=== PATIENT | male | born 1970 | race Caucasian/White ===

== ENCOUNTER 2016-10-20 22:29 | Emergency (ER) | payer OTHER ==
[2016-10-20 22:40] VITALS: TEMP 99; BMI 27.1
[2016-10-21 00:43] LABS: BASOPHIL 0.5 % (0-2.0); EOSINOPHIL 1.4 % (0-4.5); MCH 34.7 pg (25.7-33.7); MCHC 33.9 g/dl (32.0-35.9); MEAN CELL VOLUME 102.2 fl (80-96); MEAN PLT VOLUME 9.9 fl (7.5-11.1); NEUTROPHILS 75.8 % (42.8-82.8); PLATELET COUNT 41 K/MM3 (134-434); RDW 15.3 % (11.9-15.9); WHITE BLOOD COUNT 5.4 K/mm3 (4.0-10.0)
[2016-10-21 01:50] LABS: ALBUMIN 2.8 g/dl (3.4-5.0); ALK PHOS 160 U/L (45-117); ANION GAP 11 (8-16); BILIRUBIN,TOTAL 8.6 mg/dL (0.2-1.0); CALCIUM 8.1 mg/dL (8.5-10.1); CO2 24 mmol/L (21-32); COCKROFT - GAULT 118.43; GLUCOSE,RANDOM 113 mg/dL (74-106); SGOT/AST 97 U/L (15-37); SGPT/ALT 41 U/L (12-78); TOT PROT 7.3 g/dl (6.4-8.2)
[2016-10-21 02:01] LABS: TROPONIN I < 0.02 ng/ml (0.00-0.05)
--- NOTE | 2016-10-21 02:39 | PDOC ---
History of Present Illness <EscalanteMayelin - Last Filed: 10/21/16 03:55> - General History Source: Patient Exam Limitations: No Limitations - History of Present Illness Initial Comments: 10/21/16 03:12 46-year-old male with a history of liver cirrhosis presents to the emergency department complaining of left sided chest discomfort this evening which has subsided. Patient states his main concern is the stiffness and cramping to his feet: Left greater than right. Patient denies any headache, dizziness, lightheadedness, neck pain, back pain, shortness of breath, chest pain since arrival to the emergency department, flank pains, abdominal pains, extremity numbness or tingling sensation. Patient states due to his liver sclerosis, he was told that or decayed to his teeth should be extracted. Patient states he is very aware that he has electrolyte imbalance since he was told by numerous physicians. He was also informed that he will continue to have cramps to his feet and other parts of his body if he does not continue to eat the correct amount. Patient admits to eating once a day and denies eating fruits and vegetables. Timing/Duration: 4-6 hours Associated Symptoms: reports: chest pain (subsided) <Jazmyne Good - Last Filed: 10/21/16 05:51> - General Chief Complaint: Chest Pain Stated Complaint: CHEST PAIN Time Seen by Provider: 10/21/16 00:46 Past History <EscalanteMayelin - Last Filed: 10/21/16 03:55> - Past Medical History Anemia: Yes Asthma: No Cancer: No Cardiac Disorders: No CVA: No COPD: No CHF: No Dementia: No Diabetes: No GI Disorders: No Disorders: No HTN: Yes (portal hypertension) Hypercholesterolemia: No Liver Disease: Yes (ALCOHOLIC CIRRHOSIS OF LIVER, ESOPHAGEAL VARICES) Seizures: No Thyroid Disease: No - Surgical History Abdominal Surgery: No Appendectomy: No Cardiac Surgery: No Cholecystectomy: No Lung Surgery: No Neurologic Surgery: No Orthopedic Surgery: No - Immunization History Immunization Up to Date: No - Psycho/Social/Smoking Cessation Hx Anxiety: No Suicidal Ideation: No Smoking Status: No Smoking History: Never smoked Have you smoked in the past 12 months: No Number of Cigarettes Smoked Daily: 0 Hx Alcohol Use: Yes (Former) Drug/Substance Use Hx: No Substance Use Type: Alcohol Hx Substance Use Treatment: No <Jazmyne Good - Last Filed: 10/21/16 05:51> - Past Medical History Allergies/Adverse Reactions: Allergies Allergy/AdvReac Type Severity Reaction Status Date / Time No Known Allergies Allergy Verified 10/20/16 22:37 Home Medications: Ambulatory Orders Folic Acid - 1 mg PO DAILY #0 tablet 12/15/13 Nadolol [Corgard -] 40 mg PO HS #0 tablet 12/15/13 Thiamine HCl [Vitamin B1 -] 100 mg PO DAILY #0 tablet 12/15/13 Ferrous Sulfate [Ferosul] 300 mg PO DAILY 12/21/13 Ondansetron HCl [Zofran] 4 mg PO ASDIR 12/21/13 Ursodiol 500 mg PO BID 12/21/13 Amoxicillin/Potassium Clav [Augmentin 875-125 Tablet] 1 each PO Q12HR #14 tablet 12/24/13 Pantoprazole Sodium [Protonix -] 40 mg PO DAILY #30 tablet.ec 12/24/13 Review of Systems - Review of Systems Able to Perform ROS?: Yes Comments:: 10/21/16 04:49 CONSTITUTIONAL: Absent: fever, chills, diaphoresis, generalized weakness, malaise, loss of appetite HEENT: Absent: rhinorrhea, nasal congestion, throat pain, throat swelling, difficulty swallowing, mouth swelling, ear pain, eye pain, visual Changes CARDIOVASCULAR: Absent: chest pain, loss of consciousness, palpitations, irregular heart rate, peripheral edema RESPIRATORY: Absent: cough, shortness of breath, dyspnea with exertion, orthopnea, wheezing, stridor, hemoptysis GASTROINTESTINAL: Absent: abdominal pain, abdominal distension, nausea, vomiting, diarrhea, constipation, melena, hematochezia GENITOURINARY: Absent: dysuria, frequency, urgency, hesitancy, hematuria, flank pain, genital pain MUSCULOSKELETAL: L>R foot; intermittent lateral sharp discomfort Absent: myalgia, arthralgia, joint swelling SKIN: Absent: rash, itching, pallor HEMATOLOGIC/IMMUNOLOGIC: Absent: easy bleeding, easy bruising, lymphadenopathy, frequent infections ENDOCRINE: Absent: unexplained weight gain, unexplained weight loss, heat intolerance, cold intolerance NEUROLOGIC: Absent: headache, focal weakness or paresthesias, dizziness, unsteady gait, seizure, mental status changes, bladder or bowel incontinence PSYCHIATRIC: Absent: anxiety, depression, suicidal or homicidal ideation, hallucinations. Is the patient limited [place] proficient: No <Jazmyne Good - Last Filed: 10/21/16 05:51> *Physical Exam - Vital Signs Last Vital Signs Temp Pulse Resp BP Pulse Ox 99 F 90 18 135/84 100 10/20/16 22:38 10/20/16 22:38 10/20/16 22:38 10/20/16 22:38 10/20/16 22:38 <Mayelin Escalante - Last Filed: 10/21/16 03:55> - Vital Signs Last Vital Signs Temp Pulse Resp BP Pulse Ox 99 F 90 18 135/84 100 10/20/16 22:38 10/20/16 22:38 10/20/16 22:38 10/20/16 22:38 10/20/16 22:38 - Physical Exam Comments: 10/21/16 04:49 GENERAL: Well developed, well nourished. Awake and alert. No acute distress. HEENT: Normocephalic, atraumatic. PERRLA, EOMI. No conjunctival pallor. Sclera are non- icteric. Moist mucous membranes. Oropharynx is clear. NECK: Supple. Full ROM. No JVD. Carotid pulses 2+ and symmetric, without bruits. No thyromegaly. No lymphadenopathy. CARDIOVASCULAR: Regular rate and rhythm. No murmurs, rubs, or gallops. Distal pulses are 2+ and symmetric. PULMONARY: No evidence of respiratory distress. Lungs clear to auscultation bilaterally. No wheezing, rales or rhonchi. ABDOMINAL: Soft. Non-tender. Non-distended. No rebound or guarding. No organomegaly. Normoactive bowel sounds. MUSCULOSKELETAL Normal range of motion at all joints. No bony deformities or tenderness. No CVA tenderness. EXTREMITIES: No cyanosis. No clubbing. No edema. No calf tenderness. SKIN: Warm and dry. Normal capillary refill. No rashes. No jaundice. NEUROLOGICAL: Alert, awake, appropriate. Cranial nerves 2-12 intact. No deficits to light touch and temperature in face, upper extremities and lower extremities. No motor deficits in the in face, upper extremities and lower extremities. Normoreflexic in the upper and lower extremities. Normal speech. Toes are down- going bilaterally. Gait is normal without ataxia. PSYCHIATRIC: Cooperative. Good eye contact. Appropriate mood and affect. <Jazmyne Good - Last Filed: 10/21/16 05:51> ED Treatment Course - LABORATORY CBC & Chemistry Diagram: 10/21/16 00:34 10/21/16 00:34 - ADDITIONAL ORDERS Additional order review: Laboratory Results 10/21/16 10/21/16 10/21/16 00:34 00:34 00:30 Sodium 137 Potassium 3.6 Chloride 102 Carbon Dioxide 24 Anion Gap 11 BUN 17 D Creatinine 1.0 D Creat Clearance w eGFR > 60 Random Glucose 113 H Calcium 8.1 L Total Bilirubin 8.6 H D AST 97 H D ALT 41 D Alkaline Phosphatase 160 H Creatine Kinase Cancelled Creatine Kinase Index CK-MB (CK-2) CK-MB (CK-2) Rel Index Cancelled Troponin I Cancelled Total Protein 7.3 Albumin 2.8 L 10/21/16 00:30 Sodium Potassium Chloride Carbon Dioxide Anion Gap BUN Creatinine Creat Clearance w eGFR Random Glucose Calcium Total Bilirubin AST ALT Alkaline Phosphatase Creatine Kinase 231 Creatine Kinase Index 1.4 CK-MB (CK-2) 3.214 CK-MB (CK-2) Rel Index Troponin I < 0.02 Total Protein Albumin 10/21/16 00:34 RBC 3.50 L MCV 102.2 H MCHC 33.9 RDW 15.3 D MPV 9.9 D Neutrophils % 75.8 Lymphocytes % 8.2 D Monocytes % 14.1 H Eosinophils % 1.4 Basophils % 0.5 - Medications Given in the ED: ED Medications Discontinued Medications Generic Name Dose Route Start Last Admin Trade Name Freq PRN Reason Stop Dose Admin Magnesium Sulfate 2 gm 10/21/16 02:51 10/21/16 03:30 Magnesium Sulfate IVPB 10/21/16 02:52 2 gm ONCE ONE Administration Potassium Chloride 40 meq 10/21/16 02:51 10/21/16 03:30 K-Dur - PO 10/21/16 02:52 40 meq ONCE ONE Administration <Mayelin Escalante - Last Filed: 10/21/16 03:55> - LABORATORY CBC & Chemistry Diagram: 10/21/16 00:34 10/21/16 00:34 - ADDITIONAL ORDERS Additional order review: Laboratory Results 10/21/16 10/21/16 10/21/16 00:34 00:34 00:30 Sodium 137 Potassium 3.6 Chloride 102 Carbon Dioxide 24 Anion Gap 11 BUN 17 D Creatinine 1.0 D Creat Clearance w eGFR > 60 Random Glucose 113 H Calcium 8.1 L Total Bilirubin 8.6 H D AST 97 H D ALT 41 D Alkaline Phosphatase 160 H Creatine Kinase Cancelled 231 Troponin I Cancelled < 0.02 Total Protein 7.3 Albumin 2.8 L 10/21/16 00:34 RBC 3.50 L MCV 102.2 H MCHC 33.9 RDW 15.3 D MPV 9.9 D Neutrophils % 75.8 Lymphocytes % 8.2 D Monocytes % 14.1 H Eosinophils % 1.4 Basophils % 0.5 - RADIOLOGY Radiology Studies Ordered: Category Date Time Status CHEST PA & LAT [RAD] Stat Radiology 10/21/16 00:03 Taken <Jazmyne Good - Last Filed: 10/21/16 05:51> *DC/Admit/Observation/Transfer <Mayelin Escalante - Last Filed: 10/21/16 03:55> - Discharge Dispostion Admit: No <Jazmyne Good - Last Filed: 10/21/16 05:51> Diagnosis at time of Disposition: Foot pain, left, Foot abscess, right, Hypocalcemia, Electrolyte imbalance Chest pain Qualifiers: Chest pain type: other chest pain Qualified Code(s): R07.89 - Other chest pain - Discharge Dispostion Condition at time of disposition: Improved - Referrals Referrals: Nyla Bahena [Primary Care Provider] - - Patient Instructions Printed Discharge Instructions: DI for Hypocalcemia, DI for Atypical Chest Pain Progress Note - Progress Note Progress Note: Patient specifically instructed me not to speak to his regarding his condition. Patient's comes to the desk, inquiring about the patient's condition, blood work, assessment and plan. I informed the that she can ask her about his condition and symptoms. At that point, patient's came loud and boisterous. Pt threatened to talk to "your chief of all directors, you do not know who you are messing with". I spoke to the patient regarding his electrolyte imbalance, chronic liver sclerosis which is causing his liver enzymes and bilirubin numbers to be altered. Patient states he expects any blood work that deals with his liver to be altered. Patient is currently seeing a GI doctor and a liver specialist every 3 months. Patient says every 3 months, he has a CT of his abdomen and pelvis with IV contrast. His last CT was 3 weeks ago. He was informed that there are 3 "spots " measuring approximately 2 cm. He was also informed that nothing invasive will be done. Patient's later calms to the patient's bedside and informs me that she "will kick my ass" because I will not discuss her 's condition with her. Patient's stormed out of the emergency department and insists that I "be fired from the chief of all directors". I tried explaining to the patient that due to Hippa, I cannot discuss her 's condition with her. Dr. Fermin Escalante/ED attending) and I spoke to the Pt regarding the necessity of daily proper eating. <Jazmyne Good - Last Filed: 10/21/16 05:51>
[2016-10-21] MEDS ORDERED: POTASSIUM CHLORIDE TABS 20 MEQ TABLET.ER (FP) PO ONE ×2 (02:51→03:10)
[2016-10-21] MEDS ORDERED: MAGNESIUM SULF 50% (8.12 MEQ/2 ML-1 GM VIAL) IVPB ONE (02:51)
[2016-10-21] MEDS ORDERED: CALCIUM CARBONATE 650 MG TABLET PO ONE (03:56)
[2016-10-21] MEDS ORDERED: CALCIUM CARBONATE SUSPENSION - 500 MG/5 ML ML PO SCH (10:00)
--- NOTE | 2016-10-28 19:22 | EKG ---
Test Reason : Blood Pressure : / mmHG Vent. Rate : 079 BPM Atrial Rate : 079 BPM P-R Int : 192 ms QRS Dur : 102 ms QT Int : 412 ms P-R-T Axes : 033 -22 -11 degrees QTc Int : 472 ms NORMAL SINUS RHYTHM VOLTAGE CRITERIA FOR LEFT VENTRICULAR HYPERTROPHY PROLONGED QT ABNORMAL ECG WHEN COMPARED WITH ECG OF 15-DEC-2013 05:07, T WAVE INVERSION MORE EVIDENT IN ANTERIOR LEADS Confirmed by AKILAH BUTTS, ANDREW ([id number]) on 10/28/2016 7:21:52 PM Referred By: Confirmed By:ANDREW ISBELL MD
== END 2016-10-21 06:41 | disposition home or self-care (01) ==
LOC: JER 22:29
PROC: 3E033GC Introduction of Other Therapeutic Substance into Peripheral Vein, Percutaneous Approach (ICD-10-PCS; principal; 2016-10-20)
DX: R07.89 Other chest pain (principal); E87.8 Other disorders of electrolyte and fluid balance, not elsewhere classified; E83.51 Hypocalcemia; I10 Essential (primary) hypertension; K70.30 Alcoholic cirrhosis of liver without ascites; K76.6 Portal hypertension; I85.10 Secondary esophageal varices without bleeding
CPT/HCPCS: 36415; 71020-TC; 80053; 82550; 82553; 84484; 85025; 93005; 93010; 96374; 99283-25

== ENCOUNTER 2016-11-29 07:30 | Inpatient (IN) | payer OTHER ==
--- NOTE | 2016-11-29 08:34 | PDOC ---
History of Present Illness - General History Source: Patient Exam Limitations: No Limitations - History of Present Illness Initial Comments: CHIEF COMPLAINT: 46 y/o afebrile, tachycardic male with PMH cirrhosis c/o abdominal distention and pain, vomiting and diarrhea for the past 3 days. HISTORY OF PRESENT ILLNESS: The patient states his symptoms have been present since Sunday. He also admits to urinating blood since then. He states he cannot eat or drink anything without vomiting and his diarrhea is all water. He states he did have to have his abdomen drained about 4 years ago. He denies f/c, ROUSE, dizziness, neck pain, CP, SOB, back pain, dysuria. Vital signs on arrival are notable for pulse of 109. PCP [address] Dr. Bahena GI is Dr. Acosta. Liver specialist is at [facility]. REVIEW OF SYSTEMS: GENERAL/CONSTITUTIONAL: No fever/chills. No weakness. No weight change. HEAD, EYES, EARS, NOSE AND THROAT: No change in vision. No ear pain or discharge. No sore throat. CARDIOVASCULAR: No chest pain or shortness of breath. RESPIRATORY: No cough, wheezing, or hemoptysis. GASTROINTESTINAL: +abdominal pain, abdominal distention, nausea, vomiting, watery diarrhea. GENITOURINARY: +hematuria. No dysuria or frequency. MUSCULOSKELETAL: No joint or muscle swelling or pain. No neck or back pain. SKIN: No rash or easy bruising. NEUROLOGIC: No headache, vertigo, loss of consciousness, or loss of sensation. PHYSICAL EXAM: GENERAL: The patient is awake, alert, and fully oriented, in no acute distress. He is ambulatory. HEAD: Normal with no signs of trauma. NECK: No neck tenderness. Full ROM of cervical spine without pain. ENT: Pupils equal, round and reactive to light, extraocular movements intact, scleral icterus, conjunctiva clear. Mucous membranes mildly dry. LUNGS: Clear to auscultation bilaterally. Normal excursion. No respiratory distress or use of accessory muscles. CV: RRR, S1/S2, no MRG. Cap refill < 2 sec. ABDOMEN: Soft, moderately distended. TTP of epigastric, LLQ and umbilical region. Negative Davis's sign. No rebound, guarding or rigidity. Hyperactive BS in lower quadrants. BACK: No CVA TTP b/l. EXTREMITIES: Normal range of motion, no edema. NEUROLOGICAL: Normal speech, normal gait. CN II-XII grossly intact. PSYCH: Normal mood, normal affect. SKIN: +jaundice. Area of ecchymosis to right middle abdomen that patient admits has been present for 1 week, questionable for +angel's sign. 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 <Babita Jarvis - Last Filed: 11/29/16 13:17> <Polly Aguilar - Last Filed: 11/29/16 23:18> - General Chief Complaint: Pain Stated Complaint: ABD PAIN, VOMITING Time Seen by Provider: 11/29/16 08:21 Past History - Past Medical History Anemia: Yes Asthma: No Cancer: No Cardiac Disorders: No CVA: No COPD: No CHF: No Dementia: No Diabetes: No GI Disorders: No Disorders: No HTN: Yes (portal hypertension) Hypercholesterolemia: No Liver Disease: Yes (ALCOHOLIC CIRRHOSIS OF LIVER, ESOPHAGEAL VARICES) Seizures: No Thyroid Disease: No - Surgical History Abdominal Surgery: No Appendectomy: No Cardiac Surgery: No Cholecystectomy: No Lung Surgery: No Neurologic Surgery: No Orthopedic Surgery: No - Immunization History Immunization Up to Date: No - Psycho/Social/Smoking Cessation Hx Anxiety: No Suicidal Ideation: No Smoking Status: No Smoking History: Never smoked Have you smoked in the past 12 months: No Number of Cigarettes Smoked Daily: 0 Hx Alcohol Use: No (FORMER) Drug/Substance Use Hx: No Substance Use Type: None Hx Substance Use Treatment: No <Babita Jarvis - Last Filed: 11/29/16 13:17> <Polly Aguilar - Last Filed: 11/29/16 23:18> - Past Medical History Allergies/Adverse Reactions: Allergies Allergy/AdvReac Type Severity Reaction Status Date / Time No Known Allergies Allergy Verified 11/29/16 07:37 Home Medications: Ambulatory Orders NK [No Known Home Medication] 10/21/16 *Physical Exam - Vital Signs Last Vital Signs Temp Pulse Resp BP Pulse Ox 99.3 F 109 H 20 150/101 98 11/29/16 07:34 11/29/16 07:34 11/29/16 07:34 11/29/16 07:34 11/29/16 07:34 <Babita Jarvis - Last Filed: 11/29/16 13:17> - Vital Signs Last Vital Signs Temp Pulse Resp BP Pulse Ox 98.5 F 92 H 20 127/85 98 11/29/16 16:39 11/29/16 16:39 11/29/16 16:39 11/29/16 16:39 11/29/16 16:39 <Polly Aguilar - Last Filed: 11/29/16 23:18> ED Treatment Course - LABORATORY CBC & Chemistry Diagram: 11/29/16 08:53 11/29/16 08:53 <Babita Jarvis - Last Filed: 11/29/16 13:17> - LABORATORY CBC & Chemistry Diagram: 11/29/16 08:53 11/29/16 08:53 - ADDITIONAL ORDERS Additional order review: Laboratory Results 11/29/16 08:53 Urine Color [place] Urine Appearance Clear Urine pH 5.0 Ur Specific [place] 1.025 Urine Protein 2+ H Urine Glucose (UA) Negative Urine Ketones Negative Urine Blood 3+ H Urine Nitrite Negative Urine Bilirubin 4.0 Urine Urobilinogen 4.0 e.u/dl Ur Leukocyte Esterase Negative Urine RBC 296 Urine WBC 6 Urine Mucus Many 11/29/16 08:53 RBC 2.71 L D MCV 101.1 H MCHC 35.7 RDW 16.1 H MPV 8.6 D Neutrophils % 83.9 H Lymphocytes % 6.9 L Monocytes % 7.4 Eosinophils % 1.3 Basophils % 0.5 - Medications Given in the ED: ED Medications Discontinued Medications Generic Name Dose Route Start Last Admin Trade Name Freq PRN Reason Stop Dose Admin Sodium Chloride 1,000 mls @ 1,000 mls/hr 11/29/16 10:32 11/29/16 10:47 Normal Saline - IV 11/29/16 11:31 1,000 mls/hr ASDIR STA Administration Ondansetron HCl 4 mg 11/29/16 10:26 11/29/16 10:31 Zofran Injection IVPUSH 11/29/16 10:27 4 mg ONCE ONE Administration Pneumococcal 13-Valent Conj Vacc 0.5 ml 11/29/16 16:57 11/29/16 18:13 Prevnar 13 Syringe - IM 11/29/16 16:58 Not Given .ONCE ONE <Polly Aguilar - Last Filed: 11/29/16 23:18> Medical Decision Making - Medical Decision Making A/P: 46 y/o afebrile male with PMH cirrhosis of the liver c/o abd distention, vomiting, diarrhea and bloody urine x 3 days. The patient is jaundiced. Plan is as follows: 1. labs 2. UA/culture 3. CT scan abd/pelvis 4. IV fluids 5. IV zofran CT scan abd/pelvis IMPRESSION: Diffuse abdominal and pelvic ascites with no signs of free air and no evidence of bowel obstruction. No signs of loculation or abscess, no loculated collections identified. Cirrhotic liver with portal hypertension and splenomegaly with splenorenal shunting and retroperitoneal varicosities. No evidence of abnormality of pancreas or biliary dilation. Laboratory Tests 11/29/16 11/29/16 11/29/16 08:53 08:53 08:53 RBC 2.71 L D Hgb 9.8 L D Hct 27.4 L D MCV 101.1 H Neutrophils % 83.9 H Lymphocytes % 6.9 L INR 2.04 H D PTT (Actin FS) 34.9 H Sodium Potassium Chloride Carbon Dioxide Lactic Acid Calcium Total Bilirubin Direct Bilirubin AST [place] LD Total Creatine Kinase Troponin I Urine Protein 2+ H Urine Glucose (UA) Negative Urine Ketones Negative Urine Blood 3+ H 11/29/16 11/29/16 11/29/16 08:53 08:53 08:53 RBC Hgb Hct MCV Neutrophils % Lymphocytes % INR PTT (Actin FS) Sodium 137 Potassium 3.7 Chloride 103 Carbon Dioxide 23 Lactic Acid 2.5 H* Calcium 8.0 L Total Bilirubin 7.2 H Direct Bilirubin 3.7 H D AST 53 H D [place] 45.59 H LD Total 244 H Creatine Kinase 63 Troponin I < 0.02 Urine Protein Urine Glucose (UA) Urine Ketones Urine Blood Spoke with Dr. Winn who admits for Dr. Bahena. He accepts admission and would like Dr. Acosta and Dr. Ruiz consulted. Spoke with Dr. Ruiz's office. Patient's INR is too high and Platelets too low for tap today. He will consult with the patient tomorrow. <Babita Jarvis - Last Filed: 11/29/16 13:17> *DC/Admit/Observation/Transfer - Discharge Dispostion Admit: Yes <Babita Jarvis - Last Filed: 11/29/16 13:17> - Attestations Physician Attestion: I reviewed the case with the mid-level practitioner and agree with the mid- level practitioner's assessment, diagnosis and disposition. <Polly Aguilar - Last Filed: 11/29/16 23:18> Diagnosis at time of Disposition: Ascites due to alcoholic cirrhosis, Vomiting and diarrhea, Elevated bilirubin, Elevated liver enzymes Abdominal pain Qualifiers: Abdominal location: generalized Qualified Code(s): R10.84 - Generalized abdominal pain - Discharge Dispostion Condition at time of disposition: Stable - Referrals
[2016-11-29 09:38] LABS: BASOPHIL 0.5 % (0-2.0); EOSINOPHIL 1.3 % (0-4.5); MCH 36.1 pg (25.7-33.7); MCHC 35.7 g/dl (32.0-35.9); MEAN CELL VOLUME 101.1 fl (80-96); MEAN PLT VOLUME 8.6 fl (7.5-11.1); NEUTROPHILS 83.9 % (42.8-82.8); PLATELET COUNT 43 K/MM3 (134-434); RDW 16.1 % (11.9-15.9)
[2016-11-29 09:39] LABS: URINE APPEARANCE CLEAR; URINE BLOOD 3+ (NEGATIVE); URINE COLOR AMBER; URINE GLUCOSE (UA) NEGATIVE (NEGATIVE); URINE KETONE NEGATIVE (NEGATIVE); URINE LEUK ESTERASE NEGATIVE (NEGATIVE); URINE NITRITE NEGATIVE (NEGATIVE); URINE PROTEIN 2+ (NEGATIVE); URINE UROBILINOGEN 4.0 E.U/dl E.U./dl (0.2-1.0)
[2016-11-29 09:42] LABS: URINE MUCUS MANY; URINE RBC 296 /hpf (0-3); URINE WBC 6 /hpf (3-5)
[2016-11-29 10:00] LABS: ALBUMIN 2.2 g/dl (3.4-5.0); ANION GAP 11 (8-16); BILIRUBIN,DIRECT 3.7 mg/dL (0.0-0.2); BILIRUBIN,TOTAL 7.2 mg/dL (0.2-1.0); CO2 23 mmol/L (21-32); CREATININE 0.7 mg/dL (0.7-1.3); GLUCOSE,RANDOM 91 mg/dL (74-106); LDH 244 U/L (87-241); SGOT/AST 53 U/L (15-37); SGPT/ALT 22 U/L (12-78)
[2016-11-29 10:04] LABS: ALK PHOS 92 U/L (45-117); TROPONIN I < 0.02 ng/ml (0.00-0.05)
[2016-11-29 10:16] LABS: INR 2.04 (0.82-1.09); PROTHROMBIN TIME (PATIENT) 22.8 SEC (9.98-11.88)
[2016-11-29 10:19] LABS: ACTIVATED PTT 34.9 SECONDS (26.9-34.4)
[2016-11-29] MEDS ORDERED: ONDANSETRON 4 MG/2 ML VIAL IVPUSH ONE (10:26)
[2016-11-29] MEDS ORDERED: ONDANSETRON 4 MG/2 ML VIAL ONE (10:31)
[2016-11-29] MEDS ORDERED: SODIUM CHLORIDE 1,000 ML IV STA (10:32)
[2016-11-29] MEDS ORDERED: ONDANSETRON 4 MG/2 ML VIAL IVPB PRN (15:56)
[2016-11-29] MEDS ORDERED: LACTULOSE 20 GM/30 ML UDC (FOR ORAL USE ONLY) PO PRN (15:57)
--- NOTE | 2016-11-29 16:44 | CON.GI ---
Consult Consult Specialty:: Gastroenterology Reason for Consultation:: Abdominal Pain, Ascities, due to alcoholic cirrhosis, vomiting and diarrhea - History of Present Illness Chief Complaint: 46 year male, afebrile male with PMH alcoholic cirrhosis of liver, esophageal varices c/o abdominal pain nausea, vomiting, and diarrhea x 3 days History of Present Illness: The patient states that his symptoms have been present since Sunday11/26/2016. This has happened before but was self limiting within a 24 hour period, usually triggered by drinking alcohol. He denies any drinks since 3 months ago. He states that he cannot tolerate eating or drinking without vomiting yellow- green emesis and non bloody watery stools. This is associated with non radiating abdominal pain 10/10, located over the entire abdomen that is aggravated by turning from side to side or tilting neck forward. His abdominal girth has increased significantly to the point that he is unable to button his pants. States that he has MRI surveillance every 3 months by his liver specialist at [facility]. He states that he had a paracentesis w/ removal of aprx 6 L of fluid done a few years prior that gave him significant relief of his current symptoms. - History Source History Provided By: Patient Limitations to Obtaining History: No Limitations - Past Medical History Gastrointestinal: Yes: Ascites, Esophageal Varices. No: Cancer, Constipation, Crohn's Disease, Diverticulitis, Diverticulosis, Gastritis, GERD, GI Bleed ( variceal in past, s/p banding and on nadalol), Hemorrhoids, Hiatal Hernia, Inflamatory Bowel Disease, Irritable Bowel Disease, Pancreatitis, Peptic Ulcer Disease, Ulcerative Colitis, Other Hepatobiliary: Yes: Cirrhosis (varices, ascites), Cholelithiasis. No: Cholecystitis, Choledocholithiasis, Hepatitis A, Hepatitis B, Hepatitis C, Other Renal/: Yes: Hematuria, Other (bladder cyst). No: Renal Failure, Renal Inusuff, BPH, Cancer, Hemodialysis, Neurogenic Bladder, Renal Calculi, UTI Psych: Yes: Addictions (ETOH) - Past Surgical History Past Surgical History: Yes: Upper Endoscopy (egd + band ligation of esophageal varices 05/2013). No: None, Stent - Alcohol/Substance Use Hx Alcohol Use: No (FORMER) - Smoking History Smoking history: Never smoked Have you smoked in the past 12 months: No Aproximately how many cigarettes per day: 0 - Social History Usual Living Arrangement: With Spouse Home Medications - Allergies Allergies/Adverse Reactions: Allergies Allergy/AdvReac Type Severity Reaction Status Date / Time No Known Allergies Allergy Verified 11/29/16 07:37 - Home Medications Home Medications: Ambulatory Orders NK [No Known Home Medication] 10/21/16 Family Disease History - Family Disease History Family History: Denies Review of Systems - Review of Systems Constitutional: reports: Loss of Appetite (Can tolerate one small meal per day with richa zain). denies: No Symptoms, Chills, Diaphoresis, Fever, Lethargy, Malaise, Night Sweats, Other Eyes: denies: No Symptoms Cardiovascular: denies: No Symptoms, Chest Pain, Edema, Palpitations, Shortness of Breath, Other Gastrointestinal: reports: Abdominal Pain, Diarrhea, Nausea, Vomiting. denies: No Symptoms, Bloating, Constipation, Dysphagia, Melena, Rectal Bleeding, Vomiting Blood, Other Genitourinary: reports: Hematuria. denies: No Symptoms, Burning, Dysuria, Flank Pain, Frequency, Incontinence, Urgency Integumentary: reports: Change in Color (Jaundiced). denies: No Symptoms, Bruising, Pruritis, Rash (erythematous rash to abdomen present for 1 week.) Neurological: denies: No Symptoms, Change in LOC, Change in Speech, Confusion, Dizziness, Headache, Incoordination, Tremors, Other Endocrine: reports: Unexplained Weight Gain. denies: No Symptoms, Excessive Sweating, Intolerance to Cold, Intolerance to Heat, Unexplained Weight Loss, Other Hematology/Lymphatic: denies: No Symptoms, Easily Bruised, Excessive Bleeding, Swollen Glands, Other Psychiatric: reports: Hallucinations. denies: No Symptoms Physical Exam-GI Vital Signs: Vital Signs Temperature 99.3 F 11/29/16 07:34 Pulse Rate 72 11/29/16 10:42 Respiratory Rate 20 11/29/16 10:42 Blood Pressure 105/58 11/29/16 10:42 O2 Sat by Pulse Oximetry (%) 100 11/29/16 10:42 Constitutional: Yes: Well Nourished, No Distress, Anxious, Ashen, Diaphoresis, Mild Distress, Severe Distress. No: Calm, Cachectic, Other Eyes: Yes: Sclera Icterus HENT: Yes: WNL, Atraumatic, Normocephalic. No: Epistaxis, Other Neck: Yes: WNL, Supple, Trachea Midline, Thyromegaly. No: Lymphadenopathy Cardiovascular: Yes: WNL Respiratory: Yes: WNL Gastrointestinal Inspection: Yes: Ascites, Distention, Other ...Palpate: Yes: Firm/Rigid, Splenomegaly, Tenderness (negative man's sign). No: Guarding, Hepatomegaly, Mass, Pulsatile Mass, Tenderness, Epigastium, Tenderness, Rebound, Other ...Percussion: Yes: Dullness, Fluid Wave (minimal) Edema: No Peripheral Pulses WNL: Yes Integumentary: Yes: WNL, Erythema, Jaundice, Rash (erythematous patch aproximately 5cm x 2 cm to right lateral umbilicus.) Labs: INR, PTT INR 2.04 (0.82-1.09) H D 11/29/16 08:53 Imaging - Results Cat Scan: Report Reviewed Problem List - Problems (1) Abdominal pain Assessment/Plan: His symptoms are likely due to spontaneous bacterial peritonitis, needs diagnostic paracentesis, and antibiotics. Start Ceftriazone 2 gm IV daily. Code(s): R10.9 - UNSPECIFIED ABDOMINAL PAIN Qualifiers: Abdominal location: generalized Qualified Code(s): R10.84 - Generalized abdominal pain (2) Ascites due to alcoholic cirrhosis Assessment/Plan: Patient was removed from liver transplant list due to relapse of alcohol use in 06/2016. He is being monitored every [address] [facility] Hepatology. Code(s): K70.31 - ALCOHOLIC CIRRHOSIS OF LIVER WITH ASCITES (3) Elevated bilirubin Assessment/Plan: Unspecified jaundice Code(s): R17 - UNSPECIFIED JAUNDICE Assessment/Plan 46 year old male with PMH of alcoholic cirrhosis of the liver with worsening abdominal pain, ascites, anorexia, vomiting and diarrhea. The patient is jaundiced. The plan is as follows: paracentesis stat Send the following labs on peritoneal fluids: AFB gram stain albumin protein amylase, glucose cell count w/differential LDH Total protein, triglyceride, Serum alcohol level Start Ceftriaxone 2 grams q 24 hrs
[2016-11-29] MEDS ORDERED: PNEUMOC 13-VAL CONJ-DIP CRM/PF 0.5 ML DISP.SYRIN IM ONE (16:57)
[2016-11-29 16:58] VITALS: BMI 28.6
[2016-11-29] MEDS: PANTOPRAZOLE 40 MG TABLET (FP) PO SCH (17:11)
[2016-11-29] MEDS: THIAMINE HCL 100 MG TABLET (FP) PO SCH (17:12)
--- NOTE | 2016-11-29 17:28 | CONSULT ---
Consult Consult Specialty:: infectious diseases Reason for Consultation:: abd pain - History of Present Illness Chief Complaint: abd pain History of Present Illness: 46 y/o male with alcoholic cirrhosis complicated with ascites, and esophageal varices, admitted with nausea, vomiting, increasing abdominal girth, diffuse, non radiating, dull abdominal pain which worsens with movement and loose stools , patient started having pain since couple of days but the pain has increased since last 3 days and have increased That is why the patient came to the hospital . Prior EGD: band ligation of esophageal varices 05/2013 patient is on transplant list patient last drink was 3 months back and is waiting the period of 6 months currently has pain in the abdomen denies fever - History Source History Provided By: Patient Limitations to Obtaining History: No Limitations - Past Medical History Gastrointestinal: Yes: Ascites, Esophageal Varices. No: Cancer, Constipation, Crohn's Disease, Diverticulitis, Diverticulosis, Gastritis, GERD, GI Bleed ( variceal in past, s/p banding and on nadalol), Hemorrhoids, Hiatal Hernia, Inflamatory Bowel Disease, Irritable Bowel Disease, Pancreatitis, Peptic Ulcer Disease, Ulcerative Colitis, Other Hepatobiliary: Yes: Cirrhosis (varices, ascites), Cholelithiasis. No: Cholecystitis, Choledocholithiasis, Hepatitis A, Hepatitis B, Hepatitis C, Other Renal/: Yes: Hematuria, Other (bladder cyst). No: Renal Failure, Renal Inusuff, BPH, Cancer, Hemodialysis, Neurogenic Bladder, Renal Calculi, UTI Psych: Yes: Addictions - Past Surgical History Past Surgical History: Yes: Upper Endoscopy (egd + band ligation of esophageal varices 05/2013). No: None, AAA Repair, AICD, Amputation, Appendectomy, Arthrosocopy, AV Fistula/Graft, Bariatric Surgery, Breast Biopsy, Bypass, CABG, Carotid Endarterectomy, Cataract Removal, Cholecystectomy, Colectomy, Colonoscopy, Colostomy, Craniotomy, , Cystectomy, Hernia Repair, Hysterectomy, Ileal Conduit, Ileosotomy, Joint Replacement, Kidney Transplant, Laminectomy, Liver Transplant, Mastectomy, Nephrectomy, Oopherectomy, Orchiectomy, Permanent Pacemaker, Prostatectomy, Splenectomy, Stent, Thoracotomy , TURP, Tonsillectomy, Tubal Ligation, Valve Replacement, Vasectomy, Vein Stripping/Ligation - Alcohol/Substance Use Hx Alcohol Use: No (FORMER) - Smoking History Smoking history: Never smoked Have you smoked in the past 12 months: No Aproximately how many cigarettes per day: 0 - Social History Usual Living Arrangement: With Spouse Home Medications - Allergies Allergies/Adverse Reactions: Allergies Allergy/AdvReac Type Severity Reaction Status Date / Time No Known Allergies Allergy Verified 11/29/16 07:37 - Home Medications Home Medications: Ambulatory Orders NK [No Known Home Medication] 10/21/16 Review of Systems - Review of Systems Constitutional: reports: No Symptoms Eyes: reports: No Symptoms HENT: reports: No Symptoms Neck: reports: No Symptoms Cardiovascular: reports: No Symptoms Respiratory: reports: No Symptoms Gastrointestinal: reports: Abdominal Pain, Diarrhea, Other (distension) Musculoskeletal: reports: No Symptoms Integumentary: reports: No Symptoms Neurological: reports: No Symptoms Endocrine: reports: No Symptoms Hematology/Lymphatic: reports: No Symptoms Psychiatric: reports: No Symptoms Physical Exam Vital Signs: Vital Signs Temperature 98.5 F 11/29/16 16:39 Pulse Rate 92 H 11/29/16 16:39 Respiratory Rate 20 11/29/16 16:39 Blood Pressure 127/85 11/29/16 16:39 O2 Sat by Pulse Oximetry (%) 98 11/29/16 16:39 Constitutional: Yes: Calm, Mild Distress Eyes: Yes: Sclera Icterus HENT: Yes: Atraumatic, Normocephalic Neck: Yes: Supple, Trachea Midline Cardiovascular: Yes: Regular Rate and Rhythm Respiratory: Yes: Regular, Poor Air Entry (at the bases) Gastrointestinal: Yes: Ascites, Distention, Tenderness Musculoskeletal: Yes: WNL Extremities: Yes: WNL Neurological: Yes: Alert, Oriented Psychiatric: Yes: Alert, Oriented Assessment/Plan Problem List - Problems (1) Abdominal pain Code(s): R10.9 - UNSPECIFIED ABDOMINAL PAIN Qualifiers: Abdominal location: generalized Qualified Code(s): R10.84 - Generalized abdominal pain (2) Ascites due to alcoholic cirrhosis Code(s): K70.31 - ALCOHOLIC CIRRHOSIS OF LIVER WITH ASCITES (3) Elevated bilirubin Code(s): R17 - UNSPECIFIED JAUNDICE (4) Elevated liver enzymes Code(s): R74.8 - ABNORMAL LEVELS OF OTHER SERUM ENZYMES (5) Vomiting and diarrhea Code(s): R11.10 - VOMITING, UNSPECIFIED R19.7 - DIARRHEA, UNSPECIFIED looking at the patient i think his symptoms are due to sbp plan will start on cefotaxime needs paracentesis rest continue as per gi and primary
[2016-11-29] MEDS ORDERED: DEXTROSE 5% IVPB SCH (18:00)
[2016-11-29] MEDS ORDERED: WATER IVPB SCH (18:00)
[2016-11-29] MEDS ORDERED: CEFOTAXIME SODIUM IVPB SCH (18:00)
[2016-11-29] MEDS: CEFEPIME 1 GM/100 ML BAG PRE-DOCKED IVPB SCH (18:13)
--- NOTE | 2016-11-29 21:06 | CON.GI ---
Consult Consult Specialty:: Gastroenterology Referred by:: Damon Flanagan Reason for Consultation:: Nausea, vomiting, increasing abdominal girth, abdominal pain/discomfort - History of Present Illness Chief Complaint: Nausea, vomiting, abdominal distension, abdominal pain History of Present Illness: 46 y/o male with alcoholic cirrhosis complicated with ascites, and esophageal varices, admitted with nausea, vomiting, increasing abdominal girth, diffuse, non radiating, dull abdominal pain which worsens with movement and loose stools , Symptoms have progressively worsened since the last 3 days. Patient reports regular follow up with the transplant service at [facility], he has multifocal liver lesions which have been stable, and he is awaiting his 6 month period of abstinence before he is placed on the transplant list. Denies fever/chills, ROUSE, dizziness, neck pain, CP, SOB, back pain, dysuria, does report hematuria. No recent EGD and colonoscopy. Prior EGD: band ligation of esophageal varices - History Source History Provided By: Patient - Past Medical History Gastrointestinal: Yes: Ascites, Esophageal Varices. No: Cancer, Constipation, Crohn's Disease, Diverticulitis, Diverticulosis, Gastritis, GERD, GI Bleed ( variceal in past, s/p banding and on nadalol), Hemorrhoids, Hiatal Hernia, Inflamatory Bowel Disease, Irritable Bowel Disease, Pancreatitis, Peptic Ulcer Disease, Ulcerative Colitis, Other Hepatobiliary: Yes: Cirrhosis (varices, ascites), Cholelithiasis. No: Cholecystitis, Choledocholithiasis, Hepatitis A, Hepatitis B, Hepatitis C, Other Renal/: Yes: Hematuria, Other (bladder cyst). No: Renal Failure, Renal Inusuff, BPH, Cancer, Hemodialysis, Neurogenic Bladder, Renal Calculi, UTI Heme/Onc: Yes: Bleeding Disorder, Thrombocytopenia Psych: Yes: Addictions - Past Surgical History Past Surgical History: Yes: Upper Endoscopy (egd + band ligation of esophageal varices 05/2013). No: None, Stent - Alcohol/Substance Use Hx Alcohol Use: No (FORMER, quit 3-4 months ago) - Smoking History Smoking history: Never smoked Have you smoked in the past 12 months: No Aproximately how many cigarettes per day: 0 - Social History Usual Living Arrangement: With Spouse Home Medications - Allergies Allergies/Adverse Reactions: Allergies Allergy/AdvReac Type Severity Reaction Status Date / Time No Known Allergies Allergy Verified 11/29/16 07:37 - Home Medications Home Medications: Ambulatory Orders NK [No Known Home Medication] 10/21/16 Family Disease History - Family Disease History Family History: Denies Review of Systems - Review of Systems Constitutional: reports: Lethargy, Loss of Appetite, Malaise, Weakness Eyes: reports: No Symptoms HENT: reports: No Symptoms Neck: reports: No Symptoms Cardiovascular: reports: No Symptoms Respiratory: reports: No Symptoms Gastrointestinal: reports: Abdominal Pain, Diarrhea, Nausea, Vomiting Genitourinary: reports: Hematuria Hematology/Lymphatic: reports: Easily Bruised Physical Exam-GI Vital Signs: Vital Signs Temperature 98.5 F 11/29/16 16:39 Pulse Rate 92 H 11/29/16 16:39 Respiratory Rate 20 11/29/16 16:39 Blood Pressure 127/85 11/29/16 16:39 O2 Sat by Pulse Oximetry (%) 98 11/29/16 16:39 Constitutional: Yes: No Distress Eyes: Yes: Sclera Icterus Neck: Yes: WNL, Trachea Midline Cardiovascular: Yes: WNL, Regular Rate and Rhythm Respiratory: Yes: WNL, Regular, CTA Bilaterally Gastrointestinal Inspection: Yes: Ascites, Distention ...Auscultate: Yes: Normoactive Bowel Sounds ...Palpate: Yes: Soft ...Percussion: Yes: Dullness, Fluid Wave ...Rectal Exam: Yes: Deferred Extremities: Yes: WNL Edema: No Peripheral Pulses WNL: Yes Integumentary: Yes: Jaundice Neurological: Yes: Alert, Oriented Psychiatric: Yes: Alert, Oriented Labs: INR, PTT INR 2.04 (0.82-1.09) H D 11/29/16 08:53 Imaging - Results Cat Scan: Report Reviewed Problem List - Problems (1) Abdominal pain Assessment/Plan: Symptoms likely due to spontaneous bacterial peritonitis, needs diagnostic paracentesis, and antibiotics. Start Ceftriazone 2 gm IV daily. Consider giving albumin 25 gm, 25 ml post paracentesis q 8 hourly to decrease possible hepatorenal syndrome Code(s): R10.9 - UNSPECIFIED ABDOMINAL PAIN Qualifiers: Abdominal location: generalized Qualified Code(s): R10.84 - Generalized abdominal pain (2) Ascites due to alcoholic cirrhosis Assessment/Plan: Patient being followed at [facility] to be placed on the transplant list, awaiting 6 months of sobriety. To consider adding lasix and aldactone once abdominal pain and SBP treated Code(s): K70.31 - ALCOHOLIC CIRRHOSIS OF LIVER WITH ASCITES (3) Elevated bilirubin Code(s): R17 - UNSPECIFIED JAUNDICE (4) Elevated liver enzymes Assessment/Plan: MELD score 22 Code(s): R74.8 - ABNORMAL LEVELS OF OTHER SERUM ENZYMES (5) Vomiting and diarrhea Assessment/Plan: Check C diff PCR, however suspect symptoms all related to SBP. Will need EGD/ COLON once acute issues resolved. Code(s): R11.10 - VOMITING, UNSPECIFIED R19.7 - DIARRHEA, UNSPECIFIED
[2016-11-30] MEDS: CEFEPIME 1 GM/100 ML BAG PRE-DOCKED IVPB SCH ×3 (02:36→20:19)
[2016-11-30 07:39] LABS: MCH 35.6 pg (25.7-33.7); MCHC 35.1 g/dl (32.0-35.9); MEAN CELL VOLUME 101.4 fl (80-96); MEAN PLT VOLUME 8.6 fl (7.5-11.1); RDW 17.1 % (11.9-15.9); WHITE BLOOD COUNT 3.8 K/mm3 (4.0-10.0)
[2016-11-30 07:57] LABS: PLATELET COUNT 35 K/MM3 (134-434)
[2016-11-30 08:05] LABS: INR 2.32 (0.82-1.09)
[2016-11-30 08:17] LABS: SGPT/ALT 19 U/L (12-78)
[2016-11-30 08:38] LABS: ALK PHOS 85 U/L (45-117); ANION GAP 8 (8-16); BILIRUBIN,TOTAL 5.9 mg/dL (0.2-1.0); CO2 24 mmol/L (21-32); CREATININE 0.7 mg/dL (0.7-1.3); FREE T4 2.01 ng/dl (0.76-1.16); GLUCOSE,RANDOM 94 mg/dL (74-106); SGOT/AST 41 U/L (15-37); THYROID STIMULATING HORMONE 2.27 uIU/ml (0.358-3.74); TOT PROT 5.5 g/dl (6.4-8.2)
[2016-11-30] MEDS: PANTOPRAZOLE 40 MG TABLET (FP) PO SCH (09:30)
[2016-11-30] MEDS: FOLIC ACID 1 MG TABLET (FP) PO SCH (09:30)
[2016-11-30] MEDS: THIAMINE HCL 100 MG TABLET (FP) PO SCH (09:32)
[2016-11-30] MEDS ORDERED: morphine CARPU-JECT 2 MG/1 ML DISP.SYRIN IVPUSH PRN (11:24)
[2016-11-30] MEDS ORDERED: LACTULOSE 20 GM/30 ML UDC (FOR ORAL USE ONLY) PO PRN (11:24)
--- NOTE | 2016-11-30 11:29 | HP ---
Admitting History and Physical - Primary Care Physician PCP: Lisa Winn - Admission Chief Complaint: ABD PAIN/ASCITES History of Present Illness: 46 y/o male with alcoholic cirrhosis complicated with ascites, and esophageal varices, admitted with nausea, vomiting, increasing abdominal girth, diffuse, non radiating, dull abdominal pain which worsens with movement and loose stools , Symptoms have progressively worsened since the last 3 days. Patient reports regular follow up with the transplant service at [facility], he has multifocal liver lesions which have been stable, and he is awaiting his 6 month period of abstinence before he is placed on the transplant list. Denies fever/chills, ROUSE, dizziness, neck pain, CP, SOB, back pain, dysuria, does report hematuria. No recent EGD and colonoscopy. Prior EGD: band ligation of esophageal varices History Source: Medical Record Limitations to Obtaining History: Physical Impairment, Poor Historian - Past Medical History Gastrointestinal: Yes: Ascites, Esophageal Varices. No: Cancer, Constipation, Crohn's Disease, Diverticulitis, Diverticulosis, Gastritis, GERD, GI Bleed ( variceal in past, s/p banding and on nadalol), Hemorrhoids, Hiatal Hernia, Inflamatory Bowel Disease, Irritable Bowel Disease, Pancreatitis, Peptic Ulcer Disease, Ulcerative Colitis, Other Hepatobiliary: Yes: Cirrhosis (varices, ascites), Cholelithiasis. No: Cholecystitis, Choledocholithiasis, Hepatitis A, Hepatitis B, Hepatitis C, Other Renal/: Yes: Hematuria, Other (bladder cyst). No: Renal Failure, Renal Inusuff, BPH, Cancer, Hemodialysis, Neurogenic Bladder, Renal Calculi, UTI Heme/Onc: Yes: Bleeding Disorder, Thrombocytopenia Psych: Yes: Addictions - Past Surgical History Past Surgical History: Yes: Upper Endoscopy (egd + band ligation of esophageal varices 05/2013). No: None, Stent - Smoking History Smoking history: Never smoked Have you smoked in the past 12 months: No Aproximately how many cigarettes per day: 0 - Alcohol/Substance Use Hx Alcohol Use: No (FORMER) Home Medications - Allergies Allergies/Adverse Reactions: Allergies Allergy/AdvReac Type Severity Reaction Status Date / Time No Known Allergies Allergy Verified 11/29/16 07:37 - Home Medications Home Medications: Ambulatory Orders NK [No Known Home Medication] 10/21/16 Review of Systems - Review of Systems Constitutional: reports: Lethargy, Loss of Appetite Eyes: reports: Other HENT: reports: No Symptoms Neck: reports: No Symptoms Cardiovascular: reports: No Symptoms Respiratory: reports: No Symptoms Gastrointestinal: reports: Other Genitourinary: reports: No Symptoms Musculoskeletal: reports: Muscle Weakness Integumentary: reports: Other Neurological: reports: No Symptoms Endocrine: reports: No Symptoms Hematology/Lymphatic: reports: No Symptoms, Easily Bruised Psychiatric: reports: No Symptoms Physical Examination Vital Signs: Vital Signs Temperature 98.8 F 11/30/16 09:00 Pulse Rate 83 11/30/16 09:00 Respiratory Rate 20 11/30/16 09:00 Blood Pressure 114/67 11/30/16 09:00 O2 Sat by Pulse Oximetry (%) 98 11/30/16 10:57 Constitutional: Yes: Mild Distress Eyes: Yes: Sclera Icterus HENT: Yes: WNL Neck: Yes: WNL Cardiovascular: Yes: WNL Respiratory: Yes: WNL Gastrointestinal: Yes: Ascites, Distention, Tenderness ...Rectal Exam: Yes: WNL Breast(s): Yes: WNL Musculoskeletal: Yes: Muscle Weakness Extremities: Yes: WNL Edema: No Peripheral Pulses WNL: Yes Integumentary: Yes: Other Wound/Incision: Yes: Clean/Dry Neurological: Yes: Pre-Existing Deficit, Weakness ...Motor Strength: LLE, RLE Psychiatric: Yes: Other Labs: CBC, BMP 11/30/16 06:10 11/30/16 06:10 Imaging - Results Cat Scan: Report Reviewed Assessment/Plan LIVER CIRRHOSIS ASCITES THROMBOCYTOPENIA ETOH ABUSE HISTORY ESOPHAGEAL VARICES ANEMIA HEMATOLOGY EVAL PARACENTESIS GI WORKUP
[2016-11-30] MEDS ORDERED: FOLIC ACID INJECTION - 1 MG, THIAMINE HCL 100 MG, MULTIVIT INJECTION ADULT 10 ML in SOD... IVPB ONE (12:30)
[2016-11-30] MEDS: PANTOPRAZOLE SODIUM 100 ML IVPB SCH (12:43)
--- NOTE | 2016-11-30 15:13 | CONSULT ---
Consult - text type - Consultation Consultation Note: patient seen and examined. 46 y/o male with alcoholic cirrhosis complicated with ascites, and esophageal varices, admitted with nausea, vomiting, abdominal pain since three days. Patient reports regular follow up with the transplant service at [facility], he has multifocal liver lesions which have been stable, and he is awaiting his 6 month period of abstinence before he is placed on the transplant list. No recent EGD and colonoscopy. Prior EGD: band ligation of esophageal varices History Source: Patient Limitations to Obtaining History: No Limitations - Past Medical History Gastrointestinal: Yes: Ascites, Esophageal Varices. Hepatobiliary: Yes: Cirrhosis (varices, ascites), Cholelithiasis. Heme/Onc: Yes: Anemia, Thrombocytopenia. - Past Surgical History Past Surgical History: Yes: Upper Endoscopy (egd + band ligation of esophageal varices 05/2013). - Smoking History Smoking history: Never smoked Have you smoked in the past 12 months: No Aproximately how many cigarettes per day: 0 - Alcohol/Substance Use Hx Alcohol Use: Yes (Former) Home Medications - Allergies Allergies/Adverse Reactions: Allergies Allergy/AdvReac Type Severity Reaction Status Date / Time No Known Allergies Allergy Verified 12/21/13 02:12 - Home Medications Home Medications: Folic Acid - 1 mg PO DAILY #0 tablet Nadolol [Corgard -] 40 mg PO HS #0 tablet Thiamine HCl [Vitamin B1 -] 100 mg PO DAILY #0 tablet Ferrous Sulfate [Ferosul] 300 mg PO DAILY Ondansetron HCl [Zofran] 4 mg PO ASDIR Pantoprazole Sodium [Protonix -] 40 mg PO DAILY Thiamine HCl 100 mg PO DAILY Ursodiol 500 mg PO BID Active Medications Generic Name Dose Route Start Last Admin Trade Name Freq PRN Reason Stop Dose Admin Cefepime HCl 1 gm 11/29/16 18:00 11/30/16 09:41 Maxipime 1gm Ivpb Pre-Docked IVPB 1 gm Q8H-IV [facility] Administration Folic Acid 1 mg 11/30/16 10:00 11/30/16 09:30 Folic Acid - PO Not Given DAILY [facility] Folic Acid 1 mg/ Thiamine HCl 1,000 mls @ 125 mls/hr 11/30/16 12:30 11/30/16 13 :57 100 mg/ Multivitamins/Minerals IVPB 11/30/16 20:29 125 mls/hr 10 ml/ Sodium Chloride ONCE ONE Administration Pantoprazole Sodium 100 mls @ 200 mls/hr 11/30/16 12:30 11/30/16 12:43 Protonix 40mg Ivpb (Pre-Docked) IVPB 200 mls/hr DAILY [facility] Administration Lactulose 20 gm 11/30/16 11:24 Cephulac (Oral Use) PO DAILY PRN CONSTIPATION Morphine Sulfate 1 mg 11/30/16 11:24 Morphine Injection - IVPUSH Q6H PRN PAIN Ondansetron HCl 4 mg 11/29/16 15:56 Zofran Injection IVPB Q6H PRN NAUSEA Family Disease History Family History: Denies Review of Systems - Review of Systems Eyes: reports: No Symptoms HENT: reports: No Symptoms Neck: reports: No Symptoms Cardiovascular: reports: No Symptoms Respiratory: reports: No Symptoms Gastrointestinal: reports: Abdominal Pain, Bloating Genitourinary: reports: No Symptoms Breasts: reports: No Symptoms Musculoskeletal: reports: No Symptoms Integumentary: reports: No Symptoms Neurological: reports: No Symptoms Endocrine: reports: No Symptoms Hematology/Lymphatic: reports: No Symptoms Physical Examination Vital Signs: Vital Signs Period Temp Pulse Resp BP Sys/[place] Pulse Ox Last 24 Hr 98.5 F-99.5 F 69-92 16-20 114-127/67-85 98-98 Constitutional: Yes: Mild Distress Eyes: Yes: Conjunctiva Clear, EOM Intact HENT: Yes: Atraumatic, Normocephalic Neck: Yes: Supple Cardiovascular: Yes: S1, S2. No: S3 Respiratory: Yes: Regular, CTA Bilaterally Gastrointestinal: Yes: Normal Bowel Sounds, Hepatomegaly, Splenomegaly, Tenderness (right UQ), Tenderness, Epigastrium, Vomiting. No: Distention, Hematemesis, Tenderness, Rebound ...Rectal Exam: Yes: Deferred Edema: No Peripheral Pulses WNL: Yes Neurological: Yes: Alert, Oriented ...Motor Strength: WNL Psychiatric: Yes: WNL Labs: Laboratory Last Values Abnormal Lab Results 11/29/16 11/30/16 11/30/16 21:00 06:10 06:10 WBC 3.8 L RBC 2.48 L Hgb 8.8 L D Hct 25.1 L MCV 101.4 H RDW 17.1 H Plt Count 35 L* INR 2.32 H Lactic Acid 2.1 H* Calcium Total Bilirubin AST Total Protein Albumin Free T4 11/30/16 06:10 WBC RBC Hgb Hct MCV RDW Plt Count INR Lactic Acid Calcium 8.0 L Total Bilirubin 5.9 H AST 41 H D Total Protein 5.5 L Albumin 2.0 L Free T4 2.01 H Assessment/Plan Pt is a 46 y/o male with PMHx of cholelithiasis, cholecystitis and alcoholic liver cirrhosis who presents to ER with complaints for abdominal pain, nausea. Presently he is being followed at [facility] hepatology and is reportedly awaiting a transplant. 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 Pancytopenia/coagulopathy secondary to cirrhosis. Will continue to monitor with supportive care. will need FFP/Platelets if bleeding actively or prior to procedures, ordered prior to paracentesis vit. K/FFP/platelets prior to paracentesis recheck labs after transfusion
[2016-11-30] MEDS ORDERED: PHYTONADIONE 10 MG/1 ML AMP SQ ONE (16:27)
--- NOTE | 2016-11-30 17:22 | PN ---
Progress Note, Physician History of Present Illness: The patient states that his symptoms have been present since Sunday11/26/2016. This has happened before but was self limiting within a 24 hour period, usually triggered by drinking alcohol. He denies any drinks since 3 months ago. He states that he cannot tolerate eating or drinking without vomiting yellow- green emesis and non bloody watery stools. This is associated with non radiating abdominal pain 10/10, located over the entire abdomen that is aggravated by turning from side to side or tilting neck forward. His abdominal girth has increased significantly to the point that he is unable to button his pants. States that he has MRI surveillance every 3 months by his liver specialist at [facility]. He states that he had a paracentesis w/ removal of aprx 6 L of fluid done a few years prior that gave him significant relief of his current symptoms. - Current Medication List Current Medications: Active Medications Cefepime HCl (Maxipime 1gm Ivpb Pre-Docked) 1 gm IVPB Q8H-IV [facility] Last Admin: 11/30/16 09:41 Dose: 1 gm Folic Acid (Folic Acid -) 1 mg PO DAILY [facility] Last Admin: 11/30/16 09:30 Dose: Not Given Folic Acid 1 mg/ Thiamine HCl 100 mg/ Multivitamins/Minerals 10 ml/ Sodium Chloride 1,000 mls @ 125 mls/hr IVPB ONCE ONE Stop: 11/30/16 20:29 Last Admin: 11/30/16 13:57 Dose: 125 mls/hr Pantoprazole Sodium (Protonix 40mg Ivpb (Pre-Docked)) 100 mls @ 200 mls/hr IVPB DAILY [facility] Last Admin: 11/30/16 12:43 Dose: 200 mls/hr Lactulose (Cephulac (Oral Use)) 20 gm PO DAILY PRN PRN Reason: CONSTIPATION Morphine Sulfate (Morphine Injection -) 1 mg IVPUSH Q6H PRN PRN Reason: PAIN Ondansetron HCl (Zofran Injection) 4 mg IVPB Q6H PRN PRN Reason: NAUSEA - Objective Vital Signs: Vital Signs Temperature 99.4 F 11/30/16 14:45 Pulse Rate 79 11/30/16 14:45 Respiratory Rate 20 11/30/16 14:45 Blood Pressure 104/62 11/30/16 14:45 O2 Sat by Pulse Oximetry (%) 98 11/30/16 10:57 Eyes: Yes: WNL, Sclera Icterus HENT: Yes: WNL Neck: Yes: WNL Cardiovascular: Yes: WNL Respiratory: Yes: WNL Gastrointestinal: Yes: WNL, Soft, Ascites, Hemorrhoids, Splenomegaly. No: Normal Bowel Sounds, Abdomen, Obese, Distention, Hematemesis, Hepatomegaly, Hernia, Hyperactive Bowel Sounds, Hypoactive Bowel Sounds, Melena, Palpable Mass , Rectal Bleeding, Tenderness, Tenderness, Rebound, Vomiting, Other Genitourinary: Yes: Hematuria Musculoskeletal: Yes: WNL Extremities: Yes: WNL Edema: No Peripheral Pulses WNL: Yes Integumentary: Yes: Bruising (erythematous patch rigght lateral abdomen) Neurological: Yes: WNL ...Motor Strength: WNL Psychiatric: Yes: WNL Labs: CBC, BMP 11/30/16 06:10 11/30/16 06:10 INR, PTT INR 2.32 (0.82-1.09) H 11/30/16 06:10 Problem List - Problems (1) Abdominal pain Code(s): R10.9 - UNSPECIFIED ABDOMINAL PAIN Qualifiers: Abdominal location: generalized Qualified Code(s): R10.84 - Generalized abdominal pain (2) Ascites due to alcoholic cirrhosis Assessment/Plan: Patient was removed from liver transplant list due to relapse of alcohol use in 06/2016. He is being monitored every 3 months by [facility]. Code(s): K70.31 - ALCOHOLIC CIRRHOSIS OF LIVER WITH ASCITES (3) Elevated bilirubin Assessment/Plan: Unspecified jaundice Code(s): R17 - UNSPECIFIED JAUNDICE Assessment/Plan 46 year old male with PMH of alcoholic cirrhosis of the liver with worsening abdominal pain, ascites, anorexia, vomiting and diarrhea. The patient is jaundiced. Patient states that he is feeling better and feeling hungry. Remains on clear liquid diet. The abdominal pain is minimal, no guarding on examination. He continues to have watery stools but denies nausea or vomiting today.His antibiotics is being managed by ID. Noted liver enzymes trending down. Noted low platelet count 35, rising INR 2.32 and plan for transfusion of FFP and platelets overnight. He has had no signs or symptoms of bleeding. The plan is as follows: Await Paracentesis planned for am Await cytology of peritoneal fluids Continue antibiotics as per ID Continue clear liquid diet as per attending MD Patient will continue to follow up outpatient with guest service supervisor at [facility] Alcohol abuse cessation [facility]
--- NOTE | 2016-11-30 17:56 | PN ---
Progress Note, Physician History of Present Illness: patient feels much better abd pain is much better some discomfort - Current Medication List Current Medications: Active Medications Cefepime HCl (Maxipime 1gm Ivpb Pre-Docked) 1 gm IVPB Q8H-IV [facility] Last Admin: 11/30/16 09:41 Dose: 1 gm Folic Acid (Folic Acid -) 1 mg PO DAILY [facility] Last Admin: 11/30/16 09:30 Dose: Not Given Folic Acid 1 mg/ Thiamine HCl 100 mg/ Multivitamins/Minerals 10 ml/ Sodium Chloride 1,000 mls @ 125 mls/hr IVPB ONCE ONE Stop: 11/30/16 20:29 Last Admin: 11/30/16 13:57 Dose: 125 mls/hr Pantoprazole Sodium (Protonix 40mg Ivpb (Pre-Docked)) 100 mls @ 200 mls/hr IVPB DAILY [facility] Last Admin: 11/30/16 12:43 Dose: 200 mls/hr Lactulose (Cephulac (Oral Use)) 20 gm PO DAILY PRN PRN Reason: CONSTIPATION Morphine Sulfate (Morphine Injection -) 1 mg IVPUSH Q6H PRN PRN Reason: PAIN Ondansetron HCl (Zofran Injection) 4 mg IVPB Q6H PRN PRN Reason: NAUSEA - Objective Vital Signs: Vital Signs Temperature 99.4 F 11/30/16 14:45 Pulse Rate 79 11/30/16 14:45 Respiratory Rate 20 11/30/16 14:45 Blood Pressure 104/62 11/30/16 14:45 O2 Sat by Pulse Oximetry (%) 98 11/30/16 10:57 Constitutional: Yes: Calm, Mild Distress Eyes: Yes: Sclera Icterus Cardiovascular: Yes: Regular Rate and Rhythm Respiratory: Yes: Regular, CTA Bilaterally Gastrointestinal: Yes: Normal Bowel Sounds, Soft, Ascites, Tenderness Musculoskeletal: Yes: WNL Extremities: Yes: WNL Neurological: Yes: Alert, Oriented Psychiatric: Yes: Alert, Oriented Labs: CBC, BMP 11/30/16 06:10 11/30/16 06:10 INR, PTT INR 2.32 (0.82-1.09) H 11/30/16 06:10 Assessment/Plan Problem List - Problems (1) Abdominal pain Code(s): R10.9 - UNSPECIFIED ABDOMINAL PAIN Qualifiers: Abdominal location: generalized Qualified Code(s): R10.84 - Generalized abdominal pain (2) Ascites due to alcoholic cirrhosis Code(s): K70.31 - ALCOHOLIC CIRRHOSIS OF LIVER WITH ASCITES (3) Elevated bilirubin Code(s): R17 - UNSPECIFIED JAUNDICE (4) Elevated liver enzymes Code(s): R74.8 - ABNORMAL LEVELS OF OTHER SERUM ENZYMES (5) Vomiting and diarrhea Code(s): R11.10 - VOMITING, UNSPECIFIED R19.7 - DIARRHEA, UNSPECIFIED looking at the patient i think his symptoms are due to sbp plan continue current abx await for paracentesis
[2016-12-01] MEDS: CEFEPIME 1 GM/100 ML BAG PRE-DOCKED IVPB SCH ×3 (03:33→17:01)
[2016-12-01 07:02] LABS: BASOPHIL 0.3 % (0-2.0); EOSINOPHIL 2.4 % (0-4.5); MCHC 35.2 g/dl (32.0-35.9); MEAN CELL VOLUME 102.3 fl (80-96); MEAN PLT VOLUME 9.2 fl (7.5-11.1); NEUTROPHILS 84.2 % (42.8-82.8); PLATELET COUNT 49 K/MM3 (134-434); RDW 16.8 % (11.9-15.9); WHITE BLOOD COUNT 4.6 K/mm3 (4.0-10.0)
[2016-12-01 07:15] LABS: INR 1.94 (0.82-1.09); PROTHROMBIN TIME (PATIENT) 21.6 SEC (9.98-11.88)
[2016-12-01 07:19] LABS: ACTIVATED PTT 33.2 SECONDS (26.9-34.4)
[2016-12-01 07:33] LABS: ALBUMIN 2.3 g/dl (3.4-5.0); ANION GAP 8 (8-16); CO2 24 mmol/L (21-32); CREATININE 0.7 mg/dL (0.7-1.3); GLUCOSE,RANDOM 89 mg/dL (74-106); SGOT/AST 38 U/L (15-37); SGPT/ALT 19 U/L (12-78)
[2016-12-01 07:35] LABS: ALK PHOS 82 U/L (45-117); BILIRUBIN,TOTAL 4.5 mg/dL (0.2-1.0); TOT PROT 5.7 g/dl (6.4-8.2)
[2016-12-01] MEDS: FOLIC ACID 1 MG TABLET (FP) PO SCH ×2 (09:27→09:31)
[2016-12-01] MEDS: PANTOPRAZOLE SODIUM 100 ML IVPB SCH (09:28)
[2016-12-01] MEDS ORDERED: ACETAMINOPHEN 650 MG SUPP.RECT PR PRN (10:41)
--- NOTE | 2016-12-01 10:59 | PN ---
Progress Note, Physician Chief Complaint: FFP/PLTS GIVEN AWAKE ALERT PATIENT IS UNCOMFORTABLE FROM ASCITES - Current Medication List Current Medications: Active Medications Acetaminophen (Tylenol Suppository -) 650 mg AL Q6H PRN PRN Reason: FEVER OR PAIN Cefepime HCl (Maxipime 1gm Ivpb Pre-Docked) 1 gm IVPB Q8H-IV [facility] Last Admin: 12/01/16 09:28 Dose: 1 gm Folic Acid (Folic Acid -) 1 mg PO DAILY [facility] Last Admin: 12/01/16 09:31 Dose: Not Given Pantoprazole Sodium (Protonix 40mg Ivpb (Pre-Docked)) 100 mls @ 200 mls/hr IVPB DAILY [facility] Last Admin: 12/01/16 09:28 Dose: 200 mls/hr Potassium Chloride (Potassium Chloride 10 Meq Premix Ivpb -) 100 mls @ 100 mls/ hr IVPB Q60M [facility] Stop: 12/01/16 11:59 Lactulose (Cephulac (Oral Use)) 20 gm PO DAILY PRN PRN Reason: CONSTIPATION Morphine Sulfate (Morphine Injection -) 1 mg IVPUSH Q6H PRN PRN Reason: PAIN Ondansetron HCl (Zofran Injection) 4 mg IVPB Q6H PRN PRN Reason: NAUSEA - Objective Vital Signs: Vital Signs Temperature 98 F 11/30/16 22:00 Pulse Rate 81 11/30/16 22:00 Respiratory Rate 18 11/30/16 22:00 Blood Pressure 114/70 11/30/16 22:00 O2 Sat by Pulse Oximetry (%) 98 11/30/16 10:57 Constitutional: Yes: Moderate Distress Eyes: Yes: WNL HENT: Yes: WNL Neck: Yes: WNL Cardiovascular: Yes: WNL Respiratory: Yes: WNL Gastrointestinal: Yes: Ascites, Distention, Tenderness Genitourinary: Yes: WNL Musculoskeletal: Yes: Muscle Weakness Extremities: Yes: WNL Edema: Yes Peripheral Pulses WNL: Yes Integumentary: Yes: Other Wound/Incision: Yes: Clean/Dry Neurological: Yes: WNL ...Motor Strength: WNL Psychiatric: Yes: WNL Labs: CBC, BMP 12/01/16 05:40 12/01/16 05:40 INR, PTT INR 1.94 (0.82-1.09) H 12/01/16 05:40 Fibrinogen 171.0 mg/dL (238-498) L 12/01/16 05:40 Problem List - Problems (1) Abdominal pain Code(s): R10.9 - UNSPECIFIED ABDOMINAL PAIN Qualifiers: Abdominal location: generalized Qualified Code(s): R10.84 - Generalized abdominal pain (2) Ascites due to alcoholic cirrhosis Code(s): K70.31 - ALCOHOLIC CIRRHOSIS OF LIVER WITH ASCITES (3) Elevated bilirubin Code(s): R17 - UNSPECIFIED JAUNDICE (4) Elevated liver enzymes Code(s): R74.8 - ABNORMAL LEVELS OF OTHER SERUM ENZYMES (5) Peritonitis (acute) generalized Code(s): K65.0 - GENERALIZED (ACUTE) PERITONITIS Assessment/Plan IV ABX IV PLATLETS/FFP SCHEDULED FOR PERITONEAL TAP WITH IR GI CONSULT CHANGED TO DR BARRETT, DR HINOJOSA AWAY ON VACATION LIQUID DIET
[2016-12-01] MEDS ORDERED: KCL 10 MEQ IVPB 100 ML IVPB SCH (12:00)
[2016-12-01 14:54] LABS: PERITONEAL FLUID LYMPHOCYTE 23 %; PERITONEAL FLUID MACROPHAGE 15 %; PERITONEAL FLUID NEUTROPHIL 62 %
[2016-12-01 16:01] LABS: BILIRUBIN,TOTAL 1.1 mg/dL (0.2-1.0); SGOT/AST 10 U/L (15-37); SGPT/ALT < 6 U/L (12-78)
--- NOTE | 2016-12-01 16:19 | PN ---
Chief Complaint: follow up for pancytopenia in the setting cirrhosis History of Present Illness: Patient seen and examined. received FFP and platelets scheduled for IR guided paracentesis today and underwent it this afternoon Patient feels well. He mentioned the abdominal pain is much better, some discomfort at the site of paracentesis. he was told that 3.2L of fluid was removed. He denies any nausea, vomiting - Review of Systems Constitutional: denies: Chills, Fever, Loss of Appetite HENT: reports: No Symptoms Cardiovascular: denies: Chest Pain, Edema Gastrointestinal: denies: Abdominal Pain (mild discomfort at the site of the procedure), Nausea Neurological: reports: No Symptoms Hematology/Lymphatic: reports: Easily Bruised - Medications/Allergies Allergies/Adverse Reactions: Allergies Allergy/AdvReac Type Severity Reaction Status Date / Time No Known Allergies Allergy Verified 11/29/16 07:37 Medications: Current Medications Acetaminophen (Tylenol Suppository -) 650 mg PA Q6H PRN PRN Reason: FEVER OR PAIN Cefepime HCl (Maxipime 1gm Ivpb Pre-Docked) 1 gm IVPB Q8H-IV [facility] Last Admin: 12/01/16 09:28 Dose: 1 gm Folic Acid (Folic Acid -) 1 mg PO DAILY [facility] Last Admin: 12/01/16 09:31 Dose: Not Given Pantoprazole Sodium (Protonix 40mg Ivpb (Pre-Docked)) 100 mls @ 200 mls/hr IVPB DAILY [facility] Last Admin: 12/01/16 09:28 Dose: 200 mls/hr Lactulose (Cephulac (Oral Use)) 20 gm PO DAILY PRN PRN Reason: CONSTIPATION Morphine Sulfate (Morphine Injection -) 1 mg IVPUSH Q6H PRN PRN Reason: PAIN Ondansetron HCl (Zofran Injection) 4 mg IVPB Q6H PRN PRN Reason: NAUSEA - Objective Vital Signs: Vital Signs Temperature 99 F 12/01/16 14:23 Pulse Rate 86 12/01/16 14:23 Respiratory Rate 18 12/01/16 14:23 Blood Pressure 122/77 12/01/16 14:23 O2 Sat by Pulse Oximetry (%) 98 12/01/16 10:00 Constitutional: Yes: Well Nourished, No Distress Eyes: Yes: Conjunctiva Clear HENT: Yes: Atraumatic, Normocephalic Neck: Yes: Supple. No: Lymphadenopathy Cardiovascular: Yes: Regular Rate and Rhythm Respiratory: Yes: Regular, CTA Bilaterally Gastrointestinal: Yes: Normal Bowel Sounds, Soft, Ascites, Distention (better than yesterday. a healing echymmoses present) Extremities: Yes: WNL Edema: No Neurological: Yes: Alert, Oriented Labs: CBC, BMP 12/01/16 05:40 12/01/16 05:40 Problem List - Problems (1) Ascites due to alcoholic cirrhosis Assessment/Plan: Pt is a 46 y/o male with PMHx of cholelithiasis, cholecystitis and alcoholic liver cirrhosis who presents to ER with complaints for abdominal pain, nausea. Presently he is being followed at [facility] hepatology and is reportedly awaiting a transplant. 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 Prior to procedure , he received FFP/ Platelets and Vitamin K. Is on Cef for possible SBP, will need to follow up the ascites studies. Pancytopenia/coagulopathy secondary to cirrhosis. Will continue to monitor with supportive care. Code(s): K70.31 - ALCOHOLIC CIRRHOSIS OF LIVER WITH ASCITES (2) Abdominal pain Assessment/Plan: Improved after the paracentesis Code(s): R10.9 - UNSPECIFIED ABDOMINAL PAIN Qualifiers: Abdominal location: generalized Qualified Code(s): R10.84 - Generalized abdominal pain (3) Elevated liver enzymes Code(s): R74.8 - ABNORMAL LEVELS OF OTHER SERUM ENZYMES
--- NOTE | 2016-12-01 16:52 | PN ---
GI Progress Note Subjective: GASTROENTEROLOGY JUST BACK FROM PARACENTESIS FEELS MUCH BETTER NO PAIN, NO FEVER, NO BLEEDING MELD SCORE OF 22 , FOLLOW AT [facility] DISCHARGED FROM [facility] FOR DRINKING HAVE NOT SEEN THIS PATIEN TIN MY OFFICE FOR OVER ONE YEAR NO CORRESPONDENCE FROM [facility] [place] SINCE JUN 2016 - Objective Vital Signs: Vital Signs Temperature 99 F 12/01/16 14:23 Pulse Rate 86 12/01/16 14:23 Respiratory Rate 18 12/01/16 14:23 Blood Pressure 122/77 12/01/16 14:23 O2 Sat by Pulse Oximetry (%) 98 12/01/16 10:00 Constitutional: No Distress Eyes: Yes: Sclera Icterus HENT: Yes: Normocephalic Cardiovascular: Yes: Regular Rate and Rhythm Respiratory: Yes: Regular Gastrointestinal Inspection: Yes: Ascites ...Auscultate: Yes: Normoactive Bowel Sounds ...Palpate: Yes: Soft Extremities: Yes: WNL Edema: Yes Labs: CBC, BMP 12/01/16 05:40 12/01/16 05:40 INR, PTT INR 1.94 (0.82-1.09) H 12/01/16 05:40 Fibrinogen 171.0 mg/dL (238-498) L 12/01/16 05:40 Problem List - Problems (1) Ascites due to alcoholic cirrhosis Assessment/Plan: AWAIT ASCITIC FLUID ANALYSIS POSSIBLE SBP FEELS BETTER IF STABLE IN AM NO OBJECTION TO DISCHARGE ON SOFT REGULAR FIBER DIET CONTINUE BETA NOÉ AND ppI FOLLOW UP WITH [facility] [place] IF HE HAS NEED FOR FREQUENT PARACENTESIS START LASIX 20 MG AND ALDACTONE 25MG PO BID (WOULD CHECK WITH TRANSPLANT CENTER FIRST HE DID NOT KNOW HIS DAILY MEDS) Code(s): K70.31 - ALCOHOLIC CIRRHOSIS OF LIVER WITH ASCITES (2) Cirrhosis of liver with ascites Code(s): K74.60 - UNSPECIFIED CIRRHOSIS OF LIVER (3) Portal hypertension Code(s): K76.6 - PORTAL HYPERTENSION (4) Alcohol abuse Code(s): F10.10 - ALCOHOL ABUSE, UNCOMPLICATED
[2016-12-02] MEDS: CEFEPIME 1 GM/100 ML BAG PRE-DOCKED IVPB SCH ×2 (01:28→10:27)
[2016-12-02 07:24] VITALS: TEMP 98.4
[2016-12-02 07:47] LABS: MCH 36.5 pg (25.7-33.7); MCHC 35.3 g/dl (32.0-35.9); MEAN CELL VOLUME 103.4 fl (80-96); MEAN PLT VOLUME 8.5 fl (7.5-11.1); PLATELET COUNT 45 K/MM3 (134-434); RDW 17.8 % (11.9-15.9); WHITE BLOOD COUNT 2.4 K/mm3 (4.0-10.0)
[2016-12-02 08:06] LABS: ALBUMIN 2.2 g/dl (3.4-5.0); ANION GAP 6 (8-16); CALCIUM 8.1 mg/dL (8.5-10.1); CO2 26 mmol/L (21-32); CREATININE 0.5 mg/dL (0.7-1.3); GLUCOSE,RANDOM 82 mg/dL (74-106); SGOT/AST 37 U/L (15-37); SGPT/ALT 18 U/L (12-78)
[2016-12-02 08:09] LABS: ALK PHOS 80 U/L (45-117); BILIRUBIN,TOTAL 4.3 mg/dL (0.2-1.0); TOT PROT 5.4 g/dl (6.4-8.2)
[2016-12-02] MEDS: FOLIC ACID 1 MG TABLET (FP) PO SCH (10:26)
[2016-12-02] MEDS: PANTOPRAZOLE SODIUM 100 ML IVPB SCH (10:27)
--- NOTE | 2016-12-02 11:11 | DS ---
Physical Examination Vital Signs: Vital Signs Temperature 98.4 F 12/02/16 06:00 Pulse Rate 76 12/02/16 06:00 Respiratory Rate 18 12/02/16 06:00 Blood Pressure 114/70 12/02/16 06:00 O2 Sat by Pulse Oximetry (%) 98 12/01/16 21:00 Findings/Remarks: S/P PARACENTESIS, TOLERATED WELL Constitutional: Yes: Mild Distress Eyes: Yes: WNL HENT: Yes: WNL Neck: Yes: WNL Cardiovascular: Yes: WNL Respiratory: Yes: WNL Gastrointestinal: Yes: Ascites, Tenderness Musculoskeletal: Yes: WNL Extremities: Yes: WNL Edema: No Peripheral Pulses WNL: Yes Integumentary: Yes: WNL Wound/Incision: Yes: Clean/Dry Neurological: Yes: WNL ...Motor Strength: WNL Psychiatric: Yes: WNL Labs: CBC, BMP 12/02/16 06:30 12/02/16 06:30 Discharge Summary Reason For Visit: VOMITING,DIARRHEA,ABD DISTENTION Current Active Problems Abdominal pain (Acute) Alcohol abuse (Acute) Ascites due to alcoholic cirrhosis (Acute) Cirrhosis of liver with ascites (Acute) Elevated bilirubin (Acute) Elevated liver enzymes (Acute) Peritonitis (acute) generalized (Acute) Portal hypertension (Acute) Vomiting and diarrhea (Acute) Procedures: Principal: PARACENTESIS Other Procedures: LABS/CT SCAN Hospital Course: ADMITTED ACUTE ABD WITH ASCITES, PARACENTESIS COMPLETED, RELIEF AND TOLERATED WELL, STARTING LASIX AN DALDACTONE PO DAILY, MUST SEE [facility] TEAM AND DR BAHENA OUTPATIENT EXPLAINED TO PATIENT. Condition: Improved - Instructions Diet, Activity, Other Instructions: [facility] TE[facility] F/U DR BAHENA F/U REG DIET Referrals: Nyla Bahena [Primary Care Provider] - Disposition: HOME - Home Medications Comprehensive Discharge Medication List: Ambulatory Orders NK [No Known Home Medication] 10/21/16
[2016-12-02] MEDS ORDERED: SPIRONOLACTONE 25 MG TABLET (FP) PO SCH (11:15)
[2016-12-02] MEDS ORDERED: FUROSEMIDE 40 MG TABLET (FP) PO SCH (11:15)
[2016-12-02 12:42] VITALS: BP 125/70; PULSE 80
--- NOTE | 2016-12-04 13:51 | PATH ---
Cytology Non-Gynecological Report Patient Name: SENDY ANN [facility]. Rec. #: [id number] /Age/Gender: 1970 (Age: 46) / M Account: [id number] Location: [address] [place] [address] Taken: 12/01/2016 Received: 12/01/2016 Reported: 12/04/2016 Physicians: Celina Payton M.D. Specimen(s) Received A: ABDOMINAL FLUID IN 50% ALCOHOL B: ABDOMINAL FLUID FRESH Clinical History Ascites, cirrhosis Final Diagnosis A,B. ABDOMINAL FLUID, PARACENTESIS: SATISFACTORY FOR EVALUATION. NO MALIGNANT CELLS IDENTIFIED. REACTIVE EPITHELIAL CELLS, HISTIOCYTES AND MIXED INFLAMMATORY CELLS INCLUDING NUMEROUS NEUTROPHILS. Electronically Signed Sam Webber M.D. Gross Description A. Received is a 50 cc of yellow fluid in 50% alcohol. One cytofunnel slide and one cell block are made. B. Received is 3000 cc of yellow fluid fresh. One cytofunnel slide and one cell block are made.
== END 2016-12-02 12:31 | disposition home or self-care (01) | DRG 264 ==
LOC: JER 07:30 → JERBED 12:44 → J5S 15:50
PROVIDERS: ADMIT Family Medicine; ATTEND Family Medicine
PROC: 30233L1 Transfusion of Nonautologous Fresh Plasma into Peripheral Vein, Percutaneous Approach (ICD-10-PCS; 2016-11-30)
PROC: 30233K1 Transfusion of Nonautologous Frozen Plasma into Peripheral Vein, Percutaneous Approach (ICD-10-PCS; 2016-11-30)
PROC: 0W9G3ZX Drainage of Peritoneal Cavity, Percutaneous Approach, Diagnostic (ICD-10-PCS; principal; 2016-12-01)
PROC: 30233R1 Transfusion of Nonautologous Platelets into Peripheral Vein, Percutaneous Approach (ICD-10-PCS; 2016-12-01)
DX: K70.31 Alcoholic cirrhosis of liver with ascites (principal); K76.6 Portal hypertension; D61.818 Other pancytopenia; D68.9 Coagulation defect, unspecified; D64.9 Anemia, unspecified; R17 Unspecified jaundice; R10.9 Unspecified abdominal pain; K65.0 Generalized (acute) peritonitis; R74.8 Abnormal levels of other serum enzymes; R11.10 Vomiting, unspecified; R19.7 Diarrhea, unspecified; D65 Disseminated intravascular coagulation [defibrination syndrome]; D69.6 Thrombocytopenia, unspecified
CPT/HCPCS: 36415; 36430; 74176-TC; 76942-TC; 80053; 80307; 81003; 81015; 82042; 82105; 82140; 82150; 82247; 82248; 82550; 82945; 83605; 83615; 83690; 84157; 84439; 84443; 84450; 84460; 84478; 84484; 85025; 85027; 85384; 85610; 85730; 86850; 86900; 86901; 87040; 87070; 87075; 87086; 87102; 87116; 87205; 87206; 87210; 88108; 88305-TC; 89051; 99284-25; P9017; P9034; P9038

== ENCOUNTER 2017-02-20 21:32 | Inpatient (IN) | payer OTHER ==
[2017-02-20 21:39] VITALS: BMI 24.4
--- NOTE | 2017-02-20 21:41 | PDOC ---
History of Present Illness - General History Source: Patient Exam Limitations: No Limitations - History of Present Illness Initial Comments: 02/20/17 22:27 46 y/o male with hx of alcoholic cirrhosis complicated with ascites, and esophageal varices who presents to the ED with hematoma and ankle swelling since this AM. He denies any head trauma or LOC. He states that he woke up this morning with head hematoma and ankle swelling without any trauma. He states that he was fine last night. He notes that he was told by his pmd that he has hematomas on his bilateral elbows that are intermittent and resolve on their own. He reports chronic ROUSE. He denies use of any blood thinners. Denies fever/chills, neck pain, CP, SOB, back pain, dysuria, does report hematuria. He denies any dizziness, blurry vision, changes in hearing, no slurred speech or changes in vision. No recent EGD and colonoscopy. Prior EGD: band ligation of esophageal varices SH - alcohol use for 34 years Neurologist - Dr. Jack PCP - Dr. Bahena <Rolanda Sutton - Last Filed: 02/20/17 23:49> - General History Source: Patient <LatishaJazmyne - Last Filed: 02/21/17 01:58> - General Chief Complaint: Headache Stated Complaint: HEAD INJURY Time Seen by Provider: 02/20/17 21:40 Past History <Rolanda Sutton - Last Filed: 02/20/17 23:49> - Past Medical History Anemia: Yes Asthma: No Cancer: No Cardiac Disorders: No CVA: No COPD: No CHF: No Dementia: No Diabetes: No GI Disorders: No Disorders: No HTN: Yes (portal hypertension) Hypercholesterolemia: No Liver Disease: Yes (ALCOHOLIC CIRRHOSIS OF LIVER, ESOPHAGEAL VARICES) Seizures: No Thyroid Disease: No - Surgical History Abdominal Surgery: No Appendectomy: No Cardiac Surgery: No Cholecystectomy: No Lung Surgery: No Neurologic Surgery: No Orthopedic Surgery: No - Immunization History Immunization Up to Date: No - Suicide/Smoking/Psychosocial Hx Smoking Status: No Smoking History: Never smoked Have you smoked in the past 12 months: No Number of Cigarettes Smoked Daily: 0 Information on smoking cessation initiated: No Hx Alcohol Use: No Drug/Substance Use Hx: No Substance Use Type: None Hx Substance Use Treatment: No <Jazmyne Good - Last Filed: 02/21/17 01:58> - Past Medical History Allergies/Adverse Reactions: Allergies Allergy/AdvReac Type Severity Reaction Status Date / Time No Known Allergies Allergy Verified 02/20/17 21:39 Home Medications: Ambulatory Orders NK [No Known Home Medication] 02/20/17 Review of Systems - Review of Systems Able to Perform ROS?: Yes Comments:: 02/20/17 22:28 GENERAL/CONSTITUTIONAL: No fever or chills. No weakness. HEAD, EYES, EARS, NOSE AND THROAT: +hematoma at the back of the head. No change in vision. No ear pain or discharge. No sore throat. GASTROINTESTINAL: No nausea, vomiting, diarrhea or constipation. GENITOURINARY: No dysuria, frequency, or change in urination. CARDIOVASCULAR: No chest pain or shortness of breath. RESPIRATORY: No cough, wheezing, or hemoptysis. MUSCULOSKELETAL: No joint or muscle swelling or pain. No neck or back pain. SKIN: +bilateral elbow hematoma. No rash NEUROLOGIC: +headache. No vertigo, loss of consciousness, or change in strength/ sensation. ENDOCRINE: No increased thirst. No abnormal weight change. HEMATOLOGIC/LYMPHATIC: No anemia, easy bleeding, or history of blood clots. ALLERGIC/IMMUNOLOGIC: No hives or skin allergy. <Rolanda Sutton - Last Filed: 02/20/17 23:49> *Physical Exam - Vital Signs Last Vital Signs Temp Pulse Resp BP Pulse Ox 85 18 121/67 98 02/20/17 21:37 02/20/17 21:37 02/20/17 21:37 02/20/17 21:37 - Physical Exam Comments: 02/20/17 22:30 GENERAL: Awake, alert, and fully oriented, in no acute distress HEAD: +Posterior hematoma. EYES: PERRLA, EOMI, sclera anicteric, conjunctiva clear ENT: Auricles normal inspection, hearing grossly normal, nares patent, oropharynx clear without exudates. Moist mucosa NECK: Normal ROM, supple, no lymphadenopathy, JVD, or masses LUNGS: Breath sounds equal, clear to auscultation bilaterally. No wheezes, and no crackles HEART: Regular rate and rhythm, normal S1 and S2, no murmurs, rubs or gallops ABDOMEN: Soft, nontender, normoactive bowel sounds. No guarding, no rebound. No masses EXTREMITIES: Normal range of motion, no edema. No clubbing or cyanosis. No cords, erythema, or tenderness NEUROLOGICAL: Cranial nerves II through XII grossly intact. Normal speech, normal gait SKIN: Warm, Dry, normal turgor, no rashes or lesions noted. <Rolanda Sutton - Last Filed: 02/20/17 23:49> - Vital Signs Last Vital Signs Temp Pulse Resp BP Pulse Ox 85 18 121/67 98 02/20/17 21:37 02/20/17 21:37 02/20/17 21:37 02/20/17 21:37 <Jazmyne Good - Last Filed: 02/21/17 01:58> ED Treatment Course - LABORATORY CBC & Chemistry Diagram: 02/20/17 23:00 02/20/17 23:00 <Rolanda Sutton - Last Filed: 02/20/17 23:49> - LABORATORY CBC & Chemistry Diagram: 02/20/17 23:00 02/20/17 23:00 <Jazmyne Good - Last Filed: 02/21/17 01:58> Progress Note - Progress Note Progress Note: 0105hrs: Dr. Bahena called/ Dr. Winn covering Dr. Bahena/Dr. Gray covering Dr. Winn <Jazmyne Good - Last Filed: 02/21/17 01:58> *DC/Admit/Observation/Transfer - Attestations Scribe Attestion: 02/20/17 22:31 Documentation prepared by CAIN Massey, acting as certified medical coding specialist for Latisha Samano PA. <Rolanda Sutton - Last Filed: 02/20/17 23:49> - Discharge Dispostion Admit: Yes <Jazmyne Good - Last Filed: 02/21/17 01:58> Diagnosis at time of Disposition: Thrombocytopenia Cirrhosis of liver with ascites Qualifiers: Hepatic cirrhosis type: alcoholic cirrhosis Qualified Code(s): K70.31 - Alcoholic cirrhosis of liver with ascites Headache Qualifiers: Headache type: other headache syndrome Qualified Code(s): G44.89 - Other headache syndrome - Discharge Dispostion Condition at time of disposition: Guarded - Referrals Referrals: Nyla Bahena [Primary Care Provider] -
[2017-02-20 23:18] LABS: BASOPHIL 0.6 % (0-2.0); MCH 35.8 pg (25.7-33.7); MCHC 35.3 g/dl (32.0-35.9); MEAN CELL VOLUME 101.5 fl (80-96); NEUTROPHILS 77.2 % (42.8-82.8); RDW 14.7 % (11.9-15.9); WHITE BLOOD COUNT 3.6 K/mm3 (4.0-10.0)
[2017-02-20 23:32] LABS: INR 2.34 (0.82-1.09); PROTHROMBIN TIME (PATIENT) 26.2 SEC (9.98-11.88)
[2017-02-20 23:46] LABS: ALBUMIN 2.6 g/dl (3.4-5.0); ALK PHOS 131 U/L (45-117); ANION GAP 11 (8-16); BILIRUBIN,TOTAL 6.5 mg/dL (0.2-1.0); CALCIUM 8.5 mg/dL (8.5-10.1); CO2 24 mmol/L (21-32); CREATININE 1.4 mg/dL (0.7-1.3); GLUCOSE,RANDOM 98 mg/dL (74-106); SGOT/AST 88 U/L (15-37); SGPT/ALT 35 U/L (12-78); TOT PROT 7.1 g/dl (6.4-8.2)
[2017-02-20 23:56] LABS: MEAN PLT VOLUME 9.5 fl (7.5-11.1)
[2017-02-20 23:57] LABS: PLATELET COMMENT2 NO CLUMPING NOTED; PLATELET COUNT 32 K/MM3 (134-434); PLATELET ESTIMATE MARKEDLY DECREASED (NORMAL)
[2017-02-21] MEDS ORDERED: PHYTONADIONE 10 MG/1 ML AMP IVPB ONE (06:36)
[2017-02-21] MEDS ORDERED: PHYTONADIONE 10 MG/1 ML AMP ONE (08:35)
[2017-02-21 09:21] LABS: BASOPHIL 0.4 % (0-2.0); EOSINOPHIL 0.7 % (0-4.5); MCH 34.9 pg (25.7-33.7); MCHC 34.4 g/dl (32.0-35.9); MEAN CELL VOLUME 101.6 fl (80-96); PLATELET COUNT 40 K/MM3 (134-434); RDW 14.7 % (11.9-15.9); WHITE BLOOD COUNT 5.1 K/mm3 (4.0-10.0)
--- NOTE | 2017-02-21 09:47 | EKG ---
Test Reason : Blood Pressure : / mmHG Vent. Rate : 071 BPM Atrial Rate : 071 BPM P-R Int : 202 ms QRS Dur : 104 ms QT Int : 436 ms P-R-T Axes : 055 -16 016 degrees QTc Int : 473 ms NORMAL SINUS RHYTHM MINIMAL VOLTAGE CRITERIA FOR LVH, MAY BE NORMAL VARIANT BORDERLINE ECG WHEN COMPARED WITH ECG OF 20-OCT-2016 22:36, T WAVE INVERSION NO LONGER EVIDENT IN ANTERIOR LEADS Confirmed by ROQUE BUTTS, SHEA ([id number]) on 02/21/2017 9:47:05 AM Referred By: Confirmed By:SHEA NEVAREZ MD
[2017-02-21 09:50] LABS: INR 2.16 (0.82-1.09); PROTHROMBIN TIME (PATIENT) 24.1 SEC (9.98-11.88)
[2017-02-21] MEDS ORDERED: PANTOPRAZOLE 40 MG TABLET (FP) ONE (09:51)
[2017-02-21 09:53] LABS: ACTIVATED PTT 31.8 SECONDS (26.9-34.4)
--- NOTE | 2017-02-21 10:23 | HP ---
Admitting History and Physical - Primary Care Physician PCP: Lisa Winn - Admission Chief Complaint: HEAD TRAUMA,ECHYMOSIS, LIVER FAILURE History of Present Illness: 46 y/o male with hx of alcoholic cirrhosis complicated with ascites, and esophageal varices who presents to the ED with hematoma and ankle swelling since this AM. He denies any head trauma or LOC. He states that he woke up this morning with head hematoma and ankle swelling without any trauma. He states that he was fine last night. He notes that he was told by his pmd that he has hematomas on his bilateral elbows that are intermittent and resolve on their own. He reports chronic ROUSE. He denies use of any blood thinners. Denies fever/chills, neck pain, CP, SOB, back pain, dysuria, does report hematuria. He denies any dizziness, blurry vision, changes in hearing, no slurred speech or changes in vision. No recent EGD and colonoscopy. Prior EGD: band ligation of esophageal varices SH - alcohol use for 34 years History Source: Patient, Medical Record Limitations to Obtaining History: Poor Historian - Past Medical History Gastrointestinal: Yes: Ascites, Esophageal Varices. No: Cancer, Constipation, Crohn's Disease, Diverticulitis, Diverticulosis, Gastritis, GERD, GI Bleed ( variceal in past, s/p banding and on nadalol), Hemorrhoids, Hiatal Hernia, Inflamatory Bowel Disease, Irritable Bowel Disease, Pancreatitis, Peptic Ulcer Disease, Ulcerative Colitis, Other Hepatobiliary: Yes: Cirrhosis (varices, ascites), Cholelithiasis. No: Cholecystitis, Choledocholithiasis, Hepatitis A, Hepatitis B, Hepatitis C, Other Renal/: Yes: Hematuria, Other (bladder cyst). No: Renal Failure, Renal Inusuff, BPH, Cancer, Hemodialysis, Neurogenic Bladder, Renal Calculi, UTI Heme/Onc: Yes: Bleeding Disorder, Thrombocytopenia Psych: Yes: Addictions - Past Surgical History Past Surgical History: Yes: Upper Endoscopy (egd + band ligation of esophageal varices 05/2013). No: None, AAA Repair, AICD, Amputation, Appendectomy, Arthrosocopy, AV Fistula/Graft, Bariatric Surgery, Breast Biopsy, Bypass, CABG, Carotid Endarterectomy, Cataract Removal, Cholecystectomy, Colectomy, Colonoscopy, Colostomy, Craniotomy, , Cystectomy, Hernia Repair, Hysterectomy, Ileal Conduit, Ileosotomy, Joint Replacement, Kidney Transplant, Laminectomy, Liver Transplant, Mastectomy, Nephrectomy, Oopherectomy, Orchiectomy, Permanent Pacemaker, Prostatectomy, Splenectomy, Stent, Thoracotomy , TURP, Tonsillectomy, Tubal Ligation, Valve Replacement, Vasectomy, Vein Stripping/Ligation - Smoking History Smoking history: Never smoked Have you smoked in the past 12 months: No Aproximately how many cigarettes per day: 0 - Alcohol/Substance Use Hx Alcohol Use: No Home Medications - Allergies Allergies/Adverse Reactions: Allergies Allergy/AdvReac Type Severity Reaction Status Date / Time No Known Allergies Allergy Verified 02/20/17 21:39 - Home Medications Home Medications: Ambulatory Orders NK [No Known Home Medication] 02/20/17 Review of Systems - Review of Systems Constitutional: reports: Loss of Appetite, Weakness Eyes: reports: No Symptoms HENT: reports: No Symptoms Neck: reports: No Symptoms Cardiovascular: reports: No Symptoms Respiratory: reports: No Symptoms Gastrointestinal: reports: Abdominal Pain, Other Genitourinary: reports: No Symptoms Musculoskeletal: reports: Joint Pain Integumentary: reports: Bruising Neurological: reports: Tremors, Weakness Endocrine: reports: No Symptoms Hematology/Lymphatic: reports: No Symptoms Psychiatric: reports: No Symptoms Physical Examination Vital Signs: Vital Signs Temperature Pulse Rate 108 H 02/21/17 07:14 Respiratory Rate 18 02/20/17 21:37 Blood Pressure 113/61 02/21/17 07:14 O2 Sat by Pulse Oximetry (%) 98 02/21/17 07:14 Constitutional: Yes: Moderate Distress Eyes: Yes: WNL HENT: Yes: WNL Neck: Yes: WNL Cardiovascular: Yes: WNL Respiratory: Yes: WNL Gastrointestinal: Yes: WNL Renal/: Yes: WNL Musculoskeletal: Yes: Back Pain, Muscle Weakness Extremities: Yes: WNL Edema: No Peripheral Pulses WNL: Yes Integumentary: Yes: Bruising, Other Wound/Incision: Yes: Clean/Dry Neurological: Yes: Tremors ...Motor Strength: LLE, RLE Psychiatric: Yes: Other Labs: CBC, BMP 02/21/17 08:55 Assessment/Plan liver cirrhosis GI follow up vit K and ffp Hematology Dr Graahm for eval Labs PT eval fall precautions Neurology eval for asterixix MVI Thiamine
[2017-02-21 11:23] LABS: ALBUMIN 2.8 g/dl (3.4-5.0); ALK PHOS 142 U/L (45-117); ANION GAP 12 (8-16); BILIRUBIN,TOTAL 7.7 mg/dL (0.2-1.0); CALCIUM 8.7 mg/dL (8.5-10.1); CO2 23 mmol/L (21-32); CREATININE 1.3 mg/dL (0.7-1.3); GLUCOSE,RANDOM 137 mg/dL (74-106); SGOT/AST 98 U/L (15-37); SGPT/ALT 38 U/L (12-78); TOT PROT 7.6 g/dl (6.4-8.2)
--- NOTE | 2017-02-21 12:00 | CONSULT ---
Consult - text type - Consultation Consultation Note: Neurology History of Present Illness 46 y/o male with hx of alcoholic cirrhosis complicated with ascites, and esophageal varices who presents to the ED with hematoma and ankle swelling since this AM. He denies any head trauma or LOC. He states that he woke up this morning with head hematoma and ankle swelling without any trauma. He states that he was fine last night. He denies use of any blood thinners. Denies fever/ chills, neck pain, CP, SOB, back pain, dysuria, does report hematuria. He denies any dizziness, blurry vision, changes in hearing, no slurred speech or changes in vision. No recent EGD and colonoscopy. Prior EGD: band ligation of esophageal varices 05/2013. CT head completed and did not show acute changes. No intracranial bleed. CT C spine without fracture or subluxation. Past History - Past Medical History Anemia: Yes Asthma: No Cancer: No Cardiac Disorders: No CVA: No COPD: No CHF: No Dementia: No Diabetes: No GI Disorders: No Disorders: No HTN: Yes (portal hypertension) Hypercholesterolemia: No Liver Disease: Yes (ALCOHOLIC CIRRHOSIS OF LIVER, ESOPHAGEAL VARICES) Seizures: No Thyroid Disease: No - Surgical History Abdominal Surgery: No Appendectomy: No Cardiac Surgery: No Cholecystectomy: No Lung Surgery: No Neurologic Surgery: No Orthopedic Surgery: No - Immunization History Immunization Up to Date: No - Suicide/Smoking/Psychosocial Hx Smoking Status: No Smoking History: Never smoked Have you smoked in the past 12 months: No Number of Cigarettes Smoked Daily: 0 Information on smoking cessation initiated: No Hx Alcohol Use: No Drug/Substance Use Hx: No Substance Use Type: None Hx Substance Use Treatment: No - Past Medical History Allergies/Adverse Reactions: Allergies Allergy/AdvReac Type Severity Reaction Status Date / Time No Known Allergies Allergy Verified 02/20/17 21:39 Home Medications: Ambulatory Orders NK [No Known Home Medication] 02/20/17 Review of Systems GENERAL/CONSTITUTIONAL: No fever or chills. No weakness. HEAD, EYES, EARS, NOSE AND THROAT: +hematoma at the back of the head. No change in vision. No ear pain or discharge. No sore throat. GASTROINTESTINAL: No nausea, vomiting, diarrhea or constipation. GENITOURINARY: No dysuria, frequency, or change in urination. CARDIOVASCULAR: No chest pain or shortness of breath. RESPIRATORY: No cough, wheezing, or hemoptysis. MUSCULOSKELETAL: No joint or muscle swelling or pain. No neck or back pain. SKIN: +bilateral elbow hematoma. No rash NEUROLOGIC: +headache. No vertigo, loss of consciousness, or change in strength/ sensation. ENDOCRINE: No increased thirst. No abnormal weight change. HEMATOLOGIC/LYMPHATIC: No anemia, easy bleeding, or history of blood clots. ALLERGIC/IMMUNOLOGIC: No hives or skin allergy. *Physical Exam Vital Signs Temperature Pulse Rate 108 H 02/21/17 07:14 Respiratory Rate 18 02/20/17 21:37 Blood Pressure 113/61 02/21/17 07:14 O2 Sat by Pulse Oximetry (%) 98 02/21/17 07:14 GENERAL: Awake, alert, and fully oriented, in no acute distress HEAD: +Posterior hematoma. EYES: PERRLA, EOMI, sclera anicteric, conjunctiva clear ENT: Auricles normal inspection, hearing grossly normal, nares patent, oropharynx clear without exudates. Moist mucosa NECK: Normal ROM, supple, no lymphadenopathy, JVD, or masses LUNGS: Breath sounds equal, clear to auscultation bilaterally. No wheezes, and no crackles HEART: Regular rate and rhythm, normal S1 and S2, no murmurs, rubs or gallops ABDOMEN: Soft, nontender, normoactive bowel sounds. No guarding, no rebound. No masses EXTREMITIES: Normal range of motion, no edema. No clubbing or cyanosis. No cords, erythema, or tenderness NEUROLOGICAL: Cranial nerves II through XII grossly intact. Normal speech, strenght intact b/l, sensory normal, gait deferred SKIN: Warm, Dry, normal turgor, no rashes or lesions noted. CBCD WBC 5.1 K/mm3 (4.0-10.0) D 02/21/17 08:55 RBC 3.23 M/mm3 (4.00-5.60) L 02/21/17 08:55 Hgb 11.3 GM/dL (11.7-16.9) L 02/21/17 08:55 Hct 32.9 % (35.4-49) L 02/21/17 08:55 MCV 101.6 fl (80-96) H 02/21/17 08:55 MCHC 34.4 g/dl (32.0-35.9) 02/21/17 08:55 RDW 14.7 % (11.9-15.9) 02/21/17 08:55 Plt Count 40 K/MM3 (134-434) L D 02/21/17 08:55 MPV 9.0 fl (7.5-11.1) 02/21/17 08:55 CMP Sodium 132 mmol/L (136-145) L 02/21/17 08:55 Potassium 3.7 mmol/L (3.5-5.1) 02/21/17 08:55 Chloride 97 mmol/L (98-107) L 02/21/17 08:55 Carbon Dioxide 23 mmol/L (21-32) 02/21/17 08:55 Anion Gap 12 (8-16) 02/21/17 08:55 BUN 26 mg/dL (7-18) H 02/21/17 08:55 Creatinine 1.3 mg/dL (0.7-1.3) 02/21/17 08:55 Creat Clearance w eGFR 59.43 (>60) 02/21/17 08:55 Calcium 8.7 mg/dL (8.5-10.1) 02/21/17 08:55 Total Bilirubin 7.7 mg/dL (0.2-1.0) H 02/21/17 08:55 AST 98 U/L (15-37) H 02/21/17 08:55 ALT 38 U/L (12-78) 02/21/17 08:55 Alkaline Phosphatase 142 U/L (45-117) H 02/21/17 08:55 Total Protein 7.6 g/dl (6.4-8.2) 02/21/17 08:55 Albumin 2.8 g/dl (3.4-5.0) L 02/21/17 08:[address] C spine reviewed Plan 46 y/o male with hx of alcoholic cirrhosis complicated with ascites, and esophageal varices who presents to the ED with hematoma and ankle swelling. He denied any head trauma or LOC. He states that he woke up this morning with head hematoma and ankle swelling without any trauma. Prior EGD: band ligation of esophageal varices 05/2013. CT head completed and did not show acute changes. No intracranial bleed. CT C spine without fracture or subluxation. Consult for tremor and benign essential tremor noted, likely 2/2 chronic Etoh use. -Monitor for withdrawal -Thiamine, multivitamin -Tremor benign, not having seizures, would monitor for now -Etoh cessation -Iv/PO hydration -Fall precautions
[2017-02-21] MEDS: PANTOPRAZOLE 40 MG TABLET (FP) PO SCH (14:00)
--- NOTE | 2017-02-21 14:17 | CONSULT ---
Consultation: CONSULT REQUEST: RENAL CONSULT HISTORY OF PRESENT ILLNESS: Patient is a 46 year old male with significant past medical history of alcoholic cirrhosis, esophageal varices, hematuria, Ecchymosis on/off presented to the ED with the chief complaint of multiple hematoma and left ankle swelling. As per the patient, he has a h/o of ecchymosis but this time he had multiple large bruises with swelling which is unusual for him, which started 2 days ago. Patient mentions he used to get one or two bruises that first started 4 years ago. No h/o trauma. Patient also complaints of swelling of the left ankle with bruises x 4 days ago , is increasing in size and is very painful to touch. These symptoms are associated with nausea and 2 episodes of vomiting 2 days ago. Vomitus were mainly food particles, non bilious, non bloody. Patient also states that he noticed hematuria, bright red in color which is slowly fading in color as per the patient. Bowel habit normal. Sleep/Appetite decreased since illness. Patient mentions that he goes to [facility] for follow up, had investigation for the hematuria and ecchymosis but he doesn't know the diagnosis. He was checked for HIV and Hepatitis which was negative. Allergies: NKDA Surgical history: band ligation of esophageal varices 05/2013; ascites tapping 2 months ago Social: Smoking: Never smoked Alcohol: Quit 3 months ago, heavy drinker for 33 years, 8-12 beers/day with vodka Drugs: Denies REVIEW OF SYSTEMS: CONSTITUTIONAL: Absent: fever, chills, diaphoresis, generalized weakness, malaise, loss of appetite, weight change HEENT: Absent: rhinorrhea, nasal congestion, throat pain, throat swelling, difficulty swallowing, mouth swelling, ear pain, eye pain, visual changes CARDIOVASCULAR: Absent: chest pain, syncope, palpitations, irregular heart rate, lightheadedness , peripheral edema RESPIRATORY: Absent: cough, shortness of breath, dyspnea with exertion, orthopnea, wheezing, stridor, hemoptysis GASTROINTESTINAL: Absent: abdominal pain, abdominal distension, nausea, vomiting, diarrhea, constipation, melena, hematochezia GENITOURINARY: Present: Hematuria Absent: dysuria, frequency, urgency, hesitancy, hematuria, flank pain, genital pain MUSCULOSKELETAL: Absent: myalgia, arthralgia, joint swelling, back pain, neck pain SKIN: Absent: rash, itching, pallor HEMATOLOGIC/IMMUNOLOGIC: Present: BRUISES Absent: easy bleeding, easy bruising, lymphadenopathy, frequent infections ENDOCRINE: Absent: unexplained weight gain, unexplained weight loss, heat intolerance, cold intolerance NEUROLOGIC: Absent: headache, focal weakness or paresthesias, dizziness, unsteady gait, seizure, mental status changes, bladder or bowel incontinence PSYCHIATRIC: Absent: anxiety, depression, suicidal or homicidal ideation, hallucinations. PHYSICAL EXAMINATION Vital Signs - 24 hr 02/21/17 02/21/17 07:14 13:33 Pulse Rate 79 Pulse Rate [ 108 H Left Radial] Respiratory 18 Rate Blood Pressure 123/66 Blood Pressure 113/61 [Right Arm] O2 Sat by Pulse 98 Oximetry (%) GENERAL: Young male sitting comfortably in bed, Awake, alert, and fully oriented , in no acute distress. HEAD: Normal with no signs of trauma. EYES: EOM intact, no pallor, Icterus + EARS, NOSE, THROAT: Ears normal. Moist mucous membranes. NECK: Supple. LUNGS: Breath sounds equal, clear to auscultation bilaterally. No wheezes, and no crackles. No accessory muscle use. HEART: Regular rate and rhythm, normal S1 and S2 with soft systolic murmur. ABDOMEN: Soft, nontender, not distended, normoactive bowel sounds, no guarding, no rebound, no masses. No hepatomegaly or splenomegaly. MUSCULOSKELETAL: Normal range of motion at all joints. No bony deformities or tenderness. No CVA tenderness. UPPER EXTREMITIES: 2+ pulses, warm, well-perfused. No cyanosis. No clubbing. Cap refill <2 seconds. No peripheral edema. LOWER EXTREMITIES: Right: 2+ pulses, warm, well-perfused. No calf tenderness. No peripheral edema. Left: Ankle swelling with ecchymosis +, tender to touch, palpable pulses. NEUROLOGICAL: No facial droop, power 5/5 in all ext, B/L Extremity tremor +; Normal speech. Gait not observed. PSYCHIATRIC: Cooperative. Good eye contact. Appropriate mood and affect. SKIN: Multiple ecchymosis- upper extremities, left ankle, back, occipital area with swelling +, Warm, dry, normal turgor. Laboratory Results - last 24 hr 02/21/17 02/21/17 02/21/17 04:15 08:55 08:55 WBC 5.1 D RBC 3.23 L Hgb 11.3 L Hct 32.9 L MCV 101.6 H MCH 34.9 H MCHC 34.4 RDW 14.7 Plt Count 40 L D MPV 9.0 Neutrophils % 83.0 H Lymphocytes % 3.8 L D Monocytes % 12.1 H Eosinophils % 0.7 Basophils % 0.4 PT with INR 24.10 H INR 2.16 H PTT (Actin FS) 31.8 Sodium Potassium Chloride Carbon Dioxide Anion Gap BUN Creatinine Creat Clearance w eGFR Random Glucose Calcium Total Bilirubin AST ALT Alkaline Phosphatase Total Protein Albumin Blood Type A POSITIVE Antibody Screen Negative 02/21/17 08:55 WBC RBC Hgb Hct MCV MCH MCHC RDW Plt Count MPV Neutrophils % Lymphocytes % Monocytes % Eosinophils % Basophils % PT with INR INR PTT (Actin FS) Sodium 132 L Potassium 3.7 Chloride 97 L Carbon Dioxide 23 Anion Gap 12 BUN 26 H Creatinine 1.3 Creat Clearance w eGFR 59.43 Random Glucose 137 H D Calcium 8.7 Total Bilirubin 7.7 H AST 98 H ALT 38 Alkaline Phosphatase 142 H Total Protein 7.6 Albumin 2.8 L Blood Type Antibody Screen Active Medications Generic Name Dose Route Start Last Admin Trade Name Freq PRN Reason Stop Dose Admin Pantoprazole Sodium 40 mg 02/21/17 10:00 02/21/17 14:00 Protonix - PO 40 mg DAILY CLIFFORD Administration Patient is a 46 year old male with significant past medical history of alcoholic cirrhosis, esophageal varices, hematuria, Ecchymosis on/off presented to the ED with the chief complaint of multiple hematoma and left ankle swelling. ASSESSMENT 1. Cirrhosis of liver 2. Hematuria 3. Likely hepatorenal syndrome 4. Esophageal varices s/p band ligation in 2013 5. Ecchymosis likely due to thrombocytopenia 6. Hematuria likely due to thrombocytopenia 7. Macrocytic anemia likely due to alcohol intake 8. Tremor likely secondary to alcohol vs essential tremor. 9. Thrombocytopenia PLAN Likely has Hepatorenal syndrome Creatinine 1.3 today, repeat BMP in am Avoid Nephrotoxic drugs Hematuria likely secondary to thrombocytopenia, but would like to r/o infectious cause Ordered UA and is pending. Monitor closely Dispo: We will continue to follow the patient. Thank you for this consultative opportunity. Case to be discussed with Dr. Melara. Visit type - Emergency Visit Emergency Visit: Yes ED Registration Date: 02/21/17 Care time: The patient presented to the Emergency Department on the above date and was hospitalized for further evaluation of their emergent condition. - New Patient This patient is new to me today: Yes Date on this admission: 02/21/17 - Critical Care Critical Care patient: No
--- NOTE | 2017-02-21 16:42 | PN ---
Teaching Attending Note Name of Resident: Radha Tolbert (Nephrology) ATTENDING PHYSICIAN STATEMENT I saw and evaluated the patient. I reviewed the resident's note and discussed the case with the resident. I agree with the resident's findings and plan as documented. Nephrology Pt is a 46 year old male with pmhx of etoh abuse, liver cirrhosis, ascites, and esophageal varices who presents to the ER with ankle swelling. He was found to have elevated creatinine and I was called to evaluate him. He denies shortness of breath. He denies dysuria. He is awake and alert. pmhx liver cirrhosis family hx denies social hx has been off of alcohol for about 3 months ros easy bruising and heamtomas cxr neg Current Medications Generic Name Dose Route Start Last Admin Trade Name Freq PRN Reason Stop Dose Admin Pantoprazole Sodium 40 mg 02/21/17 10:00 02/21/17 14:00 Protonix - PO 40 mg DAILY CLIFFORD Administration Last Vital Signs Temp Pulse Resp BP Pulse Ox 79 18 123/66 98 02/21/17 13:33 02/21/17 13:33 02/21/17 13:33 02/21/17 07:14 Laboratory Tests 02/20/17 02/20/17 02/21/17 23:00 23:00 08:55 WBC 5.1 D Hgb 11.1 L D 11.3 L Plt Count 32 L* D 40 L D PT with INR INR Sodium Potassium BUN 24 H D Creatinine 1.4 H D Creat Clearance w eGFR 54.56 02/21/17 02/21/17 08:55 08:55 WBC Hgb Plt Count PT with INR 24.10 H INR 2.16 H Sodium 132 L Potassium 3.7 BUN 26 H Creatinine 1.3 Creat Clearance w eGFR 59.43 Laboratory Tests 11/30/16 12/01/16 12/02/16 06:10 05:40 06:30 Creatinine 0.7 0.7 0.5 L D cardio s1s2 reg pulm clear GI soft ext trace edema skin easy bruising Impression 1. ROJAS - pt has a baseline contract specialist of 0.5 2. liver cirrhosis 3. thrombocytopenia 4. hx etoh abuse 5. hx hematuria 6. anemia Plan - send ua - ultrasound kidneys and bladder - will discuss liver status with GI - there has been a marked deterioration of renal function over the last few month as his last outpt contract specialist was about 0.5 - will comment more on etiology as more data is gathered - will check urine lytes as well Dr Melara
--- NOTE | 2017-02-21 17:01 | CONSULT ---
Consult Consult Specialty:: Hematology (for ) - History of Present Illness History of Present Illness: 46 y/o male with hx of alcoholic cirrhosis complicated with ascites, and esophageal varices who presents to the ED with hematoma and ankle swelling since this AM. He denies any head trauma or LOC. He states that he woke up this morning with head hematoma and ankle swelling without any trauma. He states that he was fine last night. He notes that he was told by his pmd that he has hematomas on his bilateral elbows that are intermittent and resolve on their own. He reports chronic ROUSE. He denies use of any blood thinners. Denies fever/chills, neck pain, CP, SOB, back pain, dysuria, does report hematuria. He denies any dizziness, blurry vision, changes in hearing, no slurred speech or changes in vision. - History Source History Provided By: Patient, Medical Record Limitations to Obtaining History: No Limitations - Past Medical History Gastrointestinal: Yes: Ascites, Esophageal Varices. No: Cancer, Constipation, Crohn's Disease, Diverticulitis, Diverticulosis, Gastritis, GERD, GI Bleed ( variceal in past, s/p banding and on nadalol), Hemorrhoids, Hiatal Hernia, Inflamatory Bowel Disease, Irritable Bowel Disease, Pancreatitis, Peptic Ulcer Disease, Ulcerative Colitis, Other Hepatobiliary: Yes: Cirrhosis (varices, ascites), Cholelithiasis. No: Cholecystitis, Choledocholithiasis, Hepatitis A, Hepatitis B, Hepatitis C, Other Renal/: Yes: Hematuria, Other (bladder cyst). No: Renal Failure, Renal Inusuff, BPH, Cancer, Hemodialysis, Neurogenic Bladder, Renal Calculi, UTI Psych: Yes: Addictions - Past Surgical History Past Surgical History: Yes: Upper Endoscopy (egd + band ligation of esophageal varices 05/2013). No: None, AAA Repair, AICD, Amputation, Appendectomy, Arthrosocopy, AV Fistula/Graft, Bariatric Surgery, Breast Biopsy, Bypass, CABG, Carotid Endarterectomy, Cataract Removal, Cholecystectomy, Colectomy, Colonoscopy, Colostomy, Craniotomy, , Cystectomy, Hernia Repair, Hysterectomy, Ileal Conduit, Ileosotomy, Joint Replacement, Kidney Transplant, Laminectomy, Liver Transplant, Mastectomy, Nephrectomy, Oopherectomy, Orchiectomy, Permanent Pacemaker, Prostatectomy, Splenectomy, Stent, Thoracotomy , TURP, Tonsillectomy, Tubal Ligation, Valve Replacement, Vasectomy, Vein Stripping/Ligation - Alcohol/Substance Use Hx Alcohol Use: No - Smoking History Smoking history: Never smoked Have you smoked in the past 12 months: No Aproximately how many cigarettes per day: 0 - Social History Usual Living Arrangement: With Spouse Home Medications - Allergies Allergies/Adverse Reactions: Allergies Allergy/AdvReac Type Severity Reaction Status Date / Time No Known Allergies Allergy Verified 02/20/17 21:39 - Home Medications Home Medications: Ambulatory Orders NK [No Known Home Medication] 02/20/17 Physical Exam Vital Signs: Vital Signs Temperature Pulse Rate 79 02/21/17 13:33 Respiratory Rate 18 02/21/17 13:33 Blood Pressure 123/66 02/21/17 13:33 O2 Sat by Pulse Oximetry (%) 98 02/21/17 07:14 Constitutional: Yes: No Distress, Calm Eyes: Yes: Sclera Icterus HENT: Yes: Atraumatic, Normocephalic, Other (ruise present at the back of the head) Neck: Yes: Supple, Trachea Midline Cardiovascular: Yes: Regular Rate and Rhythm Respiratory: Yes: Regular, CTA Bilaterally Gastrointestinal: Yes: Normal Bowel Sounds, Soft Extremities: Yes: Other (left ankle swollen , tender , no erythema) Integumentary: Yes: Petechiae, Other (petechiae Lower extremity. Bruises present) Psychiatric: Yes: Alert, Oriented Labs: CBC, BMP 02/21/17 08:55 02/21/17 08:55 Imaging - Results X-ray: Report Reviewed Cat Scan: Report Reviewed Ultrasound: Report Reviewed Problem List - Problems (1) Thrombocytopenic Code(s): D69.6 - THROMBOCYTOPENIA, UNSPECIFIED (2) Cirrhosis of liver with ascites Code(s): K74.60 - UNSPECIFIED CIRRHOSIS OF LIVER Qualifiers: Hepatic cirrhosis type: alcoholic cirrhosis Qualified Code(s): K70.31 - Alcoholic cirrhosis of liver with ascites (3) Foot pain, left Code(s): M79.672 - PAIN IN LEFT FOOT (4) Bruise Code(s): T14.8 - OTHER INJURY OF UNSPECIFIED BODY REGION Assessment/Plan Pt is a 46 y/o male with PMHx of cholelithiasis, cholecystitis and alcoholic liver cirrhosis who presents to ER with complains of hswelling in the left ankle and also increasing bruises. Presently he is being followed at [facility] hepatology. Being monitored closely by hepatology team for possible 3 hepatoma lesions in the liver with MRI, most recent MRI on 02/19 with stability noted. Pancytopenia/coagulopathy secondary to cirrhosis., the worsening bruises due to worsening liver disease . Will continue to monitor with supportive care. Platelet one unit ordered US RONI romeroler ( left) , negative for DVT. Xray ankle of the left Vit K for repeat CBC, Coags in the am. will monitor for active bleeding renal/gi f/u
[2017-02-21 18:14] LABS: URINE APPEARANCE CLEAR; URINE BILIRUBIN NEGATIVE (NEGATIVE); URINE BLOOD 3+ (NEGATIVE); URINE COLOR AMBER; URINE GLUCOSE (UA) NEGATIVE (NEGATIVE); URINE KETONE NEGATIVE (NEGATIVE); URINE LEUK ESTERASE NEGATIVE (NEGATIVE); URINE NITRITE NEGATIVE (NEGATIVE); URINE PROTEIN NEGATIVE (NEGATIVE); URINE UROBILINOGEN 4.0 E.U/dl mg/dL (0.2-1.0)
[2017-02-21 18:38] LABS: URINE BACTERIA RARE /hpf (NONE SEEN); URINE RBC 35 /hpf (0-3); URINE WBC 6 /hpf (3-5)
[2017-02-22 07:35] LABS: MCH 35.2 pg (25.7-33.7); MCHC 34.6 g/dl (32.0-35.9); MEAN CELL VOLUME 101.9 fl (80-96); MEAN PLT VOLUME 8.4 fl (7.5-11.1)
[2017-02-22 07:51] LABS: PLATELET COUNT 30 K/MM3 (134-434); WHITE BLOOD COUNT 1.9 K/mm3 (4.0-10.0)
[2017-02-22 08:06] LABS: ALBUMIN 2.3 g/dl (3.4-5.0); ANION GAP 6 (8-16); CALCIUM 8.2 mg/dL (8.5-10.1); CO2 27 mmol/L (21-32); CREATININE 0.9 mg/dL (0.7-1.3); GLUCOSE,RANDOM 116 mg/dL (74-106); SGOT/AST 84 U/L (15-37)
[2017-02-22 08:11] LABS: ALK PHOS 115 U/L (45-117); BILIRUBIN,TOTAL 6.8 mg/dL (0.2-1.0); SGPT/ALT 33 U/L (12-78)
[2017-02-22 08:28] LABS: INR 2.37 (0.82-1.09); PROTHROMBIN TIME (PATIENT) 26.5 SEC (9.98-11.88)
[2017-02-22 08:31] LABS: ACTIVATED PTT 31.4 SECONDS (26.9-34.4)
[2017-02-22 09:03] LABS: TOTAL CELLS COUNTED 100
[2017-02-22 09:04] LABS: BASOPHIL (MANUAL) 1 % (0-2.0); PLATELET ESTIMATE DECREASED (NORMAL)
--- NOTE | 2017-02-22 10:54 | PN ---
Progress Note, Physician Chief Complaint: THROMBOCYTOPENIA NOTED NOTES REVIEWED PATIENT COMFORTABLE NAD XRAYS AND SONOGRAM NO ACUTE CHANGES - Current Medication List Current Medications: Active Medications Pantoprazole Sodium (Protonix -) 40 mg PO DAILY CLIFFORD Last Admin: 02/21/17 14:00 Dose: 40 mg - Objective Vital Signs: Vital Signs Temperature 98.4 F 02/22/17 06:00 Pulse Rate 77 02/22/17 06:00 Respiratory Rate 18 02/22/17 06:00 Blood Pressure 141/74 02/22/17 06:00 O2 Sat by Pulse Oximetry (%) 98 02/21/17 09:40 Constitutional: Yes: Mild Distress Eyes: Yes: WNL HENT: Yes: WNL (AND TENDERNESS OCCIPITAL AREA), Other Neck: Yes: WNL Cardiovascular: Yes: WNL Respiratory: Yes: WNL Gastrointestinal: Yes: WNL Genitourinary: Yes: WNL Musculoskeletal: Yes: WNL Edema: No Integumentary: Yes: Bruising, Erythema, Venous Stasis Changes Wound/Incision: Yes: Dressing Dry and Intact Neurological: Yes: Pre-Existing Deficit ...Motor Strength: LLE, RLE Psychiatric: Yes: Other Labs: CBC, BMP 02/22/17 06:40 INR, PTT INR 2.37 (0.82-1.09) H 02/22/17 06:40 Fibrinogen 144.0 mg/dL (238-498) L 02/22/17 06:40 Problem List - Problems (1) Bruise Code(s): T14.8 - OTHER INJURY OF UNSPECIFIED BODY REGION (2) Cirrhosis of liver with ascites Code(s): K74.60 - UNSPECIFIED CIRRHOSIS OF LIVER Qualifiers: Hepatic cirrhosis type: alcoholic cirrhosis Qualified Code(s): K70.31 - Alcoholic cirrhosis of liver with ascites (3) Headache Code(s): R51 - HEADACHE Qualifiers: Headache type: post-traumatic Qualified Code(s): G44.89 - Other headache syndrome (4) Thrombocytopenic Code(s): D69.6 - THROMBOCYTOPENIA, UNSPECIFIED (5) Ascites due to alcoholic cirrhosis Code(s): K70.31 - ALCOHOLIC CIRRHOSIS OF LIVER WITH ASCITES (6) Foot pain, left Code(s): M79.672 - PAIN IN LEFT FOOT (7) Portal hypertension Code(s): K76.6 - PORTAL HYPERTENSION Assessment/Plan liver cirrhosis GI follow up vit K and ffp Hematology Dr Graham for eval Labs PT eval fall precautions Neurology eval for asterixix MVI Thiamine LABS REVIEWED TODAY LIVER TRANSPLANT APPOINTMENT CONFIRMED AT [facility] Feb
[2017-02-22] MEDS: PANTOPRAZOLE 40 MG TABLET (FP) PO SCH (11:01)
--- NOTE | 2017-02-22 13:53 | PN ---
Physical Exam: SUBJECTIVE: Patient seen and examined OBJECTIVE: Vital Signs Period Temp Pulse Resp BP Sys/[place] Pulse Ox Last 24 Hr 98.4 F-98.8 F 76-86 16-18 123-145/74-85 GENERAL: The patient is awake, alert, and fully oriented, in no acute distress. HEAD: Normal with no signs of trauma. EYES: PERRL, extraocular movements intact, sclera anicteric, conjunctiva clear. No ptosis. ENT: Ears normal, nares patent, oropharynx clear without exudates, moist mucous membranes. NECK: Trachea midline, full range of motion, supple. LUNGS: Breath sounds equal, clear to auscultation bilaterally, no wheezes, no crackles, no accessory muscle use. HEART: Regular rate and rhythm, S1, S2 without murmur, rub or gallop. ABDOMEN: Soft, nontender, nondistended, normoactive bowel sounds, no guarding, no rebound, no hepatosplenomegaly, no masses. EXTREMITIES: 2+ pulses, warm, well-perfused, no edema. NEUROLOGICAL: Cranial nerves II through XII grossly intact. Normal speech, gait not observed. PSYCH: Normal mood, normal affect. SKIN: Warm, dry, normal turgor, no rashes or lesions noted Laboratory Results - last 24 hr 02/21/17 02/21/17 02/21/17 04:15 18:00 18:00 WBC RBC Hgb Hct MCV MCH MCHC RDW Plt Count MPV Total Counted Neutrophils % (Manual) Lymphocytes % (Manual) Monocytes % (Manual) Eosinophils % (Manual) Basophils % (Manual) Platelet Estimate PT with INR INR PTT (Actin FS) Fibrinogen Sodium Potassium Chloride Carbon Dioxide Anion Gap BUN Creatinine Creat Clearance w eGFR Random Glucose Calcium Total Bilirubin AST ALT Alkaline Phosphatase Total Protein Albumin Urine Color [place] Urine Appearance Clear Urine pH 6.0 Ur Specific [place] <= 1.005 Urine Protein Negative Urine Glucose (UA) Negative Urine Ketones Negative Urine Blood 3+ H Urine Nitrite Negative Urine Bilirubin Negative Urine Urobilinogen 4.0 e.u/dl Urine RBC 35 Urine WBC 6 Urine Bacteria Rare Ur Random Sodium 27 Ur Random Potassium 11.6 Ur Random Chloride 13 Urine Creatinine Blood Type A POSITIVE Antibody Screen Negative 02/21/17 02/22/17 02/22/17 18:00 06:40 06:40 WBC 1.9 L* D RBC 2.59 L Hgb 9.1 L D Hct 26.4 L D MCV 101.9 H MCH 35.2 H MCHC 34.6 RDW 15.0 Plt Count 30 L* D MPV 8.4 Total Counted 100 Neutrophils % (Manual) 71 Lymphocytes % (Manual) 10 Monocytes % (Manual) 15 H Eosinophils % (Manual) 3 Basophils % (Manual) 1 Platelet Estimate Decreased PT with INR INR PTT (Actin FS) Fibrinogen Sodium 136 Potassium 3.5 Chloride 103 Carbon Dioxide 27 Anion Gap 6 L BUN 20 H D Creatinine 0.9 D Creat Clearance w eGFR > 60 Random Glucose 116 H Calcium 8.2 L Total Bilirubin 6.8 H AST 84 H ALT 33 Alkaline Phosphatase 115 Total Protein 6.0 L D Albumin 2.3 L Urine Color Urine Appearance Urine pH Ur Specific [place] Urine Protein Urine Glucose (UA) Urine Ketones Urine Blood Urine Nitrite Urine Bilirubin Urine Urobilinogen Urine RBC Urine WBC Urine Bacteria Ur Random Sodium Ur Random Potassium Ur Random Chloride Urine Creatinine 102.0 Blood Type Antibody Screen 02/22/17 06:40 WBC RBC Hgb Hct MCV MCH MCHC RDW Plt Count MPV Total Counted Neutrophils % (Manual) Lymphocytes % (Manual) Monocytes % (Manual) Eosinophils % (Manual) Basophils % (Manual) Platelet Estimate PT with INR 26.50 H INR 2.37 H PTT (Actin FS) 31.4 Fibrinogen 144.0 L Sodium Potassium Chloride Carbon Dioxide Anion Gap BUN Creatinine Creat Clearance w eGFR Random Glucose Calcium Total Bilirubin AST ALT Alkaline Phosphatase Total Protein Albumin Urine Color Urine Appearance Urine pH Ur Specific [place] Urine Protein Urine Glucose (UA) Urine Ketones Urine Blood Urine Nitrite Urine Bilirubin Urine Urobilinogen Urine RBC Urine WBC Urine Bacteria Ur Random Sodium Ur Random Potassium Ur Random Chloride Urine Creatinine Blood Type Antibody Screen Active Medications Generic Name Dose Route Start Last Admin Trade Name Freq PRN Reason Stop Dose Admin Pantoprazole Sodium 40 mg 02/21/17 10:00 02/22/17 11:01 Protonix - PO 40 mg DAILY CLIFFORD Administration ASSESSMENT/PLAN:
--- NOTE | 2017-02-22 13:59 | PN ---
Physical Exam: SUBJECTIVE: Patient seen and examined at bed side today. He states he moved his bowel 6 times since yesterday, firm stool, no blood. Bladder habit normal. Appetite normal. Sleep disturbed. OBJECTIVE: Vital Signs Period Temp Pulse Resp BP Sys/[place] Pulse Ox Last 24 Hr 98.4 F-98.8 F 76-86 16-18 123-145/74-85 GENERAL: Young male sitting comfortably in bed, Awake, alert, and fully oriented , in no acute distress. HEAD: Normal with no signs of trauma. EYES: EOM intact, no pallor, Icterus + EARS, NOSE, THROAT: Ears normal. Moist mucous membranes. NECK: Supple. LUNGS: Breath sounds equal, clear to auscultation bilaterally. No wheezes, and no crackles. No accessory muscle use. HEART: Regular rate and rhythm, normal S1 and S2 with soft systolic murmur. ABDOMEN: Soft, nontender, not distended, normoactive bowel sounds, no guarding, no rebound, no masses. No hepatomegaly or splenomegaly. MUSCULOSKELETAL: Normal range of motion at all joints. No bony deformities or tenderness. No CVA tenderness. UPPER EXTREMITIES: 2+ pulses, warm, well-perfused. No cyanosis. No clubbing. Cap refill <2 seconds. No peripheral edema. LOWER EXTREMITIES: Right: 2+ pulses, warm, well-perfused. No calf tenderness. No peripheral edema. Left: Ankle swelling with ecchymosis +, tender to touch, palpable pulses. NEUROLOGICAL: No facial droop, power 5/5 in all ext, B/L Extremity tremor +; Normal speech. Gait not observed. PSYCHIATRIC: Cooperative. Good eye contact. Appropriate mood and affect. SKIN: Multiple ecchymosis- upper extremities, left ankle-increased in size today , back, occipital area with swelling +, Warm, dry, normal turgor. Laboratory Results - last 24 hr 02/21/17 02/21/17 02/21/17 04:15 18:00 18:00 WBC RBC Hgb Hct MCV MCH MCHC RDW Plt Count MPV Total Counted Neutrophils % (Manual) Lymphocytes % (Manual) Monocytes % (Manual) Eosinophils % (Manual) Basophils % (Manual) Platelet Estimate PT with INR INR PTT (Actin FS) Fibrinogen Sodium Potassium Chloride Carbon Dioxide Anion Gap BUN Creatinine Creat Clearance w eGFR Random Glucose Calcium Total Bilirubin AST ALT Alkaline Phosphatase Total Protein Albumin Urine Color [place] Urine Appearance Clear Urine pH 6.0 Ur Specific [place] <= 1.005 Urine Protein Negative Urine Glucose (UA) Negative Urine Ketones Negative Urine Blood 3+ H Urine Nitrite Negative Urine Bilirubin Negative Urine Urobilinogen 4.0 e.u/dl Urine RBC 35 Urine WBC 6 Urine Bacteria Rare Ur Random Sodium 27 Ur Random Potassium 11.6 Ur Random Chloride 13 Urine Creatinine Blood Type A POSITIVE Antibody Screen Negative 02/21/17 02/22/17 02/22/17 18:00 06:40 06:40 WBC 1.9 L* D RBC 2.59 L Hgb 9.1 L D Hct 26.4 L D MCV 101.9 H MCH 35.2 H MCHC 34.6 RDW 15.0 Plt Count 30 L* D MPV 8.4 Total Counted 100 Neutrophils % (Manual) 71 Lymphocytes % (Manual) 10 Monocytes % (Manual) 15 H Eosinophils % (Manual) 3 Basophils % (Manual) 1 Platelet Estimate Decreased PT with INR INR PTT (Actin FS) Fibrinogen Sodium 136 Potassium 3.5 Chloride 103 Carbon Dioxide 27 Anion Gap 6 L BUN 20 H D Creatinine 0.9 D Creat Clearance w eGFR > 60 Random Glucose 116 H Calcium 8.2 L Total Bilirubin 6.8 H AST 84 H ALT 33 Alkaline Phosphatase 115 Total Protein 6.0 L D Albumin 2.3 L Urine Color Urine Appearance Urine pH Ur Specific [place] Urine Protein Urine Glucose (UA) Urine Ketones Urine Blood Urine Nitrite Urine Bilirubin Urine Urobilinogen Urine RBC Urine WBC Urine Bacteria Ur Random Sodium Ur Random Potassium Ur Random Chloride Urine Creatinine 102.0 Blood Type Antibody Screen 02/22/17 06:40 WBC RBC Hgb Hct MCV MCH MCHC RDW Plt Count MPV Total Counted Neutrophils % (Manual) Lymphocytes % (Manual) Monocytes % (Manual) Eosinophils % (Manual) Basophils % (Manual) Platelet Estimate PT with INR 26.50 H INR 2.37 H PTT (Actin FS) 31.4 Fibrinogen 144.0 L Sodium Potassium Chloride Carbon Dioxide Anion Gap BUN Creatinine Creat Clearance w eGFR Random Glucose Calcium Total Bilirubin AST ALT Alkaline Phosphatase Total Protein Albumin Urine Color Urine Appearance Urine pH Ur Specific [place] Urine Protein Urine Glucose (UA) Urine Ketones Urine Blood Urine Nitrite Urine Bilirubin Urine Urobilinogen Urine RBC Urine WBC Urine Bacteria Ur Random Sodium Ur Random Potassium Ur Random Chloride Urine Creatinine Blood Type Antibody Screen Active Medications Generic Name Dose Route Start Last Admin Trade Name Freq PRN Reason Stop Dose Admin Pantoprazole Sodium 40 mg 02/21/17 10:00 02/22/17 11:01 Protonix - PO 40 mg DAILY CLIFFORD Administration Patient is a 46 year old male with significant past medical history of alcoholic cirrhosis, esophageal varices, hematuria, Ecchymosis on/off presented to the ED with the chief complaint of multiple hematoma and left ankle swelling. ASSESSMENT 1. Cirrhosis of liver 2. Hematuria 3. Acute Kidney Injury 4. Esophageal varices s/p band ligation in 2013 5. Ecchymosis likely due to thrombocytopenia 6. Hematuria likely due to thrombocytopenia 7. Macrocytic anemia likely due to alcohol intake 8. Tremor likely secondary to alcohol vs essential tremor. 9. Thrombocytopenia 10. Neutropenia 11. Spleenomegaly PLAN Acute kidney Injury-resolved Creatinine 1.3---> 0.9 today, repeat BMP in am Avoid Nephrotoxic drugs Hematuria likely secondary to thrombocytopenia UA showed: 3 +blood, urobilinogen 4; RBC 35, WBC 6, no urinary symptoms. Renal ultrasound: Normal kidneys, incidental finding of spleenomegaly Urine electrolytes normal Monitor closely Case discussed with Dr. Melara. Dispo: We will continue to follow the patient. Thank you for this consultative opportunity. Visit type - Emergency Visit Emergency Visit: Yes ED Registration Date: 02/21/17 Care time: The patient presented to the Emergency Department on the above date and was hospitalized for further evaluation of their emergent condition. - New Patient This patient is new to me today: No - Critical Care Critical Care patient: No
--- NOTE | 2017-02-22 15:48 | PN ---
Teaching Attending Note Name of Resident: Radha Tolbert (Nephrology) ATTENDING PHYSICIAN STATEMENT I saw and evaluated the patient. I reviewed the resident's note and discussed the case with the resident. I agree with the resident's findings and plan as documented. Nephrology Pt seen and examined at bedside. He denies shortness of breath. Current Medications Generic Name Dose Route Start Last Admin Trade Name Freq PRN Reason Stop Dose Admin Pantoprazole Sodium 40 mg 02/21/17 10:00 02/22/17 11:01 Protonix - PO 40 mg DAILY CLIFFORD Administration Laboratory Tests 02/22/17 02/22/17 06:40 06:40 WBC 1.9 L* D Hgb 9.1 L D Sodium 136 Potassium 3.5 Chloride 103 Carbon Dioxide 27 Anion Gap 6 L BUN 20 H D Creatinine 0.9 D cardio s1s2 reg pulm clear GI soft ext trace edema skin easy bruising Impression 1. 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 liver cirrhosis 3. thrombocytopenia 4. hx etoh abuse 5. hx hematuria 6. anemia 7. pancytopenia Plan - renal function is improving - renal ultrasound reviewed - hematology follow up - GI follow up - pt is tolerating PO intake and renal function is improving, will not give fluid challenge Dr Melara
--- NOTE | 2017-02-22 19:28 | CON.GI ---
Consult Consult Specialty:: GASTROENTEROLOGY - History of Present Illness Chief Complaint: CIRRHOSIS History of Present Illness: 46 YEAR OLD ALCOHOLIC MALE WHO I LAST SAW IN [id number] AND WHO MISSED A RECENT APPOINTMENT IN THE OFFICE AND HAS MISSED MANY OTHERS ADMITTED WITH MULTIPLE BRUISES TO HIS TRUNK, ARM AND HEAD. HE IS FOLLOWED BY [facility] FOR LIVER LESIONS WHICH MAY INDEED BE HCC. HE HAD A MRI ON SUNDAY AT [facility]. HE IS FOLLOWED BY G[facility] AT [phone]. HE HAS NO C/O MELENA OR RECTAL BLEEDING. HE STATES THAT HE IS NOT DRINKING BUT HTE STATES OTHERWISE. HE HAS HAD A MASSIVE GI BLEED FRO EV BUT HAS NOT BLED AFTER BANDING AND BETA NOÉ THERAPY. 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 No: Cancer, Constipation, Crohn's Disease, Diverticulitis, Diverticulosis, Gastritis, GERD, GI Bleed ( variceal in past, s/p banding and on nadalol), Hemorrhoids, Hiatal Hernia, Inflamatory Bowel Disease, Irritable Bowel Disease, Pancreatitis, Peptic Ulcer Disease, Ulcerative Colitis, Other Hepatobiliary: Yes: Cirrhosis (varices, ascites), Cholelithiasis, Other ( ALCOHOLIC CIRRHOSIS, CURRENT ETOH ABUSER). No: Cholecystitis, Choledocholithiasis, Hepatitis A, Hepatitis B, Hepatitis C Renal/: Yes: Hematuria, Other (bladder cyst). No: Renal Failure, Renal Inusuff, BPH, Cancer, Hemodialysis, Neurogenic Bladder, Renal Calculi, UTI Psych: Yes: Addictions - Past Surgical History Past Surgical History: Yes: Upper Endoscopy (egd + band ligation of esophageal varices 05/2013). No: None, AAA Repair, AICD, Amputation, Appendectomy, Arthrosocopy, AV Fistula/Graft, Bariatric Surgery, Breast Biopsy, Bypass, CABG, Carotid Endarterectomy, Cataract Removal, Cholecystectomy, Colectomy, Colonoscopy, Colostomy, Craniotomy, , Cystectomy, Hernia Repair, Hysterectomy, Ileal Conduit, Ileosotomy, Joint Replacement, Kidney Transplant, Laminectomy, Liver Transplant, Mastectomy, Nephrectomy, Oopherectomy, Orchiectomy, Permanent Pacemaker, Prostatectomy, Splenectomy, Stent, Thoracotomy , TURP, Tonsillectomy, Tubal Ligation, Valve Replacement, Vasectomy, Vein Stripping/Ligation - Alcohol/Substance Use Hx Alcohol Use: No - Smoking History Smoking history: Never smoked Have you smoked in the past 12 months: No Aproximately how many cigarettes per day: 0 - Social History Usual Living Arrangement: With Spouse Home Medications - Allergies Allergies/Adverse Reactions: Allergies Allergy/AdvReac Type Severity Reaction Status Date / Time No Known Allergies Allergy Verified 02/20/17 21:39 - Home Medications Home Medications: Ambulatory Orders NK [No Known Home Medication] 02/20/17 Family Disease History - Family Disease History Family History: Unremarkable Review of Systems - Review of Systems Constitutional: reports: No Symptoms Eyes: reports: No Symptoms HENT: reports: No Symptoms, Other (BRUISES) Neck: reports: No Symptoms Cardiovascular: reports: No Symptoms Respiratory: reports: No Symptoms Gastrointestinal: reports: Constipation Genitourinary: reports: No Symptoms Integumentary: reports: Bruising Neurological: reports: No Symptoms Psychiatric: reports: Other Physical Exam-GI Vital Signs: Vital Signs Temperature 99 F 02/22/17 14:51 Pulse Rate 79 02/22/17 14:51 Respiratory Rate 17 02/22/17 14:51 Blood Pressure 122/71 02/22/17 14:51 O2 Sat by Pulse Oximetry (%) 95 02/22/17 09:00 Constitutional: Yes: Calm Eyes: Yes: Sclera Icterus HENT: Yes: Normocephalic Neck: Yes: Supple Cardiovascular: Yes: Regular Rate and Rhythm Respiratory: Yes: Regular Gastrointestinal Inspection: Yes: Distention ...Auscultate: Yes: Normoactive Bowel Sounds ...Palpate: Yes: Hepatomegaly, Splenomegaly ...Percussion: Yes: Dullness Extremities: Yes: WNL Integumentary: Yes: Bruising Neurological: Yes: Alert, Oriented Labs: CBC, BMP 02/22/17 06:40 02/22/17 06:40 INR, PTT INR 2.37 (0.82-1.09) H 02/22/17 06:40 Fibrinogen 144.0 mg/dL (238-498) L 02/22/17 06:40 Problem List - Problems (1) Cirrhosis of liver with ascites Assessment/Plan: WOULD GET A SONOGRAM AND THE RESULTS OF THE MRI DONE AT [facility]. THERE IS A [facility] LIVER [facility]INIC HERE ON SUNDAY IF NEED THEM TO SEE HIM. I BELIEVE HE IS STABLE BUT MAY HAVE HAD SLIGHT DECOMPENSATION FROM RECENT ALCOHOL. I WOULD CONTINUE PPi. MAIN ISSUE IS NEUTROPENIA NOW. HEMATOLOGY HAS SEEN PATIENT. THIS PATIENT IS NOT TRANSPLANTABLE DUE TO ACTIVE ETOH AND HIS NONCOMPLIANCE. HE CAN NOT RETURN TO THE OFFICE HE HAS FAILED TO SHOW FOR APPOINTMENT AND HIS CARE IS NOW AT [facility]. Code(s): K74.60 - UNSPECIFIED CIRRHOSIS OF LIVER Qualifiers: Hepatic cirrhosis type: alcoholic cirrhosis Qualified Code(s): K70.31 - Alcoholic cirrhosis of liver with ascites (2) Neutropenia Code(s): D70.9 - NEUTROPENIA, UNSPECIFIED (3) Bruise Code(s): T14.8 - OTHER INJURY OF UNSPECIFIED BODY REGION (4) Thrombocytopenic Code(s): D69.6 - THROMBOCYTOPENIA, UNSPECIFIED (5) Alcohol abuse Code(s): F10.10 - ALCOHOL ABUSE, UNCOMPLICATED
--- NOTE | 2017-02-22 22:53 | PN ---
Progress Note (short form) - Note Progress Note: Patient seen and examined Asymptomatic Noo fevers/chills/cough/SOB/abdominal pain/bleeding Last Vital Signs Temp Pulse Resp BP Pulse Ox 99.2 F 78 19 126/84 95 02/22/17 18:00 02/22/17 18:00 02/22/17 18:00 02/22/17 18:00 02/22/17 09:00 Cor: RSR, No murmurs, No gallops Lungs: Clear to P&A Abd: Soft, Normal bowel sounds, No organomegaly Ext:No significant edema Skin: ecchymosis--scalp, arms, lt. ankle Abnormal Lab Results 02/22/17 02/22/17 02/22/17 06:40 06:40 06:40 WBC 1.9 L* D RBC 2.59 L Hgb 9.1 L D Hct 26.4 L D MCV 101.9 H MCH 35.2 H Plt Count 30 L* D Monocytes % (Manual) 15 H PT with INR 26.50 H INR 2.37 H Fibrinogen 144.0 L Anion Gap 6 L BUN 20 H D Random Glucose 116 H Calcium 8.2 L Total Bilirubin 6.8 H AST 84 H Total Protein 6.0 L D Albumin 2.3 L Active Medications Generic Name Dose Route Start Last Admin Trade Name Freq PRN Reason Stop Dose Admin Pantoprazole Sodium 40 mg 02/21/17 10:00 02/22/17 11:01 Protonix - PO 40 mg DAILY CLIFFORD Administration A/P 46 y/o patient with cirrhosis, admitted for bruising ,ecchymosis, worsening pancytopenia suspect mildly worsened liver fxn due to recent alcohol use? MRI done at [facility] 3 days ago not yet read 11/11 MRI--no obvious HCC/several nodules, few with dysplastic features Check flow/B12/folate/iron studies May need platelets/cryo/FFP prior to procedures or if active bleeding neutropenia--? recent alcohol use expect to improve check cultures for occult infection check B12/folate hold off on neupogen today/monitor cbc cirrhotic patients usually have nl marrow reserve but hypersplenism related neutropenia. Hence their infectious risk is lower than neutroenic chemotherapy patients who have acute suppression of marrow reserve check flow/cultures/B12/folate
[2017-02-23 09:31] LABS: BASOPHIL 0.6 % (0-2.0); EOSINOPHIL 1.9 % (0-4.5); MCH 35.6 pg (25.7-33.7); MCHC 34.3 g/dl (32.0-35.9); MEAN CELL VOLUME 103.8 fl (80-96); MEAN PLT VOLUME 8.8 fl (7.5-11.1); NEUTROPHILS 71.2 % (42.8-82.8); PLATELET COUNT 40 K/MM3 (134-434); RDW 15.3 % (11.9-15.9); WHITE BLOOD COUNT 2.4 K/mm3 (4.0-10.0)
[2017-02-23 09:39] LABS: INR 2.53 (0.82-1.09); PROTHROMBIN TIME (PATIENT) 28.4 SEC (9.98-11.88)
[2017-02-23 09:42] LABS: ACTIVATED PTT 31.4 SECONDS (26.9-34.4)
[2017-02-23] MEDS: PANTOPRAZOLE 40 MG TABLET (FP) PO SCH (09:50)
[2017-02-23 10:16] LABS: ANION GAP 8 (8-16); CALCIUM 8.6 mg/dL (8.5-10.1); CO2 25 mmol/L (21-32); CREATININE 0.9 mg/dL (0.7-1.3); GLUCOSE,RANDOM 127 mg/dL (74-106); THYROID STIMULATING HORMONE 1.45 uIU/ml (0.358-3.74)
--- NOTE | 2017-02-23 11:22 | PN ---
Progress Note, Physician Chief Complaint: Liver cirrhosis, excessive bruising, thrombocytopenia History of Present Illness: NAD, in bed, self ambulatory seen by GI and hematology No pain - Current Medication List Current Medications: Active Medications Pantoprazole Sodium (Protonix -) 40 mg PO DAILY CLIFFORD Last Admin: 02/23/17 09:50 Dose: 40 mg - Objective Vital Signs: Vital Signs Temperature 98 F 02/23/17 08:00 Pulse Rate 83 02/23/17 08:00 Respiratory Rate 20 02/23/17 08:00 Blood Pressure 127/72 02/23/17 08:00 O2 Sat by Pulse Oximetry (%) 95 02/22/17 21:00 Constitutional: Yes: Well Nourished, No Distress, Calm Cardiovascular: Yes: Regular Rate and Rhythm, Murmur (grade III/) Respiratory: Yes: Regular Gastrointestinal: Yes: Normal Bowel Sounds, Soft Musculoskeletal: Yes: WNL Extremities: Yes: WNL Edema: No Peripheral Pulses WNL: Yes Integumentary: Yes: Bruising (BL arms, left ankle, and right lower abdomen.) Neurological: Yes: Alert, Oriented Psychiatric: Yes: Alert, Oriented Labs: CBC, BMP 02/23/17 08:30 02/23/17 08:30 INR, PTT INR 2.53 (0.82-1.09) H 02/23/17 08:30 Fibrinogen 160.0 mg/dL (238-498) L 02/23/17 08:30 Problem List - Problems (1) Bruise Assessment/Plan: -secondary to low plt count, which is gradually improving -received plt 1 unit this admission Code(s): T14.8 - OTHER INJURY OF UNSPECIFIED BODY REGION (2) Cirrhosis of liver with ascites Assessment/Plan: Seen by GI has been going to [facility] for MRI [id number], has liver lesions/mass that is being monitored is non compliant, had alcohol 3-4 months ago as per patient Code(s): K74.60 - UNSPECIFIED CIRRHOSIS OF LIVER Qualifiers: Hepatic cirrhosis type: alcoholic cirrhosis Qualified Code(s): K70.31 - Alcoholic cirrhosis of liver with ascites (3) Neutropenia Assessment/Plan: -Improved -Continue reverse isolation Code(s): D70.9 - NEUTROPENIA, UNSPECIFIED (4) Thrombocytopenic Assessment/Plan: -improved -seen by Hematology -additional labs ordered -repeat labs in AM Code(s): D69.6 - THROMBOCYTOPENIA, UNSPECIFIED (5) Alcohol abuse Code(s): F10.10 - ALCOHOL ABUSE, UNCOMPLICATED (6) Anemia Assessment/Plan: -Iron studies -b 12 -stool OB -FA -seen by hematology Code(s): D64.9 - ANEMIA, UNSPECIFIED Assessment/Plan see problem list
[2017-02-23 13:13] LABS: FREE T4 2.12 ng/dl (0.76-1.16)
--- NOTE | 2017-02-23 13:39 | PN ---
Progress Note (short form) - Note Progress Note: Patient seen and examined Denies recent drinking although in GI note, apparently states patient has been drinking. Had MRI at [facility]. Report placed in chart- Essentially no change in disease with multiple tumor nodules . Last Vital Signs Temp Pulse Resp BP Pulse Ox 98 F 83 20 127/72 100 02/23/17 08:00 02/23/17 08:00 02/23/17 08:00 02/23/17 08:00 02/23/17 09:00 HEENT: ADAM, EOM Intact Oropharynx: No thrush, No mucositis Cor: RSR, No murmurs, No gallops Lungs: Clear to P&A Abd: Soft, Normal bowel sounds,spleen 2-3 FB Ext:No significant edema Skin: No rashes, Integument intact CBC, BMP 02/23/17 08:30 02/23/17 08:30 Current Medications Pantoprazole Sodium (Protonix -) 40 mg PO DAILY CLIFFORD Last Admin: 02/23/17 09:50 Dose: [address]- previously with splenomegaly, portal hypertension, retroperitoneal varicosities. Impression: Cirrhosis Hypersplenism Portal hypertension If indeed patient has been drinking , there may ba an acute toxic effect of alcohol which is superimposed on hypersplenism. WBC somewhat improved. Would hold off on neupogen. Ecchymoses related to thrombocytopenia and coagulopathy of liver disease. Patient has follow up at [facility] with GI.
--- NOTE | 2017-02-23 14:49 | PN ---
Progress Note, Physician History of Present Illness: Pt seen and examined at bedside. He is awake and alert. He denies shortness of breath. - Current Medication List Current Medications: Active Medications Pantoprazole Sodium (Protonix -) 40 mg PO DAILY CLIFFORD Last Admin: 02/23/17 09:50 Dose: 40 mg - Objective Vital Signs: Vital Signs Temperature 98.1 F 02/23/17 14:00 Pulse Rate 90 02/23/17 14:00 Respiratory Rate 17 02/23/17 14:00 Blood Pressure 117/82 02/23/17 14:00 O2 Sat by Pulse Oximetry (%) 100 02/23/17 09:00 Constitutional: Yes: Calm Eyes: Yes: Sclera Icterus Cardiovascular: Yes: S1, S2 Respiratory: Yes: CTA Bilaterally Gastrointestinal: Yes: Soft Genitourinary: Yes: WNL Musculoskeletal: Yes: WNL Edema: Yes Edema: LLE: Trace, RLE: Trace Neurological: Yes: Oriented Psychiatric: Yes: Oriented Labs: CBC, BMP 02/23/17 08:30 02/23/17 08:30 INR, PTT INR 2.53 (0.82-1.09) H 02/23/17 08:30 Fibrinogen 160.0 mg/dL (238-498) L 02/23/17 08:30 Problem List - Problems (1) Anemia Code(s): D64.9 - ANEMIA, UNSPECIFIED (2) Cirrhosis of liver with ascites Code(s): K74.60 - UNSPECIFIED CIRRHOSIS OF LIVER Qualifiers: Hepatic cirrhosis type: alcoholic cirrhosis Qualified Code(s): K70.31 - Alcoholic cirrhosis of liver with ascites Assessment/Plan Current Medications Generic Name Dose Route Start Last Admin Trade Name Freq PRN Reason Stop Dose Admin Pantoprazole Sodium 40 mg 02/21/17 10:00 02/23/17 09:50 Protonix - PO 40 mg DAILY CLIFFORD Administration Laboratory Tests 02/21/17 02/23/17 18:00 08:30 WBC 2.4 L Urine Protein Negative Urine Blood 3+ H Urine RBC 35 Urine WBC 6 Impression 1. 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 liver cirrhosis 3. thrombocytopenia 4. hx etoh abuse 5. hx hematuria 6. anemia 7. pancytopenia Plan - renal function is stabilizing - wbc improving - hematology input appreciated - GI follow up - avoid nephrotoxins - repeat labs in am Dr Melara
[2017-02-24 07:19] LABS: MCH 35.7 pg (25.7-33.7); MCHC 34.8 g/dl (32.0-35.9); MEAN CELL VOLUME 102.6 fl (80-96)
[2017-02-24 07:49] LABS: ALBUMIN 2.3 g/dl (3.4-5.0); ALK PHOS 111 U/L (45-117); ANION GAP 7 (8-16); BILIRUBIN,TOTAL 6.8 mg/dL (0.2-1.0); CALCIUM 7.9 mg/dL (8.5-10.1); CO2 26 mmol/L (21-32); CREATININE 0.8 mg/dL (0.7-1.3); GLUCOSE,RANDOM 95 mg/dL (74-106); SGOT/AST 67 U/L (15-37); SGPT/ALT 35 U/L (12-78); TOT PROT 5.9 g/dl (6.4-8.2)
[2017-02-24 07:55] LABS: WHITE BLOOD COUNT 1.6 K/mm3 (4.0-10.0)
[2017-02-24 07:56] LABS: PLATELET COUNT 31 K/MM3 (134-434)
--- NOTE | 2017-02-24 10:01 | PN ---
Progress Note, Physician Chief Complaint: Liver cirrhosis, excessive bruising, thrombocytopenia History of Present Illness: NAD, in bed, self ambulatory seen by GI and hematology No pain WBC decreased today h/h stable on reverse isolation - Current Medication List Current Medications: Active Medications Pantoprazole Sodium (Protonix -) 40 mg PO DAILY CLIFFORD Last Admin: 02/23/17 09:50 Dose: 40 mg - Objective Vital Signs: Vital Signs Temperature 98.3 F 02/24/17 08:30 Pulse Rate 73 02/24/17 08:30 Respiratory Rate 19 02/24/17 08:30 Blood Pressure 126/80 02/24/17 08:30 O2 Sat by Pulse Oximetry (%) 100 02/23/17 20:20 Constitutional: Yes: Well Nourished, No Distress, Calm Cardiovascular: Yes: Regular Rate and Rhythm Respiratory: Yes: Regular Gastrointestinal: Yes: Normal Bowel Sounds Genitourinary: Yes: WNL Musculoskeletal: Yes: WNL Extremities: Yes: WNL Integumentary: Yes: Bruising (secondary to thrombocytopenia) Neurological: Yes: Alert, Oriented Psychiatric: Yes: Alert, Oriented Labs: CBC, BMP 02/24/17 06:15 02/24/17 06:15 INR, PTT INR 2.53 (0.82-1.09) H 02/23/17 08:30 Fibrinogen 160.0 mg/dL (238-498) L 02/23/17 08:30 Problem List - Problems (1) Bruise Assessment/Plan: -secondary to low plt count, which is worse today -received plt 1 unit this admission Code(s): T14.8 - OTHER INJURY OF UNSPECIFIED BODY REGION (2) Cirrhosis of liver with ascites Assessment/Plan: Seen by GI has been going to [facility] for MRI [id number], has liver lesions/mass that is being monitored is non compliant, had alcohol 3-4 months ago as per patient Code(s): K74.60 - UNSPECIFIED CIRRHOSIS OF LIVER Qualifiers: Hepatic cirrhosis type: alcoholic cirrhosis Qualified Code(s): K70.31 - Alcoholic cirrhosis of liver with ascites (3) Neutropenia Assessment/Plan: -worse today -Continue reverse isolation -may need neupogen, order as per hematology Code(s): D70.9 - NEUTROPENIA, UNSPECIFIED (4) Thrombocytopenic Assessment/Plan: -plt decreased today -seen by Hematology -additional labs ordered -repeat labs in AM Code(s): D69.6 - THROMBOCYTOPENIA, UNSPECIFIED (5) Alcohol abuse Assessment/Plan: refuses any intervention such as counseling or registering in AA. Says he has quit alcohol himself in the past and would do the same now. Denies drinking past 3-4 months, but as per GI states otherwise. Code(s): F10.10 - ALCOHOL ABUSE, UNCOMPLICATED (6) Anemia Assessment/Plan: -Iron studies normal -b 12 normal -stool OB negative -FA pending -seen by hematology Code(s): D64.9 - ANEMIA, UNSPECIFIED Assessment/Plan see problem list
[2017-02-24] MEDS: PANTOPRAZOLE 40 MG TABLET (FP) PO SCH (10:05)
--- NOTE | 2017-02-24 15:54 | PN ---
Progress Note, Physician History of Present Illness: Pt seen and examined at bedside. He is anxious to go home. He denies shortness of breath. - Current Medication List Current Medications: Active Medications Pantoprazole Sodium (Protonix -) 40 mg PO DAILY CLIFFORD Last Admin: 02/24/17 10:05 Dose: 40 mg - Objective Vital Signs: Vital Signs Temperature 98.3 F 02/24/17 14:45 Pulse Rate 73 02/24/17 14:45 Respiratory Rate 19 02/24/17 14:45 Blood Pressure 123/81 02/24/17 14:45 O2 Sat by Pulse Oximetry (%) 100 02/24/17 09:00 Constitutional: Yes: Calm Eyes: Yes: Conjunctiva Clear HENT: Yes: Atraumatic Neck: Yes: Supple Cardiovascular: Yes: S1, S2 Respiratory: Yes: CTA Bilaterally Gastrointestinal: Yes: Soft Genitourinary: Yes: WNL Musculoskeletal: Yes: WNL Edema: No Integumentary: Yes: Bruising Neurological: Yes: Oriented Psychiatric: Yes: Oriented Labs: CBC, BMP 02/24/17 06:15 02/24/17 06:15 INR, PTT INR 2.53 (0.82-1.09) H 02/23/17 08:30 Fibrinogen 160.0 mg/dL (238-498) L 02/23/17 08:30 Problem List - Problems (1) Anemia Code(s): D64.9 - ANEMIA, UNSPECIFIED (2) Cirrhosis of liver with ascites Code(s): K74.60 - UNSPECIFIED CIRRHOSIS OF LIVER Qualifiers: Hepatic cirrhosis type: alcoholic cirrhosis Qualified Code(s): K70.31 - Alcoholic cirrhosis of liver with ascites Assessment/Plan Current Medications Generic Name Dose Route Start Last Admin Trade Name Freq PRN Reason Stop Dose Admin Pantoprazole Sodium 40 mg 02/21/17 10:00 02/24/17 10:05 Protonix - PO 40 mg DAILY CLIFFORD Administration Impression 1. 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 liver cirrhosis 3. thrombocytopenia 4. hx etoh abuse 5. hx hematuria 6. anemia 7. pancytopenia Plan - renal function continues to improve - wbc is wore today - oncology follow up - GI follow up - avoid nephrotoxins - repeat labs in am Dr Melara
--- NOTE | 2017-02-24 20:44 | PN ---
Progress Note (short form) - Note Progress Note: Patient seen and examined Asymptomatic Noo fevers/chills/cough/SOB/abdominal pain/bleeding Last Vital Signs Temp Pulse Resp BP Pulse Ox 99.1 F 84 20 124/84 100 02/24/17 18:58 02/24/17 18:58 02/24/17 18:58 02/24/17 18:58 02/24/17 09:00 Cor: RSR, No murmurs, No gallops Lungs: Clear to P&A Abd: Soft, Normal bowel sounds, No organomegaly Ext:No significant edema Skin: ecchymosis--scalp, arms, lt. ankle Abnormal Lab Results 02/23/17 02/24/17 02/24/17 08:30 06:15 06:15 WBC 1.6 L* D RBC 2.42 L Hgb 8.6 L D Hct 24.9 L D MCV 102.6 H MCH 35.7 H Plt Count 31 L* D Anion Gap 7 L Calcium 7.9 L TIBC 156 L Total Bilirubin 6.8 H AST 67 H D Total Protein 5.9 L Albumin 2.3 L Active Medications Generic Name Dose Route Start Last Admin Trade Name Freq PRN Reason Stop Dose Admin Pantoprazole Sodium 40 mg 02/21/17 10:00 02/24/17 10:05 Protonix - PO 40 mg DAILY CLIFFORD Administration A/P 46 y/o patient with cirrhosis, admitted for bruising ,ecchymosis, worsening pancytopenia suspect mildly worsened liver fxn due to recent alcohol use? May need platelets/cryo/FFP prior to procedures or if active bleeding neutropenia--? recent alcohol use blood cultures --negative urine culture pending----to f/u B12/folate/TSH--nl cirrhotic patients usually have nl marrow reserve but hypersplenism related neutropenia. Hence their infectious risk is lower than neutroenic chemotherapy patients who have acute suppression of marrow reserve
[2017-02-25 06:36] LABS: HEMATOCRIT 29.1 % (37.5-51.0)
[2017-02-25 07:46] LABS: MCH 35.5 pg (25.7-33.7); MCHC 34.5 g/dl (32.0-35.9); MEAN CELL VOLUME 102.7 fl (80-96); MEAN PLT VOLUME 9.5 fl (7.5-11.1); RDW 15.1 % (11.9-15.9)
[2017-02-25 07:55] LABS: PLATELET COUNT 36 K/MM3 (134-434); WHITE BLOOD COUNT 1.7 K/mm3 (4.0-10.0)
[2017-02-25 08:08] LABS: INR 3.02 (0.82-1.09)
[2017-02-25 08:10] LABS: ALBUMIN 2.1 g/dl (3.4-5.0); ANION GAP 7 (8-16); CALCIUM 7.6 mg/dL (8.5-10.1); CO2 25 mmol/L (21-32); CREATININE 0.8 mg/dL (0.7-1.3); GLUCOSE,RANDOM 99 mg/dL (74-106); SGOT/AST 52 U/L (15-37); SGPT/ALT 34 U/L (12-78)
[2017-02-25 08:11] LABS: ACTIVATED PTT 34.6 SECONDS (26.9-34.4); ALK PHOS 105 U/L (45-117); BILIRUBIN,TOTAL 6.7 mg/dL (0.2-1.0); TOT PROT 5.9 g/dl (6.4-8.2)
[2017-02-25 08:49] LABS: PLATELET ESTIMATE DECREASED (NORMAL); REACTIVE LYMPHOCYTES 1 % (0-80); TOTAL CELLS COUNTED 100
[2017-02-25] MEDS: PANTOPRAZOLE 40 MG TABLET (FP) PO SCH (10:11)
--- NOTE | 2017-02-25 12:28 | PN ---
Progress Note, Physician Chief Complaint: Liver cirrhosis, excessive bruising, thrombocytopenia History of Present Illness: NAD, in bed, self ambulatory seen by GI and hematology No pain WBC decreased today h/h stable on reverse isolation - Current Medication List Current Medications: Active Medications Pantoprazole Sodium (Protonix -) 40 mg PO DAILY CLIFFORD Last Admin: 02/25/17 10:11 Dose: 40 mg - Objective Vital Signs: Vital Signs Temperature 99.1 F 02/25/17 06:00 Pulse Rate 82 02/25/17 10:00 Respiratory Rate 18 02/25/17 10:00 Blood Pressure 130/80 02/25/17 10:00 O2 Sat by Pulse Oximetry (%) 100 02/24/17 21:00 Constitutional: Yes: Well Nourished, No Distress, Calm Gastrointestinal: Yes: Normal Bowel Sounds Musculoskeletal: Yes: WNL Extremities: Yes: WNL Edema: No Peripheral Pulses WNL: Yes Integumentary: Yes: Bruising Neurological: Yes: Alert, Oriented Psychiatric: Yes: Alert, Oriented Labs: CBC, BMP 02/25/17 06:40 02/25/17 06:40 INR, PTT INR 3.02 (0.82-1.09) H 02/25/17 06:40 Fibrinogen 160.0 mg/dL (238-498) L 02/23/17 08:30 Problem List - Problems (1) Bruise Assessment/Plan: -secondary to low plt count, stable today -received plt 1 unit this admission Code(s): T14.8 - OTHER INJURY OF UNSPECIFIED BODY REGION * DO NOT USE * (2) Cirrhosis of liver with ascites Assessment/Plan: Seen by GI has been going to [facility] for MRI [id number], has liver lesions/mass that is being monitored is non compliant, had alcohol 3-4 months ago as per patient Code(s): K74.60 - UNSPECIFIED CIRRHOSIS OF LIVER Qualifiers: Hepatic cirrhosis type: alcoholic cirrhosis Qualified Code(s): K70.31 - Alcoholic cirrhosis of liver with ascites; K70.31 - Alcoholic cirrhosis of liver with ascites; K70.31 - Alcoholic cirrhosis of liver with ascites (3) Neutropenia Assessment/Plan: -stable -Continue reverse isolation -may need neupogen, order as per hematology Code(s): D70.9 - NEUTROPENIA, UNSPECIFIED (4) Thrombocytopenic Assessment/Plan: -plt stable -seen by Hematology -additional labs ordered -repeat labs in AM Code(s): D69.6 - THROMBOCYTOPENIA, UNSPECIFIED (5) Alcohol abuse Assessment/Plan: refuses any intervention such as counseling or registering in AA. Says he has quit alcohol himself in the past and would do the same now. Denies drinking past 3-4 months, but as per GI states otherwise. Code(s): F10.10 - ALCOHOL ABUSE, UNCOMPLICATED (6) Anemia Assessment/Plan: -Iron studies normal -b 12 normal -stool OB negative -FA nl -seen by hematology Code(s): D64.9 - ANEMIA, UNSPECIFIED Assessment/Plan see problem list
--- NOTE | 2017-02-25 22:39 | PN ---
Progress Note (short form) - Note Progress Note: Patient seen and examined Asymptomatic Noo fevers/chills/cough/SOB/abdominal pain/bleeding AFVSS Cor: RSR, No murmurs, No gallops Lungs: Clear to P&A Abd: Soft, Normal bowel sounds, No organomegaly Ext:No significant edema Skin: ecchymosis--scalp, arms, lt. ankle Abnormal Lab Results 02/25/17 02/25/17 02/25/17 06:40 06:40 06:40 WBC 1.7 L* RBC 2.59 L Hgb 9.2 L Hct 26.6 L MCV 102.7 H MCH 35.5 H Plt Count 36 L* Monocytes % (Manual) 17 H* PT with INR 34.00 H INR 3.02 H PTT (Actin FS) 34.6 H Chloride 108 H Anion Gap 7 L Calcium 7.6 L Total Bilirubin 6.7 H AST 52 H D Total Protein 5.9 L Albumin 2.1 L 02/26/17 02/26/17 06:25 06:25 WBC 1.6 L* RBC 2.58 L Hgb 9.1 L Hct 26.8 L MCV 103.5 H MCH 35.1 H Plt Count 33 L* Monocytes % (Manual) PT with INR 33.90 H INR 3.01 H PTT (Actin FS) Chloride Anion Gap Calcium Total Bilirubin AST Total Protein Albumin A/P 46 y/o patient with cirrhosis, admitted for bruising ,ecchymosis, worsening pancytopenia suspect mildly worsened liver fxn due to recent alcohol use? May need platelets/cryo/FFP prior to procedures or if active bleeding neutropenia--? recent alcohol use blood cultures --negative urine culture pending----neg. B12/folate/TSH--nl Suspect worsening coagulopathy/counts due to worsening liver function will need to f/u with GI team
[2017-02-26 06:46] LABS: MCH 35.1 pg (25.7-33.7); MCHC 33.9 g/dl (32.0-35.9); MEAN CELL VOLUME 103.5 fl (80-96); MEAN PLT VOLUME 9.2 fl (7.5-11.1); RDW 15.1 % (11.9-15.9)
[2017-02-26 06:53] LABS: INR 3.01 (0.82-1.09); PROTHROMBIN TIME (PATIENT) 33.9 SEC (9.98-11.88)
[2017-02-26 07:03] LABS: PLATELET COUNT 33 K/MM3 (134-434); WHITE BLOOD COUNT 1.6 K/mm3 (4.0-10.0)
[2017-02-26 07:11] LABS: ALBUMIN 2.1 g/dl (3.4-5.0); ANION GAP 6 (8-16); BILIRUBIN,TOTAL 6.1 mg/dL (0.2-1.0); CALCIUM 8.1 mg/dL (8.5-10.1); CO2 26 mmol/L (21-32); CREATININE 0.9 mg/dL (0.7-1.3); GLUCOSE,RANDOM 115 mg/dL (74-106); SGOT/AST 45 U/L (15-37); SGPT/ALT 33 U/L (12-78); TOT PROT 5.9 g/dl (6.4-8.2)
[2017-02-26 07:12] LABS: ALK PHOS 104 U/L (45-117)
[2017-02-26 09:30] LABS: BASOPHIL (MANUAL) 2 % (0-2.0); PLATELET ESTIMATE MARKEDLY DECREASED (NORMAL); TOTAL CELLS COUNTED 100
[2017-02-26] MEDS: PANTOPRAZOLE 40 MG TABLET (FP) PO SCH (09:35)
[2017-02-26] MEDS ORDERED: PHYTONADIONE 10 MG/1 ML AMP SQ SCH (10:00)
--- NOTE | 2017-02-26 12:05 | PN ---
Progress Note (short form) - Note Progress Note: ID consult dictated imp/reccd 46 year old man with ETOH cirrhosis, recent MRI with multiple (3) liver nodules , no ascites - followed by Liver Service at [facility] now admitted with increasing number of hematomas noted to have worsening pancytopenia and coagulopathy no fevers Hospital Day #3- one of four blood culture bottle with tiny Gram positive darrel- ? diptheroid, ?corynebacterium feels well no complaints denies travel denies ETOH use- but per GI reports he is drinking denies sick contacts denies pets no meds at home suggest repeat blood cultures pancytopenia -check HIV - he is agreeable, and parvovirus serology though most likely this is secondary to alcohol use Problem List - Problems (1) Bacteremia Code(s): R78.81 - BACTEREMIA (2) Pancytopenia Code(s): D61.818 - OTHER PANCYTOPENIA (3) Liver cirrhosis, alcoholic Code(s): K70.30 - ALCOHOLIC CIRRHOSIS OF LIVER WITHOUT ASCITES
[2017-02-26 14:46] LABS: HIV 1 & 2 AB NEGATIVE; HIV 1 AGp24 NEGATIVE
--- NOTE | 2017-02-26 14:59 | PATH ---
Surgical Pathology Report Patient Name: SENDY ANN [facility]. Rec. #: [id number] /Age/Gender: 1970 (Age: 46) / M Account: [id number] Location: [address] [place] [address] Taken: 02/23/2017 Received: 02/23/2017 Reported: 02/26/2017 Physicians: Catherine Mack M.D. Specimen(s) Received PERIPHERAL BLOOD 2 GREEN TOPS Clinical History Pancytopenia, r/o LPD, r/o MDS Final Diagnosis FLOW CYTOMETRY PERFOR[facility] [place] ([id number]) SHOWED THE FOLLOWING: INTERPRETATION: NO ATYPICAL FLOW CYTOMETRIC FINDINGS SEEN. Phenotype: Lymphocytes include NK-cells and immunophenotypically normal CD4+and CD3+ T-cells in normal proportions. The cells are too few to assess clonality by light chain staining. Granulocytes and immunophenotypically mature. Cytomorphology: Smears from flow sample show no increase in myeloblasts or atypical lymphocytes. MDS FISH STUDIES PERFORMED AND INTERPRETED AT [facility] [place] ([id number]) ARE FOLLOWS: INTERPRETATION: No evidence of deletion 5q or monosomy 5 is present. No evidence of deletion 7q or monosomy 7 is present. No evidence of trisomy8 (+8) is present. No evidence of deletion 13q14 is present. No evidence of a rearrangement of 11q23. No evidence of a deletion of the p53 (17p13) locus. No evidence of deletion 20q12 is present. Comments: The study is negative for many of the most common recurrent genetic abnormalities in Myelodysplastic Syndrome. Correlation with pending cytogenetics ([id number]) is recommended. ___ Electronically Signed Sam Webber M.D. Gross Description ----- Received are 3 green top tubes and 4 purple top tubes. Forwarded for further studies. ___
--- NOTE | 2017-02-26 15:20 | PN ---
Progress Note, Physician History of Present Illness: Pt seen and examined at bedside. He denies shortness of breath or chest pain. He is agitated today. - Current Medication List Current Medications: Active Medications Pantoprazole Sodium (Protonix -) 40 mg PO DAILY [facility] Last Admin: 02/26/17 09:35 Dose: 40 mg Phytonadione (Aqua Mephyton Injection -) 5 mg SQ DAILY [facility] Stop: 03/01/17 09:59 Last Admin: 02/26/17 09:34 Dose: 5 mg - Objective Vital Signs: Vital Signs Temperature 98.2 F 02/26/17 08:00 Pulse Rate 87 02/26/17 08:00 Respiratory Rate 18 02/26/17 08:00 Blood Pressure 143/80 02/26/17 08:00 O2 Sat by Pulse Oximetry (%) 100 02/26/17 09:00 Constitutional: Yes: Anxious Eyes: Yes: Conjunctiva Clear HENT: Yes: Atraumatic Neck: Yes: Supple Cardiovascular: Yes: S1, S2 Respiratory: Yes: CTA Bilaterally Gastrointestinal: Yes: Soft Genitourinary: Yes: WNL Musculoskeletal: Yes: WNL Edema: No Integumentary: Yes: Bruising Neurological: Yes: Oriented Psychiatric: Yes: Oriented Labs: CBC, BMP 02/26/17 06:25 02/26/17 06:25 INR, PTT INR 3.01 (0.82-1.09) H 02/26/17 06:25 Fibrinogen 160.0 mg/dL (238-498) L 02/23/17 08:30 Problem List - Problems (1) Anemia Code(s): D64.9 - ANEMIA, UNSPECIFIED (2) Cirrhosis of liver with ascites Code(s): K74.60 - UNSPECIFIED CIRRHOSIS OF LIVER Qualifiers: Hepatic cirrhosis type: alcoholic cirrhosis Qualified Code(s): K70.31 - Alcoholic cirrhosis of liver with ascites; K70.31 - Alcoholic cirrhosis of liver with ascites; K70.31 - Alcoholic cirrhosis of liver with ascites Assessment/Plan Current Medications Generic Name Dose Route Start Last Admin Trade Name Freq PRN Reason Stop Dose Admin Pantoprazole Sodium 40 mg 02/21/17 10:00 02/26/17 09:35 Protonix - PO 40 mg DAILY [facility] Administration Phytonadione 5 mg 02/26/17 10:00 02/26/17 09:34 Aqua Mephyton Injection - SQ 03/01/17 09:59 5 mg DAILY [facility] Administration Impression 1. ROJAS - pt has a baseline gun mechanic of 0.5 2. liver cirrhosis 3. thrombocytopenia 4. hx etoh abuse 5. hx hematuria 6. anemia 7. pancytopenia Plan - cont to monitor renal function - heme input appreciated - ID input appreciated - will discuss with GI - repeat labs in am Dr Melara
--- NOTE | 2017-02-26 15:45 | PN ---
Progress Note, Physician Chief Complaint: AWAKE ALERT CONSIDERING TRANSFER TO [facility] - Current Medication List Current Medications: Active Medications Pantoprazole Sodium (Protonix -) 40 mg PO DAILY [facility] Last Admin: 02/26/17 09:35 Dose: 40 mg Phytonadione (Aqua Mephyton Injection -) 5 mg SQ DAILY [facility] Stop: 03/01/17 09:59 Last Admin: 02/26/17 09:34 Dose: 5 mg - Objective Vital Signs: Vital Signs Temperature 98.2 F 02/26/17 08:00 Pulse Rate 87 02/26/17 08:00 Respiratory Rate 18 02/26/17 08:00 Blood Pressure 143/80 02/26/17 08:00 O2 Sat by Pulse Oximetry (%) 100 02/26/17 09:00 Constitutional: Yes: Mild Distress Eyes: Yes: WNL HENT: Yes: WNL Neck: Yes: WNL Cardiovascular: Yes: WNL Respiratory: Yes: WNL Gastrointestinal: Yes: WNL, Hepatomegaly Genitourinary: Yes: WNL Musculoskeletal: Yes: WNL Extremities: Yes: WNL Edema: No Peripheral Pulses WNL: Yes Integumentary: Yes: Bruising, Venous Stasis Changes Wound/Incision: Yes: Dressing Dry and Intact Neurological: Yes: Weakness ...Motor Strength: LLE, RLE Psychiatric: Yes: Other Labs: CBC, BMP 02/26/17 06:25 02/26/17 06:25 INR, PTT INR 3.01 (0.82-1.09) H 02/26/17 06:25 Fibrinogen 160.0 mg/dL (238-498) L 02/23/17 08:30 Problem List - Problems (1) Bruise Code(s): T14.8 - OTHER INJURY OF UNSPECIFIED BODY REGION * DO NOT USE * (2) Cirrhosis of liver with ascites Code(s): K74.60 - UNSPECIFIED CIRRHOSIS OF LIVER Qualifiers: Hepatic cirrhosis type: alcoholic cirrhosis Qualified Code(s): K70.31 - Alcoholic cirrhosis of liver with ascites; K70.31 - Alcoholic cirrhosis of liver with ascites; K70.31 - Alcoholic cirrhosis of liver with ascites (3) Headache Code(s): R51 - HEADACHE Qualifiers: Headache type: post-traumatic (4) Thrombocytopenic Code(s): D69.6 - THROMBOCYTOPENIA, UNSPECIFIED (5) Ascites due to alcoholic cirrhosis Code(s): K70.31 - ALCOHOLIC CIRRHOSIS OF LIVER WITH ASCITES (6) Foot pain, left Code(s): M79.672 - PAIN IN LEFT FOOT (7) Portal hypertension Code(s): K76.6 - PORTAL HYPERTENSION Assessment/Plan DISCUSSED WITH LEAD SETTEREMAIL ADMINISTRATOR TO [facility] WHEN BED AVAILABLE HEME/GI EVAL APPRECIATED VIT K TODAY CHECK LABS IN AM
[2017-02-26] MEDS ORDERED: PHYTONADIONE 10 MG/1 ML AMP IVPB ONE ×2 (18:25→21:15)
--- NOTE | 2017-02-26 18:25 | PN ---
GI Progress Note Subjective: GASTROENTEROLOGY NO CHANGES, PLT AND INR STILL A PROBLEM, NO BLEEDING INSISTS THAT HE IS NOT DRINKING - Objective Vital Signs: Vital Signs Temperature 98.0 F 02/26/17 15:53 Pulse Rate 76 02/26/17 15:53 Respiratory Rate 18 02/26/17 15:53 Blood Pressure 120/64 02/26/17 15:53 O2 Sat by Pulse Oximetry (%) 100 02/26/17 09:00 Constitutional: Calm HENT: Yes: Other (ICTERIC) Neck: Yes: Supple Cardiovascular: Yes: WNL Respiratory: Yes: WNL Gastrointestinal Inspection: Yes: WNL ...Palpate: Yes: Soft, Splenomegaly Extremities: Yes: WNL Labs: CBC, BMP 02/26/17 06:25 02/26/17 06:25 INR, PTT INR 3.01 (0.82-1.09) H 02/26/17 06:25 Fibrinogen 160.0 mg/dL (238-498) L 02/23/17 08:30 Laboratory Tests 02/20/17 02/20/17 02/21/17 23:00 23:00 08:55 WBC 5.1 D RBC 3.23 L Hgb 11.3 L Hct 32.9 L MCV 101.6 H MCH 34.9 H MCHC 34.4 RDW 14.7 Plt Count 40 L D INR 2.34 H Sodium Potassium Chloride Carbon Dioxide Anion Gap BUN Creatinine Creat Clearance w eGFR Random Glucose Calcium Total Bilirubin 6.5 H D AST 88 H D ALT 35 D Alkaline Phosphatase 131 H D Total Protein Albumin Tumor Marker AFP 02/21/17 02/21/17 02/22/17 08:55 08:55 06:40 WBC 1.9 L* D RBC 2.59 L Hgb 9.1 L D Hct 26.4 L D MCV 101.9 H MCH 35.2 H MCHC 34.6 RDW 15.0 Plt Count 30 L* D INR 2.16 H Sodium Potassium Chloride Carbon Dioxide Anion Gap BUN Creatinine Creat Clearance w eGFR Random Glucose Calcium Total Bilirubin 7.7 H AST 98 H ALT 38 Alkaline Phosphatase 142 H Total Protein Albumin Tumor Marker AFP 02/22/17 02/22/17 02/22/17 06:40 06:40 06:40 WBC RBC Hgb Hct MCV MCH MCHC RDW Plt Count INR 2.37 H Sodium 136 Potassium 3.5 Chloride 103 Carbon Dioxide 27 Anion Gap 6 L BUN 20 H D Creatinine 0.9 D Creat Clearance w eGFR > 60 Random Glucose 116 H Calcium 8.2 L Total Bilirubin 6.8 H AST 84 H ALT 33 Alkaline Phosphatase 115 Total Protein 6.0 L D Albumin 2.3 L Tumor Marker AFP Pending 02/26/17 06:25 WBC RBC Hgb Hct MCV MCH MCHC RDW Plt Count INR Sodium Potassium Chloride Carbon Dioxide Anion Gap BUN Creatinine Creat Clearance w eGFR Random Glucose Calcium Total Bilirubin 6.1 H AST 45 H ALT 33 Alkaline Phosphatase 104 Total Protein 5.9 L Albumin 2.1 L Tumor Marker AFP Laboratory Tests 02/22/17 06:40 Tumor Marker AFP 4.6 - ....Imaging MRI: Pending (DONE AT [facility]) Problem List - Problems (1) Cirrhosis of liver with ascites Assessment/Plan: I WOULD TRY A DOSE OF IV VITAMIN K TO SEE IF THERE IS ANY IMPROVEMENT. OVERALL I THINK IT BEST THAT HE BE TRANSFERRED TO [facility] HIS HEPATOLOGY CARE IS LOCATED THERE. THE MRI DONE LAS COULD BE REQUESTED FORM [facility] BUT I THINK TRANSFER IS IN THE PATIENT BEST INTEREST DUE TO HIS SEVER END STAGE LIVER DISEASE. VILMA MOE MD Code(s): K74.60 - UNSPECIFIED CIRRHOSIS OF LIVER Qualifiers: Hepatic cirrhosis type: alcoholic cirrhosis Qualified Code(s): K70.31 - Alcoholic cirrhosis of liver with ascites; K70.31 - Alcoholic cirrhosis of liver with ascites; K70.31 - Alcoholic cirrhosis of liver with ascites (2) Neutropenia Code(s): D70.9 - NEUTROPENIA, UNSPECIFIED (3) Bruise Code(s): T14.8 - OTHER INJURY OF UNSPECIFIED BODY REGION * DO NOT USE * (4) Thrombocytopenic Code(s): D69.6 - THROMBOCYTOPENIA, UNSPECIFIED (5) Alcohol abuse Code(s): F10.10 - ALCOHOL ABUSE, UNCOMPLICATED
--- NOTE | 2017-02-26 22:17 | PN ---
Progress Note (short form) - Note Progress Note: Patient seen and examined Asymptomatic Noo fevers/chills/cough/SOB/abdominal pain/bleeding AFVSS Cor: RSR, No murmurs, No gallops Lungs: Clear to P&A Abd: Soft, Normal bowel sounds, No organomegaly Ext:No significant edema Skin: ecchymosis--scalp, arms, lt. ankle Abnormal Lab Results 02/25/17 02/25/17 02/25/17 06:40 06:40 06:40 WBC 1.7 L* RBC 2.59 L Hgb 9.2 L Hct 26.6 L MCV 102.7 H MCH 35.5 H Plt Count 36 L* Monocytes % (Manual) 17 H* PT with INR 34.00 H INR 3.02 H PTT (Actin FS) 34.6 H Chloride 108 H Anion Gap 7 L Calcium 7.6 L Total Bilirubin 6.7 H AST 52 H D Total Protein 5.9 L Albumin 2.1 L 02/26/17 02/26/17 06:25 06:25 WBC 1.6 L* RBC 2.58 L Hgb 9.1 L Hct 26.8 L MCV 103.5 H MCH 35.1 H Plt Count 33 L* Monocytes % (Manual) PT with INR 33.90 H INR 3.01 H PTT (Actin FS) Chloride Anion Gap Calcium Total Bilirubin AST Total Protein Albumin A/P 46 y/o patient with cirrhosis, admitted for bruising ,ecchymosis, worsening pancytopenia suspect mildly worsened liver fxn due to recent alcohol use? May need platelets/cryo/FFP prior to procedures or if active bleeding neutropenia--? recent alcohol use blood cultures -- 1/2 growing G+ bacilli--? skin natan--repeat cx pending urine culture pending----neg. B12/folate/TSH--nl Suspect worsening coagulopathy/counts due to worsening liver function will need to f/u with GI team at [facility] MRI shows no evidence of samuel HCC. 1 suspicious dysplastic nodule
[2017-02-27 07:35] LABS: INR 2.84 (0.82-1.09); PROTHROMBIN TIME (PATIENT) 31.9 SEC (9.98-11.88)
--- NOTE | 2017-02-27 08:24 | DS ---
Physical Examination Vital Signs: Vital Signs Temperature 98.2 F 02/27/17 06:00 Pulse Rate 81 02/27/17 06:00 Respiratory Rate 18 02/27/17 06:00 Blood Pressure 114/76 02/27/17 06:00 O2 Sat by Pulse Oximetry (%) 100 02/26/17 21:00 Findings/Remarks: awake alert Constitutional: Yes: Moderate Distress Eyes: Yes: WNL HENT: Yes: WNL Neck: Yes: WNL Cardiovascular: Yes: WNL Respiratory: Yes: WNL Gastrointestinal: Yes: Hepatomegaly Renal/: Yes: WNL Musculoskeletal: Yes: Muscle Weakness Extremities: Yes: WNL Edema: No Peripheral Pulses WNL: Yes Integumentary: Yes: Bruising, Erythema Wound/Incision: Yes: Dressing Dry and Intact Neurological: Yes: Pre-Existing Deficit ...Motor Strength: LLE, RLE Psychiatric: Yes: Other Labs: CBC, BMP 02/26/17 06:25 02/26/17 06:25 Discharge Summary Reason For Visit: THROMBOCYTOPENIC HEADACHE Current Active Problems Anemia (Acute) Bacteremia (Acute) Bruise (Acute) Cirrhosis of liver with ascites (Acute) Headache (Acute) Liver cirrhosis, alcoholic (Acute) Neutropenia (Acute) Pancytopenia (Acute) Thrombocytopenic (Acute) Procedures: Principal: labs Hospital Course: admitted for acute bleeding, high inr, worsening liver failure cirrhosis, will need transfer to [facility] for liver transplant workup Condition: Guarded - Instructions Diet, Activity, Other Instructions: reg diet Referrals: Nyla Bahena [Primary Care Provider] - Disposition: TRANSFER ACUTE CARE/OTHER HOSP - Home Medications Comprehensive Discharge Medication List: Ambulatory Orders Pantoprazole Sodium [Protonix -] 40 mg PO DAILY tab 02/27/17 Phytonadione Injection [Aqua Mephyton Injection -] 5 mg SQ DAILY amp 02/27/17
[2017-02-27] MEDS: PANTOPRAZOLE 40 MG TABLET (FP) PO SCH (10:24)
[2017-02-27 10:52] VITALS: PULSE 78
[2017-02-27 14:01] VITALS: BP 132/74; TEMP 98.5
[2017-02-27] MEDS ORDERED: MAGNESIUM HYDROX 2400MG/30ML ORAL SUSPENSION 30 ML CUP PO PRN (14:14)
--- NOTE | 2017-02-27 14:14 | PN ---
Progress Note (short form) - Note Progress Note: patient to be discharged home [facility] denied transfer and patient has an appointment for next wed with GI [facility] Problem List - Problems (1) Bruise Code(s): T14.8 - OTHER INJURY OF UNSPECIFIED BODY REGION * DO NOT USE * (2) Cirrhosis of liver with ascites Code(s): K74.60 - UNSPECIFIED CIRRHOSIS OF LIVER Qualifiers: Hepatic cirrhosis type: alcoholic cirrhosis Qualified Code(s): K70.31 - Alcoholic cirrhosis of liver with ascites; K70.31 - Alcoholic cirrhosis of liver with ascites; K70.31 - Alcoholic cirrhosis of liver with ascites (3) Headache Code(s): R51 - HEADACHE Qualifiers: Headache type: post-traumatic (4) Thrombocytopenic Code(s): D69.6 - THROMBOCYTOPENIA, UNSPECIFIED (5) Ascites due to alcoholic cirrhosis Code(s): K70.31 - ALCOHOLIC CIRRHOSIS OF LIVER WITH ASCITES (6) Foot pain, left Code(s): M79.672 - PAIN IN LEFT FOOT (7) Portal hypertension Code(s): K76.6 - PORTAL HYPERTENSION
--- NOTE | 2017-02-27 15:19 | PN ---
Progress Note, Physician History of Present Illness: Pt seen and examined at bedside. He is eager to go home. He denies shortness of breath. He denies dysuria. - Current Medication List Current Medications: Active Medications Magnesium Hydroxide (Milk Of Magnesia -) 30 ml PO Q8H PRN PRN Reason: INDIGESTION Pantoprazole Sodium (Protonix -) 40 mg PO DAILY [facility] Last Admin: 02/27/17 10:24 Dose: 40 mg - Objective Vital Signs: Vital Signs Temperature 98.5 F 02/27/17 13:59 Pulse Rate 78 02/27/17 13:59 Respiratory Rate 16 02/27/17 13:59 Blood Pressure 132/74 02/27/17 13:59 O2 Sat by Pulse Oximetry (%) 100 02/26/17 21:00 Constitutional: Yes: Calm Eyes: Yes: Conjunctiva Clear HENT: Yes: Atraumatic Neck: Yes: Supple Cardiovascular: Yes: S1, S2 Respiratory: Yes: CTA Bilaterally Gastrointestinal: Yes: Normal Bowel Sounds, Soft Genitourinary: Yes: WNL Musculoskeletal: Yes: WNL Edema: No Integumentary: Yes: Bruising Neurological: Yes: Oriented Psychiatric: Yes: Oriented Labs: CBC, BMP 02/26/17 06:25 02/26/17 06:25 INR, PTT INR 2.84 (0.82-1.09) H 02/27/17 05:30 Fibrinogen 160.0 mg/dL (238-498) L 02/23/17 08:30 Problem List - Problems (1) Anemia Code(s): D64.9 - ANEMIA, UNSPECIFIED (2) Cirrhosis of liver with ascites Code(s): K74.60 - UNSPECIFIED CIRRHOSIS OF LIVER Qualifiers: Hepatic cirrhosis type: alcoholic cirrhosis Qualified Code(s): K70.31 - Alcoholic cirrhosis of liver with ascites; K70.31 - Alcoholic cirrhosis of liver with ascites; K70.31 - Alcoholic cirrhosis of liver with ascites Assessment/Plan Current Medications Generic Name Dose Route Start Last Admin Trade Name Freq PRN Reason Stop Dose Admin Magnesium Hydroxide 30 ml 02/27/17 14:14 Milk Of Magnesia - PO Q8H PRN INDIGESTION Pantoprazole Sodium 40 mg 02/21/17 10:00 02/27/17 10:24 Protonix - PO 40 mg DAILY [facility] Administration Impression 1. ROJAS - pt has a baseline slag expander of 0.5 2. liver cirrhosis 3. thrombocytopenia 4. hx etoh abuse 5. hx hematuria 6. anemia 7. pancytopenia Plan - [facility] refused transfer - pt seeing manager real estate on Sunday - GI input appreciated - renal function is stable for now, no labs from today - pt received Vit K - no acute chagne in management - pt is being discharged today Dr Melara
--- NOTE | 2017-02-27 16:04 | PN ---
Progress Note (short form) - Note Progress Note: feels great no fevers no chills alert Vital Signs Period Temp Pulse Resp BP Sys/[place] Pulse Ox Last 24 Hr 98.2 F-98.6 F 72-81 16-20 112-132/60-76 100 cor-rrr llung clear abd soft,nt ext no edema +icterus CBC, BMP 02/26/17 06:25 02/26/17 06:25 Microbiology 02/23/17 08:40 Blood - Peripheral Venous Blood Culture - Final Dermabacter Hominis 02/26/17 12:25 Blood - Peripheral Venous Blood Culture - Preliminary NO GROWTH OBTAINED AFTER 24 HOURS, INCUBATION TO CONTINUE FOR 4 DAYS. 02/26/17 12:20 Blood - Peripheral Venous Blood Culture - Preliminary NO GROWTH OBTAINED AFTER 24 HOURS, INCUBATION TO CONTINUE FOR 4 DAYS. 02/23/17 08:35 Blood - Peripheral Venous Blood Culture - Preliminary NO GROWTH OBTAINED AFTER 96 HOURS, INCUBATION TO CONTINUE FOR 1 DAYS. 02/23/17 15:00 Urine - Urine Clean Catch Urine Culture - Final anc 1200 a/p blood culture isolate is skin contaminant suggesting contaminant- one of four blood cultures, repeat are all negative no need to treat pancytopenia -check HIV - he is agreeable, and parvovirus serology though most likely this is secondary to alcohol use liver cirrhosis- management per GI please call back if needed Problem List - Problems (1) Bacteremia Code(s): R78.81 - BACTEREMIA (2) Pancytopenia Code(s): D61.818 - OTHER PANCYTOPENIA (3) Liver cirrhosis, alcoholic Code(s): K70.30 - ALCOHOLIC CIRRHOSIS OF LIVER WITHOUT ASCITES
--- NOTE | 2017-02-27 16:30 | PN ---
Progress Note (short form) - Note Progress Note: Hematology: = Patient seen and examined Asymptomatic No fevers/chills/cough/SOB/abdominal pain/bleeding AFVSS Cor: RSR, No murmurs, No gallops Lungs: Clear to P&A Abd: Soft, Normal bowel sounds, No organomegaly Ext:No significant edema Skin: ecchymosis--scalp, arms, lt. ankle Temp Pulse Resp BP Pulse Ox 98.5 F 78 16 132/74 100 02/27/17 13:59 02/27/17 13:59 02/27/17 13:59 02/27/17 13:59 02/26/17 21:00 CBC, BMP 02/26/17 06:25 02/26/17 06:25 Current Medications Generic Name Dose Route Start Last Admin Trade Name Freq PRN Reason Stop Dose Admin Magnesium Hydroxide 30 ml 02/27/17 14:14 02/27/17 16:08 Milk Of Magnesia - PO 30 ml Q8H PRN Administration INDIGESTION Pantoprazole Sodium 40 mg 02/21/17 10:00 02/27/17 10:24 Protonix - PO 40 mg DAILY [facility] Administration Assessment/Plan: 46 y/o patient with cirrhosis, admitted for bruising ,ecchymosis, worsening pancytopenia suspect mildly worsened liver fxn due to recent alcohol use? neutropenia--? recent alcohol use blood cultures -- 1/2 growing G+ bacilli--? skin natan--ID f/u noted urine culture pending----neg. B12/folate/TSH--nl Suspect worsening coagulopathy/counts due to worsening liver function. will need to f/u with GI team at [facility] MRI shows no evidence of samuel HCC.( Report placed in pts chart). He is not agreeing for transfer to [facility]. He would like to be discharged. Bleeding precautions given . He mentioned that he will follow-up with [facility] next sunday, confirmed appt on 03/07/2017 1130 at [facility]. Problem List - Problems (1) Thrombocytopenic Code(s): D69.6 - THROMBOCYTOPENIA, UNSPECIFIED (2) Cirrhosis of liver with ascites Code(s): K74.60 - UNSPECIFIED CIRRHOSIS OF LIVER Qualifiers: Hepatic cirrhosis type: alcoholic cirrhosis Qualified Code(s): K70.31 - Alcoholic cirrhosis of liver with ascites; K70.31 - Alcoholic cirrhosis of liver with ascites; K70.31 - Alcoholic cirrhosis of liver with ascites (3) Foot pain, left Code(s): M79.672 - PAIN IN LEFT FOOT (4) Bruise Code(s): T14.8 - OTHER INJURY OF UNSPECIFIED BODY REGION * DO NOT USE *
[2017-02-28 00:07] LABS: PARV B19 IGG 1.8 index (0.0-0.8); PARV B19 IGM 0.1 index (0.0-0.8)
== END 2017-02-27 17:28 | disposition home or self-care (01) | DRG 660 ==
LOC: JER 21:32 → JERBED 02-21 01:58 → J6S 02-21 18:31
PROVIDERS: ADMIT Family Medicine; ATTEND Family Medicine
PROC: 30233R1 Transfusion of Nonautologous Platelets into Peripheral Vein, Percutaneous Approach (ICD-10-PCS; principal; 2017-02-21)
DX: D61.818 Other pancytopenia (principal); K72.00 Acute and subacute hepatic failure without coma; K70.31 Alcoholic cirrhosis of liver with ascites; D70.9 Neutropenia, unspecified; D69.6 Thrombocytopenia, unspecified; F10.10 Alcohol abuse, uncomplicated; R51 Headache; M79.672 Pain in left foot; K76.6 Portal hypertension; N17.9 Acute kidney failure, unspecified; D64.9 Anemia, unspecified; D68.9 Coagulation defect, unspecified; R31.9 Hematuria, unspecified
CPT/HCPCS: 36415; 36430; 70450-TC; 71020-TC; 72125-TC; 73610-TC-LT; 73630-TC-LT; 76775-TC; 76856-TC; 80048; 80053; 81003; 81015; 82105; 82272; 82436; 82570; 82607; 82728; 82747; 83540; 83550; 84133; 84300; 84439; 84443; 85014; 85025; 85027; 85384; 85610; 85730; 86747; 86850; 86900; 86901; 87040; 87086; 87389; 88300-TC; 93005; 93010; 93971-TC; 99283-25; P9034; P9038

== ENCOUNTER 2017-06-19 11:12 | Inpatient (IN) | payer OTHER ==
[2017-06-19 11:23] VITALS: BMI 28.8
--- NOTE | 2017-06-19 14:18 | PDOC ---
History of Present Illness <Lolly Benjamin - Last Filed: 06/19/17 15:17> - History of Present Illness Initial Comments: 06/19/17 14:12 "The patient is a 47 year old male, with a significant past medical history of cirrhosis, htn, anemia, who presents to the emergency department with progressive increase in his abdominal swelling, as well as increased swelling in his legs and scrotum, and decreased urinary output for 3 weeks. Pt states that he has recurrent ascites and has had multiple prior paracenteses in the past. He is scheduled for a paracentesis at [facility] next week. However, he states that the swelling in his groin and legs is new, which prompted him to come to the ER. He also reports a decrease in urination for 3 weeks despite recently increasing his diuretics. He denies chest pain, shortness of breath, headache and dizziness. He denies fever, chills, nausea, vomit, diarrhea and constipation. He denies dysuria, urgency and hematuria. Allergies:NKDA PCP: Dr. Winn Hot Stick Man: Dr. Acosta, Dr. Bhatt, Dr. Farhad Phillips ([facility]) " <Maximiliano Live - Last Filed: 06/19/17 15:28> - General Chief Complaint: Pain Stated Complaint: SWOLLEN LEGS/ASCITES Time Seen by Provider: 06/19/17 12:31 Past History <Lolly Benjamin - Last Filed: 06/19/17 15:17> - Past Medical History Anemia: Yes Asthma: No Cancer: No Cardiac Disorders: No CVA: No COPD: No CHF: No Dementia: No Diabetes: No GI Disorders: No Disorders: No HTN: Yes (portal hypertension) Hypercholesterolemia: No Liver Disease: Yes (ALCOHOLIC CIRRHOSIS OF LIVER, ESOPHAGEAL VARICES) Seizures: No Thyroid Disease: No - Surgical History Abdominal Surgery: No Appendectomy: No Cardiac Surgery: No Cholecystectomy: No Lung Surgery: No Neurologic Surgery: No Orthopedic Surgery: No - Immunization History Immunization Up to Date: No - Suicide/Smoking/Psychosocial Hx Smoking Status: No Smoking History: Never smoked Have you smoked in the past 12 months: No Number of Cigarettes Smoked Daily: 0 Information on smoking cessation initiated: No Hx Alcohol Use: Yes Drug/Substance Use Hx: No Substance Use Type: None Hx Substance Use Treatment: No <Maximiliano Live - Last Filed: 06/19/17 15:28> - Past Medical History Allergies/Adverse Reactions: Allergies Allergy/AdvReac Type Severity Reaction Status Date / Time No Known Allergies Allergy Verified 06/19/17 11:23 Home Medications: Ambulatory Orders Pantoprazole Sodium [Protonix -] 40 mg PO DAILY #30 tab 02/27/17 Phytonadione Injection [Aqua Mephyton Injection -] 5 mg SQ DAILY amp 02/27/17 Review of Systems - Review of Systems Comments:: 06/19/17 14:14 """GENERAL/CONSTITUTIONAL: No fever or chills. No weakness. HEAD, EYES, EARS, NOSE AND THROAT: No change in vision. No ear pain or discharge. No sore throat. CARDIOVASCULAR: No chest pain or shortness of breath. RESPIRATORY: No cough, wheezing, or hemoptysis. GASTROINTESTINAL: (+) increased abdominal ascites. No nausea, vomiting, diarrhea or constipation. GENITOURINARY: (+) decreased urinary frequency. No dysuria, No hematuria MUSCULOSKELETAL: (+) bilateral groin and LE swelling and pain. No joint swelling or pain. No neck or back pain. SKIN: No rash NEUROLOGIC: No headache, vertigo, loss of consciousness, or change in strength/ sensation. ENDOCRINE: No increased thirst. No abnormal weight change. HEMATOLOGIC/LYMPHATIC: No anemia, easy bleeding, or history of blood clots. ALLERGIC/IMMUNOLOGIC: No hives or skin allergy. """ <Maximiliano Live - Last Filed: 06/19/17 15:28> *Physical Exam - Vital Signs Last Vital Signs Temp Pulse Resp BP Pulse Ox 98.5 F 94 H 18 147/72 100 06/19/17 11:21 06/19/17 11:21 06/19/17 11:21 06/19/17 11:21 06/19/17 11:21 <Lolly Benjamin - Last Filed: 06/19/17 15:17> - Vital Signs Last Vital Signs Temp Pulse Resp BP Pulse Ox 98.5 F 94 H 18 147/72 100 06/19/17 11:21 06/19/17 11:21 06/19/17 11:21 06/19/17 11:21 06/19/17 11:21 - Physical Exam Comments: 06/19/17 14:15 """GENERAL: Awake, alert, and fully oriented, in no acute distress HEAD: No signs of trauma EYES: PERRLA, EOMI, sclera anicteric, conjunctiva clear ENT: Auricles normal inspection, hearing grossly normal, nares patent, oropharynx clear without exudates. Moist mucosa NECK: Nontender, no stepoffs, Normal ROM, supple, no lymphadenopathy, JVD, or masses LUNGS: Breath sounds equal, clear to auscultation bilaterally. No wheezes, and no crackles HEART: Regular rate and rhythm, normal S1 and S2, no murmurs, rubs or gallops ABDOMEN: + fluid wave, + distention, no tenderness to palpation : + scrotal edema, no erythema, no tenderness EXTREMITIES: +2 PE RLE, +1 PE LLE NEUROLOGICAL: Cranial nerves II through XII intact. 5/5 strength and sensation in all extremities, Normal speech, normal gait SKIN: Warm, Dry, normal turgor, no rashes or lesions noted. """ <Maximiliano Live - Last Filed: 06/19/17 15:28> ED Treatment Course - LABORATORY CBC & Chemistry Diagram: 06/19/17 13:50 06/19/17 13:50 - ADDITIONAL ORDERS Additional order review: Laboratory Results 06/19/17 06/19/17 06/19/17 14:00 13:50 13:50 PT with INR 27.70 H INR 2.45 H PTT (Actin FS) 35.0 H Sodium 135 L Potassium 3.8 Chloride 100 Carbon Dioxide 26 Anion Gap 9 BUN 21 H D Creatinine 1.2 D Creat Clearance w eGFR > 60 Random Glucose 102 Calcium 8.3 L Total Bilirubin 9.0 H D AST 35 D ALT 19 D Alkaline Phosphatase 91 Ammonia 57.64 H Creatine Kinase Troponin I B-Natriuretic Peptide Total Protein 6.7 Albumin 2.1 L 06/19/17 13:50 PT with INR INR PTT (Actin FS) Sodium Potassium Chloride Carbon Dioxide Anion Gap BUN Creatinine Creat Clearance w eGFR Random Glucose Calcium Total Bilirubin AST ALT Alkaline Phosphatase Ammonia Creatine Kinase 42 Troponin I < 0.02 B-Natriuretic Peptide 358.83 H Total Protein Albumin 06/19/17 13:50 RBC 2.57 L MCV 106.7 H MCHC 33.9 RDW 13.7 MPV 8.1 D Neutrophils % 79.5 Lymphocytes % 8.6 D Monocytes % 9.8 Eosinophils % 1.3 Basophils % 0.8 <Lolly Benjamin - Last Filed: 06/19/17 15:17> - LABORATORY CBC & Chemistry Diagram: 06/19/17 13:50 06/19/17 13:50 - RADIOLOGY Radiology Studies Ordered: Category Date Time Status CHEST PA & LAT [RAD] Stat Radiology 06/19/17 13:20 Ordered <CalosMaximiliano - Last Filed: 06/19/17 15:28> Medical Decision Making - Medical Decision Making 06/19/17 15:17 Dr. Winn was paged via phone answering service requesting a call back for doctor to doctor consult. <Lolly Benjamin - Last Filed: 06/19/17 15:17> - Medical Decision Making 06/19/17 14:16 47 M with cirrhosis presenting with worsening swelling to his groin and legs. Likely third spacing 2/2 worsening liver failure and hypoalbuminemia. Possible hepatorenal syndrome. Pt with no CP/SOB to suggest heart failure. - Labs - RLE doppler to r/o DVT - IV diuresis 06/19/17 15:26 CBC,CMP WBC 5.7 K/mm3 (4.0-10.0) D 06/19/17 13:50 RBC 2.57 M/mm3 (4.00-5.60) L 06/19/17 13:50 Hgb 9.3 GM/dL (11.7-16.9) L 06/19/17 13:50 Hct 27.4 % (35.4-49) L 06/19/17 13:50 MCV 106.7 fl (80-96) H 06/19/17 13:50 MCH 36.2 pg (25.7-33.7) H 06/19/17 13:50 MCHC 33.9 g/dl (32.0-35.9) 06/19/17 13:50 RDW 13.7 % (11.9-15.9) 06/19/17 13:50 Plt Count 83 K/MM3 (134-434) L D 06/19/17 13:50 MPV 8.1 fl (7.5-11.1) D 06/19/17 13:50 Neutrophils % 79.5 % (42.8-82.8) 06/19/17 13:50 Lymphocytes % 8.6 % (8-40) D 06/19/17 13:50 Monocytes % 9.8 % (3.8-10.2) 06/19/17 13:50 Eosinophils % 1.3 % (0-4.5) 06/19/17 13:50 Basophils % 0.8 % (0-2.0) 06/19/17 13:50 Sodium 135 mmol/L (136-145) L 06/19/17 13:50 Potassium 3.8 mmol/L (3.5-5.1) 06/19/17 13:50 Chloride 100 mmol/L (98-107) 06/19/17 13:50 Carbon Dioxide 26 mmol/L (21-32) 06/19/17 13:50 Anion Gap 9 (8-16) 06/19/17 13:50 BUN 21 mg/dL (7-18) H D 06/19/17 13:50 Creatinine 1.2 mg/dL (0.7-1.3) D 06/19/17 13:50 Creat Clearance w eGFR > 60 (>60) 06/19/17 13:50 Random Glucose 102 mg/dL (74-106) 06/19/17 13:50 Calcium 8.3 mg/dL (8.5-10.1) L 06/19/17 13:50 Total Bilirubin 9.0 mg/dL (0.2-1.0) H D 06/19/17 13:50 AST 35 U/L (15-37) D 06/19/17 13:50 ALT 19 U/L (12-78) D 06/19/17 13:50 Alkaline Phosphatase 91 U/L (45-117) 06/19/17 13:50 Ammonia 57.64 umol/L (11-32) H 06/19/17 14:00 Creatine Kinase 42 IU/L (39-308) 06/19/17 13:50 Troponin I < 0.02 ng/ml (0.00-0.05) 06/19/17 13:50 B-Natriuretic Peptide 358.83 pg/ml (5-125) H 06/19/17 13:50 Total Protein 6.7 g/dl (6.4-8.2) 06/19/17 13:50 Albumin 2.1 g/dl (3.4-5.0) L 06/19/17 13:50 Pt with slight bump in Cr to 1.2 from 0.9. LFTs wnl. Albumin at baseline 2.1 Lasix 40mg IV given. Spoke with Dr. Winn, who has accepted pt for admission, and recommends GI consultation with Dr. Murrell. <Maximiliano Live - Last Filed: 06/19/17 15:28> *DC/Admit/Observation/Transfer <Lolly Benjamin - Last Filed: 06/19/17 15:17> - Discharge Dispostion Admit: Yes - Attestations Physician Attestion: 06/19/17 15:28 I, Dr. Maximiliano Live MD, attest that this document has been prepared under my direction and personally reviewed by me in its entirety. I further attest, that it accurately reflects all work, treatment, procedures and medical decision -making performed by me. <Maximiliano Live - Last Filed: 06/19/17 15:28> Diagnosis at time of Disposition: Anasarca - Referrals Referrals: Nyla Bahena [Primary Care Provider] - - Patient Instructions - Post Discharge Activity
[2017-06-19 14:22] LABS: BASO % 0.8 % (0-2.0); EOS % 1.3 % (0-4.5); HEMATOCRIT 27.4 % (35.4-49); HEMOGLOBIN 9.3 GM/dL (11.7-16.9); LYMPH % 8.6 % (8-40); MCH 36.2 pg (25.7-33.7); MCHC 33.9 g/dl (32.0-35.9); MEAN CELL VOLUME 106.7 fl (80-96); MEAN PLT VOLUME 8.1 fl (7.5-11.1); MONO % 9.8 % (3.8-10.2); NEUT % 79.5 % (42.8-82.8); PLATELET COUNT 83 K/MM3 (134-434); RBC 2.57 M/mm3 (4.00-5.60); RDW 13.7 % (11.9-15.9); WHITE BLOOD COUNT 5.7 K/mm3 (4.0-10.0)
[2017-06-19 14:34] LABS: INR 2.45 (0.82-1.09); PROTHROMBIN TIME (PATIENT) 27.7 SEC (9.98-11.88)
[2017-06-19 14:59] LABS: ALBUMIN 2.1 g/dl (3.4-5.0); ANION GAP 9 (8-16); BLOOD UREA NITROGEN 21 mg/dL (7-18); CALCIUM 8.3 mg/dL (8.5-10.1); CHLORIDE 100 mmol/L (98-107); CO2 26 mmol/L (21-32); CREATININE 1.2 mg/dL (0.7-1.3); GLUCOSE,RANDOM 102 mg/dL (74-106); POTASSIUM 3.8 mmol/L (3.5-5.1); SGOT/AST 35 U/L (15-37); SGPT/ALT 19 U/L (12-78); SODIUM 135 mmol/L (136-145); TOT PROT 6.7 g/dl (6.4-8.2)
[2017-06-19 15:01] LABS: ALK PHOS 91 U/L (45-117)
[2017-06-19 15:05] LABS: N-TERMINAL BNP 358.83 pg/ml (5-125)
[2017-06-19] MEDS ORDERED: FUROSEMIDE 40 MG/4 ML INJECTABLE VIAL IVPUSH ONE (15:28)
[2017-06-19] MEDS ORDERED: FUROSEMIDE 40 MG/4 ML INJECTABLE VIAL ONE (15:41)
[2017-06-19] MEDS ORDERED: PANTOPRAZOLE 40 MG TABLET (FP) ONE (17:00)
[2017-06-19] MEDS: PANTOPRAZOLE 40 MG TABLET (FP) PO SCH (17:04)
--- NOTE | 2017-06-20 08:04 | EKG ---
Test Reason : Blood Pressure : / mmHG Vent. Rate : 088 BPM Atrial Rate : 088 BPM P-R Int : 170 ms QRS Dur : 100 ms QT Int : 414 ms P-R-T Axes : 017 -23 -19 degrees QTc Int : 500 ms NORMAL SINUS RHYTHM VOLTAGE CRITERIA FOR LEFT VENTRICULAR HYPERTROPHY T WAVE ABNORMALITY, CONSIDER ANTEROLATERAL ISCHEMIA PROLONGED QT ABNORMAL ECG WHEN COMPARED WITH ECG OF 21-FEB-2017 01:30, T WAVE INVERSION NOW EVIDENT IN ANTEROLATERAL LEADS Confirmed by SHEA NEVAREZ MD ([id number]) on 06/20/2017 8:04:22 AM Referred By: Confirmed By:SHEA NEVAREZ MD
[2017-06-20] MEDS ORDERED: FUROSEMIDE 40 MG/4 ML INJECTABLE VIAL IVPUSH SCH (10:00)
--- NOTE | 2017-06-20 10:01 | CON.GI ---
Consult Consult Specialty:: GI - History of Present Illness History of Present Illness: A 47 yom with alcoholic liver cirrhosis with ascites followed by [facility] with the most recent work up last week, which included LE US, MRIo f the abdomen presents to ED with increased abdominal girth and lower extremities swelling, more than usual. R LE larger than the left. US LE showed no DVT last week. He takes NSBB, Lasix, aldactone at home. The patient admits to not following low salt diet (olives, cheeses, pizza, pickles). Deneis nausea, vomiting, hematochezia, hematemesis, melena, or hematochezia, denies fever, chills, altered mentation, tremors. Last paracentesis was 3 months ago, per patient. The patient is scheduled to follow up at [facility] next Sunday - History Source History Provided By: Patient Limitations to Obtaining History: No Limitations - Past Medical History Gastrointestinal: Yes: Ascites, Esophageal Varices. No: Cancer, Constipation, Crohn's Disease, Diverticulitis, Diverticulosis, Gastritis, GERD, GI Bleed ( variceal in past, s/p banding and on nadalol), Hemorrhoids, Hiatal Hernia, Inflamatory Bowel Disease, Irritable Bowel Disease, Pancreatitis, Peptic Ulcer Disease, Ulcerative Colitis, Other Hepatobiliary: Yes: Cirrhosis (varices, ascites), Cholelithiasis, Other ( ALCOHOLIC CIRRHOSIS, CURRENT ETOH ABUSER). No: Cholecystitis, Choledocholithiasis, Hepatitis A, Hepatitis B, Hepatitis C Renal/: Yes: Hematuria, Other (bladder cyst). No: Renal Failure, Renal Inusuff, BPH, Cancer, Hemodialysis, Neurogenic Bladder, Renal Calculi, UTI Psych: Yes: Addictions - Past Surgical History Past Surgical History: Yes: Upper Endoscopy (egd + band ligation of esophageal varices 05/2013). No: None, AAA Repair, AICD, Amputation, Appendectomy, Arthrosocopy, AV Fistula/Graft, Bariatric Surgery, Breast Biopsy, Bypass, CABG, Carotid Endarterectomy, Cataract Removal, Cholecystectomy, Colectomy, Colonoscopy, Colostomy, Craniotomy, , Cystectomy, Hernia Repair, Hysterectomy, Ileal Conduit, Ileosotomy, Joint Replacement, Kidney Transplant, Laminectomy, Liver Transplant, Mastectomy, Nephrectomy, Oopherectomy, Orchiectomy, Permanent Pacemaker, Prostatectomy, Splenectomy, Stent, Thoracotomy , TURP, Tonsillectomy, Tubal Ligation, Valve Replacement, Vasectomy, Vein Stripping/Ligation - Alcohol/Substance Use Hx Alcohol Use: Yes - Smoking History Smoking history: Never smoked Have you smoked in the past 12 months: No Aproximately how many cigarettes per day: 0 - Social History Usual Living Arrangement: With Spouse Home Medications - Allergies Allergies/Adverse Reactions: Allergies Allergy/AdvReac Type Severity Reaction Status Date / Time No Known Allergies Allergy Verified 06/19/17 11:23 - Home Medications Home Medications: Ambulatory Orders Pantoprazole Sodium [Protonix -] 40 mg PO DAILY #30 tab 02/27/17 Carvedilol 3.125 mg PO BID 06/19/17 Furosemide [Lasix] 40 mg PO DAILY 06/19/17 Spironolactone [Aldactone] 100 mg PO DAILY 06/19/17 Family Disease History - Family Disease History Family History: Unremarkable Review of Systems Findings/Remarks: please refer to PHI, H&P Physical Exam-GI Vital Signs: Vital Signs Temperature 98.7 F 06/20/17 06:00 Pulse Rate 95 H 06/20/17 06:00 Respiratory Rate 18 06/20/17 06:00 Blood Pressure 117/68 06/20/17 06:00 O2 Sat by Pulse Oximetry (%) 98 06/20/17 02:00 Constitutional: Yes: No Distress, Calm, Cachectic, Pallor, Thin Eyes: Yes: Sclera Icterus HENT: Yes: Atraumatic Neck: Yes: Supple Cardiovascular: Yes: Regular Rate and Rhythm Respiratory: Yes: Regular Gastrointestinal Inspection: Yes: Ascites, Distention ...Palpate: No: Firm/Rigid, Guarding, Tenderness ...Percussion: Yes: Fluid Wave ...Rectal Exam: Yes: Deferred Edema: Yes Edema: LLE: 3+, RLE: 4+ Integumentary: Yes: Jaundice Neurological: Yes: Alert, Oriented. No: Ataxia Labs: CBC, BMP 06/19/17 13:50 06/19/17 13:50 INR, PTT INR 2.45 (0.82-1.09) H 06/19/17 13:50 CBCD WBC 5.7 K/mm3 (4.0-10.0) D 06/19/17 13:50 RBC 2.57 M/mm3 (4.00-5.60) L 06/19/17 13:50 Hgb 9.3 GM/dL (11.7-16.9) L 06/19/17 13:50 Hct 27.4 % (35.4-49) L 06/19/17 13:50 MCV 106.7 fl (80-96) H 06/19/17 13:50 MCHC 33.9 g/dl (32.0-35.9) 06/19/17 13:50 RDW 13.7 % (11.9-15.9) 06/19/17 13:50 Plt Count 83 K/MM3 (134-434) L D 06/19/17 13:50 MPV 8.1 fl (7.5-11.1) D 06/19/17 13:50 CMP Sodium 135 mmol/L (136-145) L 06/19/17 13:50 Potassium 3.8 mmol/L (3.5-5.1) 06/19/17 13:50 Chloride 100 mmol/L (98-107) 06/19/17 13:50 Carbon Dioxide 26 mmol/L (21-32) 06/19/17 13:50 Anion Gap 9 (8-16) 06/19/17 13:50 BUN 21 mg/dL (7-18) H D 06/19/17 13:50 Creatinine 1.2 mg/dL (0.7-1.3) D 06/19/17 13:50 Creat Clearance w eGFR > 60 (>60) 06/19/17 13:50 Calcium 8.3 mg/dL (8.5-10.1) L 06/19/17 13:50 Total Bilirubin 9.0 mg/dL (0.2-1.0) H D 06/19/17 13:50 AST 35 U/L (15-37) D 06/19/17 13:50 ALT 19 U/L (12-78) D 06/19/17 13:50 Alkaline Phosphatase 91 U/L (45-117) 06/19/17 13:50 Total Protein 6.7 g/dl (6.4-8.2) 06/19/17 13:50 Albumin 2.1 g/dl (3.4-5.0) L 06/19/17 13:50 Problem List - Problems (1) Alcohol abuse Code(s): F10.10 - ALCOHOL ABUSE, UNCOMPLICATED (2) Ascites due to alcoholic cirrhosis Code(s): K70.31 - ALCOHOLIC CIRRHOSIS OF LIVER WITH ASCITES Assessment/Plan Do not suspect SBP, or HRS. Low salt diet noncompliance with worsening ascetics Therapeutic paracentesis to day CMP, direct bili, CBC, PT, INR Continue carvedilol, aldactone, Lasix discussed with the patient
[2017-06-20] MEDS ORDERED: CARVEDILOL 3.125 MG TABLET (FP) PO ONE (10:45)
[2017-06-20] MEDS: PANTOPRAZOLE 40 MG TABLET (FP) PO SCH (11:06)
[2017-06-20] MEDS: FUROSEMIDE 40 MG TABLET (FP) PO SCH (11:06)
--- NOTE | 2017-06-20 11:14 | CONSULT ---
Consult Consult Specialty:: Nephrology Referred by:: Dr. Winn Reason for Consultation:: Renal insufficiency, fluid overload - History of Present Illness Chief Complaint: Abdominal swelling History of Present Illness: 47M PMH of alcoholic liver cirrhosis, esophageal varices, and anemia/ pancytopenia, who presents to the ED with a chief complaint of worsening abdominal swelling. Patient has also endorsed swelling of his legs and scrotum as well consistent with anasarca. Patient is followed at [facility] for his cirrhosis and has had multiple abdominal paracenteses for his recurrent anasarca. Patient is scheduled to have the paracentesis done next week at [facility] but his swelling has progressed so much that he had to come to the ER and could not wait for a week. Patient reports decreased urine output for the past month despite being on diuretics and having recently increased the dosage. He denies nausea vomiting fevers chills chest pain or shortness of breath. He denies dysuria, urgency and hematuria. He denies headache a dizziness. Patient has been noncompliant with a 2GM sodium diet. Patient sees Dr. Tatum Acosta, Dr. Bhatt, Dr. Farhad Phillips ([facility]) " - History Source History Provided By: Patient Limitations to Obtaining History: No Limitations - Past Medical History Gastrointestinal: Yes: Ascites, Esophageal Varices. No: Cancer, Constipation, Crohn's Disease, Diverticulitis, Diverticulosis, Gastritis, GERD, GI Bleed ( variceal in past, s/p banding and on nadalol), Hemorrhoids, Hiatal Hernia, Inflamatory Bowel Disease, Irritable Bowel Disease, Pancreatitis, Peptic Ulcer Disease, Ulcerative Colitis, Other Hepatobiliary: Yes: Cirrhosis (varices, ascites), Cholelithiasis, Other ( ALCOHOLIC CIRRHOSIS, CURRENT ETOH ABUSER). No: Cholecystitis, Choledocholithiasis, Hepatitis A, Hepatitis B, Hepatitis C Renal/: Yes: Hematuria, Other (bladder cyst). No: Renal Failure, Renal Inusuff, BPH, Cancer, Hemodialysis, Neurogenic Bladder, Renal Calculi, UTI Heme/Onc: Yes: Anemia, Thrombocytopenia, Other (pancytopenia ) Psych: Yes: Addictions - Past Surgical History Past Surgical History: Yes: Upper Endoscopy (egd + band ligation of esophageal varices 05/2013). No: None, AAA Repair, AICD, Amputation, Appendectomy, Arthrosocopy, AV Fistula/Graft, Bariatric Surgery, Breast Biopsy, Bypass, CABG, Carotid Endarterectomy, Cataract Removal, Cholecystectomy, Colectomy, Colonoscopy, Colostomy, Craniotomy, , Cystectomy, Hernia Repair, Hysterectomy, Ileal Conduit, Ileosotomy, Joint Replacement, Kidney Transplant, Laminectomy, Liver Transplant, Mastectomy, Nephrectomy, Oopherectomy, Orchiectomy, Permanent Pacemaker, Prostatectomy, Splenectomy, Stent, Thoracotomy , TURP, Tonsillectomy, Tubal Ligation, Valve Replacement, Vasectomy, Vein Stripping/Ligation - Alcohol/Substance Use Hx Alcohol Use: Yes - Smoking History Smoking history: Never smoked Have you smoked in the past 12 months: No Aproximately how many cigarettes per day: 0 - Social History Usual Living Arrangement: With Spouse Home Medications - Allergies Allergies/Adverse Reactions: Allergies Allergy/AdvReac Type Severity Reaction Status Date / Time No Known Allergies Allergy Verified 06/19/17 11:23 - Home Medications Home Medications: Ambulatory Orders Pantoprazole Sodium [Protonix -] 40 mg PO DAILY #30 tab 02/27/17 Carvedilol 3.125 mg PO BID 06/19/17 Furosemide [Lasix] 40 mg PO DAILY 06/19/17 Spironolactone [Aldactone] 100 mg PO DAILY 06/19/17 Review of Systems - Review of Systems Constitutional: reports: No Symptoms Eyes: reports: No Symptoms HENT: reports: No Symptoms Neck: reports: No Symptoms Cardiovascular: reports: Shortness of Breath Respiratory: reports: No Symptoms Gastrointestinal: reports: Abdominal Pain, Bloating, Other (distention and swelling asciyes) Genitourinary: reports: Other (low urine output) Musculoskeletal: reports: No Symptoms Neurological: reports: No Symptoms Hematology/Lymphatic: reports: Easily Bruised Physical Exam Vital Signs: Vital Signs Temperature 97.8 F 06/20/17 10:00 Pulse Rate 89 06/20/17 10:00 Respiratory Rate 18 06/20/17 10:00 Blood Pressure 119/75 06/20/17 10:00 O2 Sat by Pulse Oximetry (%) 98 06/20/17 02:00 Constitutional: Yes: No Distress Eyes: Yes: Sclera Icterus HENT: Yes: Atraumatic Neck: Yes: Supple Cardiovascular: Yes: Regular Rate and Rhythm Respiratory: Yes: Rales Gastrointestinal: Yes: Soft, Other (distended with fluid wave) Renal/: Yes: Scrotal Edema Edema: Yes Edema: LLE: 3+, RLE: 3+ Psychiatric: Yes: Alert Imaging - Results Chest X-ray: Report Reviewed, Image Reviewed Assessment/Plan 47M with alcoholic liver cirrhosis presents to the hospital with worsening abdominal distention, ascites, lower extremity and scrotal edema. Problem list: Alcoholic liver cirrhosis Esophageal varices pancytopenia ascites scrotal edema Rad Plan: patient will have abdominal paracentesis today continue lasix continue spironolactone RAD likely secondary to fluid overload monitor renal function patient states he is going home after paracentesis Case discussed with Attending Dr. Melara
[2017-06-20 11:15] LABS: BASO % 0.5 % (0-2.0); EOS % 2.1 % (0-4.5); HEMOGLOBIN 7.9 GM/dL (11.7-16.9); LYMPH % 14.1 % (8-40); MCH 36.6 pg (25.7-33.7); MCHC 34.3 g/dl (32.0-35.9); MEAN CELL VOLUME 106.8 fl (80-96); MONO % 11.4 % (3.8-10.2); NEUT % 71.9 % (42.8-82.8); PLATELET COUNT 59 K/MM3 (134-434); RBC 2.15 M/mm3 (4.00-5.60); RDW 13.5 % (11.9-15.9); WHITE BLOOD COUNT 3.2 K/mm3 (4.0-10.0)
[2017-06-20 11:31] LABS: INR 2.67 (0.82-1.09); PROTHROMBIN TIME (PATIENT) 30.2 SEC (9.98-11.88)
--- NOTE | 2017-06-20 11:32 | HP ---
Admitting History and Physical - Primary Care Physician PCP: Lisa Winn - Admission Chief Complaint: Ascitis, abdominal swelling History of Present Illness: The patient is a 47 year old male, with a significant past medical history of cirrhosis, htn, anemia, who presents to the emergency department with progressive increase in his abdominal swelling, as well as increased swelling in his legs and scrotum, and decreased urinary output for 3 weeks. Pt states that he has recurrent ascites and has had multiple prior paracenteses in the past. He is scheduled for a paracentesis at [facility] next week. However, he states that the swelling in his groin and legs is new, which prompted him to come to the ER. He also reports a decrease in urination for 3 weeks despite recently increasing his diuretics. He denies chest pain, shortness of breath, headache and dizziness. He denies fever, chills, nausea, vomit, diarrhea and constipation. He denies dysuria, urgency and hematuria. History Source: Patient Limitations to Obtaining History: No Limitations - Past Medical History Gastrointestinal: Yes: Ascites, Esophageal Varices. No: Cancer, Constipation, Crohn's Disease, Diverticulitis, Diverticulosis, Gastritis, GERD, GI Bleed ( variceal in past, s/p banding and on nadalol), Hemorrhoids, Hiatal Hernia, Inflamatory Bowel Disease, Irritable Bowel Disease, Pancreatitis, Peptic Ulcer Disease, Ulcerative Colitis, Other Hepatobiliary: Yes: Cirrhosis (varices, ascites), Cholelithiasis, Other ( ALCOHOLIC CIRRHOSIS, CURRENT ETOH ABUSER). No: Cholecystitis, Choledocholithiasis, Hepatitis A, Hepatitis B, Hepatitis C Renal/: Yes: Hematuria, Other (bladder cyst). No: Renal Failure, Renal Inusuff, BPH, Cancer, Hemodialysis, Neurogenic Bladder, Renal Calculi, UTI Heme/Onc: Yes: Bleeding Disorder, Thrombocytopenia Psych: Yes: Addictions - Past Surgical History Past Surgical History: Yes: Upper Endoscopy (egd + band ligation of esophageal varices 05/2013). No: None, AAA Repair, AICD, Amputation, Appendectomy, Arthrosocopy, AV Fistula/Graft, Bariatric Surgery, Breast Biopsy, Bypass, CABG, Carotid Endarterectomy, Cataract Removal, Cholecystectomy, Colectomy, Colonoscopy, Colostomy, Craniotomy, , Cystectomy, Hernia Repair, Hysterectomy, Ileal Conduit, Ileosotomy, Joint Replacement, Kidney Transplant, Laminectomy, Liver Transplant, Mastectomy, Nephrectomy, Oopherectomy, Orchiectomy, Permanent Pacemaker, Prostatectomy, Splenectomy, Stent, Thoracotomy , TURP, Tonsillectomy, Tubal Ligation, Valve Replacement, Vasectomy, Vein Stripping/Ligation - Smoking History Smoking history: Never smoked Have you smoked in the past 12 months: No Aproximately how many cigarettes per day: 0 - Alcohol/Substance Use Hx Alcohol Use: Yes Home Medications - Allergies Allergies/Adverse Reactions: Allergies Allergy/AdvReac Type Severity Reaction Status Date / Time No Known Allergies Allergy Verified 06/19/17 11:23 - Home Medications Home Medications: Ambulatory Orders Pantoprazole Sodium [Protonix -] 40 mg PO DAILY #30 tab 02/27/17 Carvedilol 3.125 mg PO BID 06/19/17 Furosemide [Lasix] 40 mg PO DAILY 06/19/17 Spironolactone [Aldactone] 100 mg PO DAILY 06/19/17 Review of Systems - Review of Systems Constitutional: reports: No Symptoms Eyes: reports: No Symptoms HENT: reports: No Symptoms Neck: reports: No Symptoms Cardiovascular: reports: No Symptoms Respiratory: reports: No Symptoms Gastrointestinal: reports: Bloating Genitourinary: reports: Testicular Swelling, Other (scrotal swelling) Musculoskeletal: reports: No Symptoms Integumentary: reports: No Symptoms Neurological: reports: No Symptoms Endocrine: reports: No Symptoms Hematology/Lymphatic: reports: No Symptoms Psychiatric: reports: No Symptoms Physical Examination Vital Signs: Vital Signs Temperature 97.8 F 06/20/17 10:00 Pulse Rate 89 06/20/17 10:00 Respiratory Rate 18 06/20/17 10:00 Blood Pressure 119/75 06/20/17 10:00 O2 Sat by Pulse Oximetry (%) 98 06/20/17 02:00 Constitutional: Yes: Well Nourished, No Distress, Calm Cardiovascular: Yes: Regular Rate and Rhythm Respiratory: Yes: Regular Gastrointestinal: Yes: Ascites Musculoskeletal: Yes: WNL Extremities: Yes: WNL Edema: No Peripheral Pulses WNL: Yes Neurological: Yes: Alert, Oriented Psychiatric: Yes: Alert, Oriented Labs: CBC, BMP 06/20/17 10:47 Imaging - Results Chest X-ray: Report Reviewed Problem List - Problems (1) Anasarca Assessment/Plan: -acute on chronic -seen by GI Code(s): R60.1 - GENERALIZED EDEMA (2) Alcohol abuse Code(s): F10.10 - ALCOHOL ABUSE, UNCOMPLICATED (3) Anemia Assessment/Plan: -recheck labs in AM -Stool OB Code(s): D64.9 - ANEMIA, UNSPECIFIED (4) Ascites due to alcoholic cirrhosis Code(s): K70.31 - ALCOHOLIC CIRRHOSIS OF LIVER WITH ASCITES Assessment/Plan see problem list
[2017-06-20 11:51] LABS: ALBUMIN 1.8 g/dl (3.4-5.0); ALK PHOS 75 U/L (45-117); ANION GAP 7 (8-16); BILIRUBIN,DIRECT 4.6 mg/dL (0.0-0.2); BILIRUBIN,TOTAL 8.3 mg/dL (0.2-1.0); BLOOD UREA NITROGEN 21 mg/dL (7-18); CALCIUM 7.9 mg/dL (8.5-10.1); CHLORIDE 101 mmol/L (98-107); CO2 28 mmol/L (21-32); CREATININE 1.3 mg/dL (0.7-1.3); GLUCOSE,RANDOM 98 mg/dL (74-106); POTASSIUM 3.7 mmol/L (3.5-5.1); SGPT/ALT 16 U/L (12-78); SODIUM 136 mmol/L (136-145); TOT PROT 5.8 g/dl (6.4-8.2)
[2017-06-20 11:53] LABS: SGOT/AST 24 U/L (15-37)
[2017-06-20] MEDS: SPIRONOLACTONE 25 MG TABLET (FP) PO SCH (12:21)
[2017-06-20] MEDS ORDERED: PHYTONADIONE 10 MG/1 ML AMP SQ ONE (17:00)
--- NOTE | 2017-06-20 17:04 | PN ---
Teaching Attending Note Name of Resident: Cameron Clay (Nephrology) ATTENDING PHYSICIAN STATEMENT I saw and evaluated the patient. I reviewed the resident's note and discussed the case with the resident. I agree with the resident's findings and plan as documented. Nephrology Consult Pt seen and examined at bedside with resident. Pt is a 47 year old male with history of alcoholic liver disease who presents with worsening ascites and edema. He last had a paracentesis a few months ago as outpt by his GI. I was called to evaluate him for elevated creatinine which has been getting worse. He has not followed with me in the office since his last discharge. pmhx ckd liver cirrhosis pancytopenia nkda family hx denies Current Medications Generic Name Dose Route Start Last Admin Trade Name Freq PRN Reason Stop Dose Admin Furosemide 40 mg 06/20/17 10:15 06/20/17 11:06 Lasix - PO 40 mg DAILY [facility] Administration Pantoprazole Sodium 40 mg 06/19/17 16:15 06/20/17 11:06 Protonix - PO 40 mg DAILY [facility] Administration Spironolactone 100 mg 06/20/17 10:15 06/20/17 12:21 Aldactone - PO 100 mg DAILY [facility] Administration Last Vital Signs Temp Pulse Resp BP Pulse Ox 98.5 F 76 20 112/68 98 06/20/17 14:01 06/20/17 14:01 06/20/17 14:01 06/20/17 14:01 06/20/17 10:00 Laboratory Tests 02/26/17 06/20/17 06/20/17 06:25 10:47 10:47 WBC 3.2 L D Hgb 7.9 L D Plt Count 59 L D Creatinine 0.9 1.3 cardio s1s2 pulm clear GI ascites ext plus 2 edema neuro awake and alert Impression 1. 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 liver cirrhosis 3. thrombocytopenia 4. hx etoh abuse 5. hx hematuria 6. anemia 7. pancytopenia 8. fluid overload 9. ascites Plan - paracentesis today - cont diuretics - discused fluid and salt intake with pt - he drinks water all day and has a diet that is high in salt - repeat labs in am if he stays tonight - will need close outpt follow up Dr Melara
--- NOTE | 2017-06-20 19:23 | PN ---
Progress Note (short form) - Note Progress Note: Well-known to our service. 47 year old male, with a significant past medical history of cirrhosis, htn, anemia, who presents to the emergency department with progressive increase in his abdominal swelling, as well as increased swelling in his legs and scrotum, and decreased urinary output for 3 weeks. Pt states that he has recurrent ascites and has had multiple prior paracenteses in the past. He is scheduled for a paracentesis at [facility] next week. O/E: Constitutional: Yes: Well Nourished, No Distress, Calm eyes: Scrleral icterus Cardiovascular: Yes: Regular Rate and Rhythm Respiratory: Yes: Regular Gastrointestinal: Yes: Ascites Musculoskeletal: Yes: WNL Extremities: Yes: WNL Edema: LE Bilateral 2+ Peripheral Pulses WNL: Yes Neurological: Yes: Alert, Oriented Psychiatric: Yes: Alert, Oriented Last Vital Signs Temp Pulse Resp BP Pulse Ox 98.0 F 77 20 111/77 98 06/20/17 18:30 06/20/17 18:30 06/20/17 18:30 06/20/17 18:30 06/20/17 10:00 CBC, BMP 06/20/17 10:47 06/20/17 10:47 Current Medications Generic Name Dose Route Start Last Admin Trade Name Freq PRN Reason Stop Dose Admin Furosemide 40 mg 06/20/17 10:15 06/20/17 11:06 Lasix - PO 40 mg DAILY [facility] Administration Pantoprazole Sodium 40 mg 06/19/17 16:15 06/20/17 11:06 Protonix - PO 40 mg DAILY [facility] Administration Phytonadione 5 mg 06/21/17 10:00 Aqua Mephyton Injection - SQ 06/21/17 10:01 ONCE ONE Spironolactone 100 mg 06/20/17 10:15 06/20/17 12:21 Aldactone - PO 100 mg DAILY [facility] Administration pre procedural correction of INR One more dose of Vit K Already ordered for FFP by PMD diuretics per GI cytopenias from cirrhosis dietary counselling given will transfuse one unit PRBC post procedure d/w PAULA
[2017-06-21 09:03] LABS: BASO % 0.3 % (0-2.0); EOS % 1.9 % (0-4.5); HEMATOCRIT 22.4 % (35.4-49); HEMOGLOBIN 7.7 GM/dL (11.7-16.9); LYMPH % 9.9 % (8-40); MCH 36.6 pg (25.7-33.7); MCHC 34.3 g/dl (32.0-35.9); MEAN CELL VOLUME 106.8 fl (80-96); MEAN PLT VOLUME 7.8 fl (7.5-11.1); MONO % 11.8 % (3.8-10.2); NEUT % 76.1 % (42.8-82.8); PLATELET COUNT 56 K/MM3 (134-434); RBC 2.09 M/mm3 (4.00-5.60); RDW 13.5 % (11.9-15.9); WHITE BLOOD COUNT 3.6 K/mm3 (4.0-10.0)
[2017-06-21 09:09] LABS: INR 2.1 (0.82-1.09); PROTHROMBIN TIME (PATIENT) 23.7 SEC (9.98-11.88)
[2017-06-21 09:36] LABS: ALK PHOS 71 U/L (45-117); ANION GAP 9 (8-16); BLOOD UREA NITROGEN 23 mg/dL (7-18); CALCIUM 7.9 mg/dL (8.5-10.1); CHLORIDE 103 mmol/L (98-107); CO2 27 mmol/L (21-32); CREATININE 1.3 mg/dL (0.7-1.3); GLUCOSE,RANDOM 109 mg/dL (74-106); POTASSIUM 3.5 mmol/L (3.5-5.1); SGOT/AST 26 U/L (15-37); SGPT/ALT 20 U/L (12-78); SODIUM 139 mmol/L (136-145); TOT PROT 5.7 g/dl (6.4-8.2)
[2017-06-21] MEDS ORDERED: PHYTONADIONE 10 MG/1 ML AMP SQ ONE (10:00)
--- NOTE | 2017-06-21 10:52 | PN ---
Progress Note, Physician Chief Complaint: Ascitis - Current Medication List Current Medications: Active Medications Furosemide (Lasix -) 40 mg PO DAILY [facility] Last Admin: 06/20/17 11:06 Dose: 40 mg Pantoprazole Sodium (Protonix -) 40 mg PO DAILY [facility] Last Admin: 06/20/17 11:06 Dose: 40 mg Spironolactone (Aldactone -) 100 mg PO DAILY [facility] Last Admin: 06/20/17 12:21 Dose: 100 mg - Objective Vital Signs: Vital Signs Temperature 98.7 F 06/21/17 06:00 Pulse Rate 83 06/21/17 06:00 Respiratory Rate 20 06/21/17 06:00 Blood Pressure 105/62 06/21/17 06:00 O2 Sat by Pulse Oximetry (%) 98 06/21/17 02:00 Labs: CBC, BMP 06/21/17 08:45 06/21/17 08:45 INR, PTT INR 2.10 (0.82-1.09) H 06/21/17 08:45 Problem List - Problems (1) Anasarca Code(s): R60.1 - GENERALIZED EDEMA (2) Alcohol abuse Code(s): F10.10 - ALCOHOL ABUSE, UNCOMPLICATED (3) Anemia Code(s): D64.9 - ANEMIA, UNSPECIFIED (4) Ascites due to alcoholic cirrhosis Code(s): K70.31 - ALCOHOLIC CIRRHOSIS OF LIVER WITH ASCITES
[2017-06-21] MEDS: PANTOPRAZOLE 40 MG TABLET (FP) PO SCH (11:12)
[2017-06-21] MEDS: FUROSEMIDE 40 MG TABLET (FP) PO SCH (11:12)
[2017-06-21] MEDS ORDERED: PHYTONADIONE 10 MG/1 ML AMP IM ONE (11:15)
[2017-06-21] MEDS: SPIRONOLACTONE 25 MG TABLET (FP) PO SCH (11:20)
--- NOTE | 2017-06-21 11:25 | PN ---
Progress Note, Physician History of Present Illness: Patient seen and examined at bedside frustrated he did not have his paracentesis yesterday and he was not able to go home. - Current Medication List Current Medications: Active Medications Furosemide (Lasix -) 40 mg PO DAILY [facility] Last Admin: 06/21/17 11:12 Dose: 40 mg Pantoprazole Sodium (Protonix -) 40 mg PO DAILY [facility] Last Admin: 06/21/17 11:12 Dose: 40 mg Spironolactone (Aldactone -) 100 mg PO DAILY [facility] Last Admin: 06/21/17 11:20 Dose: 100 mg - Objective Vital Signs: Vital Signs Temperature 98.7 F 06/21/17 06:00 Pulse Rate 83 06/21/17 06:00 Respiratory Rate 20 06/21/17 06:00 Blood Pressure 105/62 06/21/17 06:00 O2 Sat by Pulse Oximetry (%) 98 06/21/17 02:00 Constitutional: Yes: No Distress Eyes: Yes: Sclera Icterus HENT: Yes: Atraumatic Neck: Yes: Supple Cardiovascular: Yes: Regular Rate and Rhythm Respiratory: Yes: Rales Gastrointestinal: Yes: Soft, Other (distended with fluid wave) Renal/: Yes: Scrotal Edema Edema: Yes Edema: LLE: 3+, RLE: 3+ Psychiatric: Yes: Alert Labs: CBC, BMP 06/21/17 08:45 06/21/17 08:45 INR, PTT INR 2.10 (0.82-1.09) H 06/21/17 08:45 Assessment/Plan 47M with alcoholic liver cirrhosis presents to the hospital with worsening abdominal distention, ascites, lower extremity and scrotal edema. Problem list: Alcoholic liver cirrhosis Esophageal varices pancytopenia ascites scrotal edema ROJAS Plan: patient will have abdominal paracentesis today-recieved platelets and FFP continue lasix continue spironolactone ROJAS likely secondary to fluid overload monitor renal function discussed salt intake limitations and fluid intake limitations-patient got upset Case discussed with Attending Dr. Melara
--- NOTE | 2017-06-21 14:40 | PN ---
Teaching Attending Note Name of Resident: Cameron Clay (Nephrology) ATTENDING PHYSICIAN STATEMENT I saw and evaluated the patient. I reviewed the resident's note and discussed the case with the resident. I agree with the resident's findings and plan as documented. Renal Follow Up Pt seen and examined at bedside. He is waiting to go for paracentesis. He still complains of lower ext edema. Current Medications Generic Name Dose Route Start Last Admin Trade Name Freq PRN Reason Stop Dose Admin Furosemide 40 mg 06/20/17 10:15 06/21/17 11:12 Lasix - PO 40 mg DAILY [facility] Administration Pantoprazole Sodium 40 mg 06/19/17 16:15 06/21/17 11:12 Protonix - PO 40 mg DAILY [facility] Administration Spironolactone 100 mg 06/20/17 10:15 06/21/17 11:20 Aldactone - PO 100 mg DAILY [facility] Administration Last Vital Signs Temp Pulse Resp BP Pulse Ox 98.3 F 83 18 110/69 98 06/21/17 10:00 06/21/17 10:00 06/21/17 10:00 06/21/17 10:00 06/21/17 02:00 Laboratory Tests 06/21/17 06/21/17 08:45 08:45 WBC 3.6 L Hgb 7.7 L Plt Count 56 L Sodium 139 Potassium 3.5 BUN 23 H Creatinine 1.3 cardio s1s2 pulm clear GI ascites ext plus 2 edema neuro awake and alert Impression 1. 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 liver cirrhosis 3. thrombocytopenia 4. hx etoh abuse 5. hx hematuria 6. anemia 7. pancytopenia 8. fluid overload 9. ascites Plan - paracentesis today - cont lasix and aldactone - low sodium diet/fluid restriction - will need close outpt follow up
[2017-06-21 17:54] LABS: TOTAL PROTEIN,PERITONEAL FLUID 1 gm/dL
[2017-06-21] MEDS ORDERED: ALBUMIN HUMAN 25% 12.5 GM/50 ML VIAL IVPB ONE (18:30)
[2017-06-21 18:32] LABS: PERITONEAL RBC 891 /mm3
[2017-06-21 21:58] LABS: PERITONEAL FLUID LYMPHOCYTE 40 %; PERITONEAL FLUID MESOTHELIAL 3 %; PERITONEAL FLUID MONOCYTE 0 %; PERITONEAL FLUID NEUTROPHIL 57 %
[2017-06-22] MEDS ORDERED: FLU VACCINE QUAD 60 MCG/0.5 ML (MDV 17-18) IM ONE (09:00)
[2017-06-22 09:47] VITALS: BP 108/61; PULSE 81; TEMP 98.8
[2017-06-22] MEDS: FUROSEMIDE 40 MG TABLET (FP) PO SCH (10:37)
[2017-06-22] MEDS: SPIRONOLACTONE 25 MG TABLET (FP) PO SCH (10:40)
[2017-06-22] MEDS: PANTOPRAZOLE 40 MG TABLET (FP) PO SCH (10:40)
--- NOTE | 2017-06-22 11:08 | PN ---
Progress Note, Physician History of Present Illness: Patient seen and examined at bedside s/p paracentesis yesterday feels much better today - Current Medication List Current Medications: Active Medications Furosemide (Lasix -) 40 mg PO DAILY [facility] Last Admin: 06/22/17 10:37 Dose: 40 mg Pantoprazole Sodium (Protonix -) 40 mg PO DAILY [facility] Last Admin: 06/22/17 10:40 Dose: 40 mg Spironolactone (Aldactone -) 100 mg PO DAILY [facility] Last Admin: 06/22/17 10:40 Dose: Not Given - Objective Vital Signs: Vital Signs Temperature 98.8 F 06/22/17 09:00 Pulse Rate 81 06/22/17 09:00 Respiratory Rate 18 06/22/17 09:00 Blood Pressure 108/61 06/22/17 09:00 O2 Sat by Pulse Oximetry (%) 98 06/22/17 02:00 Constitutional: Yes: No Distress Eyes: Yes: Sclera Icterus HENT: Yes: Atraumatic Neck: Yes: Supple Cardiovascular: Yes: Regular Rate and Rhythm Respiratory: Yes: Rales Gastrointestinal: Yes: Soft, Other (distended but significantly improved) Renal/: Yes: Scrotal Edema improved Edema: Yes Edema: LLE: 3+, RLE: 3+ Psychiatric: Yes: Alert Labs: CBC, BMP 06/21/17 08:45 06/21/17 08:45 INR, PTT INR 2.10 (0.82-1.09) H 06/21/17 08:45 Assessment/Plan 47M with alcoholic liver cirrhosis presents to the hospital with worsening abdominal distention, ascites, lower extremity and scrotal edema. Problem list: Alcoholic liver cirrhosis Esophageal varices pancytopenia ascites scrotal edema ROJAS Plan: s/p abdominal paracentesis yesterday with removal of 6800ml of ascitic fluid paracentesis analysis noted continue lasix continue spironolactone ROJAS likely secondary to fluid overload monitor renal function discussed salt intake limitations and fluid intake limitations will need to follow with his providers closely as outpatient-this was relayed to the patient will need to be compliant with his medications-relayed to the patient Case discussed with Attending Dr. Melara
--- NOTE | 2017-06-22 11:59 | PN ---
Progress Note (short form) - Note Progress Note: Pt seen and examined. Feels well. s/p paracentesis s/p one unit PRBC awaiting to be discharged Constitutional: Yes: Well Nourished, No Distress, Calm eyes: Scrleral icterus Cardiovascular: Yes: Regular Rate and Rhythm Respiratory: Yes: Regular Gastrointestinal: Yes: Ascites Musculoskeletal: Yes: WNL Extremities: Yes: WNL Edema: LE Bilateral 1+ Peripheral Pulses WNL: Yes Neurological: Yes: Alert, Oriented Psychiatric: Yes: Alert, Oriented Last Vital Signs Temp Pulse Resp BP Pulse Ox 98.8 F 81 18 108/61 98 06/22/17 09:00 06/22/17 09:00 06/22/17 09:00 06/22/17 09:00 06/22/17 02:00 CBC, BMP 06/21/17 08:45 06/21/17 08:45 Current Medications Generic Name Dose Route Start Last Admin Trade Name Freq PRN Reason Stop Dose Admin Furosemide 40 mg 06/20/17 10:15 06/22/17 10:37 Lasix - PO 40 mg DAILY [facility] Administration Pantoprazole Sodium 40 mg 06/19/17 16:15 06/22/17 10:40 Protonix - PO 40 mg DAILY [facility] Administration Spironolactone 100 mg 06/20/17 10:15 06/22/17 10:40 Aldactone - PO Not Given DAILY [facility] Cirrhosis Pancytopenia HRS coagulopathy s/p paracentesis post correction of coagulopathy cytopenias from cirrhosis s/p one PRBC Advised close follow-up with all his outside physicians. pt verbalized understanding
--- NOTE | 2017-06-22 13:26 | DS ---
Physical Examination Vital Signs: Vital Signs Temperature 98.8 F 06/22/17 09:00 Pulse Rate 81 06/22/17 09:00 Respiratory Rate 18 06/22/17 09:00 Blood Pressure 108/61 06/22/17 09:00 O2 Sat by Pulse Oximetry (%) 98 06/22/17 02:00 Constitutional: Yes: Calm Eyes: Yes: Sclera Icterus Cardiovascular: Yes: S1, S2 Respiratory: Yes: Diminished (at bases) Gastrointestinal: Yes: Soft, Distention Edema: Yes Neurological: Yes: Alert, Oriented Labs: CBC, BMP 06/21/17 08:45 06/21/17 08:45 Discharge Summary Reason For Visit: ASCITES DUE TO ALCOHOLIC CIRRHOSIS Current Active Problems Anasarca (Acute) Hospital Course: Primary Care Physician PCP: Lisa Winn - Admission Chief Complaint: Ascitis, abdominal swelling History of Present Illness: The patient is a 47 year old male, with a significant past medical history of cirrhosis, htn, anemia, who presents to the emergency department with progressive increase in his abdominal swelling, as well as increased swelling in his legs and scrotum, and decreased urinary output for 3 weeks. Pt states that he has recurrent ascites and has had multiple prior paracenteses in the past. He is scheduled for a paracentesis at [facility] next week. However, he states that the swelling in his groin and legs is new, which prompted him to come to the ER. He also reports a decrease in urination for 3 weeks despite recently increasing his diuretics. He denies chest pain, shortness of breath, headache and dizziness. He denies fever, chills, nausea, vomit, diarrhea and constipation. He denies dysuria, urgency and hematuria. History Source: Patient Limitations to Obtaining History: No Limitations - Past Medical History Gastrointestinal: Yes: Ascites, Esophageal Varices. No: Cancer, Constipation, Crohn's Disease, Diverticulitis, Diverticulosis, Gastritis, GERD, GI Bleed ( variceal in past, s/p banding and on nadalol), Hemorrhoids, Hiatal Hernia, Inflamatory Bowel Disease, Irritable Bowel Disease, Pancreatitis, Peptic Ulcer Disease, Ulcerative Colitis, Other Hepatobiliary: Yes: Cirrhosis (varices, ascites), Cholelithiasis, Other ( ALCOHOLIC CIRRHOSIS, CURRENT ETOH ABUSER). No: Cholecystitis, Choledocholithiasis, Hepatitis A, Hepatitis B, Hepatitis C Renal/: Yes: Hematuria, Other (bladder cyst). No: Renal Failure, Renal Inusuff, BPH, Cancer, Hemodialysis, Neurogenic Bladder, Renal Calculi, UTI Heme/Onc: Yes: Bleeding Disorder, Thrombocytopenia Psych: Yes: Addictions - Past Surgical History Past Surgical History: Yes: Upper Endoscopy (egd + band ligation of esophageal varices 05/2013). No: None, AAA Repair, AICD, Amputation, Appendectomy, Arthrosocopy, AV Fistula/Graft, Bariatric Surgery, Breast Biopsy, Bypass, CABG, Carotid Endarterectomy, Cataract Removal, Cholecystectomy, Colectomy, Colonoscopy, Colostomy, Craniotomy, , Cystectomy, Hernia Repair, Hysterectomy, Ileal Conduit, Ileosotomy, Joint Replacement, Kidney Transplant, Laminectomy, Liver Transplant, Mastectomy, Nephrectomy, Oopherectomy, Orchiectomy, Permanent Pacemaker, Prostatectomy, Splenectomy, Stent, Thoracotomy , TURP, Tonsillectomy, Tubal Ligation, Valve Replacement, Vasectomy, Vein Stripping/Ligation - Smoking History Smoking history: Never smoked Have you smoked in the past 12 months: No Aproximately how many cigarettes per day: hospital course: s/p Paracentesis and s//p prbc transfusion, got vitamin K and ffp prior to paracentesis to go home and folow jup with PMD - Instructions Referrals: Nyla Bahena [Primary Care Provider] - Disposition: HOME - Home Medications Comprehensive Discharge Medication List: Ambulatory Orders Pantoprazole Sodium [Protonix -] 40 mg PO DAILY #30 tab 02/27/17 Carvedilol 3.125 mg PO BID 06/19/17 Furosemide [Lasix] 40 mg PO DAILY 06/19/17 Spironolactone [Aldactone] 100 mg PO DAILY 06/19/17
--- NOTE | 2017-06-22 15:10 | PN ---
Teaching Attending Note Name of Resident: Cameron Clay (Nephrology) ATTENDING PHYSICIAN STATEMENT I saw and evaluated the patient. I reviewed the resident's note and discussed the case with the resident. I agree with the resident's findings and plan as documented. Nephrology cardio s1s2 pulm clear GI ascites ext plus 2 edema neuro awake and alert Impression 1. ROJAS - pt has a baseline temple marker of 0.5, VS progression of renal/hepatic disease 2. liver cirrhosis 3. thrombocytopenia 4. hx etoh abuse 5. hx hematuria 6. anemia 7. pancytopenia 8. fluid overload 9. ascites Plan - cont diuretics - no new labs - will need outpt follow up
--- NOTE | 2017-06-25 15:38 | PATH ---
Cytology Non-Gynecological Report Patient Name: SENDY ANN [facility]. Rec. #: [id number] /Age/Gender: 1970 (Age: 47) / M Account: [id number] Location: [address] [place] [address] Taken: 06/21/2017 Received: 06/22/2017 Reported: 06/25/2017 Physicians: Celina Payton M.D. Specimen(s) Received A: PERITONEAL FLUID B: PERITONEAL FLUID Clinical History Ascites, liver cirrhosis Final Diagnosis A & B. ABDOMINAL FLUID, PARACENTESIS: SATISFACTORY FOR EVALUATION. NO MALIGNANT CELLS IDENTIFIED. MESOTHELIAL CELLS PRESENT. Electronically Signed Disha Guillermo M.D. Gross Description A. Approximately 50 cc of yellow fluid received fixed in 50% alcohol. Two cytofunnels and one cellblock prepared. B. Approximately 6000 cc of yellow fluid received fresh. Two cytofunnels and one cellblock prepared.
== END 2017-06-22 13:39 | disposition home or self-care (01) | DRG 264 ==
LOC: JER 11:12 → JERBED 15:28 → J5S 19:53 → OBSVTOIN 06-21 14:24
PROVIDERS: ADMIT Family Medicine; ATTEND Family Medicine
PROC: 0W9G3ZX Drainage of Peritoneal Cavity, Percutaneous Approach, Diagnostic (ICD-10-PCS; principal; 2017-06-21)
DX: K70.31 Alcoholic cirrhosis of liver with ascites (principal); R60.1 Generalized edema; F10.10 Alcohol abuse, uncomplicated; D64.9 Anemia, unspecified; E87.70 Fluid overload, unspecified; D61.818 Other pancytopenia; N50.89 Other specified disorders of the male genital organs; N17.9 Acute kidney failure, unspecified; D69.6 Thrombocytopenia, unspecified; D68.9 Coagulation defect, unspecified; E87.6 Hypokalemia; I85.00 Esophageal varices without bleeding
CPT/HCPCS: 36415; 36430; 71046-TC; 76942-TC; 80053; 82140; 82150; 82248; 82550; 82945; 83615; 83880; 84157; 84478; 84484; 85025; 85610; 85730; 86850; 86900; 86901; 86922; 87070; 87075; 87102; 87116; 87205; 87206; 87210; 89051; 93005; 93010; 99285-25; G0378; P9017; P9034; P9038; P9047; P9058

== ENCOUNTER 2017-06-24 12:51 | Emergency (ER) | payer OTHER ==
[2017-06-24 12:58] VITALS: TEMP 98.5; BMI 26.6
--- NOTE | 2017-06-24 14:11 | PDOC ---
History of Present Illness - General Chief Complaint: Pain Stated Complaint: ABD PAIN Time Seen by Provider: 06/24/17 13:58 History Source: Patient - History of Present Illness Initial Comments: 06/24/17 14:10 47 y.o. male with a PMH of cirrhosis (2/2 to alcoholic abuse) with h/o of elevated Cr (baseline 0.5) likely 2/2 to hepatorenal syndrome, HTN, anemia who presents to the ED today c/o acute onset of R sided abdominal pain localized to the area around his recent paracentesis. Patient notes he was recently discharged from our ED following diagnostic paracentesis earlier this week. Patient further notes since his discharge he has been eating heavy salt diet ( olives, cheese) despite counseling to do otherwise. He denies chest pain, shortness of breath, headache and dizziness. He denies fever, chills, nausea, vomit, diarrhea and constipation. He denies dysuria, urgency and hematuria. Past History - Past Medical History Allergies/Adverse Reactions: Allergies Allergy/AdvReac Type Severity Reaction Status Date / Time No Known Allergies Allergy Verified 06/24/17 12:55 Home Medications: Ambulatory Orders Pantoprazole Sodium [Protonix -] 40 mg PO DAILY #30 tab 02/27/17 Carvedilol 3.125 mg PO BID 06/19/17 Furosemide [Lasix] 40 mg PO DAILY 06/19/17 Spironolactone [Aldactone] 100 mg PO DAILY 06/19/17 Anemia: Yes Asthma: No Cancer: No Cardiac Disorders: No CVA: No COPD: No CHF: No Dementia: No Diabetes: No GI Disorders: No Disorders: No HTN: Yes (portal hypertension) Hypercholesterolemia: No Liver Disease: Yes (ALCOHOLIC CIRRHOSIS OF LIVER, ESOPHAGEAL VARICES) Seizures: No Thyroid Disease: No - Surgical History Abdominal Surgery: No Appendectomy: No Cardiac Surgery: No Cholecystectomy: No Lung Surgery: No Neurologic Surgery: No Orthopedic Surgery: No - Immunization History Immunization Up to Date: No - Suicide/Smoking/Psychosocial Hx Smoking Status: No Smoking History: Never smoked Have you smoked in the past 12 months: No Number of Cigarettes Smoked Daily: 0 Hx Alcohol Use: No Drug/Substance Use Hx: No Substance Use Type: None Hx Substance Use Treatment: No Review of Systems - Review of Systems Constitutional: No: Chills, Fever HEENTM: No: Recent change in vision Respiratory: No: Cough, Shortness of Breath Cardiac (ROS): No: Chest Pain ABD/GI: Yes: Other (R sided abdominal pain). No: Constipated, Diarrhea, Nausea , Vomiting : No: Burning, Dysuria *Physical Exam - Vital Signs Last Vital Signs Temp Pulse Resp BP Pulse Ox 98.5 F 84 18 126/80 100 06/24/17 12:54 06/24/17 12:54 06/24/17 12:54 06/24/17 12:54 06/24/17 12:54 - Physical Exam General Appearance: Yes: Nourished, Obese HEENT: positive: Scleral Icterus (R), Scleral Icterus (L) Neck: positive: Trachea midline, Supple Respiratory/Chest: positive: Lungs Clear Cardiovascular: positive: S1, S2, Edema (2+ B/L pitting edema) Gastrointestinal/Abdominal: positive: Normal Bowel Sounds, Soft, Other ( distended abdomen, (+) fluid wave shift, paracentesis site - C/D/I, pinpoint lesion with active discharge) Extremity: positive: Normal Capillary Refill, Normal Inspection Integumentary: positive: Normal Color, Dry, Warm Neurologic: positive: Fully Oriented, Alert ED Treatment Course - LABORATORY CBC & Chemistry Diagram: 06/24/17 15:25 06/24/17 15:25 Medical Decision Making - Medical Decision Making 06/24/17 15:25 Patient is a 47 y.o. male who presents with R sided abdominal pain localized to the site of his recent (06/20) paracentesis site. On PE patient is non-toxic appearing has (+) fluid wave shift with no signs of active infection @ recent paracentic site. Will obtain CBC to evaluate for active infection including SBP. Case d/w GI (Dr. Mcclelland) who agree with plan and recommends outpatient paracentesis w/Dr. Murrell who evaluated patient during his recent admission. CBC shows no leukocytosis, patient remains afebrile and agrees with discharge and outpatient follow-up for paracentesis tomorrow. Patient discharged home with return precautions. At time of discharge patient ambulatory, improved and tolerating PO intake. *DC/Admit/Observation/Transfer Diagnosis at time of Disposition: Ascites - Discharge Dispostion Disposition: HOME Condition at time of disposition: Unchanged/Unknown - Referrals Referrals: Nyla Bahena [Primary Care Provider] - - Patient Instructions Printed Discharge Instructions: DI for Abdominal Paracentesis Additional Instructions: Please make an appointment tomorrow with Dr. Murrell for outpatient paracentesis. Return to the Emergency Department for any new/worsening/concerning symptoms including fever or severe pain. - Post Discharge Activity
[2017-06-24 15:48] LABS: BASO % 0.6 % (0-2.0); EOS % 1.9 % (0-4.5); HEMATOCRIT 26.5 % (35.4-49); HEMOGLOBIN 9.2 GM/dL (11.7-16.9); LYMPH % 10.8 % (8-40); MCHC 34.7 g/dl (32.0-35.9); MEAN CELL VOLUME 103.7 fl (80-96); MEAN PLT VOLUME 8.5 fl (7.5-11.1); MONO % 11.8 % (3.8-10.2); NEUT % 74.9 % (42.8-82.8); PLATELET COUNT 60 K/MM3 (134-434); RBC 2.56 M/mm3 (4.00-5.60); WHITE BLOOD COUNT 5.3 K/mm3 (4.0-10.0)
[2017-06-24 16:02] LABS: ALBUMIN 2.1 g/dl (3.4-5.0); ANION GAP 7 (8-16); BILIRUBIN,TOTAL 9.3 mg/dL (0.2-1.0); BLOOD UREA NITROGEN 19 mg/dL (7-18); CALCIUM 8.3 mg/dL (8.5-10.1); CHLORIDE 102 mmol/L (98-107); CO2 28 mmol/L (21-32); CREATININE 1.3 mg/dL (0.7-1.3); GLUCOSE,RANDOM 121 mg/dL (74-106); POTASSIUM 3.6 mmol/L (3.5-5.1); SGOT/AST 29 U/L (15-37); SGPT/ALT 17 U/L (12-78); SODIUM 137 mmol/L (136-145); TOT PROT 5.8 g/dl (6.4-8.2)
[2017-06-24 16:03] LABS: ALK PHOS 77 U/L (45-117)
--- NOTE | 2017-06-24 16:54 | PDOC ---
Attending Attestation - Resident Resident Name: Eleni Stanley - ED Attending Attestation I have performed the following: I have examined & evaluated the patient, The case was reviewed & discussed with the resident, I agree w/resident's findings & plan, Exceptions are as noted - HPI HPI: 06/24/17 16:53 47 yo male with h/o paracentesis for ascites p/w complaint of increased abd girth. No fever. - Physicial Exam PE: 06/24/17 17:12 47 yo male eating ,seated comfortably on the gurney Musculoskeletal there is a small puncture site from previous paracentesis on rlq of abdomen, abd is soft,no guarding,no rebouns,small fluid wave head ncat neck supple lungs cta b/l cvs [id number] ext no erythema,no deformity neuro axo3,ambulatory skin warm,dry psych appropriate - Medical Decision Making 06/24/17 17:15 Dr Stanley spoke with GI and the plan is for this pt to see Dr Murrell in the office tomorrow
[2017-06-24 17:12] VITALS: BP 123/77; PULSE 79
== END 2017-06-24 17:12 | disposition home or self-care (01) ==
LOC: JER 12:51 → SUPCPDRO 12:51 → JER 17:12
DX: K70.31 Alcoholic cirrhosis of liver with ascites (principal); K76.6 Portal hypertension; I85.10 Secondary esophageal varices without bleeding; J45.909 Unspecified asthma, uncomplicated
CPT/HCPCS: 36415; 80053; 85025; 99283-25

== ENCOUNTER 2017-06-25 16:03 | Inpatient (IN) | payer OTHER ==
--- NOTE | 2017-06-25 16:22 | PDOC ---
Rapid Medical Evaluation Time Seen by Provider: 06/25/17 16:13 Medical Evaluation: Allergies Allergy/AdvReac Type Severity Reaction Status Date / Time No Known Allergies Allergy Verified 06/25/17 16:13 06/25/17 16:13 The patient presents with a chief complaint of: [Acsites, recently discharged as an inpatient had 7 L removed from abdomen. Now with increased swelling to abdomen and legs. Fever. H/O cirrhosis. ] I have performed a brief in-person evaluation of this patient. Pertinent physical exam findings: vss, [Abdomen is distended and tympanic. + 4 pitting edema to bilateral lower extremities. Lungs clear on assessment, RRR. Sclera icteric. ] I have ordered the following: [cbc, cmp, blood cultures, lactic acid, ammonia , saline lock, ] The patient will proceed to the ED for further evaluation. Discharge Disposition - Diagnosis Ascites - Referrals Referrals: Nyla Bahena [Primary Care Provider] - - Patient Instructions - Post Discharge Activity
[2017-06-25 16:48] LABS: BASO % 0.9 % (0-2.0); HEMATOCRIT 31.5 % (35.4-49); LYMPH % 1.6 % (8-40); MCH 36.9 pg (25.7-33.7); MEAN CELL VOLUME 105.5 fl (80-96); MEAN PLT VOLUME 8.8 fl (7.5-11.1); MONO % 3.8 % (3.8-10.2); NEUT % 93.7 % (42.8-82.8); PLATELET COUNT 101 K/MM3 (134-434); RBC 2.99 M/mm3 (4.00-5.60); RDW 16.9 % (11.9-15.9); WHITE BLOOD COUNT 19.2 K/mm3 (4.0-10.0)
--- NOTE | 2017-06-25 16:50 | PDOC ---
History of Present Illness - History of Present Illness Initial Comments: 06/25/17 16:44 Patient is a 47 y.o. male with a PMH of liver cirrhosis (2/2 to alcohol abuse) with h/o of elevated Cr (baseline 0.5) likely 2/2 to hepatorenal syndrome, HTN and anemia who presents to our ED today c/o diffuse abdominal pain and abdominal distension. Patient was evaluated in our ED yesterday for abdominal pain (patient was s/p asitic tap on 06/20) at which time labs showed no leukocytosis count, patient displayed minimal tenderness to palpation and was tolerating salt loaded diet at time of discharge. Case was d/w Dr. Murrell and patient was following up with GI for a therapeutic tap today at which time he was noted to have a fever of 100.9 and sent to our ED for concern of SBP. He denies chest pain, shortness of breath, headache and dizziness. He denies fever, chills, nausea, vomit, diarrhea and constipation. He denies dysuria, urgency and hematuria. <Eleni Stanley - Last Filed: 06/28/17 08:49> <Polly Aguilar - Last Filed: 06/30/17 08:49> - General Chief Complaint: SIRS, Suspected/Possible Stated Complaint: FLUID Time Seen by Provider: 06/25/17 16:13 Past History - Past Medical History Anemia: Yes Asthma: No Cancer: No Cardiac Disorders: No CVA: No COPD: No CHF: No DVT: No Dementia: No Diabetes: No GI Disorders: No Disorders: No HTN: Yes (portal hypertension) Hypercholesterolemia: No Liver Disease: Yes (ALCOHOLIC CIRRHOSIS OF LIVER, ESOPHAGEAL VARICES) Seizures: No Thyroid Disease: No - Surgical History Abdominal Surgery: No Appendectomy: No Cardiac Surgery: No Cholecystectomy: No Lung Surgery: No Neurologic Surgery: No Orthopedic Surgery: No - Immunization History Immunization Up to Date: No - Suicide/Smoking/Psychosocial Hx Smoking Status: No Smoking History: Never smoked Have you smoked in the past 12 months: No Number of Cigarettes Smoked Daily: 0 Information on smoking cessation initiated: No Hx Alcohol Use: No Drug/Substance Use Hx: No Substance Use Type: None Hx Substance Use Treatment: No <Eleni Stanley - Last Filed: 06/28/17 08:49> <Polly Aguilar - Last Filed: 06/30/17 08:49> - Past Medical History Allergies/Adverse Reactions: Allergies Allergy/AdvReac Type Severity Reaction Status Date / Time No Known Allergies Allergy Verified 06/25/17 16:13 Home Medications: Ambulatory Orders Pantoprazole Sodium [Protonix -] 40 mg PO DAILY #30 tab 02/27/17 Carvedilol 3.125 mg PO BID 06/19/17 Furosemide [Lasix] 40 mg PO DAILY 06/19/17 Spironolactone [Aldactone] 100 mg PO DAILY 06/19/17 Review of Systems - Review of Systems Constitutional: Yes: Fever. No: Chills Respiratory: No: Shortness of Breath Cardiac (ROS): No: Chest Pain ABD/GI: Yes: Abdominal Distended, Abdominal cramping. No: Constipated, Diarrhea , Nausea, Vomiting : No: Burning, Dysuria <Eleni Stanley - Last Filed: 06/28/17 08:49> *Physical Exam - Vital Signs Last Vital Signs Temp Pulse Resp BP Pulse Ox 98.8 F 110 H 18 132/80 100 06/25/17 16:14 06/25/17 16:14 06/25/17 16:14 06/25/17 16:14 06/25/17 16:14 - Physical Exam General Appearance: Yes: Nourished, Appropriately Dressed HEENT: positive: EOMI, NACHO Neck: positive: Trachea midline, Supple Respiratory/Chest: positive: Lungs Clear Cardiovascular: positive: S1, S2, Edema Gastrointestinal/Abdominal: positive: Other (distended abdomen, with circumferential petechial rash, warm and tender to palpation, (+) fluid wave shift) Extremity: positive: Normal Capillary Refill, Normal Inspection Integumentary: positive: Normal Color, Dry, Warm <Eleni Stanley - Last Filed: 06/28/17 08:49> - Vital Signs Last Vital Signs Temp Pulse Resp BP Pulse Ox 98.5 F 72 20 105/57 98 06/30/17 06:06 06/30/17 06:06 06/30/17 06:06 06/30/17 06:06 06/29/17 22:21 <Polly Aguilar - Last Filed: 06/30/17 08:49> Procedures - Additional Procedures Additional Procedures: other Progress: Diagnostic paracentesis performed at bedside. Site was identified to L lower abdomen using ultrasound guidance. Area was prepped with chloraprep and draped in sterile fashion. Approx 20 mL of fluid was obtained on first attempt using sterile technique. Fluid is straw-colored, slightly cloudy, nonbloody. Sent to lab for analysis. Sterile gauze dressing placed. Patient tolerated well, no complications. <Polly Aguilar - Last Filed: 06/30/17 08:49> ED Treatment Course - LABORATORY CBC & Chemistry Diagram: 06/28/17 07:00 06/27/17 13:17 <Eleni Stanley - Last Filed: 06/28/17 08:49> - LABORATORY CBC & Chemistry Diagram: 06/30/17 06:10 06/29/17 06:30 - ADDITIONAL ORDERS Additional order review: 06/25/17 16:30 Blood Culture - Preliminary Blood - Peripheral Venous NO GROWTH OBTAINED AFTER 96 HOURS, INCUBATION TO CONTINUE FOR 1 DAYS. 06/25/17 16:15 Blood Culture - Preliminary Blood - Peripheral Venous NO GROWTH OBTAINED AFTER 96 HOURS, INCUBATION TO CONTINUE FOR 1 DAYS. 06/25/17 18:40 Gram Stain - Final Peritoneal Fluid Body Fluid Culture - Final NO GROWTH OF AEROBIC ORGANISMS AFTER 48 HOURS INCUBATION Anaerobic Culture - Final NO ANAEROBES WERE ISOLATED 06/25/17 16:50 Influenza Types A,B Antigen (YANETH) - Final Nasopharyngeal Swab - Final 06/25/17 16:30 RBC 2.99 L MCV 105.5 H MCHC 35.0 RDW 16.9 H MPV 8.8 Neutrophils % 93.7 H D Lymphocytes % 1.6 L D Monocytes % 3.8 Eosinophils % 0.0 D Basophils % 0.9 - RADIOLOGY Radiology Studies Ordered: Category Date Time Status CHEST X-RAY PORTABLE* [RAD] Stat Radiology 06/25/17 18:29 Completed - Medications Given in the ED: ED Medications Discontinued Medications Generic Name Dose Route Start Last Admin Trade Name Freq PRN Reason Stop Dose Admin Albumin Human 50 gm 06/26/17 16:30 06/29/17 09:55 Albumin Human 25% IVPB 06/29/17 10:01 50 gm DAILY CLIFFORD Administration Cefepime HCl 2 gm 06/25/17 18:40 06/25/17 20:41 Maxipime (Restricted To Id) - IVPB 06/25/17 18:41 Not Given ONCE ONE Protocol Cefepime HCl 2 gm 06/25/17 18:48 06/25/17 20:40 Maxipime (Restricted To Id) - IVPB 06/25/17 18:49 2 gm ONCE ONE Administration Protocol Furosemide 40 mg 06/26/17 20:00 06/26/17 20:30 Lasix - PO 06/26/17 20:01 40 mg ONCE ONE Administration Furosemide 40 mg 06/27/17 12:15 06/27/17 14:05 Lasix - PO 06/27/17 12:16 40 mg ONCE ONE Administration Furosemide 40 mg 06/28/17 11:54 06/28/17 19:56 Lasix Injection - IVPUSH 06/28/17 11:55 40 mg ONCE ONE Administration Furosemide 40 mg 06/29/17 17:30 06/29/17 18:56 Lasix - PO 06/29/17 17:31 Not Given ONCE ONE Heparin Sodium (Porcine) 5,000 unit 06/25/17 22:00 06/27/17 14:05 Heparin - SQ 5,000 unit TID CLIFFORD Administration Sodium Chloride 2,000 mls @ 1,000 mls/hr 06/25/17 18:28 06/25/17 18:32 Normal Saline - IV 06/25/17 20:27 1,000 mls/hr ASDIR STA Administration Cefepime HCl 2 gm/ Dextrose 100 mls @ 200 mls/hr 06/26/17 04:00 06/26/17 04: 36 IVPB 06/26/17 04:29 200 mls/hr ONCE ONE Administration Sodium Chloride 1,000 mls @ 100 mls/hr 06/25/17 23:00 06/26/17 06:07 Normal Saline - IV 06/26/17 08:59 100 mls/hr ASDIR CLIFFORD Administration Vancomycin HCl 1,000 mg/ 250 mls @ 250 mls/hr 06/26/17 12:30 06/26/17 13:26 Dextrose IVPB 06/26/17 13:29 250 mls/hr ONCE ONE Administration Protocol Piperacillin Sod/Tazobactam 100 mls @ 200 mls/hr 06/26/17 18:00 06/28/17 10: 19 Sod 3.375 gm/ Dextrose IVPB Not Given Q8H-IV [facility] Morphine Sulfate 6 mg 06/25/17 17:21 06/25/17 17:46 Morphine Injection - IVPUSH 06/25/17 17:22 6 mg ONCE ONE Administration Morphine Sulfate 4 mg 06/25/17 18:43 06/25/17 18:45 Morphine Injection - IVPUSH 06/25/17 18:44 4 mg ONCE ONE Administration Morphine Sulfate 4 mg 06/25/17 19:57 06/25/17 20:53 Morphine Injection - IVPUSH 4 mg Q4H PRN Administration PAIN LEVEL 6-10 Piperacillin Sod/Tazobactam Sod 3.375 gm 06/26/17 15:00 06/26/17 16:46 Zosyn 3.375gm Ivpb (Pre-Docked) IVPB Not Given Q8H [facility] Protocol Potassium Chloride 40 meq 06/29/17 11:30 06/29/17 13:57 K-Dur - PO 06/29/17 11:31 Not Given ONCE ONE Potassium Chloride 40 meq 06/29/17 14:00 06/29/17 14:16 K-Dur - PO 06/29/17 14:01 Not Given ONCE ONE Spironolactone 25 mg 06/27/17 15:00 06/28/17 10:14 Aldactone - PO 25 mg DAILY [facility] Administration Spironolactone 25 mg 06/28/17 11:45 06/29/17 10:01 Aldactone - PO 25 mg BID [facility] Administration Spironolactone 25 mg 06/29/17 17:30 06/29/17 18:55 Aldactone - PO 06/29/17 17:31 Not Given ONCE ONE <Polly Aguilar - Last Filed: 06/30/17 08:49> Medical Decision Making - Medical Decision Making 06/25/17 18:38 Patient is a 47 y.o. male who presents w/ a concern for SBP. At presentation patient's abdomen is distended, warm with diffuse petechial rash- high clinical suspicion for SBP. Diagnostic paracentesis @ bedside. Leukocytosis @ 19.2, ( WBC 6 yesterday (06/25). Lactic Acid 3.5 --> will administer 2 L IV NS and repeat Lactic Acid s/p fluid. Case d/w Dr. Murrell. Agrees with evaluation and work-up. Request Cefepime (2 gm q8H) - awaiting urine sample prior to starting Abx. Patient admitted to inpatient medicine service under Dr. Byers. Pain control with Morphine. Will continue to monitor while in ED. Patient signed out to Dr. Neal (Resident) and Dr. Escalante (Attending) <Eleni Stanley - Last Filed: 06/28/17 08:49> *DC/Admit/Observation/Transfer <Eleni Stanley - Last Filed: 06/28/17 08:49> <Polly Aguilar - Last Filed: 06/30/17 08:49> Diagnosis at time of Disposition: Ascites
[2017-06-25 16:56] LABS: ADD RBC MORPHOLOGY YES
--- NOTE | 2017-06-25 17:09 | PDOC ---
Attending Attestation - HPI HPI: 06/25/17 17:20 The patient is a 47 year old male, with a significant past medical history of liver cirrhosis, substance abuse (alcohol), who presents to the emergency department with diffuse abdominal pain. Patient reports he was following up with GI Dr. Murrell earlier today for a therapeutic tap when the doctor noted a fever and sent him to the emergency department for evaluation. He denies recent, chills, headache or dizziness. He denies recent nausea, vomit , diarrhea or constipation. He denies chest pain or shortness of breath. He denies dysuria, urgency, frequency or hematuria. Allergies: NKA Primary Care Physician: Dr. Bahena GI: Dr. Murrell Documentation prepared by Long Ambriz, acting as medical assistant per diem for Polly Aguilar MD. - Physicial Exam PE: 06/25/17 18:47 GENERAL: +Jaundice. Awake, alert, and fully oriented. HEAD: No signs of trauma EYES: +Scleral icterus. PERRLA, EOMI, conjunctiva clear ENT: Auricles normal inspection, hearing grossly normal, nares patent, oropharynx clear without exudates. Moist mucosa NECK: Normal ROM, supple, no lymphadenopathy, JVD, or masses LUNGS: Breath sounds equal, clear to auscultation bilaterally. No wheezes, and no crackles HEART: Regular rate and rhythm, normal S1 and S2, no murmurs, rubs or gallops ABDOMEN: +Distended with fluid wave. +Petechial rash of the lower abdomen bilaterally. +Diffusely tender. +Ascites. EXTREMITIES: Normal range of motion, no edema. No clubbing or cyanosis. No cords, erythema, or tenderness NEUROLOGICAL: Cranial nerves II through XII grossly intact. Normal speech, normal gait SKIN: Warm, Dry, normal turgor, no rashes or lesions noted. <Long Ambriz - Last Filed: 06/25/17 18:47> - Resident Resident Name: Eleni Stanley - ED Attending Attestation I have performed the following: I have examined & evaluated the patient, The case was reviewed & discussed with the resident, I agree w/resident's findings & plan, Exceptions are as noted - Medical Decision Making Pt is s/p recent paracentesis, now presenting with fever, abd pain, body aches. Differential is wide, but most concerning is to r/o SBP. Diagnostic paracentesis performed in ED. Will also obtain CXR, BCx, UCx and treat with abx. <Polly Aguilar - Last Filed: 06/27/17 09:52>
[2017-06-25] MEDS ORDERED: morphine CARPU-JECT 4 MG/1 ML DISP.SYRIN IVPUSH ONE ×2 (17:21→18:43)
[2017-06-25] MEDS ORDERED: MORPHINE SULFATE 10 MG/1 ML *VIAL ONE ×3 (17:33→20:51)
[2017-06-25 17:55] LABS: ALBUMIN 2.5 g/dl (3.4-5.0); ANION GAP 9 (8-16); BLOOD UREA NITROGEN 21 mg/dL (7-18); CALCIUM 8.1 mg/dL (8.5-10.1); CHLORIDE 101 mmol/L (98-107); CO2 26 mmol/L (21-32); GLUCOSE,RANDOM 97 mg/dL (74-106); POTASSIUM 3.8 mmol/L (3.5-5.1); SGOT/AST 28 U/L (15-37); SGPT/ALT 18 U/L (12-78); SODIUM 136 mmol/L (136-145)
[2017-06-25 18:06] LABS: ALK PHOS 88 U/L (45-117); CREATININE 1.5 mg/dL (0.7-1.3); TOT PROT 6.6 g/dl (6.4-8.2)
[2017-06-25 18:13] LABS: ANISOCYTOSIS 1+
[2017-06-25 18:14] LABS: MACROCYTOSIS 1+; OVALOCYTE 1+; PLATELET ESTIMATE SLT DECREASE
[2017-06-25 18:20] LABS: BILIRUBIN,TOTAL 15.3 mg/dL (0.2-1.0)
[2017-06-25] MEDS ORDERED: SODIUM CHLORIDE 2,000 ML IV STA (18:28)
[2017-06-25] MEDS ORDERED: CEFEPIME HCL 2 GM VIAL (RESTRICTED TO ID) IVPB ONE ×2 (18:40→18:48)
[2017-06-25 19:16] LABS: TOTAL PROTEIN,PERITONEAL FLUID 1 gm/dL
[2017-06-25] MEDS ORDERED: MORPHINE SULFATE 10 MG/1 ML *VIAL IVPUSH PRN (19:57)
[2017-06-25] MEDS ORDERED: CEFEPIME 2 GM/100 ML BAG IVPB ONE ×4 (20:14)
[2017-06-25 20:22] LABS: PERITONEAL RBC 1117 /mm3
--- NOTE | 2017-06-25 20:49 | HP ---
CHIEF COMPLAINT: abdominal pain, fever PCP: Josef HISTORY OF PRESENT ILLNESS: This is a 47 year old male with a past medical history of cirrhosis, esophageal varices who presented to the ED from Dr. Murrell's office with fever. He presented to Dr. Murrell's office for a therapeutic paracentesis. At Dr. Murrell's office pt was noted with fever and tender abdomen and was sent to the ED. Pt had presented to the ED yesterday for c/o pain at recent (06/20/17) paracentesis site but at that time did not have fever or elevated WBC. He was sent home and advised to f/u with Dr. Murrell today for outpt paracentesis. reports pt has become increasingly yellow over the past 2 days. Upon exam, pt c/o back pain. reports using icy hot patches at home for same with relief. reports pt has been following low salt diet closely since his DC on 06/22/17 ER course was notable for: (1) WBC 19.2, HR 110, Lactic acid 3.5 (2) diagnostic tap done Recent Travel: pt denies PAST MEDICAL HISTORY: alcoholic liver cirrhosis with ascites, esophageal varices s/p banding in 2013, cholelithiasis, bladder cyst PAST SURGICAL HISTORY: pt denies Social History: Smoking: pt denies Alcohol: no EtOH for "a few months" Drugs: pt denies Family History: mother alive and well, 3 siblings alive and well, father age 70, unk etiology Allergies No Known Allergies Allergy (Verified 06/25/17 16:13) HOME MEDICATIONS: 3 Medication Instructions Recorded Pantoprazole Sodium [Protonix -] 40 mg PO DAILY #30 tab 02/27/17 Carvedilol 3.125 mg PO BID 06/19/17 Furosemide [Lasix] 40 mg PO DAILY 06/19/17 Spironolactone [Aldactone] 100 mg PO DAILY 06/19/17 REVIEW OF SYSTEMS CONSTITUTIONAL: Present: fever Absent: chills, diaphoresis, generalized weakness, malaise, loss of appetite, weight change HEENT: Absent: rhinorrhea, nasal congestion, throat pain, throat swelling, difficulty swallowing, mouth swelling, ear pain, eye pain, visual changes CARDIOVASCULAR: Absent: chest pain, syncope, palpitations, irregular heart rate, lightheadedness , peripheral edema RESPIRATORY: Absent: cough, shortness of breath, dyspnea with exertion, orthopnea, wheezing, stridor, hemoptysis GASTROINTESTINAL: Present: abdominal pain, abdominal distension Absent: nausea, vomiting, diarrhea, constipation, melena, hematochezia GENITOURINARY: Absent: dysuria, frequency, urgency, hesitancy, hematuria, flank pain, genital pain MUSCULOSKELETAL: Absent: myalgia, arthralgia, joint swelling, back pain, neck pain SKIN: Absent: rash, itching, pallor HEMATOLOGIC/IMMUNOLOGIC: Absent: easy bleeding, easy bruising, lymphadenopathy, frequent infections ENDOCRINE: Absent: unexplained weight gain, unexplained weight loss, heat intolerance, cold intolerance NEUROLOGIC: Absent: headache, focal weakness or paresthesias, dizziness, unsteady gait, seizure, mental status changes, bladder or bowel incontinence PSYCHIATRIC: Absent: anxiety, depression, suicidal or homicidal ideation, hallucinations. PHYSICAL EXAMINATION Vital Signs - 24 hr 3 06/25/17 06/25/17 16:14 20:05 Temperature 98.8 F Pulse Rate 110 H Pulse Rate [ 105 H Apical] Respiratory 18 20 Rate Blood Pressure 132/80 Blood Pressure 123/85 [Left Arm] O2 Sat by Pulse 100 95 Oximetry (%) GENERAL: Awake, alert, and fully oriented, in no acute distress. HEAD: Normal with no signs of trauma. EYES: Pupils equal, round and reactive to light, extraocular movements intact, sclera anicteric, conjunctiva clear. No lid lag. EARS, NOSE, THROAT: Ears normal, nares patent, oropharynx clear without exudates. Moist mucous membranes. NECK: Normal range of motion, supple without lymphadenopathy, JVD, or masses. LUNGS: Breath sounds equal, clear to auscultation bilaterally, diminished right base. No wheezes, and no crackles. No accessory muscle use. HEART: Regular rate and rhythm, normal S1 and S2 without murmur, rub or gallop. ABDOMEN: Distended, +ascites present, tender, petechial rash, warm to touch, + guarding, normoactive bowel sounds MUSCULOSKELETAL: Normal range of motion at all joints. No bony deformities or tenderness. No CVA tenderness. UPPER EXTREMITIES: 2+ pulses, warm, well-perfused. No cyanosis. No clubbing. No peripheral edema. LOWER EXTREMITIES: 2+ pulses, warm, well-perfused. No calf tenderness. 3+ peripheral edema RLE, 2+ LLE, edema extends through thighs NEUROLOGICAL: Cranial nerves II-XII intact. Normal speech. Normal gait. PSYCHIATRIC: Cooperative. Good eye contact. Appropriate mood and affect. SKIN: Warm, dry, normal turgor, no rashes or lesions noted, normal capillary refill. Laboratory Results - last 24 hr 3 06/25/17 06/25/17 06/25/17 16:30 16:30 16:30 WBC 19.2 H D RBC 2.99 L Hgb 11.0 L D Hct 31.5 L D MCV 105.5 H MCH 36.9 H MCHC 35.0 RDW 16.9 H Plt Count 101 L D MPV 8.8 Neutrophils % 93.7 H D Lymphocytes % 1.6 L D Monocytes % 3.8 Eosinophils % 0.0 D Basophils % 0.9 Platelet Estimate Slt decrease Platelet Comment Polychromasia 1+ Poikilocytosis 1+ Anisocytosis 1+ Macrocytosis 1+ Ovalocytes 1+ Sodium 136 Potassium 3.8 Chloride 101 Carbon Dioxide 26 Anion Gap 9 BUN 21 H Creatinine 1.5 H Creat Clearance w eGFR 50.16 Random Glucose 97 Lactic Acid Calcium 8.1 L Total Bilirubin 15.3 H* D AST 28 ALT 18 Alkaline Phosphatase 88 Ammonia 60.86 H Total Protein 6.6 Albumin 2.5 L Peritoneal WBC Peritoneal RBC Peritoneal Tot Protein Peritoneal Albumin Peritoneal LDH Peritoneal Glucose Peritoneal Amylase 3 06/25/17 06/25/17 16:30 18:40 WBC RBC Hgb Hct MCV MCH MCHC RDW Plt Count MPV Neutrophils % Lymphocytes % Monocytes % Eosinophils % Basophils % Platelet Estimate Platelet Comment Polychromasia Poikilocytosis Anisocytosis Macrocytosis Ovalocytes Sodium Potassium Chloride Carbon Dioxide Anion Gap BUN Creatinine Creat Clearance w eGFR Random Glucose Lactic Acid 3.5 H* Calcium Total Bilirubin AST ALT Alkaline Phosphatase Ammonia Total Protein Albumin Peritoneal WBC 207 Peritoneal RBC 1117 Peritoneal Tot Protein 1 Peritoneal Albumin 0 Peritoneal LDH 54 Peritoneal Glucose 113 Peritoneal Amylase 10 Radiology Reports CXR: Final read pending. significantly elevated right hemidiaphragm, no obvious infiltrates or effusions ASSESSMENT/PLAN: 47yM with PMH alcoholic cirrhosis/ascites, esophageal varices, cholelithiasis, bladder cyst presented to the ED with distended abdomen, abdominal pain and fever. sepsis secondary to bacterial peritonitis - cefepime 2g q8h, ID consult-pt has seen Erwin on previous admission - GI consult appreciated - elevated lactic acid, pt given fluids in ed, will repeat lactic acid and guide further fluid adminstration pending results Alcoholic liver cirrhosis/ascites - GI consult - elevated ammonia level- pt report poor reaction to lactulose in past, vomits with each dose. - consider transfer to [facility] for further management as he is followed by their transplant team DVT PPX - Hgb ok, plt ok, will start heparin SC, monitor H/H and platelets closely FEN - IVF TBD based on lactic acid level - CMP in am - low sodium diet. Dispo: Pt currently requires inpatient management of his emergent condition. Visit type - Emergency Visit Emergency Visit: Yes ED Registration Date: 06/25/17 Care time: The patient presented to the Emergency Department on the above date and was hospitalized for further evaluation of their emergent condition. - New Patient This patient is new to me today: Yes Date on this admission: 06/25/17 - Critical Care Critical Care patient: No
[2017-06-25 22:04] LABS: INR 2.66 (0.82-1.09); PROTHROMBIN TIME (PATIENT) 30.1 SEC (9.98-11.88)
[2017-06-25 22:06] LABS: PERITONEAL FLUID LYMPHOCYTE 14 %; PERITONEAL FLUID MESOTHELIAL 4 %; PERITONEAL FLUID MONOCYTE 2 %; PERITONEAL FLUID NEUTROPHIL 59 %
[2017-06-25 22:07] LABS: PERITONEAL FLUID MACROPHAGE 21 %
[2017-06-25 22:07] LABS: ACTIVATED PTT 36.6 SECONDS (26.9-34.4)
[2017-06-25] MEDS ORDERED: SODIUM CHLORIDE 1,000 ML IV SCH (23:00)
[2017-06-25] MEDS: HEPARIN NA (PORCINE) 5,000 UNITS/ML 1ML VIAL SQ SCH (23:06)
[2017-06-25] MEDS: METHYL SALICYLATE/MENTHOL OINT 30 GM TUBE TP SCH (23:07)
[2017-06-26] MEDS ORDERED: CEFEPIME 2 GM in DEXTROSE 5%-WATER - 100 ML IVPB ONE (04:00)
[2017-06-26] MEDS ORDERED: CEFEPIME HCL 2 GM VIAL (RESTRICTED TO ID) IVPB ONE (04:00)
[2017-06-26] MEDS: HEPARIN NA (PORCINE) 5,000 UNITS/ML 1ML VIAL SQ SCH ×3 (06:04→23:02)
[2017-06-26 07:08] LABS: URINE APPEARANCE SLCLOUDY; URINE BLOOD 2+ (NEGATIVE); URINE COLOR AMBER; URINE GLUCOSE (UA) NEGATIVE (NEGATIVE); URINE KETONE NEGATIVE (NEGATIVE); URINE LEUK ESTERASE NEGATIVE (NEGATIVE); URINE NITRITE NEGATIVE (NEGATIVE); URINE UROBILINOGEN 4.0 E.U/dl mg/dL (0.2-1.0)
[2017-06-26 07:09] LABS: URINE PROTEIN 1+ (NEGATIVE)
[2017-06-26 07:20] LABS: EPI CELLS RARE /HPF (FEW); URINE BACTERIA RARE /hpf (NONE SEEN); URINE HYALINE CAST 17 /lpf; URINE MUCUS RARE
[2017-06-26 07:43] LABS: ALBUMIN 2.2 g/dl (3.4-5.0); ANION GAP 11 (8-16); BLOOD UREA NITROGEN 29 mg/dL (7-18); CALCIUM 7.6 mg/dL (8.5-10.1); CHLORIDE 102 mmol/L (98-107); CO2 22 mmol/L (21-32); GLUCOSE,RANDOM 108 mg/dL (74-106); MAGNESIUM 1.5 mg/dL (1.8-2.4); SODIUM 135 mmol/L (136-145)
[2017-06-26 07:50] LABS: BASO % 0.4 % (0-2.0); EOS % 0.1 % (0-4.5); HEMATOCRIT 25.8 % (35.4-49); HEMOGLOBIN 8.9 GM/dL (11.7-16.9); LYMPH % 1.9 % (8-40); MCHC 34.5 g/dl (32.0-35.9); MEAN CELL VOLUME 104.2 fl (80-96); MEAN PLT VOLUME 8.6 fl (7.5-11.1); NEUT % 92.6 % (42.8-82.8); PLATELET COUNT 64 K/MM3 (134-434); RBC 2.47 M/mm3 (4.00-5.60); RDW 17.3 % (11.9-15.9); WHITE BLOOD COUNT 11.7 K/mm3 (4.0-10.0)
[2017-06-26 07:55] LABS: ALK PHOS 79 U/L (45-117); CREATININE 1.9 mg/dL (0.7-1.3); PHOSPHOROUS 4.2 mg/dL (2.5-4.9); SGOT/AST 22 U/L (15-37); SGPT/ALT 15 U/L (12-78); TOT PROT 5.9 g/dl (6.4-8.2)
--- NOTE | 2017-06-26 11:27 | CON.ID ---
Consult Consult Specialty:: infectious disease Referred by:: hospitalist service Reason for Consultation:: fever - History of Present Illness Chief Complaint: abdominal pain History of Present Illness: 47 year old man with ETOH related liver cirrhosis recently hospitalized 06/21 to 06/22 for paracentesis he is followed at [facility] by Dr Phillips for the last 2 years he returned to the ED here on 06/24 c/o drainage on his Tshirt from prior paracentesis site which had started Sunday Night as well he started having back pain and abdominal pain on Sunday that has worsened he was seen in ED on Sunday and referred to Dr Murrell's office on Sunday He had fever to 101 on Sunday and was sent to ED by Dr Murrell no nausea or vomiting no diarrhea last BM on Sunday he notes diffuse abdominal pain +icterus s/p paracentesis in ED last PM started on cefepime now afebrile no etoh for last 2 months reports hepatitis serologies are negative HIV negative 02/26 - History Source History Provided By: Patient Limitations to Obtaining History: No Limitations - Past Medical History Gastrointestinal: Yes: Ascites, Esophageal Varices. No: Cancer, Constipation, Crohn's Disease, Diverticulitis, Diverticulosis, Gastritis, GERD, GI Bleed ( variceal in past, s/p banding and on nadalol), Hemorrhoids, Hiatal Hernia, Inflamatory Bowel Disease, Irritable Bowel Disease, Pancreatitis, Peptic Ulcer Disease, Ulcerative Colitis, Other Hepatobiliary: Yes: Cirrhosis (varices, ascites), Cholelithiasis, Other ( ALCOHOLIC CIRRHOSIS, CURRENT ETOH ABUSER). No: Cholecystitis, Choledocholithiasis, Hepatitis A, Hepatitis B, Hepatitis C Renal/: Yes: Hematuria, Other (bladder cyst). No: Renal Failure, Renal Inusuff, BPH, Cancer, Hemodialysis, Neurogenic Bladder, Renal Calculi, UTI Psych: Yes: Addictions - Past Surgical History Past Surgical History: Yes: Upper Endoscopy (egd + band ligation of esophageal varices 05/2013). No: None, AAA Repair, AICD, Amputation, Appendectomy, Arthrosocopy, AV Fistula/Graft, Bariatric Surgery, Breast Biopsy, Bypass, CABG, Carotid Endarterectomy, Cataract Removal, Cholecystectomy, Colectomy, Colonoscopy, Colostomy, Craniotomy, , Cystectomy, Hernia Repair, Hysterectomy, Ileal Conduit, Ileosotomy, Joint Replacement, Kidney Transplant, Laminectomy, Liver Transplant, Mastectomy, Nephrectomy, Oopherectomy, Orchiectomy, Permanent Pacemaker, Prostatectomy, Splenectomy, Stent, Thoracotomy , TURP, Tonsillectomy, Tubal Ligation, Valve Replacement, Vasectomy, Vein Stripping/Ligation - Alcohol/Substance Use Hx Alcohol Use: No - Smoking History Smoking history: Never smoked Have you smoked in the past 12 months: No Aproximately how many cigarettes per day: 0 - Social History Usual Living Arrangement: With Spouse ADL: Independent History of Recent Travel: No Home Medications - Allergies Allergies/Adverse Reactions: Allergies Allergy/AdvReac Type Severity Reaction Status Date / Time No Known Allergies Allergy Verified 06/25/17 16:13 - Home Medications Home Medications: Ambulatory Orders Pantoprazole Sodium [Protonix -] 40 mg PO DAILY #30 tab 02/27/17 Carvedilol 3.125 mg PO BID 06/19/17 Furosemide [Lasix] 40 mg PO DAILY 06/19/17 Spironolactone [Aldactone] 100 mg PO DAILY 06/19/17 Family Disease History - Family Disease History Family History: Unremarkable Review of Systems - Review of Systems Constitutional: reports: Fever Eyes: reports: No Symptoms HENT: reports: No Symptoms. denies: Difficult Swallowing, Throat Pain Neck: reports: No Symptoms Cardiovascular: reports: No Symptoms. denies: Chest Pain Respiratory: reports: No Symptoms. denies: Cough, SOB Gastrointestinal: reports: Abdominal Pain. denies: Diarrhea, Rectal Bleeding, Vomiting Genitourinary: reports: No Symptoms Musculoskeletal: reports: Back Pain Integumentary: reports: No Symptoms Neurological: reports: No Symptoms Physical Exam Vital Signs: Vital Signs Temperature 97.9 F 06/26/17 09:40 Pulse Rate 105 H 06/26/17 09:40 Respiratory Rate 18 06/26/17 09:40 Blood Pressure 103/69 06/26/17 09:40 O2 Sat by Pulse Oximetry (%) 97 06/25/17 20:57 Constitutional: Yes: No Distress, Calm, Thin Eyes: Yes: Sclera Icterus HENT: Yes: Atraumatic, Normocephalic. No: Pharyngeal Erythema, Tonsillar Exudate Neck: Yes: Supple Cardiovascular: Yes: Regular Rate and Rhythm Respiratory: Yes: CTA Bilaterally, Diminished (at the bases) Gastrointestinal: Yes: Normal Bowel Sounds, Soft, Ascites, Tenderness ...Rectal Exam: Yes: Deferred Edema: LLE: 2+, RLE: 2+ Neurological: No: Asterixis Psychiatric: Yes: Alert, Oriented Labs: CBC, BMP 06/26/17 06:00 06/26/17 06:00 Laboratory Tests 06/26/17 06:00 Total Bilirubin 18.0 H* Imaging - Results Chest X-ray: Report Reviewed, Image Reviewed (elevated right diaphragm) Problem List - Problems (1) Fever Code(s): R50.9 - FEVER, UNSPECIFIED (2) Hepatorenal syndrome Code(s): K76.7 - HEPATORENAL SYNDROME (3) Liver cirrhosis, alcoholic Code(s): K70.30 - ALCOHOLIC CIRRHOSIS OF LIVER WITHOUT ASCITES (4) Liver failure Code(s): K72.90 - HEPATIC FAILURE, UNSPECIFIED WITHOUT COMA Assessment/Plan fever/lactic acidosis 207 WBC not c/w SBP source unclear- would consider imaging if patient is not to be transferred would continue cefepime for now as fever and leukocytosis have improved this am vancomycin one dose liver failure- with bilirubin of 18 hepatorenal syndrome etoh liver cirrhosis would strongly consider transfer to [facility] PMD (Eugenio Anton and GI-Dr Murrell) to discuss I spoke with PMD Eugenio Edward if he remains here will need imaging and renal consult as well
[2017-06-26] MEDS ORDERED: VANCOMYCIN 1,000 MG in DEXTROSE 5%-WATER - 250 ML IVPB ONE (12:30)
[2017-06-26] MEDS: METHYL SALICYLATE/MENTHOL OINT 30 GM TUBE TP SCH ×2 (12:49→23:02)
--- NOTE | 2017-06-26 14:06 | EKG ---
Test Reason : Blood Pressure : / mmHG Vent. Rate : 101 BPM Atrial Rate : 101 BPM P-R Int : 168 ms QRS Dur : 092 ms QT Int : 346 ms P-R-T Axes : 032 -24 032 degrees QTc Int : 448 ms SINUS TACHYCARDIA MINIMAL VOLTAGE CRITERIA FOR LVH, MAY BE NORMAL VARIANT WHEN COMPARED WITH ECG OF 19-JUN-2017 14:23, T WAVE INVERSION LESS EVIDENT IN ANTEROLATERAL LEADS QT HAS SHORTENED Confirmed by MD VAN, BRIAN ([id number]) on 06/26/2017 2:06:12 PM Referred By: Confirmed By:BRIAN ARAUJO MD
--- NOTE | 2017-06-26 14:11 | CON.GI ---
Consult - History of Present Illness History of Present Illness: the pt was sent to ED for R/O SBP from our office where he was seen for post hospitalizatin follow up At the time of the office encounter the patient was found to have low grade fever of 100.9 and tender abdomen on exam. S/p 7 L paracentesis last week. In ED he was found to have 19K WBC, diagnostic paracentesis was negative for SBP. Leukocytosis responding to ABx. Abdomen remains tended to palpation. The patient reports feeling better, however. He is alert, awake and not in distress at the time of this encounter. - History Source History Provided By: Patient Limitations to Obtaining History: No Limitations - Past Medical History Gastrointestinal: Yes: Ascites, Esophageal Varices. No: Cancer, Constipation, Crohn's Disease, Diverticulitis, Diverticulosis, Gastritis, GERD, GI Bleed ( variceal in past, s/p banding and on nadalol), Hemorrhoids, Hiatal Hernia, Inflamatory Bowel Disease, Irritable Bowel Disease, Pancreatitis, Peptic Ulcer Disease, Ulcerative Colitis, Other Hepatobiliary: Yes: Cirrhosis (varices, ascites), Cholelithiasis, Other ( ALCOHOLIC CIRRHOSIS, CURRENT ETOH ABUSER). No: Cholecystitis, Choledocholithiasis, Hepatitis A, Hepatitis B, Hepatitis C Renal/: Yes: Hematuria, Other (bladder cyst). No: Renal Failure, Renal Inusuff, BPH, Cancer, Hemodialysis, Neurogenic Bladder, Renal Calculi, UTI Psych: Yes: Addictions - Past Surgical History Past Surgical History: Yes: Upper Endoscopy (egd + band ligation of esophageal varices 05/2013). No: None, AAA Repair, AICD, Amputation, Appendectomy, Arthrosocopy, AV Fistula/Graft, Bariatric Surgery, Breast Biopsy, Bypass, CABG, Carotid Endarterectomy, Cataract Removal, Cholecystectomy, Colectomy, Colonoscopy, Colostomy, Craniotomy, , Cystectomy, Hernia Repair, Hysterectomy, Ileal Conduit, Ileosotomy, Joint Replacement, Kidney Transplant, Laminectomy, Liver Transplant, Mastectomy, Nephrectomy, Oopherectomy, Orchiectomy, Permanent Pacemaker, Prostatectomy, Splenectomy, Stent, Thoracotomy , TURP, Tonsillectomy, Tubal Ligation, Valve Replacement, Vasectomy, Vein Stripping/Ligation - Alcohol/Substance Use Hx Alcohol Use: No - Smoking History Smoking history: Never smoked Have you smoked in the past 12 months: No Aproximately how many cigarettes per day: 0 - Social History Usual Living Arrangement: With Spouse ADL: Independent History of Recent Travel: No Home Medications - Allergies Allergies/Adverse Reactions: Allergies Allergy/AdvReac Type Severity Reaction Status Date / Time No Known Allergies Allergy Verified 06/25/17 16:13 - Home Medications Home Medications: Ambulatory Orders Pantoprazole Sodium [Protonix -] 40 mg PO DAILY #30 tab 02/27/17 Carvedilol 3.125 mg PO BID 06/19/17 Furosemide [Lasix] 40 mg PO DAILY 06/19/17 Spironolactone [Aldactone] 100 mg PO DAILY 06/19/17 Family Disease History - Family Disease History Family History: Unremarkable (unremarcable) Review of Systems Findings/Remarks: As per H&P Physical Exam-GI Vital Signs: Vital Signs Temperature 97.7 F 06/26/17 13:33 Pulse Rate 88 06/26/17 13:33 Respiratory Rate 20 06/26/17 13:33 Blood Pressure 99/59 06/26/17 13:33 O2 Sat by Pulse Oximetry (%) 97 06/25/17 20:57 Constitutional: Yes: No Distress, Cachectic, Pallor, Thin Eyes: Yes: Sclera Icterus HENT: Yes: Atraumatic Neck: Yes: Supple Cardiovascular: Yes: Regular Rate and Rhythm Respiratory: Yes: Regular Gastrointestinal Inspection: Yes: Ascites, Distention ...Palpate: Yes: Guarding, Soft, Tenderness. No: Firm/Rigid ...Percussion: Yes: Fluid Wave Integumentary: Yes: Jaundice Wound/Incision: Yes: Clean/Dry (paracentesis sites RLQ, LLQ) Neurological: Yes: Alert, Oriented. No: Asterixis, Tremors Labs: CBC, BMP 06/26/17 06:00 06/26/17 06:00 INR, PTT INR 2.66 (0.82-1.09) H 06/25/17 20:20 Laboratory Tests 06/25/17 06/25/17 06/25/17 16:30 16:30 16:30 WBC 19.2 H D RBC 2.99 L Hgb 11.0 L D Hct 31.5 L D MCV 105.5 H MCH 36.9 H MCHC 35.0 RDW 16.9 H Plt Count 101 L D MPV 8.8 Neutrophils % 93.7 H D Lymphocytes % 1.6 L D Monocytes % 3.8 Eosinophils % 0.0 D Basophils % 0.9 Platelet Estimate Slt decrease Platelet Comment Polychromasia 1+ Poikilocytosis 1+ Anisocytosis 1+ Macrocytosis 1+ Ovalocytes 1+ PT with INR INR PTT (Actin FS) Sodium 136 Potassium 3.8 Chloride 101 Carbon Dioxide 26 Anion Gap 9 BUN 21 H Creatinine 1.5 H Creat Clearance w eGFR 50.16 Random Glucose 97 Lactic Acid Calcium 8.1 L Phosphorus Magnesium Total Bilirubin 15.3 H* D AST 28 ALT 18 Alkaline Phosphatase 88 Ammonia 60.86 H Total Protein 6.6 Albumin 2.5 L Urine Color Urine Appearance Urine pH Ur Specific [place] Urine Protein Urine Glucose (UA) Urine Ketones Urine Blood Urine Nitrite Urine Bilirubin Urine Urobilinogen Ur Leukocyte Esterase Urine WBC (Auto) Urine RBC (Auto) Ur Epithelial Cells Urine Bacteria Hyaline Casts Urine Mucus Peritoneal WBC Peritoneal RBC Periton Neutrophils Periton Lymphocytes Peritoneal Monocytes Periton Mesothelial Periton Macrophages Peritoneal Tot Protein Peritoneal Albumin Peritoneal LDH Peritoneal Glucose Peritoneal Amylase 06/25/17 06/25/17 06/25/17 16:30 18:40 20:20 WBC RBC Hgb Hct MCV MCH MCHC RDW Plt Count MPV Neutrophils % Lymphocytes % Monocytes % Eosinophils % Basophils % Platelet Estimate Platelet Comment Polychromasia Poikilocytosis Anisocytosis Macrocytosis Ovalocytes PT with INR 30.10 H INR 2.66 H PTT (Actin FS) 36.6 H Sodium Potassium Chloride Carbon Dioxide Anion Gap BUN Creatinine Creat Clearance w eGFR Random Glucose Lactic Acid 3.5 H* Calcium Phosphorus Magnesium Total Bilirubin AST ALT Alkaline Phosphatase Ammonia Total Protein Albumin Urine Color Urine Appearance Urine pH Ur Specific [place] Urine Protein Urine Glucose (UA) Urine Ketones Urine Blood Urine Nitrite Urine Bilirubin Urine Urobilinogen Ur Leukocyte Esterase Urine WBC (Auto) Urine RBC (Auto) Ur Epithelial Cells Urine Bacteria Hyaline Casts Urine Mucus Peritoneal WBC 207 Peritoneal RBC 1117 Periton Neutrophils 59 Periton Lymphocytes 14 Peritoneal Monocytes 2 Periton Mesothelial 4 Periton Macrophages 21 Peritoneal Tot Protein 1 Peritoneal Albumin 0 Peritoneal LDH 54 Peritoneal Glucose 113 Peritoneal Amylase 10 06/25/17 06/25/17 06/26/17 20:33 22:00 06:00 WBC 11.7 H D RBC 2.47 L Hgb 8.9 L D Hct 25.8 L D MCV 104.2 H MCH 36.0 H MCHC 34.5 RDW 17.3 H Plt Count 64 L D MPV 8.6 Neutrophils % 92.6 H Lymphocytes % 1.9 L Monocytes % 5.0 Eosinophils % 0.1 D Basophils % 0.4 Platelet Estimate Platelet Comment Polychromasia Poikilocytosis Anisocytosis Macrocytosis Ovalocytes PT with INR INR PTT (Actin FS) Sodium Potassium Chloride Carbon Dioxide Anion Gap BUN Creatinine Creat Clearance w eGFR Random Glucose Lactic Acid 3.0 H* 3.0 H* Calcium Phosphorus Magnesium Total Bilirubin AST ALT Alkaline Phosphatase Ammonia Total Protein Albumin Urine Color Urine Appearance Urine pH Ur Specific [place] Urine Protein Urine Glucose (UA) Urine Ketones Urine Blood Urine Nitrite Urine Bilirubin Urine Urobilinogen Ur Leukocyte Esterase Urine WBC (Auto) Urine RBC (Auto) Ur Epithelial Cells Urine Bacteria Hyaline Casts Urine Mucus Peritoneal WBC Peritoneal RBC Periton Neutrophils Periton Lymphocytes Peritoneal Monocytes Periton Mesothelial Periton Macrophages Peritoneal Tot Protein Peritoneal Albumin Peritoneal LDH Peritoneal Glucose Peritoneal Amylase 06/26/17 06/26/17 06/26/17 06:00 06:00 06:08 WBC RBC Hgb Hct MCV MCH MCHC RDW Plt Count MPV Neutrophils % Lymphocytes % Monocytes % Eosinophils % Basophils % Platelet Estimate Platelet Comment Polychromasia Poikilocytosis Anisocytosis Macrocytosis Ovalocytes PT with INR INR PTT (Actin FS) Sodium 135 L Potassium 4.0 Chloride 102 Carbon Dioxide 22 Anion Gap 11 BUN 29 H D Creatinine 1.9 H D Creat Clearance w eGFR 38.19 Random Glucose 108 H Lactic Acid 4.2 H* Calcium 7.6 L Phosphorus 4.2 D Magnesium 1.5 L Total Bilirubin 18.0 H* AST 22 D ALT 15 Alkaline Phosphatase 79 Ammonia Total Protein 5.9 L Albumin 2.2 L Urine Color [place] Urine Appearance Slcloudy Urine pH 5.0 Ur Specific [place] 1.021 Urine Protein 1+ H Urine Glucose (UA) Negative Urine Ketones Negative Urine Blood 2+ H Urine Nitrite Negative Urine Bilirubin 2.0 Urine Urobilinogen 4.0 e.u/dl Ur Leukocyte Esterase Negative Urine WBC (Auto) 14 Urine RBC (Auto) 9 Ur Epithelial Cells Rare Urine Bacteria Rare Hyaline Casts 17 Urine Mucus Rare Peritoneal WBC Peritoneal RBC Periton Neutrophils Periton Lymphocytes Peritoneal Monocytes Periton Mesothelial Periton Macrophages Peritoneal Tot Protein Peritoneal Albumin Peritoneal LDH Peritoneal Glucose Peritoneal Amylase Imaging - Results Ultrasound: Pending Problem List - Problems (1) Ascites Code(s): R18.8 - OTHER ASCITES (2) Fever Code(s): R50.9 - FEVER, UNSPECIFIED (3) Hepatorenal syndrome Code(s): K76.7 - HEPATORENAL SYNDROME (4) Liver failure Code(s): K72.90 - HEPATIC FAILURE, UNSPECIFIED WITHOUT COMA (5) Abdominal pain Code(s): R10.9 - UNSPECIFIED ABDOMINAL PAIN Qualifiers: Abdominal location: generalized Qualified Code(s): R10.84 - Generalized abdominal pain (6) Alcohol abuse Code(s): F10.10 - ALCOHOL ABUSE, UNCOMPLICATED (7) Cirrhosis of liver with ascites Code(s): K74.60 - UNSPECIFIED CIRRHOSIS OF LIVER Qualifiers: Hepatic cirrhosis type: alcoholic cirrhosis Qualified Code(s): K70.31 - Alcoholic cirrhosis of liver with ascites Assessment/Plan A 47 yom with endstage liver disea, ascites, fever, leukocytosis, worsening Cr, and negative for SBP fluid. MELD 34 Stop IVF at 100 cc/hr Resume ABx, as per ID Albumin, Midodrine, Octreotide Rifaximine (Refuses to take lactulose) Daily CMP, electrolytes, PT/INR, birect bili, CBC low threshold to transfer to liver center, if MELD is up prognosis very poor
[2017-06-26] MEDS ORDERED: PIPERACILLIN/TAZOB 3.375 GM/50 ML PRE-DOCKED IVPB SCH (15:00)
[2017-06-26] MEDS ORDERED: CEFEPIME HCL 2 GM VIAL (RESTRICTED TO ID) IVPB SCH (16:00)
[2017-06-26] MEDS ORDERED: CEFEPIME HCL/D5W 2 GM/50 ML BAG IVPB SCH (16:00)
[2017-06-26] MEDS ORDERED: OCTREOTIDE ACETATE 50 MCG/1 ML - 1 ML VIAL SQ SCH (16:45)
--- NOTE | 2017-06-26 16:55 | CONSULT ---
Consult Consult Specialty:: Nephrology Reason for Consultation:: ROJAS - History of Present Illness Chief Complaint: sent in for fever History of Present Illness: Pt is a 47 year old male with pmhx of liver cirrhosis, ckd and esophageal varices who presents to the ER with fever. He was admitted for workup. Pt was recently discharged. I was called to evaluate him for ROJAS. He was on diuretics as outpt. He complains of lower extremity edema. He denies shortness of breath. Pt complains of abdominal pain. He did go for paracentesis. - History Source History Provided By: Patient - Past Medical History Gastrointestinal: Yes: Ascites, Esophageal Varices Hepatobiliary: Yes: Cirrhosis (varices, ascites), Cholelithiasis, Other ( ALCOHOLIC CIRRHOSIS, CURRENT ETOH ABUSER) Renal/: Yes: Hematuria, Other (bladder cyst) Psych: Yes: Addictions - Past Surgical History Past Surgical History: Yes: Upper Endoscopy (egd + band ligation of esophageal varices 05/2013) - Alcohol/Substance Use Hx Alcohol Use: No - Smoking History Smoking history: Never smoked Have you smoked in the past 12 months: No Aproximately how many cigarettes per day: 0 - Social History Usual Living Arrangement: With Spouse ADL: Independent History of Recent Travel: No Home Medications - Allergies Allergies/Adverse Reactions: Allergies Allergy/AdvReac Type Severity Reaction Status Date / Time No Known Allergies Allergy Verified 06/25/17 16:13 - Home Medications Home Medications: Ambulatory Orders Pantoprazole Sodium [Protonix -] 40 mg PO DAILY #30 tab 02/27/17 Carvedilol 3.125 mg PO BID 06/19/17 Furosemide [Lasix] 40 mg PO DAILY 06/19/17 Spironolactone [Aldactone] 100 mg PO DAILY 06/19/17 Family Disease History - Family Disease History Family History: Denies Review of Systems - Review of Systems Constitutional: reports: Fever, Malaise Eyes: reports: No Symptoms HENT: reports: No Symptoms Neck: reports: No Symptoms Cardiovascular: reports: Edema. denies: Chest Pain, Palpitations Respiratory: denies: Cough Gastrointestinal: reports: Other (ascites) Genitourinary: reports: No Symptoms Musculoskeletal: reports: Other (edema) Neurological: reports: No Symptoms Hematology/Lymphatic: reports: No Symptoms Psychiatric: reports: No Symptoms Physical Exam Vital Signs: Vital Signs Temperature 97.7 F 06/26/17 13:33 Pulse Rate 88 06/26/17 13:33 Respiratory Rate 20 06/26/17 13:33 Blood Pressure 99/59 06/26/17 13:33 O2 Sat by Pulse Oximetry (%) 97 06/25/17 20:57 Constitutional: Yes: Calm Eyes: Yes: Sclera Icterus Cardiovascular: Yes: S1, S2 Respiratory: Yes: CTA Bilaterally Gastrointestinal: Yes: Ascites, Tenderness Musculoskeletal: Yes: Muscle Weakness Edema: Yes Edema: LLE: 2+, RLE: 2+ Integumentary: Yes: Jaundice Neurological: Yes: Oriented Psychiatric: Yes: Oriented Labs: CBC, BMP 06/26/17 06:00 06/26/17 06:00 Laboratory Tests 06/25/17 06/25/17 06/25/17 16:30 16:30 16:30 WBC Hgb 11.0 L D PT with INR INR PTT ([facility] FS) Sodium Potassium Chloride Carbon Dioxide Anion Gap BUN Creatinine 1.5 H Creat Clearance w eGFR Random Glucose Lactic Acid 3.5 H* Total Bilirubin 15.3 H* D Urine Protein Urine Blood 06/25/17 06/25/17 06/25/17 20:20 20:33 22:00 WBC Hgb PT with INR 30.10 H INR 2.66 H PTT (Actin FS) 36.6 H Sodium Potassium Chloride Carbon Dioxide Anion Gap BUN Creatinine Creat Clearance w eGFR Random Glucose Lactic Acid 3.0 H* 3.0 H* Total Bilirubin Urine Protein Urine Blood 06/26/17 06/26/17 06/26/17 06:00 06:00 06:00 WBC 11.7 H D Hgb 8.9 L D PT with INR INR PTT (Actin FS) Sodium 135 L Potassium 4.0 Chloride 102 Carbon Dioxide 22 Anion Gap 11 BUN 29 H D Creatinine 1.9 H D Creat Clearance w eGFR 38.19 Random Glucose 108 H Lactic Acid 4.2 H* Total Bilirubin 18.0 H* Urine Protein Urine Blood 06/26/17 06:08 WBC Hgb PT with INR INR PTT (Actin FS) Sodium Potassium Chloride Carbon Dioxide Anion Gap BUN Creatinine Creat Clearance w eGFR Random Glucose Lactic Acid Total Bilirubin Urine Protein 1+ H Urine Blood 2+ H Imaging - Results Chest X-ray: Report Reviewed Problem List - Problems (1) Ascites Code(s): R18.8 - OTHER ASCITES (2) Fever Code(s): R50.9 - FEVER, UNSPECIFIED (3) Hepatorenal syndrome Code(s): K76.7 - HEPATORENAL SYNDROME (4) Liver failure Code(s): K72.90 - HEPATIC FAILURE, UNSPECIFIED WITHOUT COMA (5) Abdominal pain Code(s): R10.9 - UNSPECIFIED ABDOMINAL PAIN Qualifiers: Abdominal location: generalized Qualified Code(s): R10.84 - Generalized abdominal pain Assessment/Plan Current Medications Generic Name Dose Route Start Last Admin Trade Name Freq PRN Reason Stop Dose Admin Albumin Human 50 gm 06/26/17 16:30 Albumin Human 25% IVPB 06/29/17 10:01 DAILY [facility] Heparin Sodium (Porcine) 5,000 unit 06/25/17 22:00 06/26/17 16:03 Heparin - SQ Not Given TID [facility] Piperacillin Sod/Tazobactam 100 mls @ 200 mls/hr 06/26/17 18:00 Sod 3.375 gm/ Dextrose IVPB Q8H-IV [facility] Methyl Salicylate 1 applic 06/25/17 22:00 06/26/17 12:49 Eliazar-Nettles - TP Not Given BID [facility] Midodrine 7.5 mg 06/26/17 18:00 Proamatine - PO BID-MID [facility] Morphine Sulfate 4 mg 06/25/17 19:57 06/25/17 20:53 Morphine Injection - IVPUSH 4 mg Q4H PRN Administration PAIN LEVEL 6-10 Octreotide Acetate 100 mcg 06/26/17 16:45 Sandostatin - SQ TID [facility] Rifaximin 550 mg 06/26/17 22:00 Xifaxan - PO BID [facility] Selected Entries 06/26/17 06/26/17 06/26/17 02:00 06:00 09:40 Pulse Rate 113 H 105 H Blood Pressure 116/74 130/77 103/69 06/26/17 13:33 Pulse Rate 88 Blood Pressure 99/59 Impression 1. ROJAS 2. liver cirrhosis 3. thrombocytopenia 4. hx etoh abuse 5. hx hematuria 6. anemia 7. pancytopenia 8. fluid overload 9. ascites 10. hepatorenal syndrome 11. hypotension 12. 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
[2017-06-26 17:37] LABS: BASO % 0.1 % (0-2.0); EOS % 0.1 % (0-4.5); HEMATOCRIT 22.2 % (35.4-49); HEMOGLOBIN 7.7 GM/dL (11.7-16.9); LYMPH % 4.4 % (8-40); MCH 36.9 pg (25.7-33.7); MCHC 34.9 g/dl (32.0-35.9); MEAN CELL VOLUME 105.7 fl (80-96); MONO % 8.4 % (3.8-10.2); PLATELET COUNT 44 K/MM3 (134-434); RDW 17.3 % (11.9-15.9); WHITE BLOOD COUNT 7.7 K/mm3 (4.0-10.0)
[2017-06-26 17:49] LABS: INR 2.9 (0.82-1.09); PROTHROMBIN TIME (PATIENT) 32.8 SEC (9.98-11.88)
[2017-06-26 18:07] LABS: ALBUMIN 1.8 g/dl (3.4-5.0); ALK PHOS 64 U/L (45-117); ANION GAP 10 (8-16); BILIRUBIN,DIRECT 7.8 mg/dL (0.0-0.2); BILIRUBIN,TOTAL 13.2 mg/dL (0.2-1.0); BLOOD UREA NITROGEN 34 mg/dL (7-18); CHLORIDE 102 mmol/L (98-107); CO2 25 mmol/L (21-32); CREATININE 1.8 mg/dL (0.7-1.3); GLUCOSE,RANDOM 127 mg/dL (74-106); POTASSIUM 3.9 mmol/L (3.5-5.1); SGOT/AST 21 U/L (15-37); SGPT/ALT 14 U/L (12-78); SODIUM 137 mmol/L (136-145); TOT PROT 5.3 g/dl (6.4-8.2)
[2017-06-26] MEDS: ALBUMIN HUMAN 25% 12.5 GM/50 ML VIAL IVPB SCH (18:25)
[2017-06-26] MEDS: MIDODRINE HCL 5 MG TABLET PO SCH (18:38)
[2017-06-26] MEDS: PIPERACILLIN/TAZOB 3.375 GM 3.375 GM in DEXTROSE 5%-WATER - 100 ML IVPB SCH (19:05)
[2017-06-26] MEDS ORDERED: FUROSEMIDE 40 MG TABLET (FP) PO ONE (20:00)
[2017-06-26] MEDS ORDERED: PT OWN MED DRAWER 7, Y5N ONE (20:42)
[2017-06-26] MEDS: OCTREOTIDE ACETATE 100 MCG/1 ML SQ SCH (23:03)
[2017-06-26] MEDS: RIFAXIMIN 550 MG TABLET (UD) PO SCH (23:03)
--- NOTE | 2017-06-27 00:02 | PN ---
Progress Note, Physician Chief Complaint: abdominal pain - Current Medication List Current Medications: Active Medications Albumin Human (Albumin Human 25%) 50 gm IVPB DAILY [facility] Stop: 06/29/17 10:01 Last Admin: 06/26/17 18:25 Dose: 50 gm Heparin Sodium (Porcine) (Heparin -) 5,000 unit SQ TID [facility] Last Admin: 06/26/17 23:02 Dose: 5,000 unit Piperacillin Sod/Tazobactam (Sod 3.375 gm/ Dextrose) 100 mls @ 200 mls/hr IVPB Q8H-IV [facility] Last Admin: 06/26/17 19:05 Dose: 200 mls/hr Methyl Salicylate (Eliazar-Nettles -) 1 applic TP BID [facility] Last Admin: 06/26/17 23:02 Dose: 1 applic Midodrine (Proamatine -) 7.5 mg PO BID-MID [facility] Last Admin: 06/26/17 18:38 Dose: Not Given Morphine Sulfate (Morphine Injection -) 4 mg IVPUSH Q4H PRN PRN Reason: PAIN LEVEL 6-10 Last Admin: 06/25/17 20:53 Dose: 4 mg Octreotide Acetate (Sandostatin -) 100 mcg SQ TID [facility] Last Admin: 06/26/17 23:03 Dose: 100 mcg Rifaximin (Xifaxan -) 550 mg PO BID [facility] Last Admin: 06/26/17 23:03 Dose: 550 mg - Objective Vital Signs: Vital Signs Temperature 98 F 06/26/17 22:00 Pulse Rate 86 06/26/17 22:00 Respiratory Rate 18 06/26/17 22:00 Blood Pressure 115/58 06/26/17 22:00 O2 Sat by Pulse Oximetry (%) 97 06/25/17 20:57 Constitutional: Yes: Well Nourished, No Distress, Calm Labs: CBC, BMP 06/26/17 16:00 06/26/17 16:00 INR, PTT INR 2.90 (0.82-1.09) H 06/26/17 16:00 Problem List - Problems (1) Ascites Assessment/Plan: 2/2 to chronic liver disease Code(s): R18.8 - OTHER ASCITES (2) Fever Assessment/Plan: improved Code(s): R50.9 - FEVER, UNSPECIFIED (3) Hepatorenal syndrome Code(s): K76.7 - HEPATORENAL SYNDROME (4) Lactic acidosis Assessment/Plan: -monitor trend -on IV abx -IVF -seen by ID Code(s): E87.2 - ACIDOSIS (5) Liver failure Assessment/Plan: -seen by GI -On transplant list at [facility] -refuses to go to [facility] Code(s): K72.90 - HEPATIC FAILURE, UNSPECIFIED WITHOUT COMA (6) Abdominal pain Assessment/Plan: -improved -mild Code(s): R10.9 - UNSPECIFIED ABDOMINAL PAIN Qualifiers: Abdominal location: generalized Qualified Code(s): R10.84 - Generalized abdominal pain (7) Alcohol abuse Code(s): F10.10 - ALCOHOL ABUSE, UNCOMPLICATED (8) Anemia Assessment/Plan: threshold 7.0/22.0 monitor trend Code(s): D64.9 - ANEMIA, UNSPECIFIED Assessment/Plan see problem list
[2017-06-27] MEDS ORDERED: PT OWN MED DRAWER 7, Y5N ONE ×4 (02:29→20:13)
[2017-06-27] MEDS: PIPERACILLIN/TAZOB 3.375 GM 3.375 GM in DEXTROSE 5%-WATER - 100 ML IVPB SCH ×3 (02:34→17:10)
[2017-06-27] MEDS: HEPARIN NA (PORCINE) 5,000 UNITS/ML 1ML VIAL SQ SCH ×2 (06:50→14:05)
[2017-06-27] MEDS: OCTREOTIDE ACETATE 100 MCG/1 ML SQ SCH ×3 (06:50→21:01)
--- NOTE | 2017-06-27 08:22 | PN ---
Progress Note, Physician Chief Complaint: ID HIs major complaint seem to be lower sacral pain which he says is new. He does not have generalized abdominal pain Original fever 101 documented though afebrile since. He appears otherwise comfortable sitting up in bed Zosydennis Cefepime - Current Medication List Current Medications: Active Medications Albumin Human (Albumin Human 25%) 50 gm IVPB DAILY [facility] Stop: 06/29/17 10:01 Last Admin: 06/26/17 18:25 Dose: 50 gm Heparin Sodium (Porcine) (Heparin -) 5,000 unit SQ TID [facility] Last Admin: 06/27/17 06:50 Dose: 5,000 unit Piperacillin Sod/Tazobactam (Sod 3.375 gm/ Dextrose) 100 mls @ 200 mls/hr IVPB Q8H-IV [facility] Last Admin: 06/27/17 02:34 Dose: 200 mls/hr Methyl Salicylate (Eliazar-Nettles -) 1 applic TP BID [facility] Last Admin: 06/26/17 23:02 Dose: 1 applic Midodrine (Proamatine -) 7.5 mg PO BID-MID [facility] Last Admin: 06/26/17 18:38 Dose: Not Given Morphine Sulfate (Morphine Injection -) 4 mg IVPUSH Q4H PRN PRN Reason: PAIN LEVEL 6-10 Last Admin: 06/25/17 20:53 Dose: 4 mg Octreotide Acetate (Sandostatin -) 100 mcg SQ TID [facility] Last Admin: 06/27/17 06:50 Dose: 100 mcg Rifaximin (Xifaxan -) 550 mg PO BID [facility] Last Admin: 06/26/17 23:03 Dose: 550 mg - Objective Vital Signs: Vital Signs Temperature 98.5 F 06/27/17 06:00 Pulse Rate 78 06/27/17 06:00 Respiratory Rate 20 06/27/17 06:00 Blood Pressure 101/60 06/27/17 06:00 O2 Sat by Pulse Oximetry (%) 95 06/26/17 21:00 Constitutional: Yes: No Distress Neck: Yes: WNL, Supple Cardiovascular: Yes: S1, S2, Other (Grade 2 systolic murmur). No: Murmur Respiratory: Yes: WNL, Regular, CTA Bilaterally. No: Rales, Rhonchi Gastrointestinal: Yes: WNL, Normal Bowel Sounds, Soft, Ascites, Distention, Other (Tender LLQ area) Edema: Yes Labs: CBC, BMP 06/26/17 16:00 06/26/17 16:00 INR, PTT INR 2.90 (0.82-1.09) H 06/26/17 16:00 Assessment/Plan Microbiology 06/25/17 16:50 Nasopharyngeal Swab Influenza Types A,B Antigen (YANETH) - Final 06/25/17 16:50 Nasopharyngeal Swab - Final 06/25/17 16:30 Blood - Peripheral Venous Blood Culture - Preliminary NO GROWTH OBTAINED AFTER 24 HOURS, INCUBATION TO CONTINUE FOR 4 DAYS. 06/25/17 16:15 Blood - Peripheral Venous Blood Culture - Preliminary NO GROWTH OBTAINED AFTER 24 HOURS, INCUBATION TO CONTINUE FOR 4 DAYS. Laboratory Tests 06/25/17 06/25/17 06/25/17 16:30 16:30 18:40 WBC 19.2 H D Hgb Hct Plt Count BUN Lactic Acid 3.5 H* Total Bilirubin Direct Bilirubin AST ALT Alkaline Phosphatase Urine WBC (Auto) Urine RBC (Auto) Peritoneal WBC 207 Periton Neutrophils 59 Periton Lymphocytes 14 Peritoneal Tot Protein 1 Peritoneal LDH 54 Peritoneal Glucose 113 Peritoneal Amylase 10 06/26/17 06/26/17 06/26/17 06:00 06:00 06:00 WBC 11.7 H D Hgb Hct Plt Count BUN Lactic Acid 4.2 H* Total Bilirubin 18.0 H* Direct Bilirubin AST ALT Alkaline Phosphatase Urine WBC (Auto) Urine RBC (Auto) Peritoneal WBC Periton Neutrophils Periton Lymphocytes Peritoneal Tot Protein Peritoneal LDH Peritoneal Glucose Peritoneal Amylase 06/26/17 06/26/17 06/26/17 06:08 16:00 16:00 WBC 7.7 D Hgb 7.7 L D Hct 22.2 L Plt Count 44 L D BUN 34 H Lactic Acid Total Bilirubin 13.2 H D Direct Bilirubin 7.8 H D AST 21 ALT 14 Alkaline Phosphatase 64 Urine WBC (Auto) 14 Urine RBC (Auto) 9 Peritoneal WBC Periton Neutrophils Periton Lymphocytes Peritoneal Tot Protein Peritoneal LDH Peritoneal Glucose Peritoneal Amylase Assessment Chronic liver disease decompensated Fever source unclear as he does not appear to have peritonitis Possible concern is lower sacral and left paraspinal tenderness ?? veterbral osteo or paraspinal abscess considered Leakage of ascites Plan Seems to have responded to antibiotic though unclear what we are treating Consider Spinal imaging MRI ESR CRP Stevenson BUTTS
[2017-06-27] MEDS: ALBUMIN HUMAN 25% 12.5 GM/50 ML VIAL IVPB SCH (09:04)
--- NOTE | 2017-06-27 09:17 | PN ---
Progress Note, Physician History of Present Illness: No events. Comfortable. Not compliant with low salt diet and midodrine, per pt' s nurse. Pt offers no complaints. Abdominal tenderness improved. MELD 34 based on 06/26/16 pm labs - Current Medication List Current Medications: Active Medications Albumin Human (Albumin Human 25%) 50 gm IVPB DAILY [facility] Stop: 06/29/17 10:01 Last Admin: 06/26/17 18:25 Dose: 50 gm Heparin Sodium (Porcine) (Heparin -) 5,000 unit SQ TID [facility] Last Admin: 06/27/17 06:50 Dose: 5,000 unit Piperacillin Sod/Tazobactam (Sod 3.375 gm/ Dextrose) 100 mls @ 200 mls/hr IVPB Q8H-IV [facility] Last Admin: 06/27/17 02:34 Dose: 200 mls/hr Methyl Salicylate (Eliazar-Nettles -) 1 applic TP BID [facility] Last Admin: 06/26/17 23:02 Dose: 1 applic Midodrine (Proamatine -) 7.5 mg PO BID-MID [facility] Last Admin: 06/26/17 18:38 Dose: Not Given Morphine Sulfate (Morphine Injection -) 4 mg IVPUSH Q4H PRN PRN Reason: PAIN LEVEL 6-10 Last Admin: 06/25/17 20:53 Dose: 4 mg Octreotide Acetate (Sandostatin -) 100 mcg SQ TID [facility] Last Admin: 06/27/17 06:50 Dose: 100 mcg Rifaximin (Xifaxan -) 550 mg PO BID [facility] Last Admin: 06/26/17 23:03 Dose: 550 mg - Objective Vital Signs: Vital Signs Temperature 98.5 F 06/27/17 06:00 Pulse Rate 78 06/27/17 06:00 Respiratory Rate 20 06/27/17 06:00 Blood Pressure 101/60 06/27/17 06:00 O2 Sat by Pulse Oximetry (%) 95 06/26/17 21:00 Constitutional: Yes: No Distress, Calm, Cachectic, Thin Eyes: Yes: Sclera Icterus Gastrointestinal: Yes: Soft, Ascites, Distention, Tenderness (mild). No: Melena , Rectal Bleeding, Vomiting Neurological: Yes: Alert, Oriented. No: Asterixis, Tremors Labs: CBC, BMP 06/26/17 16:00 06/26/17 16:00 INR, PTT INR 2.90 (0.82-1.09) H 06/26/17 16:00 CBCD WBC 7.7 K/mm3 (4.0-10.0) D 06/26/17 16:00 RBC 2.10 M/mm3 (4.00-5.60) L 06/26/17 16:00 Hgb 7.7 GM/dL (11.7-16.9) L D 06/26/17 16:00 Hct 22.2 % (35.4-49) L 06/26/17 16:00 MCV 105.7 fl (80-96) H 06/26/17 16:00 MCHC 34.9 g/dl (32.0-35.9) 06/26/17 16:00 RDW 17.3 % (11.9-15.9) H 06/26/17 16:00 Plt Count 44 K/MM3 (134-434) L D 06/26/17 16:00 MPV 9.0 fl (7.5-11.1) 06/26/17 16:00 CMP Sodium 137 mmol/L (136-145) 06/26/17 16:00 Potassium 3.9 mmol/L (3.5-5.1) 06/26/17 16:00 Chloride 102 mmol/L (98-107) 06/26/17 16:00 Carbon Dioxide 25 mmol/L (21-32) 06/26/17 16:00 Anion Gap 10 (8-16) 06/26/17 16:00 BUN 34 mg/dL (7-18) H 06/26/17 16:00 Creatinine 1.8 mg/dL (0.7-1.3) H 06/26/17 16:00 Creat Clearance w eGFR 40.65 (>60) 06/26/17 16:00 Calcium 8.0 mg/dL (8.5-10.1) L 06/26/17 16:00 Total Bilirubin 13.2 mg/dL (0.2-1.0) H D 06/26/17 16:00 AST 21 U/L (15-37) 06/26/17 16:00 ALT 14 U/L (12-78) 06/26/17 16:00 Alkaline Phosphatase 64 U/L (45-117) 06/26/17 16:00 Total Protein 5.3 g/dl (6.4-8.2) L 06/26/17 16:00 Albumin 1.8 g/dl (3.4-5.0) L 06/26/17 16:00 Problem List - Problems (1) Ascites Code(s): R18.8 - OTHER ASCITES (2) Fever Code(s): R50.9 - FEVER, UNSPECIFIED (3) Hepatorenal syndrome Code(s): K76.7 - HEPATORENAL SYNDROME (4) Liver failure Code(s): K72.90 - HEPATIC FAILURE, UNSPECIFIED WITHOUT COMA (5) Abdominal pain Code(s): R10.9 - UNSPECIFIED ABDOMINAL PAIN Qualifiers: Abdominal location: generalized Qualified Code(s): R10.84 - Generalized abdominal pain (6) Alcohol abuse Code(s): F10.10 - ALCOHOL ABUSE, UNCOMPLICATED (7) Cirrhosis of liver with ascites Code(s): K74.60 - UNSPECIFIED CIRRHOSIS OF LIVER Qualifiers: Hepatic cirrhosis type: alcoholic cirrhosis Qualified Code(s): K70.31 - Alcoholic cirrhosis of liver with ascites Assessment/Plan A 47 yom with endstage liver disea, ascites, fever, leukocytosis, worsening Cr, and negative for SBP fluid. MELD 34 Stop IVF at 100 cc/hr Resume ABx, as per ID Albumin, Midodrine, Octreotide Rifaximine (Refuses to take lactulose) Daily CMP, electrolytes, PT/INR, birect bili, CBC low threshold to transfer to liver center, if MELD is up prognosis very poor 2 mg Na deit
[2017-06-27] MEDS: RIFAXIMIN 550 MG TABLET (UD) PO SCH ×2 (09:18→21:02)
[2017-06-27] MEDS: MIDODRINE HCL 5 MG TABLET PO SCH ×2 (09:18→17:11)
[2017-06-27] MEDS: METHYL SALICYLATE/MENTHOL OINT 30 GM TUBE TP SCH ×2 (09:26→21:01)
[2017-06-27] MEDS ORDERED: FUROSEMIDE 40 MG TABLET (FP) PO ONE (12:15)
--- NOTE | 2017-06-27 12:37 | PN ---
Progress Note, Physician History of Present Illness: Pt seen and examined at bedside. He is awake and alert. He denies shortness of breath. He complains of lower extremity edema. - Current Medication List Current Medications: Active Medications Albumin Human (Albumin Human 25%) 50 gm IVPB DAILY [facility] Stop: 06/29/17 10:01 Last Admin: 06/27/17 09:04 Dose: 50 gm Heparin Sodium (Porcine) (Heparin -) 5,000 unit SQ TID [facility] Last Admin: 06/27/17 06:50 Dose: 5,000 unit Piperacillin Sod/Tazobactam (Sod 3.375 gm/ Dextrose) 100 mls @ 200 mls/hr IVPB Q8H-IV [facility] Last Admin: 06/27/17 11:21 Dose: 200 mls/hr Methyl Salicylate (Eliazar-Nettles -) 1 applic TP BID [facility] Last Admin: 06/27/17 09:26 Dose: Not Given Midodrine (Proamatine -) 7.5 mg PO BID-MID [facility] Last Admin: 06/27/17 09:18 Dose: 7.5 mg Morphine Sulfate (Morphine Injection -) 4 mg IVPUSH Q4H PRN PRN Reason: PAIN LEVEL 6-10 Last Admin: 06/25/17 20:53 Dose: 4 mg Octreotide Acetate (Sandostatin -) 100 mcg SQ TID [facility] Last Admin: 06/27/17 06:50 Dose: 100 mcg Rifaximin (Xifaxan -) 550 mg PO BID [facility] Last Admin: 06/27/17 09:18 Dose: 550 mg - Objective Vital Signs: Vital Signs Temperature 97.9 F 06/27/17 09:32 Pulse Rate 79 06/27/17 09:32 Respiratory Rate 18 06/27/17 09:32 Blood Pressure 101/62 06/27/17 09:32 O2 Sat by Pulse Oximetry (%) 95 06/26/17 21:00 Constitutional: Yes: Calm Eyes: Yes: Sclera Icterus Cardiovascular: Yes: S1, S2 Respiratory: Yes: CTA Bilaterally Gastrointestinal: Yes: Ascites, Tenderness Genitourinary: Yes: WNL Musculoskeletal: Yes: WNL Edema: Yes Edema: LLE: 3+, RLE: 3+ Integumentary: Yes: Jaundice Neurological: Yes: Oriented Psychiatric: Yes: Oriented Labs: CBC, BMP 06/26/17 16:00 06/26/17 16:00 INR, PTT INR 2.90 (0.82-1.09) H 06/26/17 16:00 - ....Imaging Cat Scan: Report Reviewed Problem List - Problems (1) Ascites Code(s): R18.8 - OTHER ASCITES (2) Fever Code(s): R50.9 - FEVER, UNSPECIFIED (3) Hepatorenal syndrome Code(s): K76.7 - HEPATORENAL SYNDROME (4) Liver failure Code(s): K72.90 - HEPATIC FAILURE, UNSPECIFIED WITHOUT COMA (5) Abdominal pain Code(s): R10.9 - UNSPECIFIED ABDOMINAL PAIN Qualifiers: Abdominal location: generalized Qualified Code(s): R10.84 - Generalized abdominal pain Assessment/Plan Current Medications Generic Name Dose Route Start Last Admin Trade Name Freq PRN Reason Stop Dose Admin Albumin Human 50 gm 06/26/17 16:30 06/27/17 09:04 Albumin Human 25% IVPB 06/29/17 10:01 50 gm DAILY [facility] Administration Heparin Sodium (Porcine) 5,000 unit 06/25/17 22:00 06/27/17 06:50 Heparin - SQ 5,000 unit TID [facility] Administration Piperacillin Sod/Tazobactam 100 mls @ 200 mls/hr 06/26/17 18:00 06/27/17 11: 21 Sod 3.375 gm/ Dextrose IVPB 200 mls/hr Q8H-IV [facility] Administration Methyl Salicylate 1 applic 06/25/17 22:00 06/27/17 09:26 Eliazar-Nettles - TP Not Given BID [facility] Midodrine 7.5 mg 06/26/17 18:00 06/27/17 09:18 Proamatine - PO 7.5 mg BID-MID [facility] Administration Morphine Sulfate 4 mg 06/25/17 19:57 06/25/17 20:53 Morphine Injection - IVPUSH 4 mg Q4H PRN Administration PAIN LEVEL 6-10 Octreotide Acetate 100 mcg 06/26/17 16:45 06/27/17 06:50 Sandostatin - SQ 100 mcg TID [facility] Administration Rifaximin 550 mg 06/26/17 22:00 06/27/17 09:18 Xifaxan - PO 550 mg BID [facility] Administration Impression 1. ROJAS 2. liver cirrhosis 3. thrombocytopenia 4. hx etoh abuse 5. hx hematuria 6. anemia 7. pancytopenia 8. fluid overload 9. ascites 10. hepatorenal syndrome 11. hypotension 12. 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
[2017-06-27 13:55] LABS: BASO % 0.3 % (0-2.0); EOS % 2.2 % (0-4.5); HEMATOCRIT 22.3 % (35.4-49); HEMOGLOBIN 7.6 GM/dL (11.7-16.9); MCH 35.8 pg (25.7-33.7); MEAN CELL VOLUME 105.4 fl (80-96); MEAN PLT VOLUME 9.4 fl (7.5-11.1); MONO % 10.8 % (3.8-10.2); NEUT % 77.7 % (42.8-82.8); PLATELET COUNT 56 K/MM3 (134-434); RBC 2.12 M/mm3 (4.00-5.60); RDW 16.7 % (11.9-15.9); WHITE BLOOD COUNT 4.4 K/mm3 (4.0-10.0)
[2017-06-27 14:07] LABS: INR 2.75 (0.82-1.09); PROTHROMBIN TIME (PATIENT) 31.1 SEC (9.98-11.88)
--- NOTE | 2017-06-27 14:12 | PN ---
Progress Note, Physician Chief Complaint: abdominal pain History of Present Illness: NAD, sitting at the edge of the bed CT abd reviewed labs for today ordered Seen by GI and renal abdominal pain improved complaining of not being able to sleep due to back pain - Current Medication List Current Medications: Active Medications Albumin Human (Albumin Human 25%) 50 gm IVPB DAILY [facility] Stop: 06/29/17 10:01 Last Admin: 06/27/17 09:04 Dose: 50 gm Furosemide (Lasix -) 40 mg PO DAILY [facility] Heparin Sodium (Porcine) (Heparin -) 5,000 unit SQ TID [facility] Last Admin: 06/27/17 06:50 Dose: 5,000 unit Piperacillin Sod/Tazobactam (Sod 3.375 gm/ Dextrose) 100 mls @ 200 mls/hr IVPB Q8H-IV [facility] Last Admin: 06/27/17 11:21 Dose: 200 mls/hr Methyl Salicylate (Eliazar-Nettles -) 1 applic TP BID [facility] Last Admin: 06/27/17 09:26 Dose: Not Given Midodrine (Proamatine -) 7.5 mg PO BID-MID [facility] Last Admin: 06/27/17 09:18 Dose: 7.5 mg Morphine Sulfate (Morphine Injection -) 4 mg IVPUSH Q4H PRN PRN Reason: PAIN LEVEL 6-10 Last Admin: 06/25/17 20:53 Dose: 4 mg Octreotide Acetate (Sandostatin -) 100 mcg SQ TID [facility] Last Admin: 06/27/17 06:50 Dose: 100 mcg Rifaximin (Xifaxan -) 550 mg PO BID [facility] Last Admin: 06/27/17 09:18 Dose: 550 mg Spironolactone (Aldactone -) 25 mg PO DAILY [facility] - Objective Vital Signs: Vital Signs Temperature 98 F 06/27/17 13:47 Pulse Rate 81 06/27/17 13:47 Respiratory Rate 20 06/27/17 13:47 Blood Pressure 109/63 06/27/17 13:47 O2 Sat by Pulse Oximetry (%) 95 06/27/17 13:21 Constitutional: Yes: Well Nourished, No Distress, Calm Labs: INR, PTT INR 2.90 (0.82-1.09) H 06/26/17 16:00 Problem List - Problems (1) Lactic acidosis Assessment/Plan: -improved -on IV abx -seen by ID Code(s): E87.2 - ACIDOSIS (2) Ascites Assessment/Plan: 2/2 to chronic liver disease Code(s): R18.8 - OTHER ASCITES (3) Hepatorenal syndrome Code(s): K76.7 - HEPATORENAL SYNDROME (4) Liver failure Assessment/Plan: -seen by GI -On transplant list at [facility] -refuses to go to [facility] Code(s): K72.90 - HEPATIC FAILURE, UNSPECIFIED WITHOUT COMA (5) Abdominal pain Assessment/Plan: -improved -mild Code(s): R10.9 - UNSPECIFIED ABDOMINAL PAIN Qualifiers: Abdominal location: generalized Qualified Code(s): R10.84 - Generalized abdominal pain (6) Alcohol abuse Code(s): F10.10 - ALCOHOL ABUSE, UNCOMPLICATED (7) Anemia Assessment/Plan: threshold 7.0/22.0 monitor trend Code(s): D64.9 - ANEMIA, UNSPECIFIED Assessment/Plan see problem list
[2017-06-27 14:22] LABS: ALBUMIN 2.5 g/dl (3.4-5.0); ALK PHOS 59 U/L (45-117); ANION GAP 10 (8-16); BILIRUBIN,DIRECT 5.2 mg/dL (0.0-0.2); BILIRUBIN,TOTAL 9.6 mg/dL (0.2-1.0); BLOOD UREA NITROGEN 37 mg/dL (7-18); CALCIUM 8.1 mg/dL (8.5-10.1); CHLORIDE 102 mmol/L (98-107); CO2 24 mmol/L (21-32); CREATININE 1.7 mg/dL (0.7-1.3); GLUCOSE,RANDOM 135 mg/dL (74-106); POTASSIUM 3.6 mmol/L (3.5-5.1); SGOT/AST 26 U/L (15-37); SGPT/ALT 17 U/L (12-78); SODIUM 136 mmol/L (136-145); TOT PROT 5.9 g/dl (6.4-8.2)
[2017-06-27] MEDS: LIDOCAINE 5% TOPICAL PATCH TP SCH (16:11)
[2017-06-27] MEDS: SPIRONOLACTONE 25 MG TABLET (FP) PO SCH (16:38)
[2017-06-27] MEDS: LIDOCAINE PATCH REMOVAL MC SCH (21:01)
[2017-06-28] MEDS: PIPERACILLIN/TAZOB 3.375 GM 3.375 GM in DEXTROSE 5%-WATER - 100 ML IVPB SCH ×3 (01:16→10:19)
[2017-06-28] MEDS: OCTREOTIDE ACETATE 100 MCG/1 ML SQ SCH ×3 (05:59→21:49)
[2017-06-28 07:41] LABS: BASO % 0.7 % (0-2.0); EOS % 3.2 % (0-4.5); LYMPH % 12.2 % (8-40); MCH 36.1 pg (25.7-33.7); MCHC 34.5 g/dl (32.0-35.9); MEAN CELL VOLUME 104.6 fl (80-96); MEAN PLT VOLUME 8.6 fl (7.5-11.1); NEUT % 69.9 % (42.8-82.8); PLATELET COUNT 40 K/MM3 (134-434); RBC 1.89 M/mm3 (4.00-5.60); RDW 16.3 % (11.9-15.9); WHITE BLOOD COUNT 2.6 K/mm3 (4.0-10.0)
--- NOTE | 2017-06-28 08:32 | PN ---
Progress Note, Physician History of Present Illness: No events. Comfortable. Pt offers no complaints. Abdominal tenderness improved. MELD 31 based on 06/27/16 pm labs - Current Medication List Current Medications: Active Medications Albumin Human (Albumin Human 25%) 50 gm IVPB DAILY [facility] Stop: 06/29/17 10:01 Last Admin: 06/27/17 09:04 Dose: 50 gm Furosemide (Lasix -) 40 mg PO DAILY [facility] Piperacillin Sod/Tazobactam (Sod 3.375 gm/ Dextrose) 100 mls @ 200 mls/hr IVPB Q8H-IV [facility] Last Admin: 06/28/17 01:16 Dose: 200 mls/hr Lidocaine (Lidoderm Patch -) 1 patch TP DAILY [facility] Last Admin: 06/27/17 16:11 Dose: Not Given Methyl Salicylate (Eliazar-Nettles -) 1 applic TP BID [facility] Last Admin: 06/27/17 21:01 Dose: Not Given Midodrine (Proamatine -) 7.5 mg PO BID-MID [facility] Last Admin: 06/27/17 17:11 Dose: 7.5 mg Miscellaneous (Lidoderm Patch Removal) 1 each MC DAILY@2200 [facility] Last Admin: 06/27/17 21:01 Dose: Not Given Morphine Sulfate (Morphine Injection -) 4 mg IVPUSH Q4H PRN PRN Reason: PAIN LEVEL 6-10 Last Admin: 06/25/17 20:53 Dose: 4 mg Octreotide Acetate (Sandostatin -) 100 mcg SQ TID [facility] Last Admin: 06/28/17 05:59 Dose: 100 mcg Rifaximin (Xifaxan -) 550 mg PO BID [facility] Last Admin: 06/27/17 21:02 Dose: 550 mg Spironolactone (Aldactone -) 25 mg PO DAILY [facility] Last Admin: 06/27/17 16:38 Dose: Not Given - Objective Vital Signs: Vital Signs Temperature 98.0 F 06/28/17 06:42 Pulse Rate 71 06/28/17 06:42 Respiratory Rate 20 06/28/17 06:42 Blood Pressure 102/63 06/28/17 06:42 O2 Sat by Pulse Oximetry (%) 95 06/27/17 20:50 Constitutional: Yes: No Distress, Calm, Cachectic, Thin Eyes: Yes: Sclera Icterus Gastrointestinal: Yes: Distention (minimal). No: Melena, Rectal Bleeding, Tenderness, Tenderness, Rebound, Vomiting Neurological: Yes: Alert, Oriented. No: Asterixis, Confusion, Lethargy, Tremors Labs: CBC, BMP 06/28/17 07:00 06/27/17 13:17 INR, PTT INR 2.75 (0.82-1.09) H 06/27/17 13:17 CBCD WBC 2.6 K/mm3 (4.0-10.0) L D 06/28/17 07:00 RBC 1.89 M/mm3 (4.00-5.60) L 06/28/17 07:00 Hgb 7.6 GM/dL (11.7-16.9) L 06/27/17 13:17 Hct 22.3 % (35.4-49) L 06/27/17 13:17 MCV 104.6 fl (80-96) H 06/28/17 07:00 MCHC 34.5 g/dl (32.0-35.9) 06/28/17 07:00 RDW 16.3 % (11.9-15.9) H 06/28/17 07:00 Plt Count 40 K/MM3 (134-434) L D 06/28/17 07:00 MPV 8.6 fl (7.5-11.1) 06/28/17 07:00 CMP Sodium 136 mmol/L (136-145) 06/27/17 13:17 Potassium 3.6 mmol/L (3.5-5.1) 06/27/17 13:17 Chloride 102 mmol/L (98-107) 06/27/17 13:17 Carbon Dioxide 24 mmol/L (21-32) 06/27/17 13:17 Anion Gap 10 (8-16) 06/27/17 13:17 BUN 37 mg/dL (7-18) H 06/27/17 13:17 Creatinine 1.7 mg/dL (0.7-1.3) H 06/27/17 13:17 Creat Clearance w eGFR 43.42 (>60) 06/27/17 13:17 Calcium 8.1 mg/dL (8.5-10.1) L 06/27/17 13:17 Total Bilirubin 9.6 mg/dL (0.2-1.0) H D 06/27/17 13:17 AST 26 U/L (15-37) D 06/27/17 13:17 ALT 17 U/L (12-78) D 06/27/17 13:17 Alkaline Phosphatase 59 U/L (45-117) 06/27/17 13:17 Total Protein 5.9 g/dl (6.4-8.2) L 06/27/17 13:17 Albumin 2.5 g/dl (3.4-5.0) L D 06/27/17 13:17 Problem List - Problems (1) Ascites Code(s): R18.8 - OTHER ASCITES (2) Fever Code(s): R50.9 - FEVER, UNSPECIFIED (3) Hepatorenal syndrome Code(s): K76.7 - HEPATORENAL SYNDROME (4) Liver failure Code(s): K72.90 - HEPATIC FAILURE, UNSPECIFIED WITHOUT COMA (5) Abdominal pain Code(s): R10.9 - UNSPECIFIED ABDOMINAL PAIN Qualifiers: Abdominal location: generalized Qualified Code(s): R10.84 - Generalized abdominal pain (6) Alcohol abuse Code(s): F10.10 - ALCOHOL ABUSE, UNCOMPLICATED (7) Cirrhosis of liver with ascites Code(s): K74.60 - UNSPECIFIED CIRRHOSIS OF LIVER Qualifiers: Hepatic cirrhosis type: alcoholic cirrhosis Qualified Code(s): K70.31 - Alcoholic cirrhosis of liver with ascites Assessment/Plan A 47 yom with end stage liver disease, ascites, fever, leukocytosis, worsening Cr, and negative for SBP fluid. MELD 31 Not encephalopathic Albumin, Midodrine, Octreotide Rifaximine (Refuses to take lactulose) Daily CMP, electrolytes, PT/INR, birect bili, CBC 2 mg Na deit
[2017-06-28 08:39] LABS: INR 2.8 (0.82-1.09); PROTHROMBIN TIME (PATIENT) 31.6 SEC (9.98-11.88)
[2017-06-28 08:58] LABS: HEMATOCRIT 19.8 % (35.4-49); HEMOGLOBIN 6.8 GM/dL (11.7-16.9)
[2017-06-28 09:06] LABS: ALK PHOS 57 U/L (45-117); ANION GAP 10 (8-16); BILIRUBIN,DIRECT 4.2 mg/dL (0.0-0.2); BILIRUBIN,TOTAL 7.3 mg/dL (0.2-1.0); BLOOD UREA NITROGEN 37 mg/dL (7-18); CALCIUM 7.3 mg/dL (8.5-10.1); CHLORIDE 104 mmol/L (98-107); CO2 23 mmol/L (21-32); CREATININE 1.6 mg/dL (0.7-1.3); GLUCOSE,RANDOM 136 mg/dL (74-106); POTASSIUM 3.5 mmol/L (3.5-5.1); SGOT/AST 21 U/L (15-37); SGPT/ALT 14 U/L (12-78); SODIUM 137 mmol/L (136-145); TOT PROT 4.8 g/dl (6.4-8.2)
[2017-06-28] MEDS ORDERED: PT OWN MED DRAWER 7, Y5N ONE ×2 (10:03→21:21)
[2017-06-28] MEDS: SPIRONOLACTONE 25 MG TABLET (FP) PO SCH ×3 (10:14→21:49)
[2017-06-28] MEDS: LIDOCAINE 5% TOPICAL PATCH TP SCH (10:14)
[2017-06-28] MEDS: RIFAXIMIN 550 MG TABLET (UD) PO SCH ×2 (10:15→21:49)
[2017-06-28] MEDS: FUROSEMIDE 40 MG TABLET (FP) PO SCH (10:15)
--- NOTE | 2017-06-28 10:15 | PN ---
Progress Note, Physician Chief Complaint: ID Day 3 without fever and he says his lower back pain much better able to ambulate We discussed MRI but he wants to wait as his pain is better - Current Medication List Current Medications: Active Medications Albumin Human (Albumin Human 25%) 50 gm IVPB DAILY [facility] Stop: 06/29/17 10:01 Last Admin: 06/27/17 09:04 Dose: 50 gm Furosemide (Lasix -) 40 mg PO DAILY [facility] Piperacillin Sod/Tazobactam (Sod 3.375 gm/ Dextrose) 100 mls @ 200 mls/hr IVPB Q8H-IV [facility] Last Admin: 06/28/17 01:16 Dose: 200 mls/hr Lidocaine (Lidoderm Patch -) 1 patch TP DAILY [facility] Last Admin: 06/27/17 16:11 Dose: Not Given Methyl Salicylate (Eliazar-Nettles -) 1 applic TP BID [facility] Last Admin: 06/27/17 21:01 Dose: Not Given Midodrine (Proamatine -) 7.5 mg PO BID-MID [facility] Last Admin: 06/27/17 17:11 Dose: 7.5 mg Miscellaneous (Lidoderm Patch Removal) 1 each MC DAILY@2200 [facility] Last Admin: 06/27/17 21:01 Dose: Not Given Morphine Sulfate (Morphine Injection -) 4 mg IVPUSH Q4H PRN PRN Reason: PAIN LEVEL 6-10 Last Admin: 06/25/17 20:53 Dose: 4 mg Octreotide Acetate (Sandostatin -) 100 mcg SQ TID [facility] Last Admin: 06/28/17 05:59 Dose: 100 mcg Rifaximin (Xifaxan -) 550 mg PO BID [facility] Last Admin: 06/27/17 21:02 Dose: 550 mg Spironolactone (Aldactone -) 25 mg PO DAILY [facility] Last Admin: 06/27/17 16:38 Dose: Not Given - Objective Vital Signs: Vital Signs Temperature 98.0 F 06/28/17 06:42 Pulse Rate 71 06/28/17 06:42 Respiratory Rate 20 06/28/17 06:42 Blood Pressure 102/63 06/28/17 06:42 O2 Sat by Pulse Oximetry (%) 95 06/27/17 20:50 Constitutional: Yes: No Distress Neck: Yes: WNL, Supple Cardiovascular: Yes: Regular Rate and Rhythm, S1, S2. No: Murmur Respiratory: Yes: WNL, Regular, CTA Bilaterally Gastrointestinal: Yes: WNL, Normal Bowel Sounds, Soft. No: Distention Edema: Yes Labs: CBC, BMP 06/28/17 07:00 06/28/17 08:48 INR, PTT INR 2.80 (0.82-1.09) H 06/28/17 06:00 Assessment/Plan Microbiology 06/26/17 06:08 Urine - Urine Clean Catch Urine Culture - Final 06/25/17 18:40 Peritoneal Fluid Gram Stain - Final 06/25/17 16:50 Nasopharyngeal Swab Influenza Types A,B Antigen (YANETH) - Final 06/25/17 16:50 Nasopharyngeal Swab - Final 06/25/17 18:40 Peritoneal Fluid Body Fluid Culture - Preliminary NO AEROBIC GROWTH, 24 HRS 06/25/17 16:30 Blood - Peripheral Venous Blood Culture - Preliminary NO GROWTH OBTAINED AFTER 48 HOURS, INCUBATION TO CONTINUE FOR 3 DAYS. 06/25/17 16:15 Blood - Peripheral Venous Blood Culture - Preliminary NO GROWTH OBTAINED AFTER 48 HOURS, INCUBATION TO CONTINUE FOR 3 DAYS. Laboratory Tests 06/28/17 06/28/17 07:00 08:48 WBC 2.6 L D Hgb 6.8 L* D Hct 19.8 L Plt Count 40 L D BUN 37 H Creatinine 1.6 H Creat Clearance w eGFR 46.56 Assessment Cirrhosis ascites Fever [employer] Culture negative Really not sure what we are treating and his back pain seems for whatever reason improved Plan Discussed with his gastroetenrologist will stop antibiotic and joana Gamino Defer spinal MRI
[2017-06-28] MEDS: MIDODRINE HCL 5 MG TABLET PO SCH ×2 (10:16→18:11)
[2017-06-28] MEDS: METHYL SALICYLATE/MENTHOL OINT 30 GM TUBE TP SCH ×2 (10:17→21:50)
[2017-06-28] MEDS: ALBUMIN HUMAN 25% 12.5 GM/50 ML VIAL IVPB SCH (10:17)
--- NOTE | 2017-06-28 11:35 | PN ---
Progress Note, Physician History of Present Illness: Pt seen and examined at bedside. He is awake and says he feels better today. - Current Medication List Current Medications: Active Medications Albumin Human (Albumin Human 25%) 50 gm IVPB DAILY [facility] Stop: 06/29/17 10:01 Last Admin: 06/28/17 10:17 Dose: 50 gm Furosemide (Lasix -) 40 mg PO DAILY [facility] Last Admin: 06/28/17 10:15 Dose: 40 mg Lidocaine (Lidoderm Patch -) 1 patch TP DAILY [facility] Last Admin: 06/28/17 10:14 Dose: 1 patch Methyl Salicylate (Eliazar-Nettles -) 1 applic TP BID [facility] Last Admin: 06/28/17 10:17 Dose: 1 applic Midodrine (Proamatine -) 7.5 mg PO BID-MID [facility] Last Admin: 06/28/17 10:16 Dose: 7.5 mg Miscellaneous (Lidoderm Patch Removal) 1 each MC DAILY@2200 [facility] Last Admin: 06/27/17 21:01 Dose: Not Given Morphine Sulfate (Morphine Injection -) 4 mg IVPUSH Q4H PRN PRN Reason: PAIN LEVEL 6-10 Last Admin: 06/25/17 20:53 Dose: 4 mg Octreotide Acetate (Sandostatin -) 100 mcg SQ TID [facility] Last Admin: 06/28/17 05:59 Dose: 100 mcg Rifaximin (Xifaxan -) 550 mg PO BID [facility] Last Admin: 06/28/17 10:15 Dose: 550 mg Spironolactone (Aldactone -) 25 mg PO DAILY [facility] Last Admin: 06/28/17 10:14 Dose: 25 mg - Objective Vital Signs: Vital Signs Temperature 98.0 F 06/28/17 10:14 Pulse Rate 77 06/28/17 10:14 Respiratory Rate 17 06/28/17 10:14 Blood Pressure 112/50 06/28/17 10:14 O2 Sat by Pulse Oximetry (%) 95 06/27/17 20:50 Constitutional: Yes: Calm Eyes: Yes: Sclera Icterus HENT: Yes: Atraumatic Cardiovascular: Yes: S1, S2 Respiratory: Yes: CTA Bilaterally Gastrointestinal: Yes: Ascites Genitourinary: Yes: WNL Musculoskeletal: Yes: WNL Edema: Yes Edema: LLE: 2+, RLE: 2+ Neurological: Yes: Oriented Psychiatric: Yes: Oriented Labs: CBC, BMP 06/28/17 07:00 06/28/17 08:48 INR, PTT INR 2.80 (0.82-1.09) H 06/28/17 06:00 Problem List - Problems (1) Ascites Code(s): R18.8 - OTHER ASCITES (2) Fever Code(s): R50.9 - FEVER, UNSPECIFIED (3) Hepatorenal syndrome Code(s): K76.7 - HEPATORENAL SYNDROME (4) Liver failure Code(s): K72.90 - HEPATIC FAILURE, UNSPECIFIED WITHOUT COMA (5) Abdominal pain Code(s): R10.9 - UNSPECIFIED ABDOMINAL PAIN Qualifiers: Abdominal location: generalized Qualified Code(s): R10.84 - Generalized abdominal pain Assessment/Plan Current Medications Generic Name Dose Route Start Last Admin Trade Name Freq PRN Reason Stop Dose Admin Albumin Human 50 gm 06/26/17 16:30 06/28/17 10:17 Albumin Human 25% IVPB 06/29/17 10:01 50 gm DAILY [facility] Administration Furosemide 40 mg 06/28/17 10:00 06/28/17 10:15 Lasix - PO 40 mg DAILY [facility] Administration Lidocaine 1 patch 06/27/17 14:15 06/28/17 10:14 Lidoderm Patch - TP 1 patch DAILY [facility] Administration Methyl Salicylate 1 applic 06/25/17 22:00 06/28/17 10:17 Eliazar-Nettles - TP 1 applic BID [facility] Administration Midodrine 7.5 mg 06/26/17 18:00 06/28/17 10:16 Proamatine - PO 7.5 mg BID-MID [facility] Administration Miscellaneous 1 each 06/27/17 22:00 06/27/17 21:01 Lidoderm Patch Removal MC Not Given DAILY@2200 [facility] Morphine Sulfate 4 mg 06/25/17 19:57 06/25/17 20:53 Morphine Injection - IVPUSH 4 mg Q4H PRN Administration PAIN LEVEL 6-10 Octreotide Acetate 100 mcg 06/26/17 16:45 06/28/17 05:59 Sandostatin - SQ 100 mcg TID [facility] Administration Rifaximin 550 mg 06/26/17 22:00 06/28/17 10:15 Xifaxan - PO 550 mg BID [facility] Administration Spironolactone 25 mg 06/27/17 15:00 06/28/17 10:14 Aldactone - PO 25 mg DAILY [facility] Administration Impression 1. ROJAS 2. liver cirrhosis 3. thrombocytopenia 4. hx etoh abuse 5. hx hematuria 6. anemia 7. pancytopenia 8. fluid overload 9. ascites 10. hepatorenal syndrome 11. hypotension 12. abdominal pain Plan - bp is improving - increase spironolactone to 25 q 12 hrs - cont lasix - repeat labs in am - GI follow up - discussed compliance with salt and fluid intake - will follow Dr Melara
[2017-06-28] MEDS ORDERED: FUROSEMIDE 40 MG/4 ML INJECTABLE VIAL IVPUSH ONE (11:54)
[2017-06-28] MEDS ORDERED: hydrOXYzine HCL 25 MG TABLET (FP) PO PRN (11:54)
--- NOTE | 2017-06-28 11:55 | PN ---
Progress Note, Physician Chief Complaint: abdominal pain History of Present Illness: NAD, sitting at the edge of the bed CT abd reviewed labs for today ordered Seen by GI and renal abdominal pain improved bilirubin improved complaining of not being able to sleep due to back pain - Current Medication List Current Medications: Active Medications Albumin Human (Albumin Human 25%) 50 gm IVPB DAILY [facility] Stop: 06/29/17 10:01 Last Admin: 06/28/17 10:17 Dose: 50 gm Furosemide (Lasix -) 40 mg PO DAILY [facility] Last Admin: 06/28/17 10:15 Dose: 40 mg Furosemide (Lasix Injection -) 40 mg IVPUSH ONCE ONE Stop: 06/28/17 11:55 Hydroxyzine HCl (Atarax -) 50 mg PO HS PRN PRN Reason: INSOMNIA Lidocaine (Lidoderm Patch -) 1 patch TP DAILY [facility] Last Admin: 06/28/17 10:14 Dose: 1 patch Methyl Salicylate (Eliazar-Nettles -) 1 applic TP BID [facility] Last Admin: 06/28/17 10:17 Dose: 1 applic Midodrine (Proamatine -) 7.5 mg PO BID-MID [facility] Last Admin: 06/28/17 10:16 Dose: 7.5 mg Miscellaneous (Lidoderm Patch Removal) 1 each MC DAILY@2200 [facility] Last Admin: 06/27/17 21:01 Dose: Not Given Morphine Sulfate (Morphine Injection -) 4 mg IVPUSH Q4H PRN PRN Reason: PAIN LEVEL 6-10 Last Admin: 06/25/17 20:53 Dose: 4 mg Octreotide Acetate (Sandostatin -) 100 mcg SQ TID [facility] Last Admin: 06/28/17 05:59 Dose: 100 mcg Rifaximin (Xifaxan -) 550 mg PO BID [facility] Last Admin: 06/28/17 10:15 Dose: 550 mg Spironolactone (Aldactone -) 25 mg PO BID [facility] - Objective Vital Signs: Vital Signs Temperature 98.0 F 06/28/17 10:14 Pulse Rate 77 06/28/17 10:14 Respiratory Rate 17 06/28/17 10:14 Blood Pressure 112/50 06/28/17 10:14 O2 Sat by Pulse Oximetry (%) 95 06/27/17 20:50 Constitutional: Yes: Well Nourished, No Distress, Calm Cardiovascular: Yes: Regular Rate and Rhythm Respiratory: Yes: Regular Gastrointestinal: Yes: Soft, Ascites Musculoskeletal: Yes: WNL Extremities: Yes: WNL Edema: Yes Edema: LLE: 3+, RLE: 3+ Peripheral Pulses WNL: Yes Neurological: Yes: Alert, Oriented Psychiatric: Yes: Alert, Oriented Labs: CBC, BMP 06/28/17 07:00 06/28/17 08:48 INR, PTT INR 2.80 (0.82-1.09) H 06/28/17 06:00 Problem List - Problems (1) Ascites Assessment/Plan: 2/2 to chronic liver disease Code(s): R18.8 - OTHER ASCITES (2) Hepatorenal syndrome Code(s): K76.7 - HEPATORENAL SYNDROME (3) Lactic acidosis Assessment/Plan: -monitor trend -on IV abx -IVF -seen by ID Code(s): E87.2 - ACIDOSIS (4) Liver failure Assessment/Plan: -seen by GI -On transplant list at [facility] -refuses to go to [facility] Code(s): K72.90 - HEPATIC FAILURE, UNSPECIFIED WITHOUT COMA (5) Abdominal pain Assessment/Plan: -improved -mild Code(s): R10.9 - UNSPECIFIED ABDOMINAL PAIN Qualifiers: Abdominal location: generalized Qualified Code(s): R10.84 - Generalized abdominal pain (6) Alcohol abuse Code(s): F10.10 - ALCOHOL ABUSE, UNCOMPLICATED (7) Anemia Assessment/Plan: threshold 7.0/22.0 -2 units PRBC, furosemide in between monitor trend Code(s): D64.9 - ANEMIA, UNSPECIFIED Assessment/Plan see problem list
[2017-06-28] MEDS ORDERED: FUROSEMIDE 40 MG/4 ML INJECTABLE VIAL ONE (18:37)
[2017-06-28] MEDS ORDERED: MORPHINE SULFATE 10 MG/1 ML *VIAL IVPUSH PRN (20:08)
[2017-06-28] MEDS: LIDOCAINE PATCH REMOVAL MC SCH (21:50)
[2017-06-29] MEDS: OCTREOTIDE ACETATE 100 MCG/1 ML SQ SCH ×3 (06:46→22:15)
[2017-06-29 07:39] LABS: BASO % 0.7 % (0-2.0); EOS % 3.7 % (0-4.5); HEMATOCRIT 23.6 % (35.4-49); HEMOGLOBIN 8.3 GM/dL (11.7-16.9); LYMPH % 12.7 % (8-40); MCH 35.4 pg (25.7-33.7); MCHC 35.2 g/dl (32.0-35.9); MEAN CELL VOLUME 100.5 fl (80-96); MEAN PLT VOLUME 8.4 fl (7.5-11.1); MONO % 16.4 % (3.8-10.2); NEUT % 66.5 % (42.8-82.8); PLATELET COUNT 46 K/MM3 (134-434); RBC 2.34 M/mm3 (4.00-5.60); RDW 19.4 % (11.9-15.9); WHITE BLOOD COUNT 3.1 K/mm3 (4.0-10.0)
[2017-06-29 07:49] LABS: INR 2.94 (0.82-1.09); PROTHROMBIN TIME (PATIENT) 33.2 SEC (9.98-11.88)
[2017-06-29 08:31] LABS: ALBUMIN 2.3 g/dl (3.4-5.0); ANION GAP 8 (8-16); BILIRUBIN,DIRECT 4.9 mg/dL (0.0-0.2); BILIRUBIN,TOTAL 11.6 mg/dL (0.2-1.0); BLOOD UREA NITROGEN 32 mg/dL (7-18); CALCIUM 7.2 mg/dL (8.5-10.1); CHLORIDE 104 mmol/L (98-107); CO2 26 mmol/L (21-32); CREATININE 1.1 mg/dL (0.7-1.3); GLUCOSE,RANDOM 103 mg/dL (74-106); POTASSIUM 3.4 mmol/L (3.5-5.1); SGOT/AST 23 U/L (15-37); SGPT/ALT 15 U/L (12-78); SODIUM 138 mmol/L (136-145); TOT PROT 4.8 g/dl (6.4-8.2)
[2017-06-29 08:32] LABS: ALK PHOS 57 U/L (45-117)
[2017-06-29] MEDS ORDERED: PT OWN MED DRAWER 7, Y5N ONE ×4 (09:38→21:27)
[2017-06-29] MEDS: ALBUMIN HUMAN 25% 12.5 GM/50 ML VIAL IVPB SCH (09:55)
[2017-06-29] MEDS: LIDOCAINE 5% TOPICAL PATCH TP SCH (10:00)
[2017-06-29] MEDS: FUROSEMIDE 40 MG TABLET (FP) PO SCH (10:01)
[2017-06-29] MEDS: SPIRONOLACTONE 25 MG TABLET (FP) PO SCH (10:01)
[2017-06-29] MEDS: MIDODRINE HCL 5 MG TABLET PO SCH ×3 (10:03→18:56)
[2017-06-29] MEDS: RIFAXIMIN 550 MG TABLET (UD) PO SCH ×2 (10:06→22:15)
[2017-06-29] MEDS: METHYL SALICYLATE/MENTHOL OINT 30 GM TUBE TP SCH ×2 (10:08→22:15)
--- NOTE | 2017-06-29 11:11 | PN ---
Progress Note, Physician Chief Complaint: abdominal pain History of Present Illness: NAD, Seen by GI and renal abdominal pain improved bili elevated today - Current Medication List Current Medications: Active Medications Furosemide (Lasix -) 40 mg PO DAILY [facility] Last Admin: 06/29/17 10:01 Dose: 40 mg Hydroxyzine HCl (Atarax -) 50 mg PO HS PRN PRN Reason: INSOMNIA Lidocaine (Lidoderm Patch -) 1 patch TP DAILY [facility] Last Admin: 06/29/17 10:00 Dose: 1 patch Methyl Salicylate (Eliazar-Nettles -) 1 applic TP BID [facility] Last Admin: 06/29/17 10:08 Dose: Not Given Midodrine (Proamatine -) 7.5 mg PO BID-MID [facility] Last Admin: 06/29/17 10:03 Dose: 7.5 mg Miscellaneous (Lidoderm Patch Removal) 1 each MC DAILY@2200 [facility] Last Admin: 06/28/17 21:50 Dose: 1 each Morphine Sulfate (Morphine Injection -) 4 mg IVPUSH Q4H PRN PRN Reason: PAIN LEVEL 7 - 10 Octreotide Acetate (Sandostatin -) 100 mcg SQ TID [facility] Last Admin: 06/29/17 06:46 Dose: 100 mcg Rifaximin (Xifaxan -) 550 mg PO BID [facility] Last Admin: 06/29/17 10:06 Dose: 550 mg Spironolactone (Aldactone -) 25 mg PO BID [facility] Last Admin: 06/29/17 10:01 Dose: 25 mg - Objective Vital Signs: Vital Signs Temperature 98 F 06/29/17 10:22 Pulse Rate 71 06/29/17 10:22 Respiratory Rate 18 06/29/17 10:22 Blood Pressure 103/60 06/29/17 10:22 O2 Sat by Pulse Oximetry (%) 97 06/28/17 21:00 Constitutional: Yes: Well Nourished, No Distress, Calm Cardiovascular: Yes: Regular Rate and Rhythm Respiratory: Yes: Regular Gastrointestinal: Yes: Ascites Musculoskeletal: Yes: WNL Extremities: Yes: WNL Edema: Yes Edema: LLE: 3+, RLE: 3+ Peripheral Pulses WNL: Yes Neurological: Yes: Alert, Oriented Psychiatric: Yes: Alert, Oriented Labs: CBC, BMP 06/29/17 06:30 06/29/17 06:30 INR, PTT INR 2.94 (0.82-1.09) H 06/29/17 06:30 Problem List - Problems (1) Ascites Assessment/Plan: 2/2 to chronic liver disease Code(s): R18.8 - OTHER ASCITES (2) Hepatorenal syndrome Assessment/Plan: -seen by nephrology Code(s): K76.7 - HEPATORENAL SYNDROME (3) Lactic acidosis Assessment/Plan: -monitor trend -on IV abx -IVF -seen by ID Code(s): E87.2 - ACIDOSIS (4) Liver failure Assessment/Plan: -seen by GI -On transplant list at [facility] -refuses to go to [facility] Code(s): K72.90 - HEPATIC FAILURE, UNSPECIFIED WITHOUT COMA (5) Abdominal pain Assessment/Plan: -improved -mild Code(s): R10.9 - UNSPECIFIED ABDOMINAL PAIN Qualifiers: Abdominal location: generalized Qualified Code(s): R10.84 - Generalized abdominal pain (6) Alcohol abuse Code(s): F10.10 - ALCOHOL ABUSE, UNCOMPLICATED (7) Anemia Assessment/Plan: threshold 7.0/22.0 -received PRBC yesterday monitor trend Code(s): D64.9 - ANEMIA, UNSPECIFIED Assessment/Plan see problem list
--- NOTE | 2017-06-29 11:24 | PN ---
Progress Note (short form) - Note Progress Note: no fevers, no pain still icteric, reports abdomen getting larger still with peripheral edema Vital Signs Period Temp Pulse Resp BP Sys/[place] Pulse Ox Last 24 Hr 97.7 F-98.4 F 64-71 18-20 97-104/58-65 97 +icterus cor-rrr lungs clear, decreased bs at bases abd soft,nt ext +edema CBC, BMP 06/29/17 06:30 06/29/17 06:30 Microbiology 06/25/17 16:30 Blood - Peripheral Venous Blood Culture - Preliminary NO GROWTH OBTAINED AFTER 72 HOURS, INCUBATION TO CONTINUE FOR 2 DAYS. 06/25/17 16:15 Blood - Peripheral Venous Blood Culture - Preliminary NO GROWTH OBTAINED AFTER 72 HOURS, INCUBATION TO CONTINUE FOR 2 DAYS. 06/25/17 18:40 Peritoneal Fluid Gram Stain - Final 06/25/17 18:40 Peritoneal Fluid Body Fluid Culture - Final NO GROWTH OF AEROBIC ORGANISMS AFTER 48 HOURS INCUBATION 06/25/17 18:40 Peritoneal Fluid Anaerobic Culture - Final NO ANAEROBES WERE ISOLATED 06/26/17 06:08 Urine - Urine Clean Catch Urine Culture - Final 06/25/17 16:50 Nasopharyngeal Swab Influenza Types A,B Antigen (YANETH) - Final 06/25/17 16:50 Nasopharyngeal Swab - Final a/p liver cirrhosis renal insuff improved antibiotics stopped yesterday, has no pain please call back if needed d/w Eugenio Anton NP Problem List - Problems (1) Fever Code(s): R50.9 - FEVER, UNSPECIFIED (2) Hepatorenal syndrome Code(s): K76.7 - HEPATORENAL SYNDROME (3) Liver cirrhosis, alcoholic Code(s): K70.30 - ALCOHOLIC CIRRHOSIS OF LIVER WITHOUT ASCITES (4) Liver failure Code(s): K72.90 - HEPATIC FAILURE, UNSPECIFIED WITHOUT COMA
[2017-06-29] MEDS ORDERED: POTASSIUM CHLORIDE TABS 20 MEQ TABLET.ER (FP) PO ONE ×2 (11:30→14:00)
--- NOTE | 2017-06-29 14:01 | PN ---
Progress Note, Physician History of Present Illness: No events. Comfortable. Pt offers no complaints. Abdominal tenderness improved. MELD 29 based on today's labs - Current Medication List Current Medications: Active Medications Furosemide (Lasix -) 40 mg PO DAILY [facility] Last Admin: 06/29/17 10:01 Dose: 40 mg Hydroxyzine HCl (Atarax -) 50 mg PO HS PRN PRN Reason: INSOMNIA Lidocaine (Lidoderm Patch -) 1 patch TP DAILY [facility] Last Admin: 06/29/17 10:00 Dose: 1 patch Methyl Salicylate (Eliazar-Nettles -) 1 applic TP BID [facility] Last Admin: 06/29/17 10:08 Dose: Not Given Midodrine (Proamatine -) 7.5 mg PO BID-MID [facility] Last Admin: 06/29/17 10:03 Dose: 7.5 mg Miscellaneous (Lidoderm Patch Removal) 1 each MC DAILY@2200 [facility] Last Admin: 06/28/17 21:50 Dose: 1 each Morphine Sulfate (Morphine Injection -) 4 mg IVPUSH Q4H PRN PRN Reason: PAIN LEVEL 7 - 10 Octreotide Acetate (Sandostatin -) 100 mcg SQ TID [facility] Last Admin: 06/29/17 06:46 Dose: 100 mcg Potassium Chloride (K-Dur -) 40 meq PO ONCE ONE Stop: 06/29/17 14:01 Rifaximin (Xifaxan -) 550 mg PO BID [facility] Last Admin: 06/29/17 10:06 Dose: 550 mg Spironolactone (Aldactone -) 25 mg PO BID [facility] Last Admin: 06/29/17 10:01 Dose: 25 mg - Objective Vital Signs: Vital Signs Temperature 97.9 F 06/29/17 13:38 Pulse Rate 71 06/29/17 13:38 Respiratory Rate 20 06/29/17 13:38 Blood Pressure 111/69 06/29/17 13:38 O2 Sat by Pulse Oximetry (%) 97 06/28/17 21:00 Constitutional: Yes: No Distress, Calm, Cachectic, Pallor, Thin Eyes: Yes: Sclera Icterus (improved) Gastrointestinal: Yes: Ascites, Distention. No: Tenderness Neurological: Yes: Alert, Oriented. No: Tremors Labs: CBC, BMP 06/29/17 06:30 06/29/17 06:30 INR, PTT INR 2.94 (0.82-1.09) H 06/29/17 06:30 CBCD WBC 3.1 K/mm3 (4.0-10.0) L 06/29/17 06:30 RBC 2.34 M/mm3 (4.00-5.60) L D 06/29/17 06:30 Hgb 8.3 GM/dL (11.7-16.9) L D 06/29/17 06:30 Hct 23.6 % (35.4-49) L D 06/29/17 06:30 MCV 100.5 fl (80-96) H 06/29/17 06:30 MCHC 35.2 g/dl (32.0-35.9) 06/29/17 06:30 RDW 19.4 % (11.9-15.9) H D 06/29/17 06:30 Plt Count 46 K/MM3 (134-434) L 06/29/17 06:30 MPV 8.4 fl (7.5-11.1) 06/29/17 06:30 CMP Sodium 138 mmol/L (136-145) 06/29/17 06:30 Potassium 3.4 mmol/L (3.5-5.1) L 06/29/17 06:30 Chloride 104 mmol/L (98-107) 06/29/17 06:30 Carbon Dioxide 26 mmol/L (21-32) 06/29/17 06:30 Anion Gap 8 (8-16) 06/29/17 06:30 BUN 32 mg/dL (7-18) H 06/29/17 06:30 Creatinine 1.1 mg/dL (0.7-1.3) D 06/29/17 06:30 Creat Clearance w eGFR > 60 (>60) 06/29/17 06:30 Calcium 7.2 mg/dL (8.5-10.1) L 06/29/17 06:30 Total Bilirubin 11.6 mg/dL (0.2-1.0) H D 06/29/17 06:30 AST 23 U/L (15-37) 06/29/17 06:30 ALT 15 U/L (12-78) 06/29/17 06:30 Alkaline Phosphatase 57 U/L (45-117) 06/29/17 06:30 Total Protein 4.8 g/dl (6.4-8.2) L 06/29/17 06:30 Albumin 2.3 g/dl (3.4-5.0) L 06/29/17 06:30 Problem List - Problems (1) Ascites Code(s): R18.8 - OTHER ASCITES (2) Fever Code(s): R50.9 - FEVER, UNSPECIFIED (3) Hepatorenal syndrome Code(s): K76.7 - HEPATORENAL SYNDROME (4) Liver failure Code(s): K72.90 - HEPATIC FAILURE, UNSPECIFIED WITHOUT COMA (5) Abdominal pain Code(s): R10.9 - UNSPECIFIED ABDOMINAL PAIN Qualifiers: Abdominal location: generalized Qualified Code(s): R10.84 - Generalized abdominal pain (6) Alcohol abuse Code(s): F10.10 - ALCOHOL ABUSE, UNCOMPLICATED (7) Cirrhosis of liver with ascites Code(s): K74.60 - UNSPECIFIED CIRRHOSIS OF LIVER Qualifiers: Hepatic cirrhosis type: alcoholic cirrhosis Qualified Code(s): K70.31 - Alcoholic cirrhosis of liver with ascites Assessment/Plan A 47 yom with end stage liver disease, ascites, fever, leukocytosis, Cr improved MELD 29 Not encephalopathic Midodrine, Octreotide Rifaximine (Refuses to take lactulose) Daily CMP, electrolytes, PT/INR, birect bili, CBC 2 mg Na diet
--- NOTE | 2017-06-29 17:14 | PN ---
Progress Note, Physician History of Present Illness: Pt seen and examined at bedside. He is awake and alert. He complains of increased edema. - Current Medication List Current Medications: Active Medications Furosemide (Lasix -) 40 mg PO DAILY [facility] Last Admin: 06/29/17 10:01 Dose: 40 mg Hydroxyzine HCl (Atarax -) 50 mg PO HS PRN PRN Reason: INSOMNIA Lidocaine (Lidoderm Patch -) 1 patch TP DAILY [facility] Last Admin: 06/29/17 10:00 Dose: 1 patch Methyl Salicylate (Eliazar-Nettles -) 1 applic TP BID [facility] Last Admin: 06/29/17 10:08 Dose: Not Given Midodrine (Proamatine -) 7.5 mg PO BID-MID [facility] Last Admin: 06/29/17 10:03 Dose: 7.5 mg Miscellaneous (Lidoderm Patch Removal) 1 each MC DAILY@2200 [facility] Last Admin: 06/28/17 21:50 Dose: 1 each Morphine Sulfate (Morphine Injection -) 4 mg IVPUSH Q4H PRN PRN Reason: PAIN LEVEL 7 - 10 Octreotide Acetate (Sandostatin -) 100 mcg SQ TID [facility] Last Admin: 06/29/17 14:16 Dose: Not Given Rifaximin (Xifaxan -) 550 mg PO BID [facility] Last Admin: 06/29/17 10:06 Dose: 550 mg Spironolactone (Aldactone -) 25 mg PO BID [facility] Last Admin: 06/29/17 10:01 Dose: 25 mg - Objective Vital Signs: Vital Signs Temperature 97.9 F 06/29/17 13:38 Pulse Rate 71 06/29/17 13:38 Respiratory Rate 20 06/29/17 13:38 Blood Pressure 111/69 06/29/17 13:38 O2 Sat by Pulse Oximetry (%) 97 06/28/17 21:00 Constitutional: Yes: Calm Eyes: Yes: Sclera Icterus Cardiovascular: Yes: S1, S2 Respiratory: Yes: CTA Bilaterally Gastrointestinal: Yes: Soft, Ascites Genitourinary: Yes: WNL Musculoskeletal: Yes: WNL Edema: Yes Edema: LLE: 2+, RLE: 2+ Neurological: Yes: Oriented Psychiatric: Yes: Oriented Labs: CBC, BMP 06/29/17 06:30 06/29/17 06:30 INR, PTT INR 2.94 (0.82-1.09) H 06/29/17 06:30 Problem List - Problems (1) Ascites Code(s): R18.8 - OTHER ASCITES (2) Fever Code(s): R50.9 - FEVER, UNSPECIFIED (3) Hepatorenal syndrome Code(s): K76.7 - HEPATORENAL SYNDROME (4) Liver failure Code(s): K72.90 - HEPATIC FAILURE, UNSPECIFIED WITHOUT COMA (5) Abdominal pain Code(s): R10.9 - UNSPECIFIED ABDOMINAL PAIN Qualifiers: Abdominal location: generalized Qualified Code(s): R10.84 - Generalized abdominal pain Assessment/Plan Current Medications Generic Name Dose Route Start Last Admin Trade Name Freq PRN Reason Stop Dose Admin Furosemide 40 mg 06/28/17 10:00 06/29/17 10:01 Lasix - PO 40 mg DAILY [facility] Administration Hydroxyzine HCl 50 mg 06/28/17 11:54 Atarax - PO HS PRN INSOMNIA Lidocaine 1 patch 06/27/17 14:15 06/29/17 10:00 Lidoderm Patch - TP 1 patch DAILY [facility] Administration Methyl Salicylate 1 applic 06/25/17 22:00 06/29/17 10:08 Eliazar-Nettles - TP Not Given BID [facility] Midodrine 7.5 mg 06/26/17 18:00 06/29/17 10:03 Proamatine - PO 7.5 mg BID-MID [facility] Administration Miscellaneous 1 each 06/27/17 22:00 06/28/17 21:50 Lidoderm Patch Removal MC 1 each DAILY@2200 [facility] Administration Morphine Sulfate 4 mg 06/28/17 20:08 Morphine Injection - IVPUSH Q4H PRN PAIN LEVEL 7 - 10 Octreotide Acetate 100 mcg 06/26/17 16:45 06/29/17 14:16 Sandostatin - SQ Not Given TID [facility] Rifaximin 550 mg 06/26/17 22:00 06/29/17 10:06 Xifaxan - PO 550 mg BID [facility] Administration Spironolactone 25 mg 06/28/17 11:45 06/29/17 10:01 Aldactone - PO 25 mg BID [facility] Administration Impression 1. ROJAS 2. liver cirrhosis 3. thrombocytopenia 4. hx etoh abuse 5. hx hematuria 6. anemia 7. pancytopenia 8. fluid overload 9. ascites 10. hepatorenal syndrome 11. hypotension 12. abdominal pain Plan - will increase dose of aldactone - check lytes - bp is improving - repeat labs in am - GI follow up appreciated - discussed compliance with salt and fluid intake, again - will follow Dr Melara
[2017-06-29] MEDS: FUROSEMIDE 40 MG TABLET (FP) PO ONE ×2 (18:15→18:56)
[2017-06-29] MEDS: SPIRONOLACTONE 25 MG TABLET (FP) PO ONE ×2 (18:16→18:55)
[2017-06-29] MEDS: LIDOCAINE PATCH REMOVAL MC SCH (22:15)
[2017-06-30] MEDS: OCTREOTIDE ACETATE 100 MCG/1 ML SQ SCH ×3 (06:02→22:08)
[2017-06-30 07:53] LABS: BASO % 0.6 % (0-2.0); EOS % 2.5 % (0-4.5); HEMOGLOBIN 8.2 GM/dL (11.7-16.9); LYMPH % 13.8 % (8-40); MCH 35.7 pg (25.7-33.7); MCHC 35.6 g/dl (32.0-35.9); MEAN CELL VOLUME 100.5 fl (80-96); MONO % 16.1 % (3.8-10.2); PLATELET COUNT 43 K/MM3 (134-434); RBC 2.29 M/mm3 (4.00-5.60); RDW 19.2 % (11.9-15.9); WHITE BLOOD COUNT 2.9 K/mm3 (4.0-10.0)
[2017-06-30 08:00] LABS: INR 2.91 (0.82-1.09); PROTHROMBIN TIME (PATIENT) 32.9 SEC (9.98-11.88)
[2017-06-30 08:11] LABS: CHLORIDE 107 mmol/L (98-107); POTASSIUM 3.4 mmol/L (3.5-5.1); SODIUM 140 mmol/L (136-145)
[2017-06-30 08:23] LABS: ALBUMIN 2.7 g/dl (3.4-5.0); ALK PHOS 54 U/L (45-117); ANION GAP 8 (8-16); BILIRUBIN,DIRECT 4.8 mg/dL (0.0-0.2); BILIRUBIN,TOTAL 10.3 mg/dL (0.2-1.0); BLOOD UREA NITROGEN 31 mg/dL (7-18); CALCIUM 7.5 mg/dL (8.5-10.1); CO2 25 mmol/L (21-32); GLUCOSE,RANDOM 106 mg/dL (74-106); MAGNESIUM 1.5 mg/dL (1.8-2.4); SGOT/AST 21 U/L (15-37); SGPT/ALT 15 U/L (12-78); TOT PROT 5.1 g/dl (6.4-8.2)
[2017-06-30] MEDS ORDERED: SPIRONOLACTONE 25 MG TABLET (FP) PO SCH (10:00)
[2017-06-30] MEDS ORDERED: PT OWN MED DRAWER 7, Y5N ONE ×3 (11:32→21:31)
[2017-06-30] MEDS: FUROSEMIDE 40 MG TABLET (FP) PO SCH (11:39)
[2017-06-30] MEDS: METHYL SALICYLATE/MENTHOL OINT 30 GM TUBE TP SCH ×2 (11:40→22:09)
[2017-06-30] MEDS: LIDOCAINE 5% TOPICAL PATCH TP SCH (11:40)
[2017-06-30] MEDS: MIDODRINE HCL 5 MG TABLET PO SCH ×2 (11:41→17:57)
[2017-06-30] MEDS: RIFAXIMIN 550 MG TABLET (UD) PO SCH ×2 (11:41→23:09)
--- NOTE | 2017-06-30 12:22 | PN ---
Progress Note, Physician History of Present Illness: No events. Comfortable. Pt offers no complaints. Abdominal tenderness improved. Tens ascites. Likely non-compliant with fluid/salt restriction MELD 27 - Current Medication List Current Medications: Active Medications Furosemide (Lasix -) 40 mg PO DAILY [facility] Last Admin: 06/30/17 11:39 Dose: 40 mg Hydroxyzine HCl (Atarax -) 50 mg PO HS PRN PRN Reason: INSOMNIA Lidocaine (Lidoderm Patch -) 1 patch TP DAILY [facility] Last Admin: 06/30/17 11:40 Dose: 1 patch Methyl Salicylate (Eliazar-Nettles -) 1 applic TP BID [facility] Last Admin: 06/30/17 11:40 Dose: Not Given Midodrine (Proamatine -) 7.5 mg PO BID-MID [facility] Last Admin: 06/30/17 11:41 Dose: 7.5 mg Miscellaneous (Lidoderm Patch Removal) 1 each MC DAILY@2200 [facility] Last Admin: 06/29/17 22:15 Dose: 1 each Morphine Sulfate (Morphine Injection -) 4 mg IVPUSH Q4H PRN PRN Reason: PAIN LEVEL 7 - 10 Octreotide Acetate (Sandostatin -) 100 mcg SQ TID [facility] Last Admin: 06/30/17 06:02 Dose: 100 mcg Rifaximin (Xifaxan -) 550 mg PO BID [facility] Last Admin: 06/30/17 11:41 Dose: 550 mg Spironolactone (Aldactone -) 50 mg PO BID [facility] Last Admin: 06/30/17 11:40 Dose: 50 mg - Objective Vital Signs: Vital Signs Temperature 98 F 06/30/17 10:00 Pulse Rate 70 06/30/17 10:00 Respiratory Rate 18 06/30/17 10:00 Blood Pressure 105/61 06/30/17 10:00 O2 Sat by Pulse Oximetry (%) 98 06/29/17 22:21 Constitutional: Yes: No Distress, Calm, Thin Eyes: Yes: Sclera Icterus (minimal) Gastrointestinal: Yes: Ascites, Distention. No: Melena, Rectal Bleeding, Tenderness, Rebound, Vomiting Neurological: Yes: Alert, Oriented. No: Confusion, Lethargy, Tremors Labs: CBC, BMP 06/30/17 06:10 06/30/17 06:10 INR, PTT INR 2.91 (0.82-1.09) H 06/30/17 06:10 CBCD WBC 2.9 K/mm3 (4.0-10.0) L 06/30/17 06:10 RBC 2.29 M/mm3 (4.00-5.60) L 06/30/17 06:10 Hgb 8.2 GM/dL (11.7-16.9) L 06/30/17 06:10 Hct 23.0 % (35.4-49) L 06/30/17 06:10 MCV 100.5 fl (80-96) H 06/30/17 06:10 MCHC 35.6 g/dl (32.0-35.9) 06/30/17 06:10 RDW 19.2 % (11.9-15.9) H 06/30/17 06:10 Plt Count 43 K/MM3 (134-434) L 06/30/17 06:10 MPV 9.0 fl (7.5-11.1) 06/30/17 06:10 CMP Sodium 140 mmol/L (136-145) 06/30/17 06:10 Potassium 3.4 mmol/L (3.5-5.1) L 06/30/17 06:10 Chloride 107 mmol/L (98-107) 06/30/17 06:10 Carbon Dioxide 25 mmol/L (21-32) 06/30/17 06:10 Anion Gap 8 (8-16) 06/30/17 06:10 BUN 31 mg/dL (7-18) H 06/30/17 06:10 Creatinine 1.0 mg/dL (0.7-1.3) 06/30/17 06:10 Creat Clearance w eGFR > 60 (>60) 06/30/17 06:10 Calcium 7.5 mg/dL (8.5-10.1) L 06/30/17 06:10 Total Bilirubin 10.3 mg/dL (0.2-1.0) H 06/30/17 06:10 AST 21 U/L (15-37) 06/30/17 06:10 ALT 15 U/L (12-78) 06/30/17 06:10 Alkaline Phosphatase 54 U/L (45-117) 06/30/17 06:10 Total Protein 5.1 g/dl (6.4-8.2) L 06/30/17 06:10 Albumin 2.7 g/dl (3.4-5.0) L 06/30/17 06:10 Problem List - Problems (1) Ascites Code(s): R18.8 - OTHER ASCITES (2) Fever Code(s): R50.9 - FEVER, UNSPECIFIED (3) Hepatorenal syndrome Code(s): K76.7 - HEPATORENAL SYNDROME (4) Liver failure Code(s): K72.90 - HEPATIC FAILURE, UNSPECIFIED WITHOUT COMA (5) Abdominal pain Code(s): R10.9 - UNSPECIFIED ABDOMINAL PAIN Qualifiers: Abdominal location: generalized Qualified Code(s): R10.84 - Generalized abdominal pain (6) Alcohol abuse Code(s): F10.10 - ALCOHOL ABUSE, UNCOMPLICATED (7) Cirrhosis of liver with ascites Code(s): K74.60 - UNSPECIFIED CIRRHOSIS OF LIVER Qualifiers: Hepatic cirrhosis type: alcoholic cirrhosis Qualified Code(s): K70.31 - Alcoholic cirrhosis of liver with ascites Assessment/Plan A 47 yom with end stage liver disease, ascites, fever, leukocytosis, Cr improved MELD 27 Not encephalopathic Midodrine, Octreotide Rifaximine (Refuses to take lactulose) Daily CMP, electrolytes, PT/INR, birect bili, CBC 1.5L/ 2 mg Na diet Paracentesis, therapeutic, on Sun. Discussed with pt
[2017-06-30] MEDS ORDERED: POTASSIUM CHLORIDE TABS 20 MEQ TABLET.ER (FP) PO ONE (12:42)
--- NOTE | 2017-06-30 12:47 | PN ---
Progress Note, Physician Chief Complaint: THIS IS MY FIRST ENCOUNTER WITH THIS PATIENT ON THIS ADMISSION AWAKE EATING LUNCH WITH BEDSIDE DENEIS PAIN OR SOB - Current Medication List Current Medications: Active Medications Furosemide (Lasix -) 40 mg PO DAILY [facility] Last Admin: 06/30/17 11:39 Dose: 40 mg Hydroxyzine HCl (Atarax -) 50 mg PO HS PRN PRN Reason: INSOMNIA Lidocaine (Lidoderm Patch -) 1 patch TP DAILY [facility] Last Admin: 06/30/17 11:40 Dose: 1 patch Methyl Salicylate (Eliazar-Nettles -) 1 applic TP BID [facility] Last Admin: 06/30/17 11:40 Dose: Not Given Midodrine (Proamatine -) 7.5 mg PO BID-MID [facility] Last Admin: 06/30/17 11:41 Dose: 7.5 mg Miscellaneous (Lidoderm Patch Removal) 1 each MC DAILY@2200 [facility] Last Admin: 06/29/17 22:15 Dose: 1 each Morphine Sulfate (Morphine Injection -) 4 mg IVPUSH Q4H PRN PRN Reason: PAIN LEVEL 7 - 10 Octreotide Acetate (Sandostatin -) 100 mcg SQ TID [facility] Last Admin: 06/30/17 06:02 Dose: 100 mcg Potassium Chloride (K-Dur -) 40 meq PO ONCE ONE Stop: 06/30/17 12:43 Rifaximin (Xifaxan -) 550 mg PO BID [facility] Last Admin: 06/30/17 11:41 Dose: 550 mg Spironolactone (Aldactone -) 50 mg PO BID [facility] Last Admin: 06/30/17 11:40 Dose: 50 mg - Objective Vital Signs: Vital Signs Temperature 98 F 06/30/17 10:00 Pulse Rate 70 06/30/17 10:00 Respiratory Rate 18 06/30/17 10:00 Blood Pressure 105/61 06/30/17 10:00 O2 Sat by Pulse Oximetry (%) 98 06/29/17 22:21 Constitutional: Yes: Mild Distress Eyes: Yes: WNL HENT: Yes: WNL Neck: Yes: WNL Cardiovascular: Yes: WNL Respiratory: Yes: WNL Gastrointestinal: Yes: Ascites, Distention Genitourinary: Yes: Other Musculoskeletal: Yes: WNL Extremities: Yes: WNL Edema: Yes Peripheral Pulses WNL: Yes Integumentary: Yes: WNL Wound/Incision: Yes: Clean/Dry Neurological: Yes: WNL ...Motor Strength: WNL Psychiatric: Yes: WNL Labs: CBC, BMP 06/30/17 06:10 06/30/17 06:10 INR, PTT INR 2.91 (0.82-1.09) H 06/30/17 06:10 Problem List - Problems (1) Ascites Code(s): R18.8 - OTHER ASCITES (2) Hepatorenal syndrome Code(s): K76.7 - HEPATORENAL SYNDROME (3) Liver failure Code(s): K72.90 - HEPATIC FAILURE, UNSPECIFIED WITHOUT COMA Qualifiers: Liver failure chronicity: chronic (4) Alcohol abuse Code(s): F10.10 - ALCOHOL ABUSE, UNCOMPLICATED (5) Anasarca Code(s): R60.1 - GENERALIZED EDEMA (6) Cirrhosis of liver with ascites Code(s): K74.60 - UNSPECIFIED CIRRHOSIS OF LIVER Qualifiers: Hepatic cirrhosis type: alcoholic cirrhosis Qualified Code(s): K70.31 - Alcoholic cirrhosis of liver with ascites (7) Elevated bilirubin Code(s): R17 - UNSPECIFIED JAUNDICE (8) Elevated liver enzymes Code(s): R74.8 - ABNORMAL LEVELS OF OTHER SERUM ENZYMES (9) Neutropenia Code(s): D70.9 - NEUTROPENIA, UNSPECIFIED Qualifiers: Neutropenia type: other Qualified Code(s): D70.8 - Other neutropenia Assessment/Plan DIURESIS TA REPLETED OOB TO CHAIR PERITONEALCENTESIS SUNDAY WITH MILES NAVARRO FOR F/U LIVER TX TEAM
--- NOTE | 2017-06-30 15:50 | PN ---
Progress Note, Physician History of Present Illness: Pt seen and examined at bedside. He complains of increase ascites. He refused his diuretics last night. - Current Medication List Current Medications: Active Medications Furosemide (Lasix -) 40 mg PO DAILY [facility] Last Admin: 06/30/17 11:39 Dose: 40 mg Hydroxyzine HCl (Atarax -) 50 mg PO HS PRN PRN Reason: INSOMNIA Lidocaine (Lidoderm Patch -) 1 patch TP DAILY [facility] Last Admin: 06/30/17 11:40 Dose: 1 patch Methyl Salicylate (Eliazar-Nettles -) 1 applic TP BID [facility] Last Admin: 06/30/17 11:40 Dose: Not Given Midodrine (Proamatine -) 7.5 mg PO BID-MID [facility] Last Admin: 06/30/17 11:41 Dose: 7.5 mg Miscellaneous (Lidoderm Patch Removal) 1 each MC DAILY@2200 [facility] Last Admin: 06/29/17 22:15 Dose: 1 each Morphine Sulfate (Morphine Injection -) 4 mg IVPUSH Q4H PRN PRN Reason: PAIN LEVEL 7 - 10 Octreotide Acetate (Sandostatin -) 100 mcg SQ TID [facility] Last Admin: 06/30/17 14:57 Dose: Not Given Rifaximin (Xifaxan -) 550 mg PO BID [facility] Last Admin: 06/30/17 11:41 Dose: 550 mg Spironolactone (Aldactone -) 50 mg PO BID [facility] Last Admin: 06/30/17 11:40 Dose: 50 mg - Objective Vital Signs: Vital Signs Temperature 98.6 F 06/30/17 15:03 Pulse Rate 74 06/30/17 15:03 Respiratory Rate 18 06/30/17 15:03 Blood Pressure 111/75 06/30/17 15:03 O2 Sat by Pulse Oximetry (%) 98 06/29/17 22:21 Constitutional: Yes: Calm Eyes: Yes: Conjunctiva Clear HENT: Yes: Atraumatic Neck: Yes: Supple Cardiovascular: Yes: S1, S2 Respiratory: Yes: CTA Bilaterally Gastrointestinal: Yes: Normal Bowel Sounds, Soft Genitourinary: Yes: WNL Musculoskeletal: Yes: WNL Edema: Yes Edema: LLE: 2+, RLE: 2+ Neurological: Yes: Oriented Psychiatric: Yes: Oriented Labs: CBC, BMP 06/30/17 06:10 06/30/17 06:10 INR, PTT INR 2.91 (0.82-1.09) H 06/30/17 06:10 Problem List - Problems (1) Ascites Code(s): R18.8 - OTHER ASCITES (2) Fever Code(s): R50.9 - FEVER, UNSPECIFIED (3) Hepatorenal syndrome Code(s): K76.7 - HEPATORENAL SYNDROME (4) Liver failure Code(s): K72.90 - HEPATIC FAILURE, UNSPECIFIED WITHOUT COMA Qualifiers: Liver failure chronicity: chronic (5) Abdominal pain Code(s): R10.9 - UNSPECIFIED ABDOMINAL PAIN Qualifiers: Abdominal location: generalized Qualified Code(s): R10.84 - Generalized abdominal pain Assessment/Plan Current Medications Generic Name Dose Route Start Last Admin Trade Name Freq PRN Reason Stop Dose Admin Furosemide 40 mg 06/28/17 10:00 06/30/17 11:39 Lasix - PO 40 mg DAILY [facility] Administration Hydroxyzine HCl 50 mg 06/28/17 11:54 Atarax - PO HS PRN INSOMNIA Lidocaine 1 patch 06/27/17 14:15 06/30/17 11:40 Lidoderm Patch - TP 1 patch DAILY [facility] Administration Methyl Salicylate 1 applic 06/25/17 22:00 06/30/17 11:40 Eliazar-Nettles - TP Not Given BID [facility] Midodrine 7.5 mg 06/26/17 18:00 06/30/17 11:41 Proamatine - PO 7.5 mg BID-MID [facility] Administration Miscellaneous 1 each 06/27/17 22:00 06/29/17 22:15 Lidoderm Patch Removal MC 1 each DAILY@2200 [facility] Administration Morphine Sulfate 4 mg 06/28/17 20:08 Morphine Injection - IVPUSH Q4H PRN PAIN LEVEL 7 - 10 Octreotide Acetate 100 mcg 06/26/17 16:45 06/30/17 14:57 Sandostatin - SQ Not Given TID [facility] Rifaximin 550 mg 06/26/17 22:00 06/30/17 11:41 Xifaxan - PO 550 mg BID [facility] Administration Spironolactone 50 mg 06/30/17 10:00 06/30/17 11:40 Aldactone - PO 50 mg BID [facility] Administration Impression 1. ROJAS 2. liver cirrhosis 3. thrombocytopenia 4. hx etoh abuse 5. hx hematuria 6. anemia 7. pancytopenia 8. fluid overload 9. ascites 10. hepatorenal syndrome 11. hypotension 12. abdominal pain Plan - pt is not compliant with diuretics - discussed with GI - replace potassium - can increase spironolactone - repeat labs in am - discussed compliance with salt and fluid intake - will follow Dr Melara
[2017-06-30] MEDS: SPIRONOLACTONE 25 MG TABLET (FP) PO SCH (22:08)
[2017-06-30] MEDS: LIDOCAINE PATCH REMOVAL MC SCH (22:09)
[2017-07-01] MEDS: OCTREOTIDE ACETATE 100 MCG/1 ML SQ SCH ×3 (05:52→22:07)
[2017-07-01 08:00] LABS: BASO % 0.5 % (0-2.0); EOS % 2.6 % (0-4.5); HEMATOCRIT 24.1 % (35.4-49); HEMOGLOBIN 8.3 GM/dL (11.7-16.9); LYMPH % 14.5 % (8-40); MCH 35.4 pg (25.7-33.7); MCHC 34.6 g/dl (32.0-35.9); MEAN CELL VOLUME 102.2 fl (80-96); MEAN PLT VOLUME 9.2 fl (7.5-11.1); MONO % 14.8 % (3.8-10.2); NEUT % 67.6 % (42.8-82.8); PLATELET COUNT 44 K/MM3 (134-434); RBC 2.35 M/mm3 (4.00-5.60); RDW 19.3 % (11.9-15.9); WHITE BLOOD COUNT 3.3 K/mm3 (4.0-10.0)
[2017-07-01 08:03] LABS: CHLORIDE 104 mmol/L (98-107); POTASSIUM 3.3 mmol/L (3.5-5.1); SODIUM 140 mmol/L (136-145)
[2017-07-01 08:07] LABS: INR 3.1 (0.82-1.09)
[2017-07-01 08:27] LABS: ALBUMIN 2.5 g/dl (3.4-5.0); ALK PHOS 58 U/L (45-117); ANION GAP 11 (8-16); BILIRUBIN,DIRECT 4.3 mg/dL (0.0-0.2); BILIRUBIN,TOTAL 9.5 mg/dL (0.2-1.0); BLOOD UREA NITROGEN 29 mg/dL (7-18); CALCIUM 7.9 mg/dL (8.5-10.1); CO2 25 mmol/L (21-32); GLUCOSE,RANDOM 97 mg/dL (74-106); MAGNESIUM 1.5 mg/dL (1.8-2.4); SGOT/AST 26 U/L (15-37); SGPT/ALT 14 U/L (12-78); TOT PROT 5.2 g/dl (6.4-8.2)
[2017-07-01] MEDS ORDERED: POTASSIUM CHLORIDE TABS 20 MEQ TABLET.ER (FP) PO ONE ×2 (09:52→13:30)
[2017-07-01] MEDS ORDERED: PT OWN MED DRAWER 7, Y5N ONE ×2 (10:22→20:52)
[2017-07-01] MEDS: LIDOCAINE 5% TOPICAL PATCH TP SCH ×2 (10:32→18:01)
[2017-07-01] MEDS: SPIRONOLACTONE 25 MG TABLET (FP) PO SCH ×2 (10:33→21:54)
[2017-07-01] MEDS: RIFAXIMIN 550 MG TABLET (UD) PO SCH ×2 (10:34→22:03)
[2017-07-01] MEDS: MIDODRINE HCL 5 MG TABLET PO SCH ×2 (10:34→17:34)
[2017-07-01] MEDS: METHYL SALICYLATE/MENTHOL OINT 30 GM TUBE TP SCH ×2 (10:36→21:54)
[2017-07-01] MEDS: FUROSEMIDE 40 MG TABLET (FP) PO SCH (10:38)
--- NOTE | 2017-07-01 12:46 | PN ---
Progress Note, Physician Chief Complaint: AWAKE ALERT MILD DISTRESS - Current Medication List Current Medications: Active Medications Furosemide (Lasix -) 40 mg PO DAILY [facility] Last Admin: 07/01/17 10:38 Dose: 40 mg Hydroxyzine HCl (Atarax -) 50 mg PO HS PRN PRN Reason: INSOMNIA Lidocaine (Lidoderm Patch -) 1 patch TP DAILY [facility] Last Admin: 07/01/17 10:32 Dose: 1 patch Methyl Salicylate (Eliazar-Nettles -) 1 applic TP BID [facility] Last Admin: 07/01/17 10:36 Dose: Not Given Midodrine (Proamatine -) 7.5 mg PO BID-MID [facility] Last Admin: 07/01/17 10:34 Dose: 7.5 mg Miscellaneous (Lidoderm Patch Removal) 1 each MC DAILY@2200 [facility] Last Admin: 06/30/17 22:09 Dose: 1 each Morphine Sulfate (Morphine Injection -) 4 mg IVPUSH Q4H PRN PRN Reason: PAIN LEVEL 7 - 10 Octreotide Acetate (Sandostatin -) 100 mcg SQ TID [facility] Last Admin: 07/01/17 05:52 Dose: 100 mcg Potassium Chloride (K-Dur -) 40 meq PO ONCE ONE Stop: 07/01/17 12:45 Rifaximin (Xifaxan -) 550 mg PO BID [facility] Last Admin: 07/01/17 10:34 Dose: 550 mg Spironolactone (Aldactone -) 75 mg PO BID [facility] Last Admin: 07/01/17 10:33 Dose: 75 mg - Objective Vital Signs: Vital Signs Temperature 98 F 07/01/17 10:42 Pulse Rate 71 07/01/17 10:42 Respiratory Rate 18 07/01/17 10:42 Blood Pressure 103/60 07/01/17 10:42 O2 Sat by Pulse Oximetry (%) 97 06/30/17 21:00 Constitutional: Yes: Mild Distress Eyes: Yes: WNL HENT: Yes: WNL Neck: Yes: WNL Cardiovascular: Yes: WNL Respiratory: Yes: WNL Gastrointestinal: Yes: Ascites, Distention Genitourinary: Yes: WNL Musculoskeletal: Yes: WNL Extremities: Yes: WNL Edema: No Peripheral Pulses WNL: Yes Integumentary: Yes: WNL Wound/Incision: Yes: Clean/Dry Neurological: Yes: WNL ...Motor Strength: WNL Psychiatric: Yes: WNL Labs: CBC, BMP 07/01/17 06:25 07/01/17 06:25 INR, PTT INR 3.10 (0.82-1.09) H 07/01/17 06:25 Problem List - Problems (1) Ascites Code(s): R18.8 - OTHER ASCITES (2) Hepatorenal syndrome Code(s): K76.7 - HEPATORENAL SYNDROME (3) Liver failure Code(s): K72.90 - HEPATIC FAILURE, UNSPECIFIED WITHOUT COMA Qualifiers: Liver failure chronicity: chronic (4) Alcohol abuse Code(s): F10.10 - ALCOHOL ABUSE, UNCOMPLICATED (5) Anasarca Code(s): R60.1 - GENERALIZED EDEMA (6) Cirrhosis of liver with ascites Code(s): K74.60 - UNSPECIFIED CIRRHOSIS OF LIVER Qualifiers: Hepatic cirrhosis type: alcoholic cirrhosis Qualified Code(s): K70.31 - Alcoholic cirrhosis of liver with ascites (7) Elevated bilirubin Code(s): R17 - UNSPECIFIED JAUNDICE (8) Elevated liver enzymes Code(s): R74.8 - ABNORMAL LEVELS OF OTHER SERUM ENZYMES (9) Neutropenia Code(s): D70.9 - NEUTROPENIA, UNSPECIFIED Qualifiers: Neutropenia type: other Qualified Code(s): D70.8 - Other neutropenia Assessment/Plan DIURESIS KCL REPLETED OOB TO CHAIR PERITONEALCENTESIS SUNDAY WITH MILES NAVARRO FOR F/U LIVER TX TEAM
--- NOTE | 2017-07-01 13:44 | PN ---
Progress Note, Physician History of Present Illness: Tens ascites. Likely non-compliant with fluid/salt restriction and diuretics MELD 28 - Current Medication List Current Medications: Active Medications Furosemide (Lasix -) 40 mg PO DAILY [facility] Last Admin: 07/01/17 10:38 Dose: 40 mg Hydroxyzine HCl (Atarax -) 50 mg PO HS PRN PRN Reason: INSOMNIA Lidocaine (Lidoderm Patch -) 1 patch TP DAILY [facility] Last Admin: 07/01/17 10:32 Dose: 1 patch Magnesium Oxide (Mag-Ox -) 400 mg PO BID [facility] Methyl Salicylate (Eliazar-Nettles -) 1 applic TP BID [facility] Last Admin: 07/01/17 10:36 Dose: Not Given Midodrine (Proamatine -) 7.5 mg PO BID-MID [facility] Last Admin: 07/01/17 10:34 Dose: 7.5 mg Miscellaneous (Lidoderm Patch Removal) 1 each MC DAILY@2200 [facility] Last Admin: 06/30/17 22:09 Dose: 1 each Morphine Sulfate (Morphine Injection -) 4 mg IVPUSH Q4H PRN PRN Reason: PAIN LEVEL 7 - 10 Octreotide Acetate (Sandostatin -) 100 mcg SQ TID [facility] Last Admin: 07/01/17 05:52 Dose: 100 mcg Rifaximin (Xifaxan -) 550 mg PO BID [facility] Last Admin: 07/01/17 10:34 Dose: 550 mg Spironolactone (Aldactone -) 75 mg PO BID [facility] Last Admin: 07/01/17 10:33 Dose: 75 mg - Objective Vital Signs: Vital Signs Temperature 98.2 F 07/01/17 13:19 Pulse Rate 68 07/01/17 13:19 Respiratory Rate 18 07/01/17 13:19 Blood Pressure 107/71 07/01/17 13:19 O2 Sat by Pulse Oximetry (%) 97 06/30/17 21:00 Labs: CBC, BMP 07/01/17 06:25 07/01/17 06:25 INR, PTT INR 3.10 (0.82-1.09) H 07/01/17 06:25 Problem List - Problems (1) Ascites Code(s): R18.8 - OTHER ASCITES (2) Fever Code(s): R50.9 - FEVER, UNSPECIFIED (3) Hepatorenal syndrome Code(s): K76.7 - HEPATORENAL SYNDROME (4) Liver failure Code(s): K72.90 - HEPATIC FAILURE, UNSPECIFIED WITHOUT COMA Qualifiers: Liver failure chronicity: chronic (5) Abdominal pain Code(s): R10.9 - UNSPECIFIED ABDOMINAL PAIN Qualifiers: Abdominal location: generalized Qualified Code(s): R10.84 - Generalized abdominal pain (6) Alcohol abuse Code(s): F10.10 - ALCOHOL ABUSE, UNCOMPLICATED (7) Cirrhosis of liver with ascites Code(s): K74.60 - UNSPECIFIED CIRRHOSIS OF LIVER Qualifiers: Hepatic cirrhosis type: alcoholic cirrhosis Qualified Code(s): K70.31 - Alcoholic cirrhosis of liver with ascites Assessment/Plan MELD 28 Not encephalopathic Non-compliant with diet and medications Midodrine, Octreotide Rifaximine 2 mg Na diet/fluid restriction Paracentesis, therapeutic, on Mon. Discussed with pt FFP/Vit K tonight, ordered Labs in AM, ordered
[2017-07-01] MEDS: MAGNESIUM OXIDE 400 MG TABLET (FP) PO SCH ×2 (14:05→22:03)
--- NOTE | 2017-07-01 18:20 | PN ---
Progress Note, Physician History of Present Illness: Pt seen and examined at bedside. He is awake and alert. He is not compliant with fluid intake. - Current Medication List Current Medications: Active Medications Furosemide (Lasix -) 40 mg PO DAILY [facility] Last Admin: 07/01/17 10:38 Dose: 40 mg Hydroxyzine HCl (Atarax -) 50 mg PO HS PRN PRN Reason: INSOMNIA Lidocaine (Lidoderm Patch -) 1 patch TP DAILY [facility] Last Admin: 07/01/17 18:01 Dose: Not Given Magnesium Oxide (Mag-Ox -) 400 mg PO BID [facility] Last Admin: 07/01/17 14:05 Dose: Not Given Methyl Salicylate (Eliazar-Nettles -) 1 applic TP BID [facility] Last Admin: 07/01/17 10:36 Dose: Not Given Midodrine (Proamatine -) 7.5 mg PO BID-MID [facility] Last Admin: 07/01/17 17:34 Dose: Not Given Miscellaneous (Lidoderm Patch Removal) 1 each MC DAILY@2200 [facility] Last Admin: 06/30/17 22:09 Dose: 1 each Morphine Sulfate (Morphine Injection -) 4 mg IVPUSH Q4H PRN PRN Reason: PAIN LEVEL 7 - 10 Octreotide Acetate (Sandostatin -) 100 mcg SQ TID [facility] Last Admin: 07/01/17 15:23 Dose: Not Given Phytonadione (Mephyton -) 5 mg PO ONCE ONE Stop: 07/01/17 21:01 Rifaximin (Xifaxan -) 550 mg PO BID [facility] Last Admin: 07/01/17 10:34 Dose: 550 mg Spironolactone (Aldactone -) 75 mg PO BID [facility] Last Admin: 07/01/17 10:33 Dose: 75 mg - Objective Vital Signs: Vital Signs Temperature 98.3 F 07/01/17 16:58 Pulse Rate 70 07/01/17 16:58 Respiratory Rate 20 07/01/17 16:58 Blood Pressure 125/65 07/01/17 16:58 O2 Sat by Pulse Oximetry (%) 97 06/30/17 21:00 Constitutional: Yes: Calm Eyes: Yes: Sclera Icterus Cardiovascular: Yes: S1, S2 Respiratory: Yes: CTA Bilaterally Gastrointestinal: Yes: Ascites Genitourinary: Yes: WNL Musculoskeletal: Yes: WNL Edema: Yes Edema: LLE: 2+, RLE: 2+ Neurological: Yes: Oriented Psychiatric: Yes: Oriented Labs: CBC, BMP 07/01/17 06:25 07/01/17 06:25 INR, PTT INR 3.10 (0.82-1.09) H 07/01/17 06:25 Problem List - Problems (1) Ascites Code(s): R18.8 - OTHER ASCITES (2) Fever Code(s): R50.9 - FEVER, UNSPECIFIED (3) Hepatorenal syndrome Code(s): K76.7 - HEPATORENAL SYNDROME (4) Liver failure Code(s): K72.90 - HEPATIC FAILURE, UNSPECIFIED WITHOUT COMA Qualifiers: Liver failure chronicity: chronic (5) Abdominal pain Code(s): R10.9 - UNSPECIFIED ABDOMINAL PAIN Qualifiers: Abdominal location: generalized Qualified Code(s): R10.84 - Generalized abdominal pain Assessment/Plan Current Medications Generic Name Dose Route Start Last Admin Trade Name Freq PRN Reason Stop Dose Admin Furosemide 40 mg 06/28/17 10:00 07/01/17 10:38 Lasix - PO 40 mg DAILY [facility] Administration Hydroxyzine HCl 50 mg 06/28/17 11:54 Atarax - PO HS PRN INSOMNIA Lidocaine 1 patch 06/27/17 14:15 07/01/17 18:01 Lidoderm Patch - TP Not Given DAILY [facility] Magnesium Oxide 400 mg 07/01/17 12:45 07/01/17 14:05 Mag-Ox - PO Not Given BID [facility] Methyl Salicylate 1 applic 06/25/17 22:00 07/01/17 10:36 Eliazar-Nettles - TP Not Given BID [facility] Midodrine 7.5 mg 06/26/17 18:00 07/01/17 17:34 Proamatine - PO Not Given BID-MID [facility] Miscellaneous 1 each 06/27/17 22:00 06/30/17 22:09 Lidoderm Patch Removal MC 1 each DAILY@2200 [facility] Administration Morphine Sulfate 4 mg 06/28/17 20:08 Morphine Injection - IVPUSH Q4H PRN PAIN LEVEL 7 - 10 Octreotide Acetate 100 mcg 06/26/17 16:45 07/01/17 15:23 Sandostatin - SQ Not Given TID [facility] Phytonadione 5 mg 07/01/17 21:00 Mephyton - PO 07/01/17 21:01 ONCE ONE Rifaximin 550 mg 06/26/17 22:00 07/01/17 10:34 Xifaxan - PO 550 mg BID [facility] Administration Spironolactone 75 mg 06/30/17 15:50 07/01/17 10:33 Aldactone - PO 75 mg BID [facility] Administration Laboratory Tests 07/01/17 06:25 Magnesium 1.5 L Total Bilirubin 9.5 H Impression 1. ROJAS 2. liver cirrhosis 3. thrombocytopenia 4. hx etoh abuse 5. hx hematuria 6. anemia 7. pancytopenia 8. fluid overload 9. ascites 10. hepatorenal syndrome 11. hypotension 12. abdominal pain Plan - replace lytes - cont diuretics - paracentesis tomorrow - discussed with GI - repeat labs in am - discussed compliance with salt and fluid intake - will follow Dr Melara
[2017-07-01] MEDS ORDERED: MAGNESIUM SULF 50% (8.12 MEQ/2 ML-1 GM VIAL) IVPB ONE (18:30)
[2017-07-01] MEDS ORDERED: PHYTONADIONE 5 MG TABLET PO ONE (21:00)
[2017-07-01] MEDS: LIDOCAINE PATCH REMOVAL MC SCH (21:56)
[2017-07-02] MEDS: OCTREOTIDE ACETATE 100 MCG/1 ML SQ SCH ×3 (06:12→21:56)
[2017-07-02 07:28] LABS: BASO % 0.7 % (0-2.0); EOS % 2.9 % (0-4.5); HEMATOCRIT 22.9 % (35.4-49); LYMPH % 14.8 % (8-40); MCHC 34.7 g/dl (32.0-35.9); MEAN CELL VOLUME 103.6 fl (80-96); MONO % 16.1 % (3.8-10.2); NEUT % 65.5 % (42.8-82.8); PLATELET COUNT 48 K/MM3 (134-434); RBC 2.22 M/mm3 (4.00-5.60); RDW 19.6 % (11.9-15.9); WHITE BLOOD COUNT 2.5 K/mm3 (4.0-10.0)
[2017-07-02 07:58] LABS: ALBUMIN 2.6 g/dl (3.4-5.0); ANION GAP 9 (8-16); BLOOD UREA NITROGEN 26 mg/dL (7-18); CALCIUM 7.7 mg/dL (8.5-10.1); CHLORIDE 105 mmol/L (98-107); CO2 26 mmol/L (21-32); GLUCOSE,RANDOM 113 mg/dL (74-106); MAGNESIUM 1.9 mg/dL (1.8-2.4); POTASSIUM 3.5 mmol/L (3.5-5.1); SGOT/AST 21 U/L (15-37); SGPT/ALT 14 U/L (12-78); SODIUM 140 mmol/L (136-145)
[2017-07-02 07:59] LABS: ALK PHOS 60 U/L (45-117); BILIRUBIN,TOTAL 8.8 mg/dL (0.2-1.0); INR 2.42 (0.82-1.09); PROTHROMBIN TIME (PATIENT) 27.3 SEC (9.98-11.88); TOT PROT 5.4 g/dl (6.4-8.2)
[2017-07-02] MEDS: SPIRONOLACTONE 25 MG TABLET (FP) PO SCH ×2 (10:39→21:54)
[2017-07-02] MEDS: LIDOCAINE 5% TOPICAL PATCH TP SCH (10:40)
[2017-07-02] MEDS: MIDODRINE HCL 5 MG TABLET PO SCH ×2 (10:40→18:02)
[2017-07-02] MEDS: RIFAXIMIN 550 MG TABLET (UD) PO SCH ×2 (10:40→21:56)
[2017-07-02] MEDS: FUROSEMIDE 40 MG TABLET (FP) PO SCH (10:40)
[2017-07-02] MEDS: MAGNESIUM OXIDE 400 MG TABLET (FP) PO SCH ×2 (10:40→21:56)
[2017-07-02] MEDS: METHYL SALICYLATE/MENTHOL OINT 30 GM TUBE TP SCH ×2 (10:41→21:55)
[2017-07-02] MEDS ORDERED: FUROSEMIDE 40 MG/4 ML INJECTABLE VIAL IVPUSH SCH (11:40)
[2017-07-02] MEDS ORDERED: PHYTONADIONE 10 MG/1 ML AMP SQ ONE (11:49)
[2017-07-02 16:58] LABS: INR 2.09 (0.82-1.09); PROTHROMBIN TIME (PATIENT) 23.6 SEC (9.98-11.88)
--- NOTE | 2017-07-02 18:35 | PN ---
Progress Note, Physician History of Present Illness: Pt seen and examined at bedside. He complains of worsening ascites. He refused diuretics. - Current Medication List Current Medications: Active Medications Furosemide (Lasix -) 40 mg PO DAILY [facility] Last Admin: 07/02/17 10:40 Dose: Not Given Hydroxyzine HCl (Atarax -) 50 mg PO HS PRN PRN Reason: INSOMNIA Lidocaine (Lidoderm Patch -) 1 patch TP DAILY [facility] Last Admin: 07/02/17 10:40 Dose: Not Given Magnesium Oxide (Mag-Ox -) 400 mg PO BID [facility] Last Admin: 07/02/17 10:40 Dose: Not Given Methyl Salicylate (Eliazar-Nettles -) 1 applic TP BID [facility] Last Admin: 07/02/17 10:41 Dose: Not Given Midodrine (Proamatine -) 7.5 mg PO BID-MID [facility] Last Admin: 07/02/17 18:02 Dose: 7.5 mg Miscellaneous (Lidoderm Patch Removal) 1 each MC DAILY@2200 [facility] Last Admin: 07/01/17 21:56 Dose: Not Given Octreotide Acetate (Sandostatin -) 100 mcg SQ TID [facility] Last Admin: 07/02/17 16:12 Dose: Not Given Rifaximin (Xifaxan -) 550 mg PO BID [facility] Last Admin: 07/02/17 10:40 Dose: Not Given Spironolactone (Aldactone -) 75 mg PO BID [facility] Last Admin: 07/02/17 10:39 Dose: Not Given - Objective Vital Signs: Vital Signs Temperature 99.0 F 07/02/17 17:44 Pulse Rate 69 07/02/17 17:44 Respiratory Rate 18 07/02/17 17:44 Blood Pressure 107/73 07/02/17 17:44 O2 Sat by Pulse Oximetry (%) 97 06/30/17 21:00 Constitutional: Yes: Calm Eyes: Yes: Sclera Icterus HENT: Yes: Atraumatic Neck: Yes: Supple Cardiovascular: Yes: S1, S2 Respiratory: Yes: CTA Bilaterally Gastrointestinal: Yes: Ascites Genitourinary: Yes: WNL Musculoskeletal: Yes: WNL Edema: Yes Edema: LLE: 2+, RLE: 2+ Integumentary: Yes: Jaundice Neurological: Yes: Oriented Psychiatric: Yes: Oriented Labs: CBC, BMP 07/02/17 06:40 07/02/17 06:40 INR, PTT INR 2.09 (0.82-1.09) H 07/02/17 15:00 Problem List - Problems (1) Ascites Code(s): R18.8 - OTHER ASCITES (2) Fever Code(s): R50.9 - FEVER, UNSPECIFIED (3) Hepatorenal syndrome Code(s): K76.7 - HEPATORENAL SYNDROME (4) Liver failure Code(s): K72.90 - HEPATIC FAILURE, UNSPECIFIED WITHOUT COMA Qualifiers: Liver failure chronicity: chronic (5) Abdominal pain Code(s): R10.9 - UNSPECIFIED ABDOMINAL PAIN Qualifiers: Abdominal location: generalized Qualified Code(s): R10.84 - Generalized abdominal pain Assessment/Plan Current Medications Generic Name Dose Route Start Last Admin Trade Name Freq PRN Reason Stop Dose Admin Furosemide 40 mg 06/28/17 10:00 07/02/17 10:40 Lasix - PO Not Given DAILY [facility] Hydroxyzine HCl 50 mg 06/28/17 11:54 Atarax - PO HS PRN INSOMNIA Lidocaine 1 patch 06/27/17 14:15 07/02/17 10:40 Lidoderm Patch - TP Not Given DAILY [facility] Magnesium Oxide 400 mg 07/01/17 12:45 07/02/17 10:40 Mag-Ox - PO Not Given BID [facility] Methyl Salicylate 1 applic 06/25/17 22:00 07/02/17 10:41 Eliazar-Nettles - TP Not Given BID [facility] Midodrine 7.5 mg 06/26/17 18:00 07/02/17 18:02 Proamatine - PO 7.5 mg BID-MID [facility] Administration Miscellaneous 1 each 06/27/17 22:00 07/01/17 21:56 Lidoderm Patch Removal MC Not Given DAILY@2200 [facility] Octreotide Acetate 100 mcg 06/26/17 16:45 07/02/17 16:12 Sandostatin - SQ Not Given TID [facility] Rifaximin 550 mg 06/26/17 22:00 07/02/17 10:40 Xifaxan - PO Not Given BID [facility] Spironolactone 75 mg 06/30/17 15:50 07/02/17 10:39 Aldactone - PO Not Given BID [facility] Impression 1. ROJAS 2. liver cirrhosis 3. thrombocytopenia 4. hx etoh abuse 5. hx hematuria 6. anemia 7. pancytopenia 8. fluid overload 9. ascites 10. hepatorenal syndrome 11. hypotension 12. abdominal pain Plan - would continue diuretics, pt does not always take them - paracentesis in am - monitor lytes - compliance has made management more difficult - discussed compliance with salt and fluid intake - will follow Dr Melara
--- NOTE | 2017-07-02 19:11 | PN ---
Progress Note, Physician Chief Complaint: abdominal pain History of Present Illness: NAD, Seen by GI and renal worsening ascitis - Current Medication List Current Medications: Active Medications Furosemide (Lasix -) 40 mg PO DAILY [facility] Last Admin: 07/02/17 10:40 Dose: Not Given Hydroxyzine HCl (Atarax -) 50 mg PO HS PRN PRN Reason: INSOMNIA Lidocaine (Lidoderm Patch -) 1 patch TP DAILY [facility] Last Admin: 07/02/17 10:40 Dose: Not Given Magnesium Oxide (Mag-Ox -) 400 mg PO BID [facility] Last Admin: 07/02/17 10:40 Dose: Not Given Methyl Salicylate (Eliazar-Nettles -) 1 applic TP BID [facility] Last Admin: 07/02/17 10:41 Dose: Not Given Midodrine (Proamatine -) 7.5 mg PO BID-MID [facility] Last Admin: 07/02/17 18:02 Dose: 7.5 mg Miscellaneous (Lidoderm Patch Removal) 1 each MC DAILY@2200 [facility] Last Admin: 07/01/17 21:56 Dose: Not Given Octreotide Acetate (Sandostatin -) 100 mcg SQ TID [facility] Last Admin: 07/02/17 16:12 Dose: Not Given Rifaximin (Xifaxan -) 550 mg PO BID [facility] Last Admin: 07/02/17 10:40 Dose: Not Given Spironolactone (Aldactone -) 75 mg PO BID [facility] Last Admin: 07/02/17 10:39 Dose: Not Given - Objective Vital Signs: Vital Signs Temperature 99.0 F 07/02/17 17:44 Pulse Rate 69 07/02/17 17:44 Respiratory Rate 18 07/02/17 17:44 Blood Pressure 107/73 07/02/17 17:44 O2 Sat by Pulse Oximetry (%) 97 06/30/17 21:00 Constitutional: Yes: Well Nourished, No Distress, Calm Respiratory: Yes: Regular Gastrointestinal: Yes: Normal Bowel Sounds, Ascites Musculoskeletal: Yes: WNL Extremities: Yes: WNL Edema: Yes Edema: LLE: 3+, RLE: 3+ Peripheral Pulses WNL: Yes Neurological: Yes: Alert, Oriented Psychiatric: Yes: Alert, Oriented Labs: CBC, BMP 07/02/17 06:40 07/02/17 06:40 INR, PTT INR 2.09 (0.82-1.09) H 07/02/17 15:00 Problem List - Problems (1) Ascites Assessment/Plan: 2/2 to chronic liver disease -paracentesis once INR below 2.0 Code(s): R18.8 - OTHER ASCITES (2) Hepatorenal syndrome Assessment/Plan: -seen by nephrology Code(s): K76.7 - HEPATORENAL SYNDROME (3) Liver failure Assessment/Plan: -seen by GI -On transplant list at [facility] -refuses to go to [facility] Code(s): K72.90 - HEPATIC FAILURE, UNSPECIFIED WITHOUT COMA Qualifiers: Liver failure chronicity: chronic (4) Abdominal pain Assessment/Plan: -improved -mild Code(s): R10.9 - UNSPECIFIED ABDOMINAL PAIN Qualifiers: Abdominal location: generalized Qualified Code(s): R10.84 - Generalized abdominal pain (5) Alcohol abuse Code(s): F10.10 - ALCOHOL ABUSE, UNCOMPLICATED (6) Anemia Assessment/Plan: threshold 7.0/22.0 monitor trend Code(s): D64.9 - ANEMIA, UNSPECIFIED Assessment/Plan see problem list
[2017-07-02] MEDS: LIDOCAINE PATCH REMOVAL MC SCH (21:56)
[2017-07-03] MEDS: OCTREOTIDE ACETATE 100 MCG/1 ML SQ SCH ×3 (06:25→22:08)
[2017-07-03 07:27] LABS: INR 2.43 (0.82-1.09); PROTHROMBIN TIME (PATIENT) 27.5 SEC (9.98-11.88)
[2017-07-03 07:49] LABS: ALBUMIN 2.6 g/dl (3.4-5.0); ALK PHOS 59 U/L (45-117); ANION GAP 8 (8-16); BILIRUBIN,TOTAL 8.8 mg/dL (0.2-1.0); BLOOD UREA NITROGEN 24 mg/dL (7-18); CALCIUM 7.7 mg/dL (8.5-10.1); CHLORIDE 106 mmol/L (98-107); CO2 28 mmol/L (21-32); GLUCOSE,RANDOM 93 mg/dL (74-106); POTASSIUM 3.5 mmol/L (3.5-5.1); SGOT/AST 21 U/L (15-37); SGPT/ALT 16 U/L (12-78); SODIUM 142 mmol/L (136-145); TOT PROT 5.4 g/dl (6.4-8.2)
[2017-07-03 08:13] LABS: BASO % 0.8 % (0-2.0); EOS % 2.3 % (0-4.5); HEMATOCRIT 21.9 % (35.4-49); HEMOGLOBIN 7.5 GM/dL (11.7-16.9); LYMPH % 16.5 % (8-40); MCH 35.6 pg (25.7-33.7); MCHC 34.2 g/dl (32.0-35.9); MEAN CELL VOLUME 104.2 fl (80-96); MEAN PLT VOLUME 7.8 fl (7.5-11.1); MONO % 15.5 % (3.8-10.2); NEUT % 64.9 % (42.8-82.8); PLATELET COUNT 49 K/MM3 (134-434); RDW 19.5 % (11.9-15.9); WHITE BLOOD COUNT 2.2 K/mm3 (4.0-10.0)
[2017-07-03 08:22] LABS: BILIRUBIN,DIRECT 3.8 mg/dL (0.0-0.2)
--- NOTE | 2017-07-03 09:28 | PN ---
Progress Note, Physician History of Present Illness: Tens ascites. Hypocagulable state. No events. MELD 25 - Current Medication List Current Medications: Active Medications Furosemide (Lasix -) 40 mg PO DAILY [facility] Last Admin: 07/02/17 10:40 Dose: Not Given Hydroxyzine HCl (Atarax -) 50 mg PO HS PRN PRN Reason: INSOMNIA Lidocaine (Lidoderm Patch -) 1 patch TP DAILY [facility] Last Admin: 07/02/17 10:40 Dose: Not Given Magnesium Oxide (Mag-Ox -) 400 mg PO BID [facility] Last Admin: 07/02/17 21:56 Dose: Not Given Methyl Salicylate (Eliazar-Nettles -) 1 applic TP BID [facility] Last Admin: 07/02/17 21:55 Dose: Not Given Midodrine (Proamatine -) 7.5 mg PO BID-MID [facility] Last Admin: 07/02/17 18:02 Dose: 7.5 mg Miscellaneous (Lidoderm Patch Removal) 1 each MC DAILY@2200 [facility] Last Admin: 07/02/17 21:56 Dose: Not Given Octreotide Acetate (Sandostatin -) 100 mcg SQ TID [facility] Last Admin: 07/03/17 06:25 Dose: 100 mcg Rifaximin (Xifaxan -) 550 mg PO BID [facility] Last Admin: 07/02/17 21:56 Dose: Not Given Spironolactone (Aldactone -) 75 mg PO BID [facility] Last Admin: 07/02/17 21:54 Dose: 75 mg - Objective Vital Signs: Vital Signs Temperature 98.4 F 07/03/17 05:56 Pulse Rate 69 07/03/17 05:56 Respiratory Rate 20 07/03/17 05:56 Blood Pressure 98/65 07/03/17 05:56 O2 Sat by Pulse Oximetry (%) 96 07/02/17 21:00 Constitutional: Yes: No Distress, Calm Eyes: Yes: Sclera Icterus Gastrointestinal: Yes: Ascites, Distention. No: Rectal Bleeding, Tenderness, Vomiting Neurological: Yes: Alert, Oriented. No: Confusion, Lethargy, Tremors Labs: CBC, BMP 07/03/17 06:45 07/03/17 06:45 INR, PTT INR 2.43 (0.82-1.09) H 07/03/17 06:45 Abnormal Lab Results 07/02/17 07/03/17 07/03/17 15:00 06:45 06:45 WBC 2.2 L RBC 2.10 L Hgb 7.5 L Hct 21.9 L MCV 104.2 H MCH 35.6 H RDW 19.5 H Plt Count 49 L Monocytes % 15.5 H PT with INR 23.60 H 27.50 H INR 2.09 H 2.43 H BUN Calcium Total Bilirubin Direct Bilirubin Total Protein Albumin 07/03/17 06:45 WBC RBC Hgb Hct MCV MCH RDW Plt Count Monocytes % PT with INR INR BUN 24 H Calcium 7.7 L Total Bilirubin 8.8 H Direct Bilirubin 3.8 H Total Protein 5.4 L Albumin 2.6 L Problem List - Problems (1) Ascites Code(s): R18.8 - OTHER ASCITES (2) Fever Code(s): R50.9 - FEVER, UNSPECIFIED (3) Hepatorenal syndrome Code(s): K76.7 - HEPATORENAL SYNDROME (4) Liver failure Code(s): K72.90 - HEPATIC FAILURE, UNSPECIFIED WITHOUT COMA Qualifiers: Liver failure chronicity: chronic (5) Abdominal pain Code(s): R10.9 - UNSPECIFIED ABDOMINAL PAIN Qualifiers: Abdominal location: generalized Qualified Code(s): R10.84 - Generalized abdominal pain (6) Alcohol abuse Code(s): F10.10 - ALCOHOL ABUSE, UNCOMPLICATED (7) Cirrhosis of liver with ascites Code(s): K74.60 - UNSPECIFIED CIRRHOSIS OF LIVER Qualifiers: Hepatic cirrhosis type: alcoholic cirrhosis Qualified Code(s): K70.31 - Alcoholic cirrhosis of liver with ascites Assessment/Plan MELD 25 Not encephalopathic Midodrine, Octreotide Rifaximine 2 mg Na diet/fluid restriction Paracentesis, therapeutic
[2017-07-03] MEDS ORDERED: PT OWN MED DRAWER 7, Y5N ONE ×2 (10:09→20:23)
[2017-07-03] MEDS: FUROSEMIDE 40 MG TABLET (FP) PO SCH (10:21)
[2017-07-03] MEDS: METHYL SALICYLATE/MENTHOL OINT 30 GM TUBE TP SCH ×2 (10:21→22:09)
[2017-07-03] MEDS: SPIRONOLACTONE 25 MG TABLET (FP) PO SCH ×2 (10:21→22:08)
[2017-07-03] MEDS: LIDOCAINE 5% TOPICAL PATCH TP SCH (10:21)
[2017-07-03] MEDS: MAGNESIUM OXIDE 400 MG TABLET (FP) PO SCH ×2 (10:22→22:10)
[2017-07-03] MEDS: MIDODRINE HCL 5 MG TABLET PO SCH ×2 (10:22→17:25)
[2017-07-03] MEDS: RIFAXIMIN 550 MG TABLET (UD) PO SCH ×2 (10:22→22:10)
[2017-07-03] MEDS ORDERED: PHYTONADIONE 10 MG/1 ML AMP SQ ONE (10:43)
[2017-07-03] MEDS ORDERED: FUROSEMIDE 40 MG/4 ML INJECTABLE VIAL IVPUSH SCH (10:45)
[2017-07-03] MEDS ORDERED: FUROSEMIDE 40 MG/4 ML INJECTABLE VIAL IVPUSH ONE (10:47)
--- NOTE | 2017-07-03 10:50 | PN ---
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 - Current Medication List Current Medications: Active Medications Furosemide (Lasix Injection -) 40 mg IVPUSH ONCE ONE Stop: 07/03/17 10:48 Furosemide (Lasix Injection -) 40 mg IVPUSH DAILY [facility] Hydroxyzine HCl (Atarax -) 50 mg PO HS PRN PRN Reason: INSOMNIA Lidocaine (Lidoderm Patch -) 1 patch TP DAILY [facility] Last Admin: 07/03/17 10:21 Dose: Not Given Magnesium Oxide (Mag-Ox -) 400 mg PO BID [facility] Last Admin: 07/03/17 10:22 Dose: Not Given Methyl Salicylate (Eliazar-Nettles -) 1 applic TP BID [facility] Last Admin: 07/03/17 10:21 Dose: Not Given Midodrine (Proamatine -) 7.5 mg PO BID-MID [facility] Last Admin: 07/03/17 10:22 Dose: 7.5 mg Miscellaneous (Lidoderm Patch Removal) 1 each MC DAILY@2200 [facility] Last Admin: 07/02/17 21:56 Dose: Not Given Octreotide Acetate (Sandostatin -) 100 mcg SQ TID [facility] Last Admin: 07/03/17 06:25 Dose: 100 mcg Phytonadione ([place] Mephy[place] Injection -) 5 mg SQ ONCE ONE Stop: 07/03/17 10:44 Rifaximin (Xifaxan -) 550 mg PO BID [facility] Last Admin: 07/03/17 10:22 Dose: Not Given Spironolactone (Aldactone -) 75 mg PO BID [facility] Last Admin: 07/03/17 10:21 Dose: 75 mg - Objective Vital Signs: Vital Signs Temperature 98.0 F 07/03/17 08:45 Pulse Rate 69 07/03/17 08:45 Respiratory Rate 20 07/03/17 08:45 Blood Pressure 103/66 07/03/17 08:45 O2 Sat by Pulse Oximetry (%) 96 07/02/17 21:00 Constitutional: Yes: Well Nourished, No Distress, Calm Cardiovascular: Yes: Regular Rate and Rhythm Respiratory: Yes: Regular Gastrointestinal: Yes: Ascites Musculoskeletal: Yes: WNL Extremities: Yes: WNL Edema: Yes Edema: LLE: 3+, RLE: 3+ Peripheral Pulses WNL: Yes Neurological: Yes: Alert, Oriented Psychiatric: Yes: Alert, Oriented Labs: CBC, BMP 07/03/17 06:45 07/03/17 06:45 INR, PTT INR 2.43 (0.82-1.09) H 07/03/17 06:45 Problem List - Problems (1) Ascites Assessment/Plan: 2/ to chronic liver disease -paracentesis once INR below 2.0 Code(s): R18.8 - OTHER ASCITES (2) Hepatorenal syndrome Assessment/Plan: -seen by nephrology Code(s): K76.7 - HEPATORENAL SYNDROME (3) Liver failure Assessment/Plan: -seen by GI -On transplant list at [facility] -refuses to go to [facility] Code(s): K72.90 - HEPATIC FAILURE, UNSPECIFIED WITHOUT COMA Qualifiers: Liver failure chronicity: chronic (4) Abdominal pain Assessment/Plan: -improved -mild Code(s): R10.9 - UNSPECIFIED ABDOMINAL PAIN Qualifiers: Abdominal location: generalized Qualified Code(s): R10.84 - Generalized abdominal pain (5) Alcohol abuse Code(s): F10.10 - ALCOHOL ABUSE, UNCOMPLICATED (6) Anemia Assessment/Plan: threshold 7.0/22.0 monitor trend Code(s): D64.9 - ANEMIA, UNSPECIFIED Assessment/Plan see problem list
--- NOTE | 2017-07-03 14:56 | PN ---
Progress Note, Physician History of Present Illness: Pt seen and examined at bedside. He is awake and alert. He denies shortness of breath. He complains of discomfort from ascites. - Current Medication List Current Medications: Active Medications Furosemide (Lasix Injection -) 40 mg IVPUSH DAILY [facility] Hydroxyzine HCl (Atarax -) 50 mg PO HS PRN PRN Reason: INSOMNIA Lidocaine (Lidoderm Patch -) 1 patch TP DAILY [facility] Last Admin: 07/03/17 10:21 Dose: Not Given Magnesium Oxide (Mag-Ox -) 400 mg PO BID [facility] Last Admin: 07/03/17 10:22 Dose: Not Given Methyl Salicylate (Eliazar-Nettles -) 1 applic TP BID [facility] Last Admin: 07/03/17 10:21 Dose: Not Given Midodrine (Proamatine -) 7.5 mg PO BID-MID [facility] Last Admin: 07/03/17 10:22 Dose: 7.5 mg Miscellaneous (Lidoderm Patch Removal) 1 each MC DAILY@2200 [facility] Last Admin: 07/02/17 21:56 Dose: Not Given Octreotide Acetate (Sandostatin -) 100 mcg SQ TID [facility] Last Admin: 07/03/17 14:46 Dose: 100 mcg Rifaximin (Xifaxan -) 550 mg PO BID [facility] Last Admin: 07/03/17 10:22 Dose: Not Given Spironolactone (Aldactone -) 75 mg PO BID [facility] Last Admin: 07/03/17 10:21 Dose: 75 mg - Objective Vital Signs: Vital Signs Temperature 97.2 F L 07/03/17 14:34 Pulse Rate 69 07/03/17 14:34 Respiratory Rate 20 07/03/17 14:34 Blood Pressure 110/64 07/03/17 14:34 O2 Sat by Pulse Oximetry (%) 96 07/03/17 08:45 Constitutional: Yes: Calm Eyes: Yes: Conjunctiva Clear HENT: Yes: Atraumatic Neck: Yes: Supple Cardiovascular: Yes: S1, S2 Respiratory: Yes: CTA Bilaterally Gastrointestinal: Yes: Ascites Musculoskeletal: Yes: WNL Edema: Yes (improving) Edema: LLE: 2+, RLE: 2+ Neurological: Yes: Oriented Psychiatric: Yes: Oriented Labs: CBC, BMP 07/03/17 06:45 07/03/17 06:45 INR, PTT INR 2.43 (0.82-1.09) H 07/03/17 06:45 Problem List - Problems (1) Ascites Code(s): R18.8 - OTHER ASCITES (2) Fever Code(s): R50.9 - FEVER, UNSPECIFIED (3) Hepatorenal syndrome Code(s): K76.7 - HEPATORENAL SYNDROME (4) Liver failure Code(s): K72.90 - HEPATIC FAILURE, UNSPECIFIED WITHOUT COMA Qualifiers: Liver failure chronicity: chronic (5) Abdominal pain Code(s): R10.9 - UNSPECIFIED ABDOMINAL PAIN Qualifiers: Abdominal location: generalized Qualified Code(s): R10.84 - Generalized abdominal pain Assessment/Plan Current Medications Generic Name Dose Route Start Last Admin Trade Name Freq PRN Reason Stop Dose Admin Furosemide 40 mg 07/03/17 15:00 Lasix Injection - IVPUSH DAILY [facility] Hydroxyzine HCl 50 mg 06/28/17 11:54 Atarax - PO HS PRN INSOMNIA Lidocaine 1 patch 06/27/17 14:15 07/03/17 10:21 Lidoderm Patch - TP Not Given DAILY [facility] Magnesium Oxide 400 mg 07/01/17 12:45 07/03/17 10:22 Mag-Ox - PO Not Given BID [facility] Methyl Salicylate 1 applic 06/25/17 22:00 07/03/17 10:21 Eliazar-Nettles - TP Not Given BID [facility] Midodrine 7.5 mg 06/26/17 18:00 07/03/17 10:22 Proamatine - PO 7.5 mg BID-MID [facility] Administration Miscellaneous 1 each 06/27/17 22:00 07/02/17 21:56 Lidoderm Patch Removal MC Not Given DAILY@2200 [facility] Octreotide Acetate 100 mcg 06/26/17 16:45 07/03/17 14:46 Sandostatin - SQ 100 mcg TID [facility] Administration Rifaximin 550 mg 06/26/17 22:00 07/03/17 10:22 Xifaxan - PO Not Given BID [facility] Spironolactone 75 mg 06/30/17 15:50 07/03/17 10:21 Aldactone - PO 75 mg BID [facility] Administration Impression 1. ROJAS 2. liver cirrhosis 3. thrombocytopenia 4. hx etoh abuse 5. hx hematuria 6. anemia 7. pancytopenia 8. fluid overload 9. ascites 10. hepatorenal syndrome 11. hypotension 12. abdominal pain Plan - lower extremity edema is improving - increase spironolactone to 100 bid - repeat labs in am - paracentesis in am - monitor lytes - discussed compliance with salt and fluid intake - will follow Dr Melara
[2017-07-03 16:20] LABS: INR 2.09 (0.82-1.09); PROTHROMBIN TIME (PATIENT) 23.6 SEC (9.98-11.88)
[2017-07-03] MEDS: FUROSEMIDE 40 MG/4 ML INJECTABLE VIAL IVPUSH SCH (16:21)
[2017-07-03] MEDS: LIDOCAINE PATCH REMOVAL MC SCH (22:10)
[2017-07-04] MEDS: OCTREOTIDE ACETATE 100 MCG/1 ML SQ SCH (06:40)
[2017-07-04] MEDS ORDERED: PT OWN MED DRAWER 7, Y5N ONE ×2 (09:13→11:58)
[2017-07-04] MEDS: SPIRONOLACTONE 25 MG TABLET (FP) PO SCH ×2 (09:23→22:03)
[2017-07-04] MEDS: MAGNESIUM OXIDE 400 MG TABLET (FP) PO SCH ×2 (09:23→22:03)
[2017-07-04] MEDS: MIDODRINE HCL 5 MG TABLET PO SCH ×2 (09:24→17:15)
[2017-07-04] MEDS: RIFAXIMIN 550 MG TABLET (UD) PO SCH ×2 (09:24→22:04)
[2017-07-04] MEDS: LIDOCAINE 5% TOPICAL PATCH TP SCH (09:25)
[2017-07-04] MEDS: METHYL SALICYLATE/MENTHOL OINT 30 GM TUBE TP SCH ×2 (09:25→22:03)
[2017-07-04] MEDS: FUROSEMIDE 40 MG/4 ML INJECTABLE VIAL IVPUSH SCH (09:25)
--- NOTE | 2017-07-04 09:52 | PN ---
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 Vit K 5 mg IVPB once - Current Medication List Current Medications: Active Medications Furosemide (Lasix Injection -) 40 mg IVPUSH DAILY [facility] Last Admin: 07/04/17 09:25 Dose: 40 mg Hydroxyzine HCl (Atarax -) 50 mg PO HS PRN PRN Reason: INSOMNIA Lidocaine (Lidoderm Patch -) 1 patch TP DAILY [facility] Last Admin: 07/04/17 09:25 Dose: Not Given Magnesium Oxide (Mag-Ox -) 400 mg PO BID [facility] Last Admin: 07/04/17 09:23 Dose: 400 mg Methyl Salicylate (Eliazar-Nettles -) 1 applic TP BID [facility] Last Admin: 07/04/17 09:25 Dose: Not Given Midodrine (Proamatine -) 7.5 mg PO BID-MID [facility] Last Admin: 07/04/17 09:24 Dose: 7.5 mg Miscellaneous (Lidoderm Patch Removal) 1 each MC DAILY@2200 [facility] Last Admin: 07/03/17 22:10 Dose: Not Given Octreotide Acetate (Sandostatin -) 100 mcg SQ TID [facility] Last Admin: 07/04/17 06:40 Dose: 100 mcg Rifaximin (Xifaxan -) 550 mg PO BID [facility] Last Admin: 07/04/17 09:24 Dose: 550 mg Spironolactone (Aldactone -) 75 mg PO BID [facility] Last Admin: 07/04/17 09:23 Dose: 75 mg - Objective Vital Signs: Vital Signs Temperature 99.2 F 07/04/17 05:00 Pulse Rate 69 07/04/17 05:00 Respiratory Rate 20 07/04/17 05:00 Blood Pressure 99/57 07/04/17 05:00 O2 Sat by Pulse Oximetry (%) 96 07/03/17 21:00 Constitutional: Yes: Well Nourished, No Distress, Calm Respiratory: Yes: Regular Gastrointestinal: Yes: Ascites Musculoskeletal: Yes: WNL Extremities: Yes: WNL Edema: Yes Edema: LLE: 3+, RLE: 3+ Peripheral Pulses WNL: Yes Neurological: Yes: Alert, Oriented Psychiatric: Yes: Alert, Oriented Labs: CBC, BMP 07/03/17 06:45 07/03/17 06:45 INR, PTT INR 2.09 (0.82-1.09) H 07/03/17 15:00 Problem List - Problems (1) Ascites Assessment/Plan: 2/2 to chronic liver disease -paracentesis today at 1 pm -vit K 5 mg IVPB now -Lasix IV Code(s): R18.8 - OTHER ASCITES (2) Hepatorenal syndrome Assessment/Plan: -seen by nephrology Code(s): K76.7 - HEPATORENAL SYNDROME (3) Liver failure Assessment/Plan: -seen by GI -On transplant list at [facility] -refuses to go to [facility] Code(s): K72.90 - HEPATIC FAILURE, UNSPECIFIED WITHOUT COMA Qualifiers: Liver failure chronicity: chronic (4) Abdominal pain Assessment/Plan: -no change -mild Code(s): R10.9 - UNSPECIFIED ABDOMINAL PAIN Qualifiers: Abdominal location: generalized Qualified Code(s): R10.84 - Generalized abdominal pain (5) Alcohol abuse Code(s): F10.10 - ALCOHOL ABUSE, UNCOMPLICATED (6) Anemia Assessment/Plan: threshold 7.0/22.0 monitor trend -repeat CBC/CMP today and in AM Code(s): D64.9 - ANEMIA, UNSPECIFIED (7) Thrombocytopenic Assessment/Plan: -received 2 units of plt yesterday and 1 unit today in AM -to receive 1 unit of plt prior to procedure around 12 Code(s): D69.6 - THROMBOCYTOPENIA, UNSPECIFIED Assessment/Plan see problem list
[2017-07-04] MEDS ORDERED: PHYTONADIONE 10 MG/1 ML AMP IVPB ONE (10:07)
[2017-07-04 11:00] LABS: BASO % 0.4 % (0-2.0); EOS % 2.3 % (0-4.5); HEMATOCRIT 23.8 % (35.4-49); HEMOGLOBIN 8.1 GM/dL (11.7-16.9); LYMPH % 11.7 % (8-40); MCHC 34.1 g/dl (32.0-35.9); MEAN CELL VOLUME 102.7 fl (80-96); MEAN PLT VOLUME 8.3 fl (7.5-11.1); MONO % 13.9 % (3.8-10.2); NEUT % 71.7 % (42.8-82.8); PLATELET COUNT 75 K/MM3 (134-434); RBC 2.32 M/mm3 (4.00-5.60); RDW 20.1 % (11.9-15.9); WHITE BLOOD COUNT 2.9 K/mm3 (4.0-10.0)
[2017-07-04 11:29] LABS: ALBUMIN 2.9 g/dl (3.4-5.0); ANION GAP 8 (8-16); BILIRUBIN,TOTAL 10.9 mg/dL (0.2-1.0); BLOOD UREA NITROGEN 25 mg/dL (7-18); CALCIUM 8.1 mg/dL (8.5-10.1); CHLORIDE 103 mmol/L (98-107); CO2 30 mmol/L (21-32); CREATININE 1.1 mg/dL (0.7-1.3); GLUCOSE,RANDOM 163 mg/dL (74-106); POTASSIUM 3.2 mmol/L (3.5-5.1); SGOT/AST 20 U/L (15-37); SGPT/ALT 16 U/L (12-78); SODIUM 141 mmol/L (136-145); TOT PROT 5.9 g/dl (6.4-8.2)
[2017-07-04 11:30] LABS: ALK PHOS 67 U/L (45-117)
--- NOTE | 2017-07-04 12:28 | PN ---
Progress Note, Physician History of Present Illness: Tens ascites. Hypocoagulable state. No events. Receiving FFP prior to paracentesis MELD 25 - Current Medication List Current Medications: Active Medications Furosemide (Lasix Injection -) 40 mg IVPUSH DAILY [facility] Last Admin: 07/04/17 09:25 Dose: 40 mg Hydroxyzine HCl (Atarax -) 50 mg PO HS PRN PRN Reason: INSOMNIA Lidocaine (Lidoderm Patch -) 1 patch TP DAILY [facility] Last Admin: 07/04/17 09:25 Dose: Not Given Magnesium Oxide (Mag-Ox -) 400 mg PO BID [facility] Last Admin: 07/04/17 09:23 Dose: 400 mg Methyl Salicylate (Eliazar-Nettles -) 1 applic TP BID [facility] Last Admin: 07/04/17 09:25 Dose: Not Given Midodrine (Proamatine -) 7.5 mg PO BID-MID [facility] Last Admin: 07/04/17 09:24 Dose: 7.5 mg Miscellaneous (Lidoderm Patch Removal) 1 each MC DAILY@2200 [facility] Last Admin: 07/03/17 22:10 Dose: Not Given Octreotide Acetate (Sandostatin -) 100 mcg SQ TID [facility] Last Admin: 07/04/17 06:40 Dose: 100 mcg Rifaximin (Xifaxan -) 550 mg PO BID [facility] Last Admin: 07/04/17 09:24 Dose: 550 mg Spironolactone (Aldactone -) 75 mg PO BID [facility] Last Admin: 07/04/17 09:23 Dose: 75 mg - Objective Vital Signs: Vital Signs Temperature 98.2 F 07/04/17 10:30 Pulse Rate 68 07/04/17 10:30 Respiratory Rate 17 07/04/17 10:30 Blood Pressure 114/74 07/04/17 10:30 O2 Sat by Pulse Oximetry (%) 93 L 07/04/17 09:30 Constitutional: Yes: No Distress, Calm, Cachectic, Pallor, Thin Eyes: Yes: Sclera Icterus Gastrointestinal: Yes: Ascites, Distention. No: Tenderness Neurological: Yes: Alert, Oriented. No: Asterixis, Ataxia, Confusion, Lethargy , Tremors Labs: CBC, BMP 07/04/17 10:35 07/04/17 10:35 INR, PTT INR 2.09 (0.82-1.09) H 07/03/17 15:00 CBCD WBC 2.9 K/mm3 (4.0-10.0) L D 07/04/17 10:35 RBC 2.32 M/mm3 (4.00-5.60) L 07/04/17 10:35 Hgb 8.1 GM/dL (11.7-16.9) L 07/04/17 10:35 Hct 23.8 % (35.4-49) L 07/04/17 10:35 MCV 102.7 fl (80-96) H 07/04/17 10:35 MCHC 34.1 g/dl (32.0-35.9) 07/04/17 10:35 RDW 20.1 % (11.9-15.9) H 07/04/17 10:35 Plt Count 75 K/MM3 (134-434) L D 07/04/17 10:35 MPV 8.3 fl (7.5-11.1) 07/04/17 10:35 CMP Sodium 141 mmol/L (136-145) 07/04/17 10:35 Potassium 3.2 mmol/L (3.5-5.1) L 07/04/17 10:35 Chloride 103 mmol/L (98-107) 07/04/17 10:35 Carbon Dioxide 30 mmol/L (21-32) 07/04/17 10:35 Anion Gap 8 (8-16) 07/04/17 10:35 BUN 25 mg/dL (7-18) H 07/04/17 10:35 Creatinine 1.1 mg/dL (0.7-1.3) 07/04/17 10:35 Creat Clearance w eGFR > 60 (>60) 07/04/17 10:35 Calcium 8.1 mg/dL (8.5-10.1) L 07/04/17 10:35 Total Bilirubin 10.9 mg/dL (0.2-1.0) H D 07/04/17 10:35 AST 20 U/L (15-37) 07/04/17 10:35 ALT 16 U/L (12-78) 07/04/17 10:35 Alkaline Phosphatase 67 U/L (45-117) 07/04/17 10:35 Total Protein 5.9 g/dl (6.4-8.2) L 07/04/17 10:35 Albumin 2.9 g/dl (3.4-5.0) L 07/04/17 10:35 Problem List - Problems (1) Ascites Code(s): R18.8 - OTHER ASCITES (2) Fever Code(s): R50.9 - FEVER, UNSPECIFIED (3) Hepatorenal syndrome Code(s): K76.7 - HEPATORENAL SYNDROME (4) Liver failure Code(s): K72.90 - HEPATIC FAILURE, UNSPECIFIED WITHOUT COMA Qualifiers: Liver failure chronicity: chronic (5) Abdominal pain Code(s): R10.9 - UNSPECIFIED ABDOMINAL PAIN Qualifiers: Abdominal location: generalized Qualified Code(s): R10.84 - Generalized abdominal pain (6) Alcohol abuse Code(s): F10.10 - ALCOHOL ABUSE, UNCOMPLICATED (7) Cirrhosis of liver with ascites Code(s): K74.60 - UNSPECIFIED CIRRHOSIS OF LIVER Qualifiers: Hepatic cirrhosis type: alcoholic cirrhosis Qualified Code(s): K70.31 - Alcoholic cirrhosis of liver with ascites Assessment/Plan MELD 25 Not encephalopathic Stop octreotide Rifaximine 2 mg Na diet/fluid restriction Paracentesis, therapeutic
--- NOTE | 2017-07-04 13:10 | PN ---
Progress Note, Physician History of Present Illness: Pt seen and examined at bedside. He is awake and alert. He is going for paracentesis today. - Current Medication List Current Medications: Active Medications Furosemide (Lasix Injection -) 40 mg IVPUSH DAILY [facility] Last Admin: 07/04/17 09:25 Dose: 40 mg Hydroxyzine HCl (Atarax -) 50 mg PO HS PRN PRN Reason: INSOMNIA Lidocaine (Lidoderm Patch -) 1 patch TP DAILY [facility] Last Admin: 07/04/17 09:25 Dose: Not Given Magnesium Oxide (Mag-Ox -) 400 mg PO BID [facility] Last Admin: 07/04/17 09:23 Dose: 400 mg Methyl Salicylate (Eliazar-Nettles -) 1 applic TP BID [facility] Last Admin: 07/04/17 09:25 Dose: Not Given Midodrine (Proamatine -) 7.5 mg PO BID-MID [facility] Last Admin: 07/04/17 09:24 Dose: 7.5 mg Miscellaneous (Lidoderm Patch Removal) 1 each MC DAILY@2200 [facility] Last Admin: 07/03/17 22:10 Dose: Not Given Rifaximin (Xifaxan -) 550 mg PO BID [facility] Last Admin: 07/04/17 09:24 Dose: 550 mg Spironolactone (Aldactone -) 75 mg PO BID [facility] Last Admin: 07/04/17 09:23 Dose: 75 mg - Objective Vital Signs: Vital Signs Temperature 98.2 F 07/04/17 10:30 Pulse Rate 68 07/04/17 10:30 Respiratory Rate 17 07/04/17 10:30 Blood Pressure 114/74 07/04/17 10:30 O2 Sat by Pulse Oximetry (%) 93 L 07/04/17 09:30 Constitutional: Yes: Calm Eyes: Yes: Sclera Icterus HENT: Yes: Atraumatic Neck: Yes: Supple Cardiovascular: Yes: S1, S2 Respiratory: Yes: CTA Bilaterally Gastrointestinal: Yes: Ascites Genitourinary: Yes: WNL Musculoskeletal: Yes: WNL, Other (has edema) Edema: Yes Edema: LLE: 2+, RLE: 2+ Neurological: Yes: Oriented Psychiatric: Yes: Oriented Labs: CBC, BMP 07/04/17 10:35 07/04/17 10:35 INR, PTT INR 2.09 (0.82-1.09) H 07/03/17 15:00 Problem List - Problems (1) Ascites Code(s): R18.8 - OTHER ASCITES (2) Fever Code(s): R50.9 - FEVER, UNSPECIFIED (3) Hepatorenal syndrome Code(s): K76.7 - HEPATORENAL SYNDROME (4) Liver failure Code(s): K72.90 - HEPATIC FAILURE, UNSPECIFIED WITHOUT COMA Qualifiers: Liver failure chronicity: chronic (5) Abdominal pain Code(s): R10.9 - UNSPECIFIED ABDOMINAL PAIN Qualifiers: Abdominal location: generalized Qualified Code(s): R10.84 - Generalized abdominal pain Assessment/Plan Current Medications Generic Name Dose Route Start Last Admin Trade Name Freq PRN Reason Stop Dose Admin Furosemide 40 mg 07/03/17 15:00 07/04/17 09:25 Lasix Injection - IVPUSH 40 mg DAILY [facility] Administration Hydroxyzine HCl 50 mg 06/28/17 11:54 Atarax - PO HS PRN INSOMNIA Lidocaine 1 patch 06/27/17 14:15 07/04/17 09:25 Lidoderm Patch - TP Not Given DAILY [facility] Magnesium Oxide 400 mg 07/01/17 12:45 07/04/17 09:23 Mag-Ox - PO 400 mg BID [facility] Administration Methyl Salicylate 1 applic 06/25/17 22:00 07/04/17 09:25 Eliazar-Nettles - TP Not Given BID [facility] Midodrine 7.5 mg 06/26/17 18:00 07/04/17 09:24 Proamatine - PO 7.5 mg BID-MID [facility] Administration Miscellaneous 1 each 06/27/17 22:00 07/03/17 22:10 Lidoderm Patch Removal MC Not Given DAILY@2200 [facility] Rifaximin 550 mg 06/26/17 22:00 07/04/17 09:24 Xifaxan - PO 550 mg BID [facility] Administration Spironolactone 75 mg 06/30/17 15:50 07/04/17 09:23 Aldactone - PO 75 mg BID [facility] Administration Impression 1. ROJAS 2. liver cirrhosis 3. thrombocytopenia 4. hx etoh abuse 5. hx hematuria 6. anemia 7. pancytopenia 8. fluid overload 9. ascites 10. hepatorenal syndrome 11. hypotension 12. abdominal pain Plan - paracentesis today - increase aldactone to 100 bid - repalce potassium - check mag - discussed with attending - discussed compliance with salt and fluid intake - will follow Dr Melara
[2017-07-04] MEDS ORDERED: POTASSIUM CHLORIDE ORAL LIQUID 20 MEQ/15 ML PO ONE ×2 (13:12→16:45)
[2017-07-04] MEDS: LIDOCAINE PATCH REMOVAL MC SCH (22:03)
[2017-07-05] MEDS ORDERED: MORPHINE SULFATE 10 MG/1 ML *VIAL IVPUSH ONE (05:06)
[2017-07-05 07:41] LABS: BASO % 0.4 % (0-2.0); EOS % 2.1 % (0-4.5); HEMATOCRIT 23.7 % (35.4-49); HEMOGLOBIN 8.1 GM/dL (11.7-16.9); LYMPH % 11.7 % (8-40); MCH 35.1 pg (25.7-33.7); MCHC 34.3 g/dl (32.0-35.9); MEAN CELL VOLUME 102.3 fl (80-96); MEAN PLT VOLUME 8.3 fl (7.5-11.1); NEUT % 75.8 % (42.8-82.8); PLATELET COUNT 65 K/MM3 (134-434); RBC 2.31 M/mm3 (4.00-5.60)
[2017-07-05 08:38] LABS: ALBUMIN 2.6 g/dl (3.4-5.0); ANION GAP 8 (8-16); BLOOD UREA NITROGEN 23 mg/dL (7-18); CALCIUM 8.3 mg/dL (8.5-10.1); CHLORIDE 105 mmol/L (98-107); CO2 30 mmol/L (21-32); GLUCOSE,RANDOM 105 mg/dL (74-106); MAGNESIUM 1.8 mg/dL (1.8-2.4); POTASSIUM 3.5 mmol/L (3.5-5.1); SODIUM 143 mmol/L (136-145)
[2017-07-05 08:43] LABS: ALK PHOS 61 U/L (45-117); CREATININE 0.9 mg/dL (0.7-1.3); SGOT/AST 19 U/L (15-37); SGPT/ALT 15 U/L (12-78); TOT PROT 5.4 g/dl (6.4-8.2)
[2017-07-05] MEDS ORDERED: PT OWN MED DRAWER 7, Y5N ONE (10:19)
[2017-07-05] MEDS: FUROSEMIDE 40 MG/4 ML INJECTABLE VIAL IVPUSH SCH (10:27)
[2017-07-05] MEDS: MAGNESIUM OXIDE 400 MG TABLET (FP) PO SCH (10:32)
[2017-07-05] MEDS: SPIRONOLACTONE 25 MG TABLET (FP) PO SCH (10:32)
[2017-07-05] MEDS: LIDOCAINE 5% TOPICAL PATCH TP SCH (10:33)
[2017-07-05] MEDS: METHYL SALICYLATE/MENTHOL OINT 30 GM TUBE TP SCH (10:33)
[2017-07-05] MEDS: MIDODRINE HCL 5 MG TABLET PO SCH (10:33)
[2017-07-05] MEDS: RIFAXIMIN 550 MG TABLET (UD) PO SCH (10:34)
--- NOTE | 2017-07-05 11:01 | PN ---
Progress Note, Physician Chief Complaint: abdominal pain History of Present Illness: NAD, had paracentesis yesterday ascitis improved appetite improved complained of abdominal cramping/pain overnight, received morphine, felt better , could be post surgical pain no pain at this time. strictly encouraged to follow 2 gm sodium diet - Current Medication List Current Medications: Active Medications Furosemide (Lasix Injection -) 40 mg IVPUSH DAILY [facility] Last Admin: 07/05/17 10:27 Dose: 40 mg Hydroxyzine HCl (Atarax -) 50 mg PO HS PRN PRN Reason: INSOMNIA Lidocaine (Lidoderm Patch -) 1 patch TP DAILY [facility] Last Admin: 07/05/17 10:33 Dose: Not Given Magnesium Oxide (Mag-Ox -) 400 mg PO BID [facility] Last Admin: 07/05/17 10:32 Dose: 400 mg Methyl Salicylate (Eliazar-Nettles -) 1 applic TP BID [facility] Last Admin: 07/05/17 10:33 Dose: Not Given Midodrine (Proamatine -) 7.5 mg PO BID-MID [facility] Last Admin: 07/05/17 10:33 Dose: 7.5 mg Miscellaneous (Lidoderm Patch Removal) 1 each MC DAILY@2200 [facility] Last Admin: 07/04/17 22:03 Dose: Not Given Rifaximin (Xifaxan -) 550 mg PO BID [facility] Last Admin: 07/05/17 10:34 Dose: 550 mg Spironolactone (Aldactone -) 75 mg PO BID [facility] Last Admin: 07/05/17 10:32 Dose: 75 mg - Objective Vital Signs: Vital Signs Temperature 97.8 F 07/05/17 05:00 Pulse Rate 70 07/05/17 05:00 Respiratory Rate 20 07/05/17 05:00 Blood Pressure 110/70 07/05/17 05:00 O2 Sat by Pulse Oximetry (%) 96 07/04/17 20:42 Constitutional: Yes: Well Nourished, No Distress, Calm Cardiovascular: Yes: Regular Rate and Rhythm Respiratory: Yes: Regular Gastrointestinal: Yes: Normal Bowel Sounds, Soft, Ascites (improved) Edema: Yes Edema: LLE: 3+, RLE: 3+ Peripheral Pulses WNL: Yes Neurological: Yes: Alert, Oriented Psychiatric: Yes: Alert, Oriented Labs: CBC, BMP 07/05/17 06:00 07/05/17 06:00 INR, PTT INR 2.09 (0.82-1.09) H 07/03/17 15:00 Problem List - Problems (1) Ascites Assessment/Plan: 2/2 to chronic liver disease improved -switch to PO lasix Code(s): R18.8 - OTHER ASCITES (2) Hepatorenal syndrome Assessment/Plan: -seen by nephrology Code(s): K76.7 - HEPATORENAL SYNDROME (3) Liver failure Assessment/Plan: -seen by GI -On transplant list at [facility] Code(s): K72.90 - HEPATIC FAILURE, UNSPECIFIED WITHOUT COMA Qualifiers: Liver failure chronicity: chronic (4) Abdominal pain Assessment/Plan: no pain at this time Code(s): R10.9 - UNSPECIFIED ABDOMINAL PAIN Qualifiers: Abdominal location: generalized Qualified Code(s): R10.84 - Generalized abdominal pain (5) Alcohol abuse Code(s): F10.10 - ALCOHOL ABUSE, UNCOMPLICATED (6) Anemia Assessment/Plan: threshold 7.0/22.0 monitor trend -stable at this time Code(s): D64.9 - ANEMIA, UNSPECIFIED (7) Thrombocytopenic Assessment/Plan: -mild drop -monitor CBC,CMP outpatient Code(s): D69.6 - THROMBOCYTOPENIA, UNSPECIFIED Assessment/Plan see problem list discharge home to f/u with PCP, nephrology and GI outpatient
[2017-07-05 15:12] VITALS: BP 102/61; PULSE 64; TEMP 97.9
--- NOTE | 2017-07-05 17:11 | PN ---
Progress Note, Physician History of Present Illness: Pt seen and examined at bedside He says his abdomen feels better. - Current Medication List Current Medications: Active Medications Furosemide (Lasix Injection -) 40 mg IVPUSH DAILY [facility] Last Admin: 07/05/17 10:27 Dose: 40 mg Hydroxyzine HCl (Atarax -) 50 mg PO HS PRN PRN Reason: INSOMNIA Lidocaine (Lidoderm Patch -) 1 patch TP DAILY [facility] Last Admin: 07/05/17 10:33 Dose: Not Given Magnesium Oxide (Mag-Ox -) 400 mg PO BID [facility] Last Admin: 07/05/17 10:32 Dose: 400 mg Methyl Salicylate (Eliazar-Nettles -) 1 applic TP BID [facility] Last Admin: 07/05/17 10:33 Dose: Not Given Midodrine (Proamatine -) 7.5 mg PO BID-MID [facility] Last Admin: 07/05/17 10:33 Dose: 7.5 mg Miscellaneous (Lidoderm Patch Removal) 1 each MC DAILY@2200 [facility] Last Admin: 07/04/17 22:03 Dose: Not Given Rifaximin (Xifaxan -) 550 mg PO BID [facility] Last Admin: 07/05/17 10:34 Dose: 550 mg Spironolactone (Aldactone -) 75 mg PO BID [facility] Last Admin: 07/05/17 10:32 Dose: 75 mg - Objective Vital Signs: Vital Signs Temperature 97.9 F 07/05/17 15:11 Pulse Rate 64 07/05/17 15:11 Respiratory Rate 18 07/05/17 15:11 Blood Pressure 102/61 07/05/17 15:11 O2 Sat by Pulse Oximetry (%) 94 L 07/05/17 09:00 Constitutional: Yes: Calm Eyes: Yes: Sclera Icterus HENT: Yes: Normocephalic Cardiovascular: Yes: S1, S2 Respiratory: Yes: CTA Bilaterally Gastrointestinal: Yes: Soft, Ascites Genitourinary: Yes: WNL Musculoskeletal: Yes: WNL Edema: Yes Edema: LLE: 2+, RLE: 2+ Neurological: Yes: Oriented Psychiatric: Yes: Oriented Labs: CBC, BMP 07/05/17 06:00 07/05/17 06:00 INR, PTT INR 2.09 (0.82-1.09) H 07/03/17 15:00 Problem List - Problems (1) Ascites Code(s): R18.8 - OTHER ASCITES (2) Fever Code(s): R50.9 - FEVER, UNSPECIFIED (3) Hepatorenal syndrome Code(s): K76.7 - HEPATORENAL SYNDROME (4) Liver failure Code(s): K72.90 - HEPATIC FAILURE, UNSPECIFIED WITHOUT COMA Qualifiers: Liver failure chronicity: chronic (5) Abdominal pain Code(s): R10.9 - UNSPECIFIED ABDOMINAL PAIN Qualifiers: Abdominal location: generalized Qualified Code(s): R10.84 - Generalized abdominal pain Assessment/Plan Current Medications Generic Name Dose Route Start Last Admin Trade Name Freq PRN Reason Stop Dose Admin Furosemide 40 mg 07/03/17 15:00 07/05/17 10:27 Lasix Injection - IVPUSH 40 mg DAILY [facility] Administration Hydroxyzine HCl 50 mg 06/28/17 11:54 Atarax - PO HS PRN INSOMNIA Lidocaine 1 patch 06/27/17 14:15 07/05/17 10:33 Lidoderm Patch - TP Not Given DAILY [facility] Magnesium Oxide 400 mg 07/01/17 12:45 07/05/17 10:32 Mag-Ox - PO 400 mg BID [facility] Administration Methyl Salicylate 1 applic 06/25/17 22:00 07/05/17 10:33 Eliazar-Nettles - TP Not Given BID [facility] Midodrine 7.5 mg 06/26/17 18:00 07/05/17 10:33 Proamatine - PO 7.5 mg BID-MID [facility] Administration Miscellaneous 1 each 06/27/17 22:00 07/04/17 22:03 Lidoderm Patch Removal MC Not Given DAILY@2200 [facility] Rifaximin 550 mg 06/26/17 22:00 07/05/17 10:34 Xifaxan - PO 550 mg BID [facility] Administration Spironolactone 75 mg 06/30/17 15:50 07/05/17 10:32 Aldactone - PO 75 mg BID [facility] Administration Impression 1. ROJAS 2. liver cirrhosis 3. thrombocytopenia 4. hx etoh abuse 5. hx hematuria 6. anemia 7. pancytopenia 8. fluid overload 9. ascites 10. hepatorenal syndrome 11. hypotension 12. abdominal pain Plan - cont diuretics - potassium is stable - will need outpt follow up - discussed fluid and salt compliance - will follow with GI as well - cont with spironolactone at 75 bid, pt needs to have his labs checked as outpt and diuretics titrated. This was explained to him. Dr Melara
== END 2017-07-05 17:26 | disposition home or self-care (01) | DRG 264 ==
LOC: JER 16:03 → JERBED 18:42 → J7W 21:45
PROVIDERS: ADMIT Internal Medicine; ATTEND Family Medicine
PROC: 0W9G3ZX Drainage of Peritoneal Cavity, Percutaneous Approach, Diagnostic (ICD-10-PCS; principal; 2017-06-25)
PROC: 30233N1 Transfusion of Nonautologous Red Blood Cells into Peripheral Vein, Percutaneous Approach (ICD-10-PCS; 2017-06-28)
PROC: 30233K1 Transfusion of Nonautologous Frozen Plasma into Peripheral Vein, Percutaneous Approach (ICD-10-PCS; 2017-07-02)
PROC: 30233R1 Transfusion of Nonautologous Platelets into Peripheral Vein, Percutaneous Approach (ICD-10-PCS; 2017-07-02)
PROC: 0W9G3ZX Drainage of Peritoneal Cavity, Percutaneous Approach, Diagnostic (ICD-10-PCS; 2017-07-04)
DX: K72.90 Hepatic failure, unspecified without coma (principal); K70.31 Alcoholic cirrhosis of liver with ascites; R21 Rash and other nonspecific skin eruption; K76.6 Portal hypertension; D64.9 Anemia, unspecified; K70.9 Alcoholic liver disease, unspecified; I85.10 Secondary esophageal varices without bleeding; F10.10 Alcohol abuse, uncomplicated; K76.7 Hepatorenal syndrome; R10.84 Generalized abdominal pain; N32.89 Other specified disorders of bladder; N17.9 Acute kidney failure, unspecified; D69.6 Thrombocytopenia, unspecified; I95.89 Other hypotension; E87.2 Acidosis; K76.89 Other specified diseases of liver; K80.80 Other cholelithiasis without obstruction; R60.1 Generalized edema; D70.9 Neutropenia, unspecified; R74.8 Abnormal levels of other serum enzymes; E87.70 Fluid overload, unspecified; Z91.14 Patient's other noncompliance with medication regimen
CPT/HCPCS: 36415; 36430; 36511; 71045-TC; 74176-TC; 76700-TC; 76942-TC; 80048; 80053; 81003; 81015; 82042; 82140; 82150; 82248; 82272; 82436; 82570; 82945; 83605; 83615; 83735; 84100; 84133; 84157; 84300; 85025; 85610; 85651; 85730; 86140; 86850; 86900; 86901; 86922; 87040; 87070; 87075; 87086; 87205; 87804; 89051; 93005; 93010; 99283-25; J1644; P9017; P9034; P9038; P9047; P9058

== ENCOUNTER 2017-07-20 10:59 | Inpatient (IN) | payer OTHER ==
[2017-07-20] MEDS ORDERED: morphine CARPU-JECT 2 MG/1 ML DISP.SYRIN IVPUSH ONE (11:52)
[2017-07-20] MEDS ORDERED: ONDANSETRON 4 MG/2 ML VIAL IVPUSH ONE (11:54)
--- NOTE | 2017-07-20 12:13 | PDOC ---
*Physical Exam - Vital Signs Last Vital Signs Temp Pulse Resp BP Pulse Ox 98.1 F 68 20 123/78 100 07/20/17 11:05 07/20/17 11:05 07/20/17 11:05 07/20/17 11:05 07/20/17 11:05 ED Treatment Course - LABORATORY CBC & Chemistry Diagram: 07/23/17 06:00 07/23/17 06:00 Medical Decision Making - Medical Decision Making 07/20/17 12:12 Pt seen by the Advanced Practice Provider under my direct supervision Ancillary studies reviewed I agree with plan as outlined by the Advanced Practice Provider IDA Rose *DC/Admit/Observation/Transfer Diagnosis at time of Disposition: Ascites, Total bilirubin, elevated - Referrals - Patient Instructions - Post Discharge Activity
[2017-07-20] MEDS ORDERED: MORPHINE SULFATE 10 MG/1 ML *VIAL ONE (12:15)
[2017-07-20] MEDS ORDERED: ONDANSETRON 4 MG/2 ML VIAL ONE (12:15)
--- NOTE | 2017-07-20 12:19 | PDOC ---
History of Present Illness - General Chief Complaint: Nausea/Vomiting Stated Complaint: ABD PAIN Time Seen by Provider: 07/20/17 11:17 History Source: Patient Exam Limitations: No Limitations - History of Present Illness Travel History: No Initial Comments: 07/20/17 12:15 47-year-old male presents to the ED with complaints of nausea vomiting and generalized abdominal pain for the past 3 days. Patient states has had this discomfort before and normally gets medication for nausea along with morphine. Patient states history of alcoholic cirrhosis with ascites who is currently on the liver transplant list with [facility] and was seen by his liver specialist yesterday felt patient needed to decrease his salt intake and eat bland food. Patient states did attempt to do the recommended but symptoms continued. Patient has no complaints of rash, change in bowel pattern, change in urine pattern, chest pain, shortness of breath rash, or radiation of pain. Quality: reports: moderate, cramping Abdominal Pain Onset Location: reports: generalized abdomen Aggravating Factors: improves with: None Alleviating Factors: improves with: None Past History - Travel Traveled outside of the country in the last 30 days: No - Past Medical History Allergies/Adverse Reactions: Allergies Allergy/AdvReac Type Severity Reaction Status Date / Time No Known Allergies Allergy Verified 07/20/17 11:05 Home Medications: Ambulatory Orders Carvedilol 3.125 mg PO BID 06/19/17 Furosemide [Lasix] 40 mg PO DAILY 06/19/17 Magnesium Oxide [Mag-Ox -] 400 mg PO BID #60 tablet 07/05/17 Midodrine HCl [Proamatine -] 7.5 mg PO BID-MID #45 tablet 07/05/17 Rifaximin [Xifaxan -] 550 mg PO BID #60 tablet 07/05/17 Spironolactone [Aldactone -] 75 mg PO BID #180 tablet 07/05/17 hydrOXYzine HCL [Atarax -] 50 mg PO HS PRN #60 tablet 07/05/17 Anemia: Yes Asthma: No Cancer: No Cardiac Disorders: No CVA: No COPD: No CHF: No DVT: No Dementia: No Diabetes: No GI Disorders: No Disorders: No HTN: Yes (portal hypertension) Hypercholesterolemia: No Liver Disease: Yes (ALCOHOLIC CIRRHOSIS OF LIVER, ESOPHAGEAL VARICES) Seizures: No Thyroid Disease: No - Surgical History Abdominal Surgery: No Appendectomy: No Cardiac Surgery: No Cholecystectomy: No Lung Surgery: No Neurologic Surgery: No Orthopedic Surgery: No - Immunization History Immunization Up to Date: No - Suicide/Smoking/Psychosocial Hx Smoking Status: No Smoking History: Never smoked Have you smoked in the past 12 months: No Number of Cigarettes Smoked Daily: 0 Hx Alcohol Use: Yes (STOPPED LAST YEAR) Drug/Substance Use Hx: No Substance Use Type: None Hx Substance Use Treatment: No Patient Lives Alone: No Lives with/in: spouse/SO Review of Systems - Review of Systems Able to Perform ROS?: Yes Constitutional: No: Symptoms Reported HEENTM: No: Symptoms Reported Respiratory: No: Symptoms reported Cardiac (ROS): No: Symptoms Reported ABD/GI: Yes: Nausea, Vomiting, Abdominal cramping : No: Symptoms Reported Musculoskeletal: No: Symptoms Reported Integumentary: No: Symptoms Reported Neurological: No: Symptoms reported Hematologic/Lymphatic: No: Symptoms Reported *Physical Exam - Vital Signs Last Vital Signs Temp Pulse Resp BP Pulse Ox 98.1 F 68 20 123/78 100 07/20/17 11:05 07/20/17 11:05 07/20/17 11:05 07/20/17 11:05 07/20/17 11:05 - Physical Exam General Appearance: Yes: Nourished, Appropriately Dressed. No: Apparent Distress HEENT: positive: EOMI, NACHO, Scleral Icterus (R), Scleral Icterus (L). negative : Pale Conjunctivae Neck: positive: Supple Respiratory/Chest: positive: Lungs Clear, Normal Breath Sounds. negative: Respiratory Distress, Accessory Muscle Use Cardiovascular: positive: Regular Rhythm, Regular Rate. negative: Murmur Gastrointestinal/Abdominal: positive: Soft, Distended, Tenderness (mild periumbilical), Hepatomegaly. negative: Guarding, Rebound Musculoskeletal: negative: CVA Tenderness Extremity: positive: Pedal Edema (2+ bilateral) Integumentary: positive: Jaundice Neurologic: positive: Motor Strength 5/5 (ambulatory) ED Treatment Course - LABORATORY CBC & Chemistry Diagram: 07/20/17 12:05 07/20/17 12:21 Medical Decision Making - Medical Decision Making 07/20/17 12:20 Patient here with nausea vomiting generalized abdominal pain for the past few days. Patient with history of alcoholic cirrhosis with ascites and had approximate 14 L removed 1 month ago here at [facility]. Patient states does not feel his stomach is more distended than baseline. 07/20/17 12:24 Patient exam had periumbilical tenderness with generalized jaundice which patient states has had for the past 6 years. Patient states is on the liver transplant program but needs to be alcohol free for 4 months and has approximately 2 months clean before patient may advance to the next step in the program. Patient has no other complaints at this time and requesting something for nausea and pain. Patient will be ordered for an ultrasound of the abdomen states he states his liver specialist yesterday felt the to rule out ascites. Patient states his liver specialist stated he abdominal distention was related to medication and not ascites. 07/20/17 13:11 Laboratory Tests 07/20/17 12:05 WBC 4.5 D Hgb 8.5 L Hct 24.3 L MCV 103.4 H MCH 36.2 H MPV 8.3 07/20/17 13:25 Laboratory Tests 07/20/17 12:21 Sodium 136 Potassium 4.1 Chloride 102 Carbon Dioxide 25 Anion Gap 9 BUN 27 H Creatinine 1.4 H D Creat Clearance w eGFR 54.32 Random Glucose 111 H Calcium 8.4 L Magnesium 1.8 AST 57 H D ALT 25 D Alkaline Phosphatase 98 D Total Protein 6.2 L Albumin 2.7 L Lipase 302 07/20/17 14:15 Laboratory Tests 06/25/17 06/26/17 07/05/17 16:30 06:00 06:00 WBC Hgb 8.1 L Hct MCV Neutrophils % Total Bilirubin 15.3 H* D 18.0 H* 07/20/17 12:05 WBC 4.5 D Hgb 8.5 L Hct 24.3 L MCV 103.4 H Neutrophils % 78.9 Total Bilirubin Case discussed with Dr. Winn and states he is being covered by Dr. Reeves. 07/20/17 14:22 Ultrasound shows large amount of free fluid/ascites in the 4 quadrants. Incidentally noted partially filled gallbladder with sludge and multiple gallstones. There is thickening of the gallbladder wall that may be due surrounding ascites. Correlate clinically for further evaluation. Also noted splenomegaly. Consult placed to Dr. Murrell GI 07/20/17 15:[address] Flores and pt to be admitted to med/surg. *DC/Admit/Observation/Transfer Diagnosis at time of Disposition: Ascites, Total bilirubin, elevated - Discharge Dispostion Admit: Yes - Referrals Referrals: Nyla Bahena [Primary Care Provider] - - Patient Instructions - Post Discharge Activity
[2017-07-20 12:25] LABS: BASO % 0.5 % (0-2.0); EOS % 1.6 % (0-4.5); HEMATOCRIT 24.3 % (35.4-49); HEMOGLOBIN 8.5 GM/dL (11.7-16.9); LYMPH % 8.3 % (8-40); MCH 36.2 pg (25.7-33.7); MEAN CELL VOLUME 103.4 fl (80-96); MEAN PLT VOLUME 8.3 fl (7.5-11.1); MONO % 10.7 % (3.8-10.2); NEUT % 78.9 % (42.8-82.8); PLATELET COUNT 64 K/MM3 (134-434); RBC 2.35 M/mm3 (4.00-5.60); RDW 16.5 % (11.9-15.9); WHITE BLOOD COUNT 4.5 K/mm3 (4.0-10.0)
[2017-07-20 12:52] LABS: ALBUMIN 2.7 g/dl (3.4-5.0); ANION GAP 9 (8-16); BLOOD UREA NITROGEN 27 mg/dL (7-18); CALCIUM 8.4 mg/dL (8.5-10.1); CHLORIDE 102 mmol/L (98-107); CO2 25 mmol/L (21-32); CREATININE 1.4 mg/dL (0.7-1.3); GLUCOSE,RANDOM 111 mg/dL (74-106); MAGNESIUM 1.8 mg/dL (1.8-2.4); POTASSIUM 4.1 mmol/L (3.5-5.1); SGOT/AST 57 U/L (15-37); SGPT/ALT 25 U/L (12-78); SODIUM 136 mmol/L (136-145); TOT PROT 6.2 g/dl (6.4-8.2)
[2017-07-20 13:01] LABS: ALK PHOS 98 U/L (45-117)
[2017-07-20 13:19] LABS: LIPASE 302 U/L (73-393)
[2017-07-20 13:20] LABS: BILIRUBIN,TOTAL 15.9 mg/dL (0.2-1.0)
--- NOTE | 2017-07-20 15:25 | HP ---
Admitting History and Physical - Admission Chief Complaint: vomitting and abdominal pain 3 days History of Present Illness: 47-year-old male presents to the ED with complaints of nausea vomiting and generalized abdominal pain for the past 3 days. Patient states has had this discomfort before and normally gets medication for nausea along with morphine. Patient states history of alcoholic cirrhosis with ascites who is currently on the liver transplant list with [facility] and was seen by his liver specialist yesterday felt patient needed to decrease his salt intake and eat bland food. Patient states did attempt to do the recommended but symptoms continued. Patient has no complaints of rash, change in bowel pattern, change in urine pattern, chest pain, shortness of breath rash, or radiation of pain. History Source: Patient - Past Medical History Gastrointestinal: Yes: Ascites, Esophageal Varices Hepatobiliary: Yes: Cirrhosis (varices, ascites), Cholelithiasis, Other ( ALCOHOLIC CIRRHOSIS, CURRENT ETOH ABUSER) Renal/: Yes: Hematuria, Other (bladder cyst) Heme/Onc: Yes: Anemia, Thrombocytopenia, Other (pancytopenia ) Psych: Yes: Addictions - Past Surgical History Past Surgical History: Yes: Upper Endoscopy (egd + band ligation of esophageal varices 05/2013) - Smoking History Smoking history: Never smoked Have you smoked in the past 12 months: No Aproximately how many cigarettes per day: 0 - Alcohol/Substance Use Hx Alcohol Use: Yes (STOPPED LAST YEAR) - Social History ADL: Independent History of Recent Travel: No Home Medications - Allergies Allergies/Adverse Reactions: Allergies Allergy/AdvReac Type Severity Reaction Status Date / Time No Known Allergies Allergy Verified 07/20/17 11:05 - Home Medications Home Medications: Ambulatory Orders Carvedilol 3.125 mg PO BID 06/19/17 Furosemide [Lasix] 40 mg PO DAILY 06/19/17 Magnesium Oxide [Mag-Ox -] 400 mg PO BID #60 tablet 07/05/17 Midodrine HCl [Proamatine -] 7.5 mg PO BID-MID #45 tablet 07/05/17 Rifaximin [Xifaxan -] 550 mg PO BID #60 tablet 07/05/17 Spironolactone [Aldactone -] 75 mg PO BID #180 tablet 07/05/17 hydrOXYzine HCL [Atarax -] 50 mg PO HS PRN #60 tablet 07/05/17 Review of Systems - Review of Systems Gastrointestinal: reports: Abdominal Pain, Nausea, Vomiting Physical Examination Vital Signs: Vital Signs Temperature 98.1 F 07/20/17 11:05 Pulse Rate 68 07/20/17 11:05 Respiratory Rate 20 07/20/17 11:05 Blood Pressure 123/78 07/20/17 11:05 O2 Sat by Pulse Oximetry (%) 100 07/20/17 11:05 Constitutional: Yes: Calm Eyes: Yes: Sclera Icterus Cardiovascular: Yes: Regular Rate and Rhythm, S1, S2 Respiratory: Yes: CTA Bilaterally Gastrointestinal: Yes: Ascites, Distention Edema: Yes Neurological: Yes: Alert, Oriented Labs: CBC, BMP 07/20/17 12:05 07/20/17 12:21 Imaging - Results Ultrasound: Report Reviewed (free fluid seen ,spleenomagly) Problem List - Problems (1) Total bilirubin, elevated Assessment/Plan: GI evalation Code(s): R17 - UNSPECIFIED JAUNDICE (2) Ascites Assessment/Plan: gi evaluation will monitor Code(s): R18.8 - OTHER ASCITES (3) Acute vomiting Assessment/Plan: elevated bilirubin will get GI clear liquids if can tolerate zofran Code(s): R11.10 - VOMITING, UNSPECIFIED (4) Hepatorenal syndrome Assessment/Plan: renal eval scott monitor renal function for now Code(s): K76.7 - HEPATORENAL SYNDROME
[2017-07-20] MEDS ORDERED: ONDANSETRON 4 MG/2 ML VIAL IVPUSH PRN (15:44)
[2017-07-20 17:03] LABS: URINE APPEARANCE SLCLOUDY; URINE BLOOD 2+ (NEGATIVE); URINE COLOR AMBER; URINE GLUCOSE (UA) NEGATIVE (NEGATIVE); URINE KETONE NEGATIVE (NEGATIVE); URINE LEUK ESTERASE NEGATIVE (NEGATIVE); URINE NITRITE NEGATIVE (NEGATIVE); URINE PROTEIN NEGATIVE (NEGATIVE); URINE UROBILINOGEN 4.0 E.U/dl mg/dL (0.2-1.0)
--- NOTE | 2017-07-20 17:10 | CON.GI ---
Consult Consult Specialty:: Gastroenterology Referred by:: Myrna Rose NP Reason for Consultation:: Abdominal pain and vomiting. Jaundice. - History of Present Illness Chief Complaint: Abdominal pain and vomiting History of Present Illness: 47M presents to the ER due to epigastric pain and vomiting that he attributes to his medications. He denies hematemesis or fever. He was treated for SBP and massive ascites with LE and scrotal edema in 06/[address] Murrell. He was readmitted a week later when SBP was excluded. He admits to poor compliance with salt restriction. He tells me that he has not had any alcohol since 03/13. He drank 2 six packs of beer and a pint of vodka daily for 15 years before that. He underwent 5 EGDs in 2011 to rubber band ligate bleeding esophageal varices. He denies hepatic encephalopathy. He tells me that he is followed by Dr. Phillips at the [facility] and that his brother is prepared to be a living donor. He denies IVDA but was transfused for bleeding. - History Source History Provided By: Patient, Medical Record Limitations to Obtaining History: No Limitations - Past Medical History Gastrointestinal: Yes: Ascites, Esophageal Varices, GI Bleed Hepatobiliary: Yes: Cirrhosis (varices, ascites), Cholelithiasis, Other ( ALCOHOLIC CIRRHOSIS, CURRENT ETOH ABUSER) Renal/: Yes: Hematuria, Other (bladder cyst, hepatorenal syndrome 06/14 ) Heme/Onc: Yes: Thrombocytopenia Psych: Yes: Addictions - Past Surgical History Past Surgical History: Yes: Upper Endoscopy (egd + band ligation of esophageal varices 05/2013) - Alcohol/Substance Use Hx Alcohol Use: Yes (STOPPED 03/13) History of Substance Use: reports: None - Smoking History Smoking history: Never smoked Have you smoked in the past 12 months: No Aproximately how many cigarettes per day: 0 - Social History Usual Living Arrangement: With Spouse ADL: Independent Occupation: unemployed Place of : Other ([facility], [place]) History of Recent Travel: No Home Medications - Allergies Allergies/Adverse Reactions: Allergies Allergy/AdvReac Type Severity Reaction Status Date / Time No Known Allergies Allergy Verified 07/20/17 11:05 - Home Medications Home Medications: Ambulatory Orders Carvedilol 3.125 mg PO BID 06/19/17 Furosemide [Lasix] 40 mg PO DAILY 06/19/17 Magnesium Oxide [Mag-Ox -] 400 mg PO BID #60 tablet 07/05/17 Midodrine HCl [Proamatine -] 7.5 mg PO BID-MID #45 tablet 07/05/17 Rifaximin [Xifaxan -] 550 mg PO BID #60 tablet 07/05/17 Spironolactone [Aldactone -] 75 mg PO BID #180 tablet 07/05/17 hydrOXYzine HCL [Atarax -] 50 mg PO HS PRN #60 tablet 07/05/17 Family Disease History - Family Disease History Family Disease History: Other: Father ( 70 natural causes), Mother ( in her 80s natural causes) Review of Systems - Review of Systems Constitutional: reports: Weakness Eyes: reports: No Symptoms HENT: reports: No Symptoms Neck: reports: No Symptoms Respiratory: reports: Exercise Intolerance Gastrointestinal: reports: Abdominal Pain, Vomiting Neurological: reports: No Symptoms Physical Exam-GI Vital Signs: Vital Signs Temperature 98.1 F 07/20/17 11:05 Pulse Rate 60 07/20/17 16:53 Respiratory Rate 16 07/20/17 16:53 Blood Pressure 121/80 07/20/17 16:53 O2 Sat by Pulse Oximetry (%) 98 07/20/17 16:53 CBC,CMP WBC 4.5 K/mm3 (4.0-10.0) D 07/20/17 12:05 RBC 2.35 M/mm3 (4.00-5.60) L 07/20/17 12:05 Hgb 8.5 GM/dL (11.7-16.9) L 07/20/17 12:05 Hct 24.3 % (35.4-49) L 07/20/17 12:05 MCV 103.4 fl (80-96) H 07/20/17 12:05 MCH 36.2 pg (25.7-33.7) H 07/20/17 12:05 MCHC 35.0 g/dl (32.0-35.9) 07/20/17 12:05 RDW 16.5 % (11.9-15.9) H D 07/20/17 12:05 Plt Count 64 K/MM3 (134-434) L 07/20/17 12:05 MPV 8.3 fl (7.5-11.1) 07/20/17 12:05 Neutrophils % 78.9 % (42.8-82.8) 07/20/17 12:05 Lymphocytes % 8.3 % (8-40) D 07/20/17 12:05 Monocytes % 10.7 % (3.8-10.2) H 07/20/17 12:05 Eosinophils % 1.6 % (0-4.5) 07/20/17 12:05 Basophils % 0.5 % (0-2.0) 07/20/17 12:05 Sodium 136 mmol/L (136-145) 07/20/17 12:21 Potassium 4.1 mmol/L (3.5-5.1) 07/20/17 12:21 Chloride 102 mmol/L (98-107) 07/20/17 12:21 Carbon Dioxide 25 mmol/L (21-32) 07/20/17 12:21 Anion Gap 9 (8-16) 07/20/17 12:21 BUN 27 mg/dL (7-18) H 07/20/17 12:21 Creatinine 1.4 mg/dL (0.7-1.3) H D 07/20/17 12:21 Creat Clearance w eGFR 54.32 (>60) 07/20/17 12:21 Random Glucose 111 mg/dL (74-106) H 07/20/17 12:21 Calcium 8.4 mg/dL (8.5-10.1) L 07/20/17 12:21 Magnesium 1.8 mg/dL (1.8-2.4) 07/20/17 12:21 Total Bilirubin 15.9 mg/dL (0.2-1.0) H* D 07/20/17 12:21 AST 57 U/L (15-37) H D 07/20/17 12:21 ALT 25 U/L (12-78) D 07/20/17 12:21 Alkaline Phosphatase 98 U/L (45-117) D 07/20/17 12:21 Ammonia 43.71 umol/L (11-32) H 07/20/17 12:21 Total Protein 6.2 g/dl (6.4-8.2) L 07/20/17 12:21 Albumin 2.7 g/dl (3.4-5.0) L 07/20/17 12:21 Lipase 302 U/L (73-393) 07/20/17 12:21 Current Medications Generic Name Dose Route Start Last Admin Trade Name Candace PRN Reason Stop Dose Admin Ondansetron HCl 4 mg 07/20/17 15:44 Zofran Injection IVPUSH Q4H PRN NAUSEA AND/OR VOMITING Rifaximin 550 mg 07/20/17 22:00 Xifaxan - PO BID CLIFFORD Constitutional: Yes: Calm Eyes: Yes: Sclera Icterus HENT: Yes: Normocephalic Neck: Yes: Supple Cardiovascular: Yes: Regular Rate and Rhythm Respiratory: Yes: CTA Bilaterally Gastrointestinal Inspection: Yes: Ascites, Distention (soft), Hernia (umbilical hernia), Other (prominent venous pattern) ...Auscultate: Yes: Normoactive Bowel Sounds ...Palpate: Yes: Soft, Other ...Percussion: Yes: Fluid Wave ...Rectal Exam: Yes: Guaiac Negative, Sphincter Tone Normal Genitourinary: Yes: Scrotal Edema, Other (1+ prostate, normal testicles) Edema: LLE: 1+, RLE: 2+ Peripheral Pulses WNL: Yes Neurological: Yes: Alert, Oriented Labs: CBC, BMP 07/20/17 12:05 07/20/17 12:21 Laboratory Tests 07/20/17 07/20/17 07/20/17 12:05 12:21 12:21 Hgb 8.5 L MCV 103.4 H Plt Count 64 L BUN 27 H Creatinine 1.4 H D Total Bilirubin 15.9 H* D AST 57 H D ALT 25 D Alkaline Phosphatase 98 D Ammonia 43.71 H Albumin 2.7 L Lipase 302 Problem List - Problems (1) Ascites Code(s): R18.8 - OTHER ASCITES (2) Abdominal pain Assessment/Plan: Given his ascites and past history recurrent SBP will need to be excluded. Will order paracentesis. If the signs arise antibiotics will be initiated. It is not clear which medication upsets his stomach a she is no longer taking antibiotics. Will empirically give PPI. Code(s): R10.9 - UNSPECIFIED ABDOMINAL PAIN Qualifiers: Abdominal location: generalized Qualified Code(s): R10.84 - Generalized abdominal pain (3) Liver cirrhosis, alcoholic Assessment/Plan: Advanced cirrhosis with hyperbilirubinemia, ascites, renal insufficiency, thrombocytopenia and apparent h/o encephalopathy despite his denial appears to be approaching the need for transplantation. The bilirubin rise suggests SBP and he is at risk for recurrent hepatorenal syndrome. Will consult Dr. Melara who is familiar with [facility]. Is not currently encephalopathic. Will resume Carvedilol. Code(s): K70.30 - ALCOHOLIC CIRRHOSIS OF LIVER WITHOUT ASCITES Assessment/Plan Abdominal pain and vomiting most likely due to gastroenteritis but need to exclude recurrent SBP Doubt cholecystitis Need to observe closely for hepatorenal syndrome. If renal function deteriorates will need to stop diuretics.
[2017-07-20 17:16] VITALS: BMI 24.5
--- NOTE | 2017-07-20 17:40 | CONSULT ---
Consult Consult Specialty:: Nephrology Reason for Consultation:: ROJAS - History of Present Illness Chief Complaint: vomiting History of Present Illness: Pt is a 47 year old male with pmhx of CKD, liver cirrhosis, and hx of etoh abuse who presents to the ER with nausea and vomiting. He says he things that is it caused by the meds. He did not take any meds today. He was found to have elevated creatinine and I was called to evaluate him. He was recently discharged from the hospital. He denies chest pain or shortness of breath. He says he does have ascites but that it is not worse than it normally is. He feels that his lower extremity edema is also improved. He refused to go to [facility]. He denies fevers or chills. He denies abdominal pain. - History Source History Provided By: Patient - Past Medical History Gastrointestinal: Yes: Ascites, Esophageal Varices, GI Bleed Hepatobiliary: Yes: Cirrhosis (varices, ascites), Cholelithiasis, Other ( ALCOHOLIC CIRRHOSIS, CURRENT ETOH ABUSER) Renal/: Yes: Hematuria, Other (bladder cyst) Psych: Yes: Addictions - Past Surgical History Past Surgical History: Yes: Upper Endoscopy (egd + band ligation of esophageal varices 05/2013) - Alcohol/Substance Use Hx Alcohol Use: Yes (STOPPED 03/13) History of Substance Use: reports: None - Smoking History Smoking history: Never smoked Have you smoked in the past 12 months: No Aproximately how many cigarettes per day: 0 - Social History Usual Living Arrangement: With Spouse ADL: Independent Occupation: unemployed History of Recent Travel: No Home Medications - Allergies Allergies/Adverse Reactions: Allergies Allergy/AdvReac Type Severity Reaction Status Date / Time No Known Allergies Allergy Verified 07/20/17 11:05 - Home Medications Home Medications: Ambulatory Orders Carvedilol 3.125 mg PO BID 06/19/17 Furosemide [Lasix] 40 mg PO DAILY 06/19/17 Magnesium Oxide [Mag-Ox -] 400 mg PO BID #60 tablet 07/05/17 Midodrine HCl [Proamatine -] 7.5 mg PO BID-MID #45 tablet 07/05/17 Rifaximin [Xifaxan -] 550 mg PO BID #60 tablet 07/05/17 Spironolactone [Aldactone -] 75 mg PO BID #180 tablet 07/05/17 hydrOXYzine HCL [Atarax -] 50 mg PO HS PRN #60 tablet 07/05/17 Family Disease History - Family Disease History Family Disease History: Other: Father ( 70 natural causes), Mother ( in her 80s natural causes) Review of Systems - Review of Systems Constitutional: denies: Chills, Fever HENT: reports: No Symptoms Neck: reports: No Symptoms Cardiovascular: reports: No Symptoms Respiratory: reports: No Symptoms Gastrointestinal: reports: Vomiting, Other (ascites). denies: Abdominal Pain, Bloating, Constipation Genitourinary: reports: No Symptoms Musculoskeletal: reports: No Symptoms Integumentary: reports: No Symptoms Neurological: reports: No Symptoms Endocrine: reports: No Symptoms Hematology/Lymphatic: reports: No Symptoms Psychiatric: reports: No Symptoms Physical Exam Vital Signs: Vital Signs Temperature 98.0 F 07/20/17 17:10 Pulse Rate 62 07/20/17 17:10 Respiratory Rate 20 07/20/17 17:10 Blood Pressure 120/85 07/20/17 17:10 O2 Sat by Pulse Oximetry (%) 98 07/20/17 16:53 Constitutional: Yes: Calm Eyes: Yes: Conjunctiva Clear HENT: Yes: Atraumatic Cardiovascular: Yes: S1, S2 Respiratory: Yes: CTA Bilaterally Gastrointestinal: Yes: Ascites Renal/: Yes: WNL Musculoskeletal: Yes: WNL Edema: Yes Edema: LLE: 1+, RLE: 1+ Neurological: Yes: Oriented Psychiatric: Yes: Oriented Labs: CBC, BMP 07/20/17 12:05 07/20/17 12:21 Laboratory Tests 07/20/17 07/20/17 07/20/17 12:05 12:21 16:50 WBC 4.5 D Hgb 8.5 L Plt Count 64 L Sodium 136 Potassium 4.1 BUN 27 H Creatinine 1.4 H D Random Glucose 111 H Total Bilirubin 15.9 H* D Urine Protein Negative Urine Blood 2+ H Imaging - Results Ultrasound: Report Reviewed Problem List - Problems (1) Acute vomiting Code(s): R11.10 - VOMITING, UNSPECIFIED (2) Ascites Code(s): R18.8 - OTHER ASCITES (3) Total bilirubin, elevated Code(s): R17 - UNSPECIFIED JAUNDICE (4) Anasarca Code(s): R60.1 - GENERALIZED EDEMA (5) Anemia Code(s): D64.9 - ANEMIA, UNSPECIFIED (6) Cirrhosis of liver with ascites Code(s): K74.60 - UNSPECIFIED CIRRHOSIS OF LIVER Qualifiers: Hepatic cirrhosis type: alcoholic cirrhosis Qualified Code(s): K70.31 - Alcoholic cirrhosis of liver with ascites (7) Elevated liver enzymes Code(s): R74.8 - ABNORMAL LEVELS OF OTHER SERUM ENZYMES Assessment/Plan Current Medications Generic Name Dose Route Start Last Admin Trade Name Freq PRN Reason Stop Dose Admin Ondansetron HCl 4 mg 07/20/17 15:44 Zofran Injection IVPUSH Q4H PRN NAUSEA AND/OR VOMITING Rifaximin 550 mg 07/20/17 22:00 Xifaxan - PO BID CLIFFORD Impression 1. ROJAS 2. liver cirrhosis 3. thrombocytopenia 4. hx etoh abuse 5. hx hematuria 6. anemia 7. pancytopenia 8. fluid overload 9. ascites 10. hepatorenal syndrome 11. hypotension 12. vomiting Plan - can restart diuretics in am - cont to monitor renal function - GI eval for elevated LFTs - pt is not compliant with diet or fluid intake - hematuria is chronic - will order urine lytes - will follow - discussed with primary team Dr Melara
[2017-07-20 17:55] LABS: INR 2.54 (0.82-1.09); PROTHROMBIN TIME (PATIENT) 28.7 SEC (9.98-11.88)
[2017-07-20 17:58] LABS: ACTIVATED PTT 40.9 SECONDS (26.9-34.4)
[2017-07-20 18:04] LABS: EPI CELLS RARE /HPF (FEW); URINE BACTERIA RARE /hpf (NONE SEEN); URINE HYALINE CAST 2 /lpf; URINE MUCUS FEW
[2017-07-20] MEDS: RIFAXIMIN 550 MG TABLET (UD) PO SCH (22:05)
[2017-07-20] MEDS: CARVEDILOL 3.125 MG TABLET (FP) PO SCH (22:06)
[2017-07-20] MEDS: SPIRONOLACTONE 25 MG TABLET (FP) PO SCH (22:06)
[2017-07-21] MEDS: FUROSEMIDE 40 MG TABLET (FP) PO SCH ×2 (06:01→14:24)
[2017-07-21 08:07] LABS: GAMMA GLUTAMYL TRANSPEPTIDASE 58 U/L (5-85); LDH 193 U/L (87-241)
[2017-07-21 08:08] LABS: BILIRUBIN,DIRECT 6.5 mg/dL (0.0-0.2)
[2017-07-21 08:09] LABS: INR 2.78 (0.82-1.09); PROTHROMBIN TIME (PATIENT) 31.4 SEC (9.98-11.88)
[2017-07-21 08:10] LABS: BASO % 0.6 % (0-2.0); EOS % 3.5 % (0-4.5); HEMATOCRIT 21.5 % (35.4-49); HEMOGLOBIN 7.5 GM/dL (11.7-16.9); LYMPH % 11.1 % (8-40); MCH 36.2 pg (25.7-33.7); MCHC 34.8 g/dl (32.0-35.9); MEAN CELL VOLUME 104.2 fl (80-96); MEAN PLT VOLUME 8.1 fl (7.5-11.1); MONO % 13.6 % (3.8-10.2); NEUT % 71.2 % (42.8-82.8); PLATELET COUNT 54 K/MM3 (134-434); RBC 2.07 M/mm3 (4.00-5.60); RDW 16.5 % (11.9-15.9); WHITE BLOOD COUNT 2.2 K/mm3 (4.0-10.0)
[2017-07-21 08:11] LABS: ALBUMIN 2.3 g/dl (3.4-5.0); AMYLASE 28 U/L (25-115); ANION GAP 8 (8-16); BLOOD UREA NITROGEN 26 mg/dL (7-18); CHLORIDE 104 mmol/L (98-107); CO2 26 mmol/L (21-32); GLUCOSE,RANDOM 125 mg/dL (74-106); MAGNESIUM 1.8 mg/dL (1.8-2.4); POTASSIUM 4.1 mmol/L (3.5-5.1); SGOT/AST 38 U/L (15-37); SODIUM 138 mmol/L (136-145)
[2017-07-21 08:16] LABS: ALK PHOS 83 U/L (45-117); BILIRUBIN,TOTAL 11.8 mg/dL (0.2-1.0); CREATININE 1.4 mg/dL (0.7-1.3); PHOSPHOROUS 3.5 mg/dL (2.5-4.9); SGPT/ALT 22 U/L (12-78); TOT PROT 5.7 g/dl (6.4-8.2)
[2017-07-21 08:20] LABS: URIC ACID 13.7 mg/dL (2.6-7.2)
[2017-07-21 08:21] LABS: LIPASE 202 U/L (73-393)
[2017-07-21] MEDS: SPIRONOLACTONE 25 MG TABLET (FP) PO SCH ×2 (10:41→21:11)
[2017-07-21] MEDS: CARVEDILOL 3.125 MG TABLET (FP) PO SCH ×2 (10:41→21:11)
[2017-07-21] MEDS: RIFAXIMIN 550 MG TABLET (UD) PO SCH ×2 (10:41→21:11)
--- NOTE | 2017-07-21 11:01 | PN ---
Progress Note (short form) - Note Progress Note: RENAL Pt is awake and alert admitted yesterday with abdominal pain. Says he knew he had fluid in his abdomen Last Vital Signs Temp Pulse Resp BP Pulse Ox 98.6 F 72 14 114/69 98 07/21/17 09:20 07/21/17 09:20 07/21/17 09:20 07/21/17 09:20 07/20/17 16:53 lungs clear cvs s1s2 rr abd soft distended, has distended veins, umbilical hernia reducible ext no edema neuro a+ox3 CBC, BMP 07/21/17 06:30 07/21/17 06:30 Current Medications Generic Name Dose Route Start Last Admin Trade Name Freq PRN Reason Stop Dose Admin Carvedilol 3.125 mg 07/20/17 22:00 07/21/17 10:41 Coreg - PO 3.125 mg BID CLIFFORD Administration Furosemide 40 mg 07/21/17 06:00 07/21/17 06:01 Lasix - PO 40 mg BID@0600,1400 CLIFFORD Administration Ondansetron HCl 4 mg 07/20/17 15:44 Zofran Injection IVPUSH Q4H PRN NAUSEA AND/OR VOMITING Rifaximin 550 mg 07/20/17 22:00 07/21/17 10:41 Xifaxan - PO 550 mg BID CLIFFORD Administration Spironolactone 50 mg 07/20/17 22:00 07/21/17 10:41 Aldactone - PO 50 mg BID CLIFFORD Administration Impression 1. ROJAS 2. liver cirrhosis 3. thrombocytopenia 4. hx etoh abuse 5. hx hematuria 6. anemia 7. pancytopenia 8. fluid overload 9. ascites 10. hepatorenal syndrome 11. hypotension 12. vomiting Plan previous sodium not consistent with hepatorenal syndrome perhaps diuretics has pyuria which appears to be sterile, perhaps caused by interstitial nephritis , obtain urine eos would continue diuretics given ascites but would not to diurese too aggressively since he has no edema obtain urine culture MV
--- NOTE | 2017-07-21 14:30 | PN ---
GI Progress Note Subjective: GI NOte ( covering for Dr Murrell): Abdominal pain resolved. Wants solid food. Pancytopenia noted. He tells me that he had HIV testing a month ago that was negative. Ammonia level up but is mentally alert. Bilirubin has dropped a bit. Weight has dropped 7 lbs in 1 day. Compliance with meds as well as salt intake as outpatient in in question. - Objective Vital Signs: Vital Signs Temperature 98.0 F 07/21/17 13:46 Pulse Rate 66 07/21/17 13:46 Respiratory Rate 18 07/21/17 13:46 Blood Pressure 96/59 07/21/17 13:46 O2 Sat by Pulse Oximetry (%) 98 07/20/17 16:53 Laboratory Tests 07/20/17 07/20/17 07/21/17 12:05 12:21 06:30 WBC 4.5 D 2.2 L D Hgb 8.5 L 7.5 L D Uric Acid Total Bilirubin 15.9 H* D Direct Bilirubin Alkaline Phosphatase Ammonia Lipase 07/21/17 07/21/17 07/21/17 06:30 06:30 06:30 WBC Hgb Uric Acid 13.7 H* Total Bilirubin 11.8 H D Direct Bilirubin 6.5 H D Alkaline Phosphatase 83 Ammonia 51.82 H Lipase 202 Constitutional: No Distress Eyes: Yes: Sclera Icterus Gastrointestinal Inspection: Yes: Distention ...Auscultate: Yes: Normoactive Bowel Sounds ...Palpate: Yes: Soft, Other (nontender umbilical hernia) Labs: CBC, BMP 07/21/17 06:30 07/21/17 06:30 INR, PTT INR 2.78 (0.82-1.09) H 07/21/17 06:30 Problem List - Problems (1) Ascites Code(s): R18.8 - OTHER ASCITES (2) Abdominal pain Assessment/Plan: Resolved but given his ascites and past history recurrent SBP will need to be excluded. Sono guided paracentesis ordered. If the signs arise antibiotics will be initiated. Will advance diet Code(s): R10.9 - UNSPECIFIED ABDOMINAL PAIN Qualifiers: Abdominal location: generalized Qualified Code(s): R10.84 - Generalized abdominal pain (3) Liver cirrhosis, alcoholic Code(s): K70.30 - ALCOHOLIC CIRRHOSIS OF LIVER WITHOUT ASCITES (4) Pancytopenia Assessment/Plan: Will consult hematology. Code(s): D61.818 - OTHER PANCYTOPENIA
--- NOTE | 2017-07-21 19:18 | PN ---
Progress Note (short form) - Note Progress Note: Subjective: no fever or chills, has no abd pain , no N/V Objective: Vital Signs: Last Vital Signs Temp Pulse Resp BP Pulse Ox 98.0 F 66 18 96/59 98 07/21/17 13:46 07/21/17 13:46 07/21/17 13:46 07/21/17 13:46 07/20/17 16:53 Laboratory Results - last 24 hr 07/20/17 07/21/17 07/21/17 16:50 06:30 06:30 WBC 2.2 L D RBC 2.07 L Hgb 7.5 L D Hct 21.5 L MCV 104.2 H MCH 36.2 H MCHC 34.8 RDW 16.5 H Plt Count 54 L MPV 8.1 Neutrophils % 71.2 Lymphocytes % 11.1 D Monocytes % 13.6 H Eosinophils % 3.5 D Basophils % 0.6 PT with INR INR Sodium 138 Potassium 4.1 Chloride 104 Carbon Dioxide 26 Anion Gap 8 BUN 26 H Creatinine 1.4 H Creat Clearance w eGFR 54.32 Random Glucose 125 H Uric Acid Calcium 8.0 L Phosphorus 3.5 Magnesium 1.8 Total Bilirubin 11.8 H D Direct Bilirubin GGT AST 38 H D ALT 22 Alkaline Phosphatase 83 Ammonia LD Total C-Reactive Protein Total Protein 5.7 L Albumin 2.3 L Total Amylase 28 D Lipase 202 Urine WBC (Auto) 19 Urine RBC (Auto) 6 Ur Epithelial Cells Rare Urine Bacteria Rare Hyaline Casts 2 Urine Mucus Few 07/21/17 07/21/17 07/21/17 06:30 06:30 06:30 WBC RBC Hgb Hct MCV MCH MCHC RDW Plt Count MPV Neutrophils % Lymphocytes % Monocytes % Eosinophils % Basophils % PT with INR 31.40 H INR 2.78 H Sodium Potassium Chloride Carbon Dioxide Anion Gap BUN Creatinine Creat Clearance w eGFR Random Glucose Uric Acid 13.7 H* Calcium Phosphorus Magnesium Total Bilirubin Direct Bilirubin 6.5 H D GGT 58 D AST ALT Alkaline Phosphatase Ammonia LD Total 193 D C-Reactive Protein 1.1 H Total Protein Albumin Total Amylase Lipase Urine WBC (Auto) Urine RBC (Auto) Ur Epithelial Cells Urine Bacteria Hyaline Casts Urine Mucus 07/21/17 06:30 WBC RBC Hgb Hct MCV MCH MCHC RDW Plt Count MPV Neutrophils % Lymphocytes % Monocytes % Eosinophils % Basophils % PT with INR INR Sodium Potassium Chloride Carbon Dioxide Anion Gap BUN Creatinine Creat Clearance w eGFR Random Glucose Uric Acid Calcium Phosphorus Magnesium Total Bilirubin Direct Bilirubin GGT AST ALT Alkaline Phosphatase Ammonia 51.82 H LD Total C-Reactive Protein Total Protein Albumin Total Amylase Lipase Urine WBC (Auto) Urine RBC (Auto) Ur Epithelial Cells Urine Bacteria Hyaline Casts Urine Mucus Physical Exam: NAD , flat affect. Cv: RRr, 2/6 SM at base . Lungs: CTAB Abd: distended, shifting dullness, NT, NL BS . Liver is palpated 2 cm below costal margin, spleen is not palpated. LE : 2+ edema Assessment/Plan: 47 y/o man with h/o alcoholic liver cirrhosis, ascitis ,varices , SBP, recent admission for SBP in 06/14, readmission in 07/15 but SBP r/o 1- Abd pain, resolved now. US reviewed, no signs of cholecystitis . no diarrhea . plan for paracentesis , but pt refused. 2- ROJAS: monitor . appreciate renal input, hepatorenal is unlikely. cont diuretics for now, if it worsens , will hold U cx pending Urine eiosinophils pending . ? urine sediment 3- macrocytic anemia: chronci . iron studies inpast showe ACD. has varices on EGD form 2013 in our EMR. no signs of bleeding now monitor 4- pancytopenia: likely due to liver dz and BM suppression. no evidence of apparent infection at base line Visit type - Emergency Visit Emergency Visit: Yes ED Registration Date: 07/20/17 Care time: The patient presented to the Emergency Department on the above date and was hospitalized for further evaluation of their emergent condition. - New Patient This patient is new to me today: Yes Date on this admission: 07/21/17 - Critical Care Critical Care patient: No
--- NOTE | 2017-07-22 02:32 | HOSP ---
Subjective - Review of Symptoms Subjective: On-call resident called for patient at 2:25am to evaluate for abdominal pain. Patient isn't known to me before. Nurse reported that patient is on clear liquid diet. During examination, noticed many candies and treats on patient's night stand. Patient states that he overate "sweets" and started having severe, mid abdominal pain, nonradiating. States that he hasn't had a bowel movement in 2 days. Reports that he had tried to self-induce vomiting and not been able to Exam: Skin: signs of icterus and jaundice present Heart: RRR Lungs: Mild crackles b/l but good airflow noted Abd: Distended, bowel sounds diminished, tender to palpation diffusely A/P New onset abdominal pain in setting of alcoholic cirrhosis -abdominal US performed yesterday -NPO until the AM -ordered KUB to evaluate abdomen for free air, obstruction/ileus -difficult to give pain regimen due to renal function/liver function/ constipation -previously received 4mg morphine in the ED, but hesitant to give this again -Will give 1mg morphine -reassess in AM Physical Examination Vital Signs: Vital Signs Temperature 98.9 F 07/21/17 22:00 Pulse Rate 68 07/21/17 22:00 Respiratory Rate 20 07/21/17 22:00 Blood Pressure 106/64 07/21/17 22:00 O2 Sat by Pulse Oximetry (%) 96 07/21/17 20:41 Labs: CBC, BMP 07/21/17 06:30 07/21/17 06:30 Visit type - Emergency Visit Emergency Visit: No - New Patient This patient is new to me today: Yes Date on this admission: 07/22/17 - Critical Care Critical Care patient: No
[2017-07-22] MEDS ORDERED: morphine SULFATE 4 MG/ML VIAL IVPUSH ONE (02:51)
[2017-07-22] MEDS: FUROSEMIDE 40 MG TABLET (FP) PO SCH ×2 (06:13→14:27)
[2017-07-22 07:36] LABS: BASO % 0.4 % (0-2.0); EOS % 1.8 % (0-4.5); HEMOGLOBIN 7.3 GM/dL (11.7-16.9); LYMPH % 11.6 % (8-40); MCH 36.3 pg (25.7-33.7); MEAN CELL VOLUME 103.7 fl (80-96); MEAN PLT VOLUME 8.1 fl (7.5-11.1); MONO % 10.9 % (3.8-10.2); NEUT % 75.3 % (42.8-82.8); PLATELET COUNT 53 K/MM3 (134-434); RBC 2.02 M/mm3 (4.00-5.60); RDW 16.4 % (11.9-15.9); RETICULOCYTES 4.49 % (0.5-1.5); WHITE BLOOD COUNT 3.2 K/mm3 (4.0-10.0)
[2017-07-22 08:09] LABS: ALBUMIN 2.4 g/dl (3.4-5.0); ANION GAP 7 (8-16); BILIRUBIN,TOTAL 13.2 mg/dL (0.2-1.0); BLOOD UREA NITROGEN 23 mg/dL (7-18); CALCIUM 8.2 mg/dL (8.5-10.1); CHLORIDE 103 mmol/L (98-107); CO2 27 mmol/L (21-32); CREATININE 1.4 mg/dL (0.7-1.3); GLUCOSE,RANDOM 111 mg/dL (74-106); LDH 190 U/L (87-241); POTASSIUM 4.5 mmol/L (3.5-5.1); SGOT/AST 49 U/L (15-37); SGPT/ALT 28 U/L (12-78); SODIUM 137 mmol/L (136-145)
[2017-07-22 08:10] LABS: ALK PHOS 102 U/L (45-117)
[2017-07-22] MEDS ORDERED: MORPHINE SULFATE 10 MG/1 ML *VIAL IVPUSH PRN (11:20)
[2017-07-22] MEDS: RIFAXIMIN 550 MG TABLET (UD) PO SCH ×2 (11:33→21:22)
[2017-07-22] MEDS: SPIRONOLACTONE 25 MG TABLET (FP) PO SCH ×2 (11:33→21:22)
[2017-07-22] MEDS: CARVEDILOL 3.125 MG TABLET (FP) PO SCH ×2 (11:34→21:22)
--- NOTE | 2017-07-22 12:26 | PN ---
Progress Note (short form) - Note Progress Note: RENAL Pt is awake and alert again had abdominal pain Last Vital Signs Temp Pulse Resp BP Pulse Ox 98.3 F 66 20 103/67 96 07/22/17 06:00 07/22/17 06:00 07/22/17 06:00 07/22/17 06:00 07/21/17 20:41 icteric lungs clear cvs s1s2 rr abd soft distended, has distended veins, umbilical hernia reducible ext bilateral edema neuro a+ox3 CBC, BMP 07/22/17 06:40 07/22/17 06:40 Current Medications Generic Name Dose Route Start Last Admin Trade Name Freq PRN Reason Stop Dose Admin Carvedilol 3.125 mg 07/20/17 22:00 07/22/17 11:34 Coreg - PO 3.125 mg BID [facility] Administration Furosemide 40 mg 07/21/17 06:00 07/22/17 06:13 Lasix - PO Not Given BID@0600,1400 [facility] Morphine Sulfate 1 mg 07/22/17 11:20 07/22/17 11:34 Morphine Injection - IVPUSH 1 mg Q6H PRN Administration PAIN LEVEL 6-10 Ondansetron HCl 4 mg 07/20/17 15:44 Zofran Injection IVPUSH Q4H PRN NAUSEA AND/OR VOMITING Rifaximin 550 mg 07/20/17 22:00 07/22/17 11:33 Xifaxan - PO 550 mg BID [facility] Administration Spironolactone 50 mg 07/20/17 22:00 07/22/17 11:33 Aldactone - PO 50 mg BID [facility] Administration Impression 1. ROJAS stable 2. liver cirrhosis 3. thrombocytopenia 4. hx etoh abuse 5. hx hematuria 6. anemia 7. pancytopenia 8. fluid overload 9. ascites 10. hepatorenal syndrome 11. hypotension 12. vomiting Plan await urine culture and eosinophils continue diuretics if dyspneic would give his furosemide iv lactulose for retained stool on xray. Has not had BM in 2 days... maybe contributing to pain/discomfort MV
--- NOTE | 2017-07-22 14:00 | PN ---
Progress Note (short form) - Note Progress Note: Physical Exam: NAD , flat affect. Cv: RRr, 2/6 SM at base . Lungs: CTAB Abd: distended, shifting dullness, NT, NL BS . Liver is palpated 2 cm below costal margin, spleen is not palpated. LE : 2+ edema Assessment/Plan: 47 y/o man with h/o alcoholic liver cirrhosis, asceties ,varices , SBP, recent admission for SBP in 06/14, readmission in 07/15 but SBP r/o 1- Abd pain, resolved now. US reviewed, no signs of cholecystitis . no diarrhea . plan for paracentesis , but pt refused. 2- ROJAS: monitor . appreciate renal input, hepatorenal is unlikely. cont diuretics for now, if it worsens , will hold U cx pending Urine eiosinophils pending . ? urine sediment 3- macrocytic anemia: chronci . iron studies inpast showe ACD. has varices on EGD form 2013 in our EMR. no signs of bleeding now monitor 4- pancytopenia: likely due to liver dz and BM suppression. no evidence of apparent infection at base line Problem List - Problems (1) Pancytopenia, acquired Assessment/Plan: 2/ to Alcoholic liver disease will trend the CBC avoid transfusion unless necessary with acute blood loss Code(s): D61.818 - OTHER PANCYTOPENIA (2) Ascites Assessment/Plan: stable will consider taping the fluid by GI Code(s): R18.8 - OTHER ASCITES (3) Total bilirubin, elevated Assessment/Plan: stable Code(s): R17 - UNSPECIFIED JAUNDICE (4) Abdominal pain Assessment/Plan: patient had some falafel and telugu food last night and he is complaining of cramping sensation pain that was resolved with morphine bowel sounds presented bloated positive fluid shift Code(s): R10.9 - UNSPECIFIED ABDOMINAL PAIN Qualifiers: Abdominal location: generalized Qualified Code(s): R10.84 - Generalized abdominal pain (5) Elevated bilirubin Code(s): R17 - UNSPECIFIED JAUNDICE (6) Liver cirrhosis, alcoholic Assessment/Plan: stable not in acute decompensation Code(s): K70.30 - ALCOHOLIC CIRRHOSIS OF LIVER WITHOUT ASCITES (7) Portal hypertension Assessment/Plan: stable Code(s): K76.6 - PORTAL HYPERTENSION (8) Thrombocytopenic Assessment/Plan: stable Code(s): D69.6 - THROMBOCYTOPENIA, UNSPECIFIED Visit type - Emergency Visit Emergency Visit: No - New Patient This patient is new to me today: Yes Date on this admission: 07/22/17 - Critical Care Critical Care patient: No - Discharge Referral Referred to [facility] No
[2017-07-22] MEDS: LACTULOSE 20 GM/30 ML UDC (FOR ORAL USE ONLY) PO ONE ×2 (14:28→14:30)
[2017-07-22] MEDS ORDERED: PHYTONADIONE 10 MG/1 ML AMP SQ ONE ×2 (15:15→17:45)
--- NOTE | 2017-07-22 15:25 | PN ---
Progress Note (short form) - Note Progress Note: Hematology Note: Well known from prior. re-admitted now for Worsening abdominal pain and distention. Patient seen and examined. Chart reviewed in detail, all consult recs noted. he follows with hepatology at [facility]. He feels better than when he came in he says, but he continues to have "on and off" abdominal pain. Requiring morphine. He mentioned that he was seen at [facility] this week Sunday and was planned for EGD as he was on the transplant list but further details of the procedure were not told to him and also he didnt want to go to [facility] as he feels that "not much" is going to be done different. Otherwise, he feels his Lower extremities are much better than before. denies fever, chills, night sweats, hemetemesis, SOB. O/E: general: NAD, able to lie flat HEENT: +scleral icterus, No LAD Abdomen: distended, +ascites. LE: Mild pitting edema Neuro: AAOx3. No findings of HE. Cor:RRR Lungs: CTA b/l Last Vital Signs Temp Pulse Resp BP Pulse Ox 98.1 F 69 18 123/70 96 07/22/17 13:57 07/22/17 13:57 07/22/17 13:57 07/22/17 13:57 07/21/17 20:41 CBC, BMP 07/22/17 06:40 07/22/17 06:40 Current Medications Generic Name Dose Route Start Last Admin Trade Name Freq PRN Reason Stop Dose Admin Carvedilol 3.125 mg 07/20/17 22:00 07/22/17 11:34 Coreg - PO 3.125 mg BID [facility] Administration Furosemide 40 mg 07/21/17 06:00 07/22/17 14:27 Lasix - PO 40 mg BID@0600,1400 [facility] Administration Morphine Sulfate 1 mg 07/22/17 11:20 07/22/17 11:34 Morphine Injection - IVPUSH 1 mg Q6H PRN Administration PAIN LEVEL 6-10 Ondansetron HCl 4 mg 07/20/17 15:44 Zofran Injection IVPUSH Q4H PRN NAUSEA AND/OR VOMITING Phytonadione 5 mg 07/22/17 15:15 Aqua Mephyton Injection - SQ 07/22/17 15:16 ONCE ONE Rifaximin 550 mg 07/20/17 22:00 07/22/17 11:33 Xifaxan - PO 550 mg BID [facility] Administration Spironolactone 50 mg 07/20/17 22:00 07/22/17 11:33 Aldactone - PO 50 mg BID [facility] Administration Assessment/Plan: pancytopenia coagulaothy ESLD HyerBili Hepato-renal h/o SBP. Pancytopenia/coagulopathy secondary to cirrhosis. Will continue to monitor with supportive care. Vit K Re: correction of coagulopathy/need for paracentesis ( presently refusing "diagnostic" paracentesis ) will need FFP prior to procedure. If procedure planned for tomorrow, please give 2FFP an hr prior to the procedure. if platelets <50K, would transfuse one SDU pf platelets, (did not order today). transfuse PRBC if Hgb <7 renal/gi f/u noted.
--- NOTE | 2017-07-22 15:43 | PN ---
GI Progress Note Subjective: GI NOte ( covering Dr Murrell) : Tolerating solids. No chills. Has intermittent abdominal pain. Dr. Mejias's note is appreciated. Wt down to 178 - Objective Vital Signs: Vital Signs Temperature 98.1 F 07/22/17 13:57 Pulse Rate 69 07/22/17 13:57 Respiratory Rate 18 07/22/17 13:57 Blood Pressure 123/70 07/22/17 13:57 O2 Sat by Pulse Oximetry (%) 96 07/21/17 20:41 Laboratory Tests 07/21/17 07/21/17 07/21/17 06:30 06:30 06:30 WBC 2.2 L D Total Bilirubin 11.8 H D Ammonia Tumor Marker AFP 2.8 07/22/17 07/22/17 07/22/17 06:40 06:40 06:40 WBC 3.2 L D Total Bilirubin 13.2 H Ammonia 32.36 H Tumor Marker AFP Laboratory Tests 07/20/17 07/21/17 07/22/17 12:21 06:30 06:40 BUN 27 H 26 H 23 H Creatinine 1.4 H D 1.4 H 1.4 H Constitutional: Calm Eyes: Yes: Sclera Icterus Gastrointestinal Inspection: Yes: Other (less distended) ...Auscultate: Yes: Normoactive Bowel Sounds ...Palpate: Yes: Soft, Other (nontender) Labs: CBC, BMP 07/22/17 06:40 07/22/17 06:40 INR, PTT INR 2.78 (0.82-1.09) H 07/21/17 06:30 Assessment/Plan Abdominal pain resolving Await paracentesis Renal function stable on current diuretics which are decreasing his ascites Problem List - Problems (1) Ascites Code(s): R18.8 - OTHER ASCITES (2) Abdominal pain Code(s): R10.9 - UNSPECIFIED ABDOMINAL PAIN Qualifiers: Qualified Code(s): R10.84 - Generalized abdominal pain (3) Liver cirrhosis, alcoholic Code(s): K70.30 - ALCOHOLIC CIRRHOSIS OF LIVER WITHOUT ASCITES (4) Pancytopenia Code(s): D61.818 - OTHER PANCYTOPENIA
[2017-07-22] MEDS ORDERED: PT OWN MED DRAWER 7, Y5N ONE (17:35)
[2017-07-23] MEDS: FUROSEMIDE 40 MG TABLET (FP) PO SCH ×2 (06:06→13:39)
[2017-07-23 07:35] LABS: BASO % 0.5 % (0-2.0); EOS % 3.2 % (0-4.5); HEMATOCRIT 21.7 % (35.4-49); HEMOGLOBIN 7.5 GM/dL (11.7-16.9); LYMPH % 12.6 % (8-40); MCH 36.4 pg (25.7-33.7); MCHC 34.5 g/dl (32.0-35.9); MEAN CELL VOLUME 105.6 fl (80-96); MEAN PLT VOLUME 8.4 fl (7.5-11.1); MONO % 12.6 % (3.8-10.2); NEUT % 71.1 % (42.8-82.8); PLATELET COUNT 59 K/MM3 (134-434); RBC 2.06 M/mm3 (4.00-5.60); RDW 17.1 % (11.9-15.9); WHITE BLOOD COUNT 2.9 K/mm3 (4.0-10.0)
[2017-07-23 07:40] LABS: INR 2.79 (0.82-1.09); PROTHROMBIN TIME (PATIENT) 31.5 SEC (9.98-11.88)
[2017-07-23 07:43] LABS: ACTIVATED PTT 40.8 SECONDS (26.9-34.4)
[2017-07-23 08:01] LABS: ALBUMIN 2.5 g/dl (3.4-5.0); ANION GAP 9 (8-16); BLOOD UREA NITROGEN 23 mg/dL (7-18); CHLORIDE 100 mmol/L (98-107); CO2 26 mmol/L (21-32); GLUCOSE,RANDOM 112 mg/dL (74-106); POTASSIUM 3.9 mmol/L (3.5-5.1); SODIUM 135 mmol/L (136-145)
[2017-07-23 08:05] LABS: ALK PHOS 104 U/L (45-117); BILIRUBIN,TOTAL 12.5 mg/dL (0.2-1.0); CREATININE 1.5 mg/dL (0.7-1.3); LDH 191 U/L (87-241); SGOT/AST 41 U/L (15-37); SGPT/ALT 27 U/L (12-78); TOT PROT 6.2 g/dl (6.4-8.2)
[2017-07-23] MEDS: CARVEDILOL 3.125 MG TABLET (FP) PO SCH (09:51)
[2017-07-23] MEDS: SPIRONOLACTONE 25 MG TABLET (FP) PO SCH (09:51)
[2017-07-23] MEDS: RIFAXIMIN 550 MG TABLET (UD) PO SCH (09:51)
--- NOTE | 2017-07-23 11:38 | PN ---
Progress Note, Physician Chief Complaint: patient ate outside food cannot eat hospital food per patient wants paracentesis will need FFP prior to transfusion - Current Medication List Current Medications: Active Medications Carvedilol (Coreg -) 3.125 mg PO BID [facility] Last Admin: 07/23/17 09:51 Dose: 3.125 mg Furosemide (Lasix -) 40 mg PO BID@0600,1400 [facility] Last Admin: 07/23/17 06:06 Dose: 40 mg Morphine Sulfate (Morphine Injection -) 1 mg IVPUSH Q6H PRN PRN Reason: PAIN LEVEL 6-10 Last Admin: 07/22/17 11:34 Dose: 1 mg Ondansetron HCl (Zofran Injection) 4 mg IVPUSH Q4H PRN PRN Reason: NAUSEA AND/OR VOMITING Rifaximin (Xifaxan -) 550 mg PO BID [facility] Last Admin: 07/23/17 09:51 Dose: 550 mg Spironolactone (Aldactone -) 50 mg PO BID [facility] Last Admin: 07/23/17 09:51 Dose: 50 mg - Objective Vital Signs: Vital Signs Temperature 98.6 F 07/23/17 08:22 Pulse Rate 71 07/23/17 08:22 Respiratory Rate 18 07/23/17 08:22 Blood Pressure 103/66 07/23/17 08:22 O2 Sat by Pulse Oximetry (%) 100 07/23/17 09:00 Constitutional: Yes: Calm Eyes: Yes: Sclera Icterus Cardiovascular: Yes: Regular Rate and Rhythm, S1, S2 Respiratory: Yes: CTA Bilaterally Gastrointestinal: Yes: Normal Bowel Sounds, Soft, Ascites, Distention Neurological: Yes: Alert, Oriented Labs: CBC, BMP 07/23/17 06:00 07/23/17 06:00 INR, PTT INR 2.79 (0.82-1.09) H 07/23/17 06:00 Problem List - Problems (1) Ascites Assessment/Plan: paracentesis by IR will need FFP one hour prior to procedure Code(s): R18.8 - OTHER ASCITES (2) Total bilirubin, elevated Assessment/Plan: GI on board Code(s): R17 - UNSPECIFIED JAUNDICE (3) Acute vomiting Assessment/Plan: improved Code(s): R11.10 - VOMITING, UNSPECIFIED (4) Hepatorenal syndrome Assessment/Plan: aldactone and lasix Code(s): K76.7 - HEPATORENAL SYNDROME
--- NOTE | 2017-07-23 13:05 | PN ---
Progress Note, Physician History of Present Illness: No events. Comfortable - Current Medication List Current Medications: Active Medications Carvedilol (Coreg -) 3.125 mg PO BID [facility] Last Admin: 07/23/17 09:51 Dose: 3.125 mg Furosemide (Lasix -) 40 mg PO BID@0600,1400 [facility] Last Admin: 07/23/17 06:06 Dose: 40 mg Morphine Sulfate (Morphine Injection -) 1 mg IVPUSH Q6H PRN PRN Reason: PAIN LEVEL 6-10 Last Admin: 07/22/17 11:34 Dose: 1 mg Ondansetron HCl (Zofran Injection) 4 mg IVPUSH Q4H PRN PRN Reason: NAUSEA AND/OR VOMITING Rifaximin (Xifaxan -) 550 mg PO BID [facility] Last Admin: 07/23/17 09:51 Dose: 550 mg Spironolactone (Aldactone -) 50 mg PO BID [facility] Last Admin: 07/23/17 09:51 Dose: 50 mg - Objective Vital Signs: Vital Signs Temperature 98.6 F 07/23/17 08:22 Pulse Rate 71 07/23/17 08:22 Respiratory Rate 18 07/23/17 08:22 Blood Pressure 103/66 07/23/17 08:22 O2 Sat by Pulse Oximetry (%) 100 07/23/17 09:00 Constitutional: Yes: No Distress, Calm, Cachectic, Pallor, Thin Eyes: Yes: Conjunctiva Clear Gastrointestinal: Yes: Normal Bowel Sounds, Ascites, Distention. No: Tenderness , Epigastrium, Vomiting Neurological: Yes: Alert, Oriented Labs: CBC, BMP 07/23/17 06:00 07/23/17 06:00 INR, PTT INR 2.79 (0.82-1.09) H 07/23/17 06:00 CBCD WBC 2.9 K/mm3 (4.0-10.0) L 07/23/17 06:00 RBC 2.06 M/mm3 (4.00-5.60) L 07/23/17 06:00 Hgb 7.5 GM/dL (11.7-16.9) L 07/23/17 06:00 Hct 21.7 % (35.4-49) L 07/23/17 06:00 MCV 105.6 fl (80-96) H 07/23/17 06:00 MCHC 34.5 g/dl (32.0-35.9) 07/23/17 06:00 RDW 17.1 % (11.9-15.9) H 07/23/17 06:00 Plt Count 59 K/MM3 (134-434) L 07/23/17 06:00 MPV 8.4 fl (7.5-11.1) 07/23/17 06:00 CMP Sodium 135 mmol/L (136-145) L 07/23/17 06:00 Potassium 3.9 mmol/L (3.5-5.1) 07/23/17 06:00 Chloride 100 mmol/L (98-107) 07/23/17 06:00 Carbon Dioxide 26 mmol/L (21-32) 07/23/17 06:00 Anion Gap 9 (8-16) 07/23/17 06:00 BUN 23 mg/dL (7-18) H 07/23/17 06:00 Creatinine 1.5 mg/dL (0.7-1.3) H 07/23/17 06:00 Creat Clearance w eGFR 50.16 (>60) 07/23/17 06:00 Calcium 8.0 mg/dL (8.5-10.1) L 07/23/17 06:00 Total Bilirubin 12.5 mg/dL (0.2-1.0) H 07/23/17 06:00 AST 41 U/L (15-37) H 07/23/17 06:00 ALT 27 U/L (12-78) 07/23/17 06:00 Alkaline Phosphatase 104 U/L (45-117) 07/23/17 06:00 Total Protein 6.2 g/dl (6.4-8.2) L 07/23/17 06:00 Albumin 2.5 g/dl (3.4-5.0) L 07/23/17 06:00 - ....Imaging Ultrasound: Report Reviewed Problem List - Problems (1) Esophageal varices Code(s): I85.00 - ESOPHAGEAL VARICES WITHOUT BLEEDING (2) Ascites Code(s): R18.8 - OTHER ASCITES (3) Alcohol abuse Code(s): F10.10 - ALCOHOL ABUSE, UNCOMPLICATED Assessment/Plan Continue current care increase aldactone to 75 mg po bid continue lasix at 40 bid daily BUN, Cr, electrolytes parasentesis EGD for EV surveillance (2013) FFP +/- PLT, VIT K prior to paracentesis and EGD
--- NOTE | 2017-07-23 13:27 | PN ---
Progress Note (short form) - Note Progress Note: called Kelle Henriquez at [facility] documentation coordinator at [phone] left message on answering machine regarding transfer of patient to [facility] Problem List - Problems (1) Ascites Code(s): R18.8 - OTHER ASCITES (2) Total bilirubin, elevated Code(s): R17 - UNSPECIFIED JAUNDICE (3) Acute vomiting Code(s): R11.10 - VOMITING, UNSPECIFIED (4) Hepatorenal syndrome Code(s): K76.7 - HEPATORENAL SYNDROME
[2017-07-23 14:41] VITALS: PULSE 70
--- NOTE | 2017-07-23 15:12 | PN ---
Progress Note, Physician History of Present Illness: Pt seen and examined at bedside. He is awake and alert. He feels that his lower ext edema is improved. - Current Medication List Current Medications: Active Medications Carvedilol (Coreg -) 3.125 mg PO BID [facility] Last Admin: 07/23/17 09:51 Dose: 3.125 mg Furosemide (Lasix -) 40 mg PO BID@0600,1400 [facility] Last Admin: 07/23/17 13:39 Dose: 40 mg Morphine Sulfate (Morphine Injection -) 1 mg IVPUSH Q6H PRN PRN Reason: PAIN LEVEL 6-10 Last Admin: 07/22/17 11:34 Dose: 1 mg Ondansetron HCl (Zofran Injection) 4 mg IVPUSH Q4H PRN PRN Reason: NAUSEA AND/OR VOMITING Rifaximin (Xifaxan -) 550 mg PO BID [facility] Last Admin: 07/23/17 09:51 Dose: 550 mg - Objective Vital Signs: Vital Signs Temperature 98.2 F 07/23/17 14:40 Pulse Rate 70 07/23/17 14:40 Respiratory Rate 18 07/23/17 08:22 Blood Pressure 90/63 07/23/17 14:40 O2 Sat by Pulse Oximetry (%) 100 07/23/17 09:00 Constitutional: Yes: Calm Eyes: Yes: Sclera Icterus HENT: Yes: Atraumatic Neck: Yes: Supple Cardiovascular: Yes: S1, S2 Respiratory: Yes: CTA Bilaterally Gastrointestinal: Yes: Ascites Genitourinary: Yes: WNL Musculoskeletal: Yes: WNL Edema: Yes Edema: LLE: Trace, RLE: Trace Neurological: Yes: Oriented Psychiatric: Yes: Oriented Labs: CBC, BMP 07/23/17 06:00 07/23/17 06:00 INR, PTT INR 2.79 (0.82-1.09) H 07/23/17 06:00 Problem List - Problems (1) Acute vomiting Code(s): R11.10 - VOMITING, UNSPECIFIED (2) Ascites Code(s): R18.8 - OTHER ASCITES (3) Total bilirubin, elevated Code(s): R17 - UNSPECIFIED JAUNDICE (4) Anasarca Code(s): R60.1 - GENERALIZED EDEMA (5) Anemia Code(s): D64.9 - ANEMIA, UNSPECIFIED (6) Cirrhosis of liver with ascites Code(s): K74.60 - UNSPECIFIED CIRRHOSIS OF LIVER Qualifiers: Hepatic cirrhosis type: alcoholic cirrhosis Qualified Code(s): K70.31 - Alcoholic cirrhosis of liver with ascites (7) Elevated liver enzymes Code(s): R74.8 - ABNORMAL LEVELS OF OTHER SERUM ENZYMES Assessment/Plan Current Medications Generic Name Dose Route Start Last Admin Trade Name Freq PRN Reason Stop Dose Admin Carvedilol 3.125 mg 07/20/17 22:00 07/23/17 09:51 Coreg - PO 3.125 mg BID [facility] Administration Furosemide 40 mg 07/21/17 06:00 07/23/17 13:39 Lasix - PO 40 mg BID@0600,1400 [facility] Administration Morphine Sulfate 1 mg 07/22/17 11:20 07/22/17 11:34 Morphine Injection - IVPUSH 1 mg Q6H PRN Administration PAIN LEVEL 6-10 Ondansetron HCl 4 mg 07/20/17 15:44 Zofran Injection IVPUSH Q4H PRN NAUSEA AND/OR VOMITING Rifaximin 550 mg 07/20/17 22:00 07/23/17 09:51 Xifaxan - PO 550 mg BID [facility] Administration Impression 1. ROJAS 2. liver cirrhosis 3. thrombocytopenia 4. hx etoh abuse 5. hx hematuria 6. anemia 7. pancytopenia 8. fluid overload 9. ascites 10. hepatorenal syndrome 11. hypotension 12. vomiting Plan - cont current meds - alsactone held, will monitor labs and restart accordingly - possible transfer to liver center to - discussed with PMD - GI follow up - nausea and vomiting resolved Dr Melara
[2017-07-23 17:16] VITALS: BP 94/62; TEMP 98.7
[2017-07-23] MEDS ORDERED: SPIRONOLACTONE 25 MG TABLET (FP) PO SCH (22:00)
--- NOTE | 2017-07-24 09:32 | DS ---
Physical Examination Vital Signs: Vital Signs Temperature 98.7 F 07/23/17 17:15 Pulse Rate 70 07/23/17 17:15 Respiratory Rate 20 07/23/17 17:15 Blood Pressure 94/62 07/23/17 17:15 O2 Sat by Pulse Oximetry (%) 100 07/23/17 09:00 Labs: CBC, BMP 07/23/17 06:00 07/23/17 06:00 Discharge Summary Reason For Visit: ALCOHOLIC CIRRHOSIS Hospital Course: - Admission Chief Complaint: vomitting and abdominal pain 3 days History of Present Illness: 47-year-old male presents to the ED with complaints of nausea vomiting and generalized abdominal pain for the past 3 days. Patient states has had this discomfort before and normally gets medication for nausea along with morphine. Patient states history of alcoholic cirrhosis with ascites who is currently on the liver transplant list with [facility] and was seen by his liver specialist yesterday felt patient needed to decrease his salt intake and eat bland food. Patient states did attempt to do the recommended but symptoms continued. Patient has no complaints of rash, change in bowel pattern, change in urine pattern, chest pain, shortness of breath rash, or radiation of pain. History Source: Patient - Past Medical History Gastrointestinal: Yes: Ascites, Esophageal Varices Hepatobiliary: Yes: Cirrhosis (varices, ascites), Cholelithiasis, Other ( ALCOHOLIC CIRRHOSIS, CURRENT ETOH ABUSER) Renal/: Yes: Hematuria, Other (bladder cyst) Heme/Onc: Yes: Anemia, Thrombocytopenia, Other (pancytopenia ) Psych: Yes: Addictions - Past Surgical History Past Surgical History: Yes: Upper Endoscopy (egd + band ligation of esophageal varices 05/2013) in hospital patient found to have elevated TBil 14 and MELD 32 ultrasound of abdomen showed ascites in all four quadrants patient seen by GI and then transfer to [facility] for egd and paracentesis - Instructions Referrals: Nyla Bahena [Primary Care Provider] - Disposition: TRANSFER ACUTE CARE/OTHER HOSP - Home Medications Comprehensive Discharge Medication List: Ambulatory Orders Carvedilol 3.125 mg PO BID 06/19/17 Furosemide [Lasix] 40 mg PO DAILY 06/19/17 Magnesium Oxide [Mag-Ox -] 400 mg PO BID #60 tablet 07/05/17 Midodrine HCl [Proamatine -] 7.5 mg PO BID-MID #45 tablet 07/05/17 Rifaximin [Xifaxan -] 550 mg PO BID #60 tablet 07/05/17 Spironolactone [Aldactone -] 75 mg PO BID #180 tablet 07/05/17 hydrOXYzine HCL [Atarax -] 50 mg PO HS PRN #60 tablet 07/05/17
== END 2017-07-23 19:07 | disposition short-term general hospital (02) | DRG 279 ==
LOC: JER 10:59 → JERBED 15:34 → J6S 17:01
PROVIDERS: ADMIT Student in an Organized Health Care Education/Training Program; ATTEND Student in an Organized Health Care Education/Training Program
DX: K72.90 Hepatic failure, unspecified without coma (principal); K76.7 Hepatorenal syndrome; K70.31 Alcoholic cirrhosis of liver with ascites; I85.10 Secondary esophageal varices without bleeding; D64.9 Anemia, unspecified; D69.6 Thrombocytopenia, unspecified; D61.818 Other pancytopenia; R11.10 Vomiting, unspecified; F10.10 Alcohol abuse, uncomplicated; K42.9 Umbilical hernia without obstruction or gangrene; N32.89 Other specified disorders of bladder; R60.1 Generalized edema; R74.8 Abnormal levels of other serum enzymes; N17.9 Acute kidney failure, unspecified; E87.70 Fluid overload, unspecified; K52.9 Noninfective gastroenteritis and colitis, unspecified; N18.9 Chronic kidney disease, unspecified; K76.6 Portal hypertension; D68.9 Coagulation defect, unspecified
CPT/HCPCS: 36415; 74018-TC-FY; 76700-TC; 80053; 81003; 81015; 82105; 82140; 82150; 82248; 82977; 83010; 83615; 83690; 83735; 84100; 84550; 85025; 85044; 85610; 85730; 86140; 86850; 86900; 86901; 87086; 87205; 97116-GP; 97161-GP; 99283-25